=== PATIENT | female | born 1945 | race Caucasian/White ===

== ENCOUNTER 2018-03-11 12:17 | Observation (INO) | payer OTHER ==
--- NOTE | 2018-03-11 13:04 | RAD REPORT ---
EXAM DESCRIPTION: RAD - Chest Single View - 03/11/2018 12:58 pm CLINICAL HISTORY: CHEST PAIN Chest pain. COMPARISON: Chest Pa And Lat (2 Views) dated 01/02/2017; Chest Pa And Lat (2 Views) dated 11/10/2016; CHEST SINGLE VIEW dated 09/13/2014; CHEST SINGLE VIEW dated 05/31/2013 FINDINGS: Portable technique limits examination quality. The lungs are grossly clear. The heart is normal in size. No displaced fractures. IMPRESSION: No acute intrathoracic process suspected.
[2018-03-11 13:16] LABS: Absolute Lymphocytes (CBC) 1.6 K/uL (0.7-4.9); Absolute Monocytes 0.4 K/uL (0.1-1.3); Absolute Neutrophil 3.5 K/uL (1.8-8.0); Basophils % 0.6 % (0-1.3); Eosinophils % 1.4 % (0-4.4); Hematocrit 45.5 % (36.0-45.0); Lymphocytes % 28.4 % (15.3-44.8); MCH 29.8 pg (27.0-35.0); MCV 86.4 fL (80-100); MPV 8.3 fL (7.6-11.3); Monocytes % 7.5 % (3.3-12.3); Protime INR 1.06; RBC Red Blood Cell Count 5.26 M/uL (3.86-4.86)
[2018-03-11 13:39] LABS: ALT/SGPT 18 U/L (12-78); AST/SGOT 16 U/L (15-37); Albumin 3.6 g/dL (3.4-5.0); Alkaline Phosphatase 53 U/L (45-117); BUN Blood Urea Nitrogen 14 mg/dL (7-18); Bicarbonate 27 mmol/L (21-32); Bilirubin Direct 0.2 mg/dL (0-0.2); Bilirubin Total 0.6 mg/dL (0.2-1.0); Glucose Level 158 mg/dL (74-106); Lipase 173 U/L (73-393); Magnesium 1.8 mg/dL (1.8-2.4); NT PRO-BNP 1187 pg/mL (<125); Potassium 4.4 mmol/L (3.5-5.1); Protein, Total 7.6 g/dL (6.4-8.2); Sodium Level 140 mmol/L (136-145); Troponin (Emerg Dept Use Only) < 0.02 ng/mL (0.0-0.045)
[2018-03-11] MEDS ORDERED: ONDANSETRON 4 MG/2 ML VIAL ONE (13:51)
[2018-03-11] MEDS ORDERED: FENTANYL CITR 100 MCG/2 ML ONE ×2 (13:51→18:09)
--- NOTE | 2018-03-11 14:08 | RAD REPORT ---
EXAM DESCRIPTION: CT - Chest Abd Pelvis Wo Con - 03/11/2018 1:55 pm CLINICAL HISTORY: Chest and abdomen pain. chest pain. recent upper endoscopy COMPARISON: No comparisons TECHNIQUE: A noncontrast study was performed. All CT scans are performed using dose optimization technique as appropriate and may include automated exposure control or mA/KV adjustment according to patient size. FINDINGS: The lungs are clear.No pleural or pericardial effusion.No intrathoracic adenopathy. The liver, spleen, pancreas, adrenal glands and kidneys are within normal limits. Aortic atherosclero sis. No bowel obstruction, free air, free fluid or abscess. Scattered colonic diverticulosis. The appendix is not identified as a discrete structure, however, no secondary findings of appendicitis are identi fied. No pathologic lymphadenopathy in the abdomen or pelvis. Moderate aortoiliac atherosclerosis. Prominent degenerative spondylosis is noted with mild retrolisthesis of L1 on L2 and mild anterolisth esis of L4 on L5. IMPRESSION: No acute abnormality detected.
[2018-03-11] MEDS ORDERED: NITROGLYCERIN 1 GM PKT TD ONE (14:47)
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
[2018-03-11 16:36] LABS: Urine Blood NEGATIVE (NEG); Urine Glucose NEGATIVE (NEG); Urine Protein NEGATIVE (NEG); Urine Specific Gravity 1.015 (1.005-1.030)
[2018-03-11 16:58] LABS: Urine Bacteria <20 /HPF (<20); Urine Culture Reflex Order NOT NEEDED; Urine RBC <5 /HPF (NONE SEEN)
--- NOTE | 2018-03-11 19:24 | EKG ---
Test Date: 2018-03-11 Test Time: 12:46:21 Commercial Leasing Manager: GAGE MEASUREMENT RESULTS: Intervals: Rate: 79 IA: 150 QRSD: 80 QT: 394 QTc: 451 [place]: P: 36 IA: 150 QRS: 22 T: 113 INTERPRETIVE STATEMENTS: Sinus rhythm with occasional premature ventricular complexes T wave abnormality, consider lateral ischemia Abnormal ECG Compared to ECG 01/01/2017 18:32:25 Ventricular premature complex(es) now present Possible ischemia now present T-wave abnormality still present Electronically Signed On 03-11-18 19:22:48 CDT by Pedro Pablo Steen
[2018-03-11] MEDS ORDERED: PNEUMOCOCCAL VACCINE 0.5 ML IMVAC ONE (21:00)
[2018-03-11] MEDS ORDERED: ACETAMINOPHEN PO PRN (21:03)
[2018-03-11] MEDS ORDERED: HYDROCODONE BIT PO PRN (21:03)
[2018-03-11] MEDS: ACETAMINOPHEN 500 MG TAB PO PRN (22:59)
[2018-03-12 04:27] LABS: Absolute Lymphocytes (CBC) 2.5 K/uL (0.7-4.9); Absolute Monocytes 0.6 K/uL (0.1-1.3); Absolute Neutrophil 3.8 K/uL (1.8-8.0); Basophils % 0.3 % (0-1.3); Eosinophils % 1.4 % (0-4.4); Hematocrit 43.8 % (36.0-45.0); Lymphocytes % 35.9 % (15.3-44.8); MCV 86.6 fL (80-100); MPV 8.7 fL (7.6-11.3); Monocytes % 8.3 % (3.3-12.3); RBC Red Blood Cell Count 5.05 M/uL (3.86-4.86)
[2018-03-12 04:55] LABS: Potassium 4.1 mmol/L (3.5-5.1); Thyroid Stimulating Hormone 1.71 uIU/mL (0.360-3.740)
[2018-03-12] MEDS: ACETAMINOPHEN 500 MG TAB PO PRN (05:33)
--- NOTE | 2018-03-12 06:44 | HP ---
Date of Admission: 03/11/2018 Chief Complaint: Abdominal pain, chest pain. History Of Present Illness: A 72-year-old female patient who had EGD done last week on Sunday with Vinay Delacruz and she will be going for colonoscopy next week. Patient says her EGD showed gastritis and g astric ulcer, and she was started on proton pump inhibitor therapy. She has been having some upper a bdominal pain in the high epigastric region and some chest pain. She says her pain from upper abdome n radiates to her upper chest on the right side of the base of the neck and then right arm. Pain has been more or less continuous, getting worse, so she came into emergency room today; after she was ev aluated in the ER, she was admitted to the hospital. After some pain medication given to her in the emergency room, she has started to feel better; when I saw her, she was feeling much better. Medications: List reviewed. Review of Systems: GI: As mentioned above. Cardiovascular: As mentioned above. All other systems reviewed and negative. Allergies: ACCORDING TO OFFICE LIST SHE IS ALLERGIC TO TETRACYCLINE, SULFA, LYRICA, IODINE, HYDROCOD ONE, GABAPENTIN, AMOXICILLIN, ADHESIVE TAPE. Social History: Negative for smoking or alcohol use. Family History: Significant for diabetes mellitus, lupus, coronary artery disease. Past Surgical History: Removal of lipomas, carpal tunnel release, hernia repair, hip replacement, hy sterectomy, tonsillectomy, bladder suspension, and removal of benign tumor from breast. Past Medical History: Significant for hypertension, mixed hyperlipidemia, type 2 diabetes mellitus, overactive bladder, depression, gastroesophageal reflux disease, fatigue. Physical Examination: Vital Signs: Last temperature 97, pulse 83, respiratory rate 16, blood pressure 100/44. General: Awake, alert, oriented, not in distress. HEENT: Head atraumatic, normocephalic. Conjunctivae nonerythematous. Sclerae white. Mouth, no thr ush or edema noted. Ears/Nose, no mass, lesion, discharge noted. Neck: Supple. No JVD, lymph nodes, bruit, thyromegaly noted. Lungs: Bilateral good equal air entry. Clear to auscultation. No rhonchi. No rales. Heart: Normal heart sounds, no murmur or gallop. Abdomen: Soft, bowel sounds normal. No guarding, rigidity, tenderness, mass, hepatosplenomegaly, dis tention, or bruit noted. Extremities: No leg edema. No calf tenderness. Skin: No rash, ulcer, cellulitis. Lymphatics: No lymph node enlargement in neck, supraclavicular, infraclavicular region. Neuro: No focal neurological deficit. Chest: Unremarkable. External Genitalia: Deferred. Rectal: Deferred. Laboratory Data: White count 5.7, hemoglobin 15.7, platelets 137. Sodium 140, potassium 4.4, chlori de 106, bicarb 27, BUN 14, creatinine 0.80, glucose 158. Liver function tests unremarkable. Troponi n, less than 0.02 x 3. Lipase 173. Urinalysis; 1+ esterase, otherwise negative. CAT scan of the ch est, abdomen, and pelvis done in the emergency room shows no evidence of any acute abnormality. Elec trocardiogram; sinus rhythm, occasional premature ventricular complex. Chest x-ray, no acute cardiop ulmonary changes. Impression: 1.Chest pain. 2.Abdominal pain. 3.Hypertension. 4.Mixed hyperlipidemia. 5.Diabetes mellitus. 6.Gastroesophageal reflux disease. Plan: Admit the patient to hospital for further evaluation and management of this problem. The aster ent is appropriate for observation. We will get serial cardiac enzymes, consult Cardiology, and back pain medication will be given per order. DVT prophylaxis will be given per order. I will see her tomorrow morning for followup. AJAY/FREDI Voice ID: [id number]
[2018-03-12] MEDS ORDERED: REGADENOSON 0.4 MG/5 ML SYR IV ONE (08:10)
[2018-03-12] MEDS ORDERED: VALSARTAN PO SCH (09:00)
[2018-03-12] MEDS ORDERED: SERTRALINE PO SCH (09:00)
[2018-03-12] MEDS ORDERED: ASPIRIN EC 81 MG TAB PO SCH (09:00)
[2018-03-12] MEDS ORDERED: PANTOPRAZOLE SODIUM PO SCH (09:00)
[2018-03-12] MEDS ORDERED: HOME MED 1 EA UNK (Losartan Potassium [Cozaar] 1 TAB) PO SCH (09:00)
--- NOTE | 2018-03-12 11:15 | RAD REPORT ---
EXAM DESCRIPTION: NM - Rest Stress Cardiac Imaging - 03/12/2018 11:07 am CLINICAL HISTORY: Chest pain. COMPARISON: None. TECHNIQUE: The patient was administered approximately 10mCi of Tc 99m Sestamibi prior to resting SPE CT imaging of the heart. The patient was then administered approximately 30 mCi of Tc 99m Sestamibi f ollowing exercise or pharmacologic stress. Multiplanar SPECT images were reviewed. FINDINGS: Small area of diminished radiotracer activity involving the inferior left ventricular myoc ardium probably is secondary to attenuation from the diaphragm Otherwise there is uniformity of radiotracer activity involving the entire left ventricular myocardiu m on rest and stress images. The left ventricular ejection fraction equals 44% IMPRESSION: Negative for a myocardial perfusion defect
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
[2018-03-12] MEDS ORDERED: OXYBUTYNIN CHLORIDE PO SCH (17:30)
[2018-03-12] MEDS ORDERED: ROPINIROLE HCL PO SCH (17:30)
[2018-03-12] MEDS ORDERED: ATORVASTATIN CALCIUM PO SCH (17:30)
--- NOTE | 2018-03-13 06:30 | DS ---
Date of Discharge: 03/12/2018 Disposition: Discharged to go home. Physical Examination: HEENT: Unremarkable. Lungs: Clear to auscultation. Heart: Sounds normal. Abdomen: Soft. Bowel sounds normal. No guarding, rigidity, tenderness, or distention. Extremities: No leg edema. Labs: Today white count 7, hemoglobin 15.2, platelets 138. Sodium 140, potassium 4.1, chloride 104, bicarb 31, BUN 18, creatinine 0.90, glucose 158. Hemoglobin A1c 7.7. TSH 1.7. Troponin less than 0.02 x3. Lexiscan stress test negative for any stress-induced ischemia. Hospital Course: A 72-year-old female patient admitted to the hospital with chest pain and abdominal pain. Please see dictated H and P for more information. The patient was evaluated in the ER yester day. She was admitted to the hospital. WI was ruled out by getting serial cardiac enzymes. Cardiol ogy consultation was obtained from Dr. Steen. He ordered a stress test and echocardiogram. Stress test result was available and it was negative. Echocardiogram result was pending. We will follow u p on outpatient basis. The patient was asymptomatic this morning, had no chest pain or abdominal olegario n, and her condition was stable for discharge. I will follow up on outpatient basis. She is schedul ed to have colonoscopy next week with fuel retrofitting technician and I have encouraged her to keep that appoi ntment. Final Diagnoses: 1.Chest pain. 2.Abdominal pain. 3.Mixed hyperlipidemia. 4.Hypertension. 5.Diabetes mellitus, type 2, uncontrolled. 6.Gastroesophageal reflux disease. AJAY/MODL Voice ID: [id number] Report ID: [id number]
--- NOTE | 2018-03-14 07:01 | CON ---
Date of Consultation: 03/12/2018 Reason For Consultation: Chest pain. History Of Present Illness: Ms. Aparicio is known to us from previous office visits and admission. S he is 72 years old, has a history of hypertension, dyslipidemia, restless legs syndrome, gastroesopha geal reflux disease as well as diabetes. Had history of open ductus arteriosus when she was a child and that closed spontaneously. Apparently, had an upper GI and has had some chest pain that radiates to the right shoulder. Chest pain is sharp, stabbing. No nausea, vomiting, diaphoresis, PND, ortho pnea, pedal edema, palpitations, or syncope. Negative CPK, troponin, MB, negative BNP, chest x-ray, and EKG. Lexiscan is pending. Allergies: SHE IS ALLERGIC TO MORPHINE, TETRACYCLINE, AND IODINE. Review of Systems: Negative. Social History: Negative. Family History: Negative. Medications: Listed above. Physical Examination: Vital Signs: Stable, afebrile. HEENT: Negative. Neck: Supple. No bruit. Chest: Clear. Cardiac: Revealed a regular rhythm and rate. No murmurs, gallops, or rubs. Abdomen: Benign. Extremities: Revealed no clubbing, cyanosis, or edema. Diagnostic Data: As stated earlier. Impression And Plan: 1.Atypical chest pain, most likely gastric or musculoskeletal. She has multiple risk factors. Fatimah scan is pending. 2.Hypertension, well controlled. 3.Dyslipidemia, well controlled. 4.Gastroesophageal reflux disease. 5.Restless legs syndrome, on Requip. 6.Diabetes, well controlled. 7.History of open ductus arteriosus that closed spontaneously when she was a child. I will discuss the case further with Dr. Garner and see what the Lexiscan shows prior to making any final decisions. DAVID/FREDI Voice ID: [id number] Report ID: [id number]
== END 2018-03-12 15:35 | disposition home or self-care (01) ==
LOC: ER 12:17 → ERHOLD 15:49 → 4TH 17:12
PROVIDERS: ADMIT Internal Medicine; ATTEND Internal Medicine
DX: R07.9 Chest pain, unspecified (principal); R10.9 Unspecified abdominal pain; E78.2 Mixed hyperlipidemia; I10 Essential (primary) hypertension; E11.65 Type 2 diabetes mellitus with hyperglycemia; K21.9 Gastro-esophageal reflux disease without esophagitis; F32.9 Major depressive disorder, single episode, unspecified; Z96.649 Presence of unspecified artificial hip joint; Z88.0 Allergy status to penicillin; Z88.2 Allergy status to sulfonamides
CPT/HCPCS: 36415; 71045; 71250; 74176; 78452; 80048 ×2; 80076; 82962 ×2; 83036; 83690; 83735; 83880; 84443; 84484 ×3; 85025 ×2; 85610; 93005; 93017; 96374; 96375; 99285; A9500; G0378 ×2; J2405; J2785; J3010 ×2; 81003; 81015

== ENCOUNTER 2018-04-08 07:27 | Day surgery (SDC) | payer OTHER ==
[2018-04-08] MEDS ORDERED: Ringers Lactate 1,000 ML IV ONE (07:59)
[2018-04-08] MEDS ORDERED: CEFAZOLIN/SWI 1gm 1 GM/10 ML SYR ONE (07:59)
[2018-04-08] MEDS ORDERED: MIDAZOLAM HCL 2 MG/2 ML INJ ONE (08:32)
[2018-04-08] MEDS ORDERED: FENTANYL CITR 100 MCG/2 ML ONE (08:32)
[2018-04-08] MEDS ORDERED: PROPOFOL 200 MG/20 ML VIAL IV ONE (08:32)
[2018-04-08] MEDS ORDERED: ROCURONIUM 50 MG/5 ML VIAL IV ONE (08:33)
[2018-04-08] MEDS ORDERED: LIDOCAINE 2% MPF 5 ML VIAL ONE (08:33)
[2018-04-08] MEDS ORDERED: EPHEDRINE SULF 50 MG/10 ML SYR ONE (09:38)
[2018-04-08] MEDS ORDERED: NEOSTIGMINE 1 MG/ML -5 ML SYRINGE ONE (09:54)
[2018-04-08] MEDS ORDERED: KETOROLAC 30 MG/ML INJ ONE (09:54)
[2018-04-08] MEDS ORDERED: GLYCOPYRROLATE 0.2 MG/ML SYR ONE (09:54)
[2018-04-08] MEDS ORDERED: ONDANSETRON HCL 40 MG/20 ML VIAL ONE (09:54)
[2018-04-08] MEDS: MEPERIDINE HCL 50 MG/ML AMP ONE ×4 (10:08→10:30)
[2018-04-08] MEDS ORDERED: MEPERIDINE HCL 50 MG/ML AMP ONE (10:43)
[2018-04-08] MEDS ORDERED: ONDANSETRON 4 MG/2 ML VIAL ONE (10:59)
[2018-04-08] MEDS ORDERED: NA CHLORIDE 0.9% 500 ML ONE (11:19)
[2018-04-08] MEDS ORDERED: HYDROCODONE/APAP 7.5/325 MG TAB ONE (12:08)
--- NOTE | 2018-04-08 20:36 | OP ---
Date of Procedure: 04/08/2018 Surgeon: Ángel Starkey MD Parachute Marker: ALONDRA Werner. Preoperative Diagnoses: Chronic abdominal pain and umbilical hernia. Postoperative Diagnoses: Chronic abdominal pain and umbilical hernia. Procedures: Diagnostic laparoscopy, laparoscopic lysis of adhesions, laparoscopic repair of umbilica l hernia. Estimated Blood Loss: Minimal. Specimen: None. Findings: As above. Anesthesia: General. Complications: None. Disposition: The patient tolerated the procedure in stable condition and taken to Recovery in good g eneral condition. Procedure In Detail: The patient was brought to the OR and placed in supine position. General anest hesia was begun. The patient was prepped and draped in usual sterile fashion. Marcaine 0.5% was inf iltrated locally. A 15-blade was used to make a 2-cm left upper quadrant incision. Subcutaneous tis sues were divided. The fascia was identified and divided. A #1 Vicryl stay suture was placed. Meenakshi toneal cavity was entered with sharp and blunt dissection. A 12-mm trocar was placed into the perito omkar cavity under direct vision. Pneumoperitoneum was established, and two 5-mm trocars were placed in the left lower quadrant and the right upper quadrant. Laparoscopy revealed extensive midline inci hayde going all the way down to the pelvis and these were lysed with ligature, took approximately 15 t o 20 minutes to lyse all of these adhesions, following which there was no evidence of bleeding noted and no bowel injury. These were omental adhesions, and then, a small 2-cm umbilical hernia was ident ified, and a mesh balloon system was placed, Bard type, 4-inch one and with complete coverage of the hernia defect and this was deployed as well as secured with AbsorbaTack stapler and complete coverage of the hernia defect was accomplished. Then, all trocars were removed under direct vision. The com ponents of the balloon system were removed and it was completely intact. There was no evidence of bl eeding or bowel injury appreciated. Subsequently, all trocars were removed. Stay sutures were tied to each other across the fascial defect. Subcutaneous wounds were irrigated. Bleeding was controlle d with cautery. A 3-0 chromic was used for subcutaneous tissue and meredith were used to close the sk in. Sterile dressing was applied. The patient was awakened and taken to Recovery in good general co ndition. Discharge Note: The patient will go to Day Surgery and home when stable. Disposition: Home. Condition: Stable. Discharge Instructions: Resume home medications and diet. Activity as tolerated. No heavy lifting. Remove outer dressing in 2 days. Shower. Keep wound clean and dry. Follow up in my office in a [place]. Call for appointment. Tylenol No.3 one tablet p.o. q.4 p.r.n. pain. Abdominal binder, incenti ve spirometry as ordered. /MODL Voice ID: [id number] Report ID: [id number]
== END 2018-04-08 12:44 | disposition home or self-care (01) ==
LOC: OR 07:27
PROVIDERS: ATTEND Surgery
PROC: 0WUF4JZ Supplement Abdominal Wall with Synthetic Substitute, Percutaneous Endoscopic Approach (ICD-10-PCS; principal; 2018-04-08 09:00)
PROC: 0DNU4ZZ Release Omentum, Percutaneous Endoscopic Approach (ICD-10-PCS; 2018-04-08 09:00)
DX: K42.9 Umbilical hernia without obstruction or gangrene (principal); K66.0 Peritoneal adhesions (postprocedural) (postinfection); E11.9 Type 2 diabetes mellitus without complications; I10 Essential (primary) hypertension; Z86.73 Personal history of transient ischemic attack (TIA), and cerebral infarction without residual deficits; Z91.040 Latex allergy status; Z88.2 Allergy status to sulfonamides; Z91.041 Radiographic dye allergy status
CPT/HCPCS: 49329; 49652; 82962 ×2; C1781; J0690; J2175 ×2; J2405 ×2; J2710; J3010; J2250

== ENCOUNTER 2018-05-02 10:25 | Day surgery (SDC) | payer OTHER ==
[2018-05-01 11:30] LABS: Absolute Monocytes 0.5 K/uL (0.1-1.3); Absolute Neutrophil 4.8 K/uL (1.8-8.0); Basophils % 0.8 % (0-1.3); Eosinophils % 1.9 % (0-4.4); Hematocrit 47.1 % (36.0-45.0); Lymphocytes % 26.5 % (15.3-44.8); MCH 29.6 pg (27.0-35.0); MCV 87.1 fL (80-100); MPV 8.4 fL (7.6-11.3); Monocytes % 7.1 % (3.3-12.3); RBC Red Blood Cell Count 5.41 M/uL (3.86-4.86)
[2018-05-01 11:43] LABS: Potassium 4.6 mmol/L (3.5-5.1); Protime INR 1.11
[2018-05-02] MEDS ORDERED: NA CHLORIDE 0.9% 500 ML ONE (10:37)
[2018-05-02] MEDS ORDERED: HEPA 1000U/500MLS 1,000 UNIT/500 ML BAG IV ONE (11:15)
[2018-05-02] MEDS ORDERED: MIDAZOLAM HCL 2 MG/2 ML INJ ONE ×2 (11:16→11:24)
[2018-05-02] MEDS ORDERED: METHYLPREDNISOLONE 125 MG INJ ONE (11:16)
[2018-05-02] MEDS ORDERED: NA CHLORIDE 0.9% 0 ML ONE (11:16)
[2018-05-02] MEDS ORDERED: FENTANYL CITR 100 MCG/2 ML ONE (11:16)
[2018-05-02] MEDS ORDERED: ATROPINE SULF 1 MG/10 ML SYR IV ONE (11:16)
--- NOTE | 2018-05-02 23:06 | OP ---
Date of Procedure: 05/02/2018 Surgeon: Pedro Pablo Steen MD Shell Trim Tool Setter: Angie Lynch. Procedure: Left heart catheterization with selective coronary arteriogram. Indication: Abnormal stress test and chest pain. Indication: Mrs. Aparicio is 72, multiple cardiac risk factors. Had chest pain. Had actually Cardio lite that showed no ischemia, but she had reduction of her ejection fraction from normal to 44%. Had chest pain, dyspnea on exertion, admitted for catheterization as an outpatient on 05/02/2018. Procedure In Detail: She was prepped and draped in the routine sterile fashion, given 4 mg of Versed and 100 of fentanyl for sedation. A 6-[place] African sheath introduced in the left groin. Angio-Seal was u sed to close the case. Angiography there showed normal common femoral artery. Renata catheter was used to do the diagnostic catheterization. She was found to have moderate diffuse plaquing in the LA D and RCA and the circumflex, 70% first diagonal. She was right dominant with a 30% mid lesion in th e RCA, 20% distal RCA lesion. Ejection fraction by echo was 44%. Complications: None. Blood Loss: 5 cc. Postoperative Diagnosis: Moderate coronary artery disease. Plan: Plan is for medical therapy. I will probably add carvedilol to her regimen and have her incre ase her atorvastatin. Total conscious sedation is 30 minutes. DAVID/FREDI Voice ID: [id number] Report ID: [id number]
== END 2018-05-02 14:10 | disposition home or self-care (01) ==
LOC: CCL 10:25
DX: I25.110 Atherosclerotic heart disease of native coronary artery with unstable angina pectoris (principal); I35.1 Nonrheumatic aortic (valve) insufficiency; E78.6 Lipoprotein deficiency; E11.9 Type 2 diabetes mellitus without complications; Z88.6 Allergy status to analgesic agent; Z88.2 Allergy status to sulfonamides; Z88.8 Allergy status to other drugs, medicaments and biological substances; Z91.041 Radiographic dye allergy status; Z91.040 Latex allergy status; Z91.09 Other allergy status, other than to drugs and biological substances
CPT/HCPCS: 36415; 80048; 82962; 85025; 85610; 85730; 93454; C1760; C1893; J2250 ×2; J2930; J3010; J0583

== ENCOUNTER 2019-10-06 08:09 | Emergency (ER) | payer OTHER ==
--- OUTSIDE RECORDS SUMMARY | 2019-10-06 08:27 | XMS REPORT ---
:1945 Author Organization [facility] t Address [address] [place] [address] Dr. Walton [address] [place] [id number] Care Team Providers Name Role Phone Unavailable Unavailable Unavailable Problems This patient has no known problems. Allergies, Adverse Reactions, Alerts This patient has no known allergies or adverse reactions. Medications This patient has no known medications.
--- NOTE | 2019-10-06 10:22 | RAD REPORT ---
EXAM DESCRIPTION: Marvin Parra (2 Views)10/06/2019 10:05 am CLINICAL HISTORY: Chest pain COMPARISON: 2018 FINDINGS: The lungs appear clear of acute infiltrate. The heart is normal size IMPRESSION: No acute abnormalities displayed
[2019-10-06 10:39] LABS: Absolute Lymphocytes (CBC) 2.5 K/uL (0.7-4.9); Basophils % 0.6 % (0-1.3); Hematocrit 41.4 % (36.0-45.0); Lymphocytes % 31.3 % (15.3-44.8); MPV 7.8 fL (7.6-11.3); RBC Red Blood Cell Count 4.89 M/uL (3.86-4.86)
[2019-10-06 10:57] LABS: ALT/SGPT 17 U/L (12-78); AST/SGOT 14 U/L (15-37); Albumin 3.4 g/dL (3.4-5.0); Alkaline Phosphatase 65 U/L (45-117); BUN Blood Urea Nitrogen 29 mg/dL (7-18); Bicarbonate 26 mmol/L (21-32); Bilirubin Total 0.3 mg/dL (0.2-1.0); Glucose Level 221 mg/dL (74-106); Lipase 248 U/L (73-393); Protein, Total 7.6 g/dL (6.4-8.2); Sodium Level 141 mmol/L (136-145); Troponin (Emerg Dept Use Only) < 0.02 ng/mL (0.0-0.045)
[2019-10-06] MEDS ORDERED: ONDANSETRON 4 MG/2 ML VIAL ONE (11:04)
[2019-10-06] MEDS ORDERED: FENTANYL CITR 100 MCG/2 ML ONE (11:04)
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
[2019-10-06 11:35] LABS: Urine Blood NEGATIVE (NEG); Urine Glucose TRACE (NEG); Urine Protein NEGATIVE (NEG); Urine Specific Gravity 1.025 (1.005-1.030)
[2019-10-06 12:02] VITALS: O2SAT 98
[2019-10-06 12:04] VITALS: BP 157/60; TEMP 98.6
--- NOTE | 2019-10-06 16:17 | EKG ---
Test Date: 2019-10-06 Test Time: 08:45:24 Bat Person: FADIA MEASUREMENT RESULTS: Intervals: Rate: 81 WA: 150 QRSD: 82 QT: 392 QTc: 455 [place]: P: 33 WA: 150 QRS: 19 T: 99 INTERPRETIVE STATEMENTS: Normal sinus rhythm Nonspecific T wave abnormality Abnormal ECG Compared to ECG 03/11/2018 15:13:37 No significant changes Electronically Signed On 10-06-19 16:16:11 CDT by Pedro Pablo Steen
== END 2019-10-06 11:44 | disposition home or self-care (01) ==
LOC: ER 08:09
DX: S29.011A Strain of muscle and tendon of front wall of thorax, initial encounter (principal); S29.012A Strain of muscle and tendon of back wall of thorax, initial encounter; E11.9 Type 2 diabetes mellitus without complications; E78.5 Hyperlipidemia, unspecified; Z79.82 Long term (current) use of aspirin; Z88.1 Allergy status to other antibiotic agents; Z88.2 Allergy status to sulfonamides; Z88.3 Allergy status to other anti-infective agents; Z88.5 Allergy status to narcotic agent; Z88.8 Allergy status to other drugs, medicaments and biological substances; Z91.040 Latex allergy status; Z91.048 Other nonmedicinal substance allergy status
CPT/HCPCS: 93005; 85025; 36415; 85379; 81003; 84484; 83690; 80053; 71046; J3010; J2405; 96374; 96375; 99285

== ENCOUNTER 2022-02-27 06:57 | Emergency (ER) | payer OTHER ==
--- OUTSIDE RECORDS SUMMARY | 2022-02-27 07:01 | XMS REPORT | Continuity of Care Document ---
:1945 Author Organization [facility] t Address [address] [place] [address] Care Team Providers Name Role Phone ABIGAIL MUNOZ Primary Care Physician Unavailable SURAJ PATEL Attending Clinician Unavailable JURGEN CANNON Attending Clinician Unavailable Doctor Unassigned, [place] Attending Clinician Unavailable Suraj Patel MD Attending Clinician Payers Payer Name Policy Type Policy Number Effective Date Expiration Date [facility] [id number] 2020 [facility] 00:00:00 PPO Problems Condition Condition Condition Status Onset Resolution Last Treating Co mments Source Name Details Category Date Date Treatment Clinician Date Abscess of Abscess of Disease Active U nivers groin, groin, 03-10 ity of right right 00:00: [place] 00 Medical Branch S/P TAVR S/P TAVR Disease Active 2020 Unive rs (transcath (transcath 03-04 it y of eter eter 00:00: [place] aortic aortic 00 Medical valve valve Branch replacemen replacemen t) t) Aortic Aortic Disease Active Overview: Univer s valve valve 02-24 Formattin ity of stenosis, stenosis, 00:00: g of this [place] etiology etiology 00 note Medica l of cardiac of cardiac might be Branch valve valve different disease disease from the unspecifie unspecifie original. d d Added automatic ally from request for surgery [id number] Cardiogeni Cardiogeni Disease Active U nivers c shock c shock 7-11 ity of 00:00: [place] [facility] Elevated Elevated Disease Active Unive rs troponin troponin 7 ity of 00:00: [place] [facility] Acute Acute Disease Active Univers diastolic diastolic 12-29 ity of congestive congestive 00:[place] heart heart 00 Medical failure failure Branch Other Other Disease Active Univers chest pain chest pain 12-29 it y of 00:00: [place] [facility] History of History of Disease Active U nivers arterial arterial 12-29 ity of ischemic ischemic 00:00: [place] stroke stroke 00 Medical Branch Obesity Obesity Disease Active Univers (BMI (BMI 7 ity of 30-39.9) 30-39.9) 00:00: [place] [facility] NSTEMI NSTEMI Disease Active Univers (non-ST (non-ST 12-29 ity of elevated elevated 00:00: [place] myocardial myocardial 00 Me dical infarction infarction Br anch ) ) Dysphagia Dysphagia Disease Active Uni vers 707 ity of 00:00: [place] [facility] Nonobstruc Nonobstruc Disease Active 2017-06 U nivers tive tive 1-13 ity of atheroscle atheroscle 00:[place] rosis of rosis of 00 Medica l coronary coronary 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 This diagnosis is questiona ble according to her; she has had high sed ratesICD1 0 Diagnosis Term [employer] Myalgia Myalgia Disease Active Overview: Univ ers and and Formattin ity of myositis myositis g of this [place] as note Medical might be Branch different from the original. Has malaise, and flu-like symptoms, and sometimes a low grade temperatu reICD10 Diagnosis Term [employer] Backache Backache Disease Active Overview: Un jose Formattin ity of g of this [place] note Medical might be Branch different from the original. Pt has chronic back [id number] Diagnosis Term [employer] Type 2 Type 2 Disease Active Overview: Univer s diabetes diabetes Formattin ity of mellitus mellitus g of this [place] as with with note Medical cardiac cardiac might be Branch complicati complicati different on on from the original. Type IIICD10 Diagnosis Term [employer] Diabetic Diabetic Disease Active Overview: Un jose polyneurop polyneurop Formattin ity of athy athy g of this [place] note Medical might be Branch different from the original. ICD10 Diagnosis Term [employer] Esophageal Esophageal Disease Active U nivers reflux reflux ity of [facility] Branch Generalize Generalize Disease Active U nivers d d ity of osteoarthr osteoarthr [place] osis, osis, Medical unspecifie unspecifie Br anch d site d site Transient Transient Disease Active Overview: Univers cerebral cerebral Formattin ity of ischemia ischemia g of this [place] as note Medical might be Branch different from the original. 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 ICD10 Diagnosis Term [employer] Allergies, Adverse Reactions, Alerts Allergy Allergy Status Severity Reaction(s) Onset Inactive Treating Comm ents Source Name Type Date Date Clinician Empaglif Propensi Active Swelling 2017-06 Univ ers lozin ty to 07-07 ity of adverse 00:00: [place] reaction 00 Medical s Branch EMPAGLIF DRUG Active Swelling 2017-06 Univer s LOZIN INGREDI 07-07 ity of 00:00: [place] 00 Medical Branch Adalimum Propensi Active Other - See 2014-06 Pt U nivers ab ty to comments developed ity o f adverse 00:00: fatty [place] reaction tumors Medical s to all over Branch drug body Inflixim Propensi Active Shortness of 2014-06 Univers ab ty to Breath ity of adverse 00:00: [place] reaction Medical s to Branch drug INFLIXIM DRUG Active High SOB 2014-06 Univers AB INGREDI 0 ity of 00:00: [place] 00 Medical Branch ADALIMUM DRUG Active Med Other-Cmnt 2014-06 Univ ers AB INGREDI 0 ity of 00:00: [place] 00 Medical Branch Methocar Propensi Active Swelling Univ ers bamol ty to 03-23 ity of adverse 00:00: [place] reaction Medical s to Branch drug METHOCAR DRUG [facility] 03-23 ity of 00:00: [place] 00 Medical Branch Pregabal Propensi Active Anaphylaxis U nivers in ty to 12-23 ity of adverse 00:00: [place] reaction Medical s to Branch drug Morphine Propensi Active Hallucinatio Univers ty to ns 12-23 ity of adverse 00:00: [place] reaction 00 Medical s Branch PREGABAL DRUG Active High Anaphylaxis Uni vers IN INGREDI 12-23 ity of 00:00: [place] 00 Medical Branch MORPHINE DRUG Active Hallucinates Un jose INGREDI 12-23 ity of 00:00: [place] 00 Medical Branch Iodine Propensi Active Swelling 2007-0 Univer s And ty to 09 ity of Iodide adverse 00:00: [place] Containi reaction 00 Medica l ng s to Branch Products drug Sulfa Propensi Active Anxiety Head Univers (Sulfona ty to 09 Aches ity of mide adverse 00:00: [place] Antibiot reaction 00 Medica l ics) s Branch Adhesive Propensi Active Hives Also Univer s Tape ty to 10-01 Surgical ity of adverse 00:00: tape [place] reaction 00 Medical s Branch Tetracyc Propensi Active Anaphylaxis 2006- U nivers line ty to 09 ity of adverse 00:00: [place] reaction 00 Medical s to Branch drug TETRACYC DRUG Active High Anaphylaxis 2006- Uni vers LINE INGREDI - ity of 00:00: [place] 00 Medical Branch IODINE Drug Active Med Swelling Univers AND Class 4-09 ity of IODIDE 00:00: [place] CONTAINI 00 Medical NG Branch PRODUCTS SULFA Drug Active Anxiety Univers (SULFONA Class -09 ity of MIDE 00:00: [place] ANTIBIOT 00 Medical ICS) Branch ADHESIVE DRUG Active Hives Univers TAPE 09 ity of 00:00: [place] 00 Medical Branch Iodine Propensi Active Swelling Univer s And ty to 09 ity of Iodide adverse 00:00: [place] Containi reaction 00 Medica l ng s to Branch Products drug Sulfa Propensi Active Anxiety Head Univers (Sulfona ty to 09 Aches ity of mide adverse 00:00: [place] Antibiot reaction 00 Medica l ics) s Branch Social History Social Habit Start Date Stop Date Quantity Comments Source History [facility] Food Univers ity of Scarcity [place] [facility] History [facility] o f Alcohol Frequency [facility] [place] [facility] edical Branch History [facility] University o f Alcohol Std [place] Medical Drinks Branch History [facility] o f Alcohol Binge [place] Medic al Branch Exposure to Not sure University of SARS-CoV-2 [facility] (event) Branch Alcohol intake 2021-09-07 2021-09-07 Current non-drinker U niversity of 00:00:00 00:00:00 of alcohol [place] Medical (finding) Branch History [facility] 2020-03-10 2020-03-10 5 University o f Financial 00:00:00 00:00:00 [place] [facility] History SDOH Food 2020-03-10 2020-03-10 1 Univers ity of Worry 00:00:00 00:00:00 [place] [facility] History SDFL 2020-03-10 2020-03-10 2 University o f Transport Med 00:00:00 00:00:00 [place] Medic al Branch History SDFL 2020-03-10 2020-03-10 2 University o f Transport Non-Med 00:00:00 00:00:00 [place] M edical Branch Tobacco Comment 2006-10-01 2006-10-01 Quit more than Unive rsity of 00:00:00 00:00:00 thirty some years [place] M amaical ago Branch Alcohol Comment 2006-10-01 2006-10-01 Drinks ETOH very Uni versity of 00:00:00 00:00:00 occasionally [place] Medica l Branch Sex [birth year] Universit y of 00:00:00 00:00:00 [facility] Smoking Status Start Date Stop Date Source Former smoker 2020-06-29 00:00:00 2020-06-29 00:00:00 Universi ty of [facility] Medications Ordered Filled Start Stop Current Ordering Indication Dosage Frequency Signature Comments Components Source Medication Medication Date Date Medication? Clinician (SIG) Name Name semaglutide Yes [id number] .5mg inject 0.5 Univers (OZEMPIC) 3-08 mg under ity of 0.25 mg or 00:00: the skin [place] as 0.5 mg(2 00 weekly. Medical mg/1.5 mL) Branch PnIj semaglutide Yes [id number] .5mg inject 0.5 Univers (OZEMPIC) 3-08 mg under ity of 0.25 mg or 00:00: the skin [place] as 0.5 mg(2 00 weekly. Medical mg/1.5 mL) Branch PnIj Lancets 2020-06 Yes Use as Univers (ACCU-CHEK 2-21 directed ity o f SOFTCLIX 00:00: BID to [place] LANCETS) 00 check Medical Misc glucose Branch levels blood sugar 2020-06 Yes Use as Univ ers diagnostic 2-21 directed ity o f (ACCU-CHEK 00:00: to check [place] as GUIDE TEST 00 glucose Medica l STRIPS) levels BID Branch strip Blood-Gluco 2020-06 Yes Use as Univ ers se Meter 2-21 directed ity of (ACCU-CHEK 00:00: to check [place] as GUIDE 00 glucose Medical GLUCOSE BID Branch METER) Misc Lancets 2020-06 Yes Use as Univers (ACCU-CHEK 2-21 directed ity o f SOFTCLIX 00:00: BID to [place] LANCETS) 00 check Medical Misc glucose Branch levels blood sugar 2020-06 Yes Use as Univ ers diagnostic 2-21 directed ity o f (ACCU-CHEK 00:00: to check [place] as GUIDE TEST 00 glucose Medica l STRIPS) levels BID Branch strip Blood-Gluco 2020-06 Yes Use as Univ ers se Meter 2-21 directed ity of (ACCU-CHEK 00:00: to check [place] as GUIDE 00 glucose Medical GLUCOSE BID Branch METER) [facility] famotidine 2020-06 Yes 20mg Take 20 mg U nivers 20 mg 2-08 by mouth 2 ity of tablet 10:31: (two) [place] 58 times Medical daily. Branch NaCl 0.9% 2020-06 Yes CONTINUOUS Un jose (NS) SolP 2-08 . ity of 60 mL with 10:31: [place] Nitroglycer 58 Medical in 50 mg/10 Branch mL (5 mg/mL) Soln 24 mg rosuvastati 2020-06 Yes 10mg Take 10 mg Univers n 10 mg 2-08 by mouth ity of tablet 10:31: at [place] [address] bedtime. Medical Branch fluticasone 2020-06 Yes Inhale. Uni vers furoate 50 2-08 ity of mcg/actuati 10:31: [place] on DsDv 58 Medical Branch famotidine 2020-06 Yes 20mg Take 20 mg U nivers 20 mg 2-08 by mouth 2 ity of tablet 10:31: (two) [place] 58 times Medical daily. Branch NaCl 0.9% 2020-06 Yes CONTINUOUS Un jose (NS) SolP 2-08 . ity of 60 mL with 10:31: [place] Nitroglycer 58 Medical in 50 mg/10 Branch mL (5 mg/mL) Soln 24 mg rosuvastati 2020-06 Yes 10mg Take 10 mg Univers n 10 mg 2-08 by mouth ity of tablet 10:31: at [place] [address] bedtime. Medical Branch fluticasone 2020-06 Yes Inhale. Uni vers furoate 50 2-08 ity of mcg/actuati 10:31: [place] on DsDv 58 Medical Branch albuterol 2020-06 Yes [id number] 2{puff} Inhale 2 Univers 90 2-08 Puffs ity of mcg/actuati 00:00: every 6 [place] as on inhaler 00 (six) Medical hours as Branch needed for Wheezing or Shortness of Breath. albuterol 2020-06 Yes [id number] 2{puff} Inhale 2 Univers 90 2-08 Puffs ity of mcg/actuati 00:00: every 6 [place] as on inhaler 00 (six) Medical hours as Branch needed for Wheezing or Shortness of Breath. metformin Yes [id number] 500mg Take 1 U nivers ER 500 mg 9-08 tablet by ity o f 24 hr 00:00: mouth [place] tablet 00 daily with Medical breakfast. Branch metformin Yes [id number] 500mg Take 1 U nivers ER 500 mg 9-08 tablet by ity o f 24 hr 00:00: mouth [place] tablet 00 daily with Medical breakfast. Branch semaglutide 2021- No [id number] .5mg inject 0.5 Univers (OZEMPIC) 9-08 03-08 mg under ity o f 0.25 mg or 00:00: 00:00 the [place] 0.5 mg(2 00 :00 weekly. Medical mg/1.5 mL) Branch PnIj docusate Yes 100mg Take 100 Univ ers (COLACE) 1-05 mg by ity of 100 mg 15:32: mouth 2 [place] capsule 44 (two) Medical times Branch daily as needed for Constipati on. mirtazapine Yes 7.5mg Take 7.5 U nivers 7.5 mg 1-05 mg by ity of tablet 15:32: mouth at [place] 44 bedtime. Medical Branch SERTraline Yes 100mg Take 100 Un jose 100 mg 1-05 mg by ity of tablet 15:32: mouth 2 [place] 44 (two) Medical times Branch daily. oxybutynin Yes 5mg Take 5 mg Un jose chloride 5 1-05 by mouth ity o f mg tablet 15:32: as needed. [place] 44 Medical Branch docusate 0 Yes 100mg Take 100 Univ ers (COLACE) 1-05 mg by ity of 100 mg 15:32: mouth 2 [facility] 44 (two) Medical times Branch daily as needed for Constipati on. mirtazapine 0 Yes 7.5mg Take 7.5 U nivers 7.5 mg 1-05 mg by ity of tablet 15:32: mouth at [place] [address] bedtime. Medical Branch SERTraline 0 Yes 100mg Take 100 Un jose 100 mg 1-05 mg by ity of tablet 15:32: mouth 2 [place] 44 (two) Medical times Branch daily. oxybutynin 0 Yes 5mg Take 5 mg Un jose chloride 5 1-05 by mouth ity o f mg tablet 15:32: as needed. [place] [id number] Medical Branch furosemide 2020-1 Yes 20mg Take 1 Unive rs 20 mg 0-27 tablet by ity of tablet 00:00: mouth [place] 00 every Medical morning Branch and evening. furosemide 2020-1 Yes 20mg Take 1 Unive rs 20 mg 0-27 tablet by ity of tablet 00:00: mouth [place] 00 every Medical morning Branch and evening. acetaminoph 2020-0 Yes [id number] 1{tbl} Take 1 Un jose en-codeine 9-12 tablet by ity of 300-30 mg 00:00: mouth [place] tablet 00 every 6 Medical (six) Branch hours as needed for Pain (scale 4-6) or Pain (scale 7-10). Indication s: acute pain acetaminoph 2020-0 Yes [id number] 1{tbl} Take 1 Un jose en-codeine 9-12 tablet by ity of 300-30 mg 00:00: mouth [place] tablet 00 every 6 Medical (six) Branch hours as needed for Pain (scale 4-6) or Pain (scale 7-10). Indication s: acute pain nitroglycer 2020-[id number] 1 Univers in 0.4 mg 8-19 tablet ity of sublingual 00:00: under the [place] tablet 00 tongue Medical every 5 Branch (five) minutes as needed for Chest pain. nitroglycer 2020-[id number] 1 Univers in 0.4 mg 8-19 tablet ity of sublingual 00:00: under the [place] tablet 00 tongue Medical every 5 Branch (five) minutes as needed for Chest pain. atorvastati 2020-0 Yes [id number] 40mg Take 1 Univers n 40 mg 7-21 tablet by ity of tablet 00:00: mouth [place] 00 daily. Medical Branch clopidogreL 2020-0 Yes [id number] 75mg Take 1 Univers 75 mg 7-21 tablet by ity of tablet 00:00: mouth [place] 00 daily. Medical Branch aspirin 81 2020-0 Yes [id number] 81mg Take 1 U nivers mg chewable 7-21 tablet by ity of tablet 00:00: mouth [place] 00 daily. Medical Branch atorvastati 2020-0 Yes [id number] 40mg Take 1 Univers n 40 mg 7-21 tablet by ity of tablet 00:00: mouth [place] 00 daily. Medical Branch clopidogreL 2020-0 Yes [id number] 75mg Take 1 Univers 75 mg 7-21 tablet by ity of tablet 00:00: mouth [place] 00 daily. Medical Branch aspirin 81 2020-0 Yes [id number] 81mg Take 1 U nivers mg chewable 7-21 tablet by ity of tablet 00:00: mouth [place] 00 daily. Medical Branch Immunizations Ordered Filled Immunization Date Status Comments [facility] e Immunization Name Name Influenza High Dose 2020-04-26 Completed Unive rsity of 00:00:00 [facility] Influenza High Dose 2020-04-26 Completed Unive rsity of 00:00:00 [facility] Influenza Virus 1991-06-25 Completed Universit y of Vaccine 00:00:00 [facility] Pneumococcal 1991-06-25 Completed [place] o f Polysaccharide, 00:00:00 [place] Med ical PPSV23 (PNEUMOVAX) Branch Influenza Virus 1991-06-25 Completed Universit y of Vaccine 00:00:00 [facility] Pneumococcal 1991-06-25 Completed [place] o f Polysaccharide, 00:00:00 [place] Med ical PPSV23 (PNEUMOVAX) Branch Vital Signs Vital Name Observation Time Observation Value Comments Source Systolic blood 2021-09-22 00:18:00 133 mm[Hg] Univer sity [facility] pressure Medical [place] Diastolic blood 2021-09-22 00:18:00 68 mm[Hg] Unive rsity of [facility] Body height 2021-09-22 00:18:00 162.6 cm Universi ty [facility] Body weight 2021-09-22 00:18:00 86.183 kg [facility] BMI 2021-09-22 00:18:00 32.61 kg/m2 [facility] Procedures Procedure Date / Time Performed Performing Clinician Sour e EXTERNAL PROVIDER 2021-10-12 05:01:00 Doctor Unassigned, No Univ [facility] RECORDS Name [facility] POCT HEMOGLOBIN A1C 2021-08-30 19:18:00 Suraj Patel [facility] Encounters Start End Encounter Admission Attending Care Care Encounter Source Date/Time Date/Time Type Type Clinicians Facility Department ID 2022-06-27 2022-06-27 Outpatient R JEANETTE [facility] [id number] Univers 14:00:00 14:00:00 [facility] [id number] [facility] 2022-03-07 2022-03-07 Outpatient R JEANETTE [facility] [id number] Univers 13:00:00 13:00:00 [facility] 2021-12-14 2021-12-14 Outpatient R KASSANDRA [facility] [id number] Univers 10:30:00 10:30:00 JURGEN [facility] 2021-10-12 2021-10-12 Orders Doctor DOUGLAS [id number] Univers 00:00:00 00:00:00 Only Unassigned, DOMONIQUE [id number] ity of [place] [facility] [id number] [place] as [id number] [address] 2021-08-30 2021-08-[address] [facility] [id number] Univers 13:00:00 14:06:24 Visit [facility] [id number] it y of [place] [id number] [place] as KENDAL?BLEA [phone] Tn maureen [address] MEDICAL OFFICE BUILDING 2021-08-30 2021-08-30 Outpatient R JEANETTE [facility] [id number] Univers 13:00:00 14:06:24 [facility] 2020-06-29 2020-06-[address] [facility] [id number] 15:07:47 16:11:28 Visit Suraj Alarcon [id number] [place] [id number] [place] [phone] [address] 2020-06-29 2020-06-29 Orders Doctor STELLA [id number] 00:00:00 00:00:00 Only Unassigned, DOMONI[place] [id number] [place] [facility] [id number] [id number] Results Test Description Test Time Test Comments Results Result Comments Source POCT HEMOGLOBIN A1C TEST 2021-08-30 19:18:00 Test Item Value Reference Range Interpretation Comme nts POCT HBA1C (test code = 4548-4) 6.5 % 4-6 A Lab Interpretation (test code = 96805-6) Abnormal [facility]
[2022-02-27 07:37] LABS: Absolute Lymphocytes (CBC) 2.1 K/uL (0.7-4.9); Lymphocytes % 27.2 % (15.3-44.8); MCV 83.7 fL (80-100); MPV 7.7 fL (7.6-11.3); RBC Red Blood Cell Count 5.74 M/uL (3.86-4.86)
[2022-02-27 07:53] LABS: Albumin 3.7 g/dL (3.4-5.0); Bilirubin Total 0.4 mg/dL (0.2-1.0); Potassium 4.4 mmol/L (3.5-5.1); Protein, Total 7.9 g/dL (6.4-8.2)
--- NOTE | 2022-02-27 08:04 | RAD REPORT ---
EXAM DESCRIPTION: CT - Abdomen Pelvis Wo Contrast - 02/27/2022 7:50 am CLINICAL HISTORY: Abdominal pain /left lower quadrant pain COMPARISON: 2019 ultrasound TECHNIQUE: Computed axial tomography of the abdomen and pelvis was obtained. IV and oral contrast we re not requested. All CT scans are performed using dose optimization technique as appropriate and may include automated exposure control or mA/KV adjustment according to patient size. FINDINGS: The evaluation of solid organs, vessels and bowel is limited secondary to the lack of con trast administration. The liver, spleen, pancreas, adrenals and kidneys appear grossly normal. The wall of distal stomach appears mildly thickened. There is no evidence of diverticulitis. Right hip arthroplasty Spondylosis lumbar spine. Atherosclerosis Hysterectomy. No adnexal mass IMPRESSION: Mild thickening of the wall of distal stomach may indicate mild inflammation.
[2022-02-27] MEDS ORDERED: NA CHLORIDE 0.9% 1,000 ML ONE (08:05)
[2022-02-27] MEDS ORDERED: FAMOTIDINE 20 MG/2 ML VIAL IV ONE (08:05)
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
[2022-02-27 09:58] VITALS: TEMP 97.3
[2022-02-27 10:00] VITALS: O2SAT 98
[2022-02-27 10:10] VITALS: BP 133/57
== END 2022-02-27 09:16 | disposition home or self-care (01) ==
LOC: ER 06:57
DX: R10.32 Left lower quadrant pain (principal); E11.9 Type 2 diabetes mellitus without complications; E78.5 Hyperlipidemia, unspecified; F17.210 Nicotine dependence, cigarettes, uncomplicated; Z79.82 Long term (current) use of aspirin; Z86.73 Personal history of transient ischemic attack (TIA), and cerebral infarction without residual deficits; Z88.1 Allergy status to other antibiotic agents; Z88.2 Allergy status to sulfonamides; Z88.5 Allergy status to narcotic agent; Z88.8 Allergy status to other drugs, medicaments and biological substances; Z91.040 Latex allergy status; Z91.041 Radiographic dye allergy status; Z91.048 Other nonmedicinal substance allergy status
CPT/HCPCS: 96361; 85025; 36415; 83690; 80053; 74176; 96374; 99284; J7030

== ENCOUNTER 2022-03-08 07:00 | Day surgery (SDC) | payer OTHER ==
[2022-03-06 12:26] LABS: SARS-CoV-2 Antigen Rapid Res Negative (Negative)
[2022-03-06 12:29] LABS: Protime INR 1.09
[2022-03-08] MEDS ORDERED: HEPA 1000U/500MLS 0 UNIT/0 ML BAG IV ONE (07:18)
[2022-03-08] MEDS ORDERED: LIDOCAINE 1% 20 ML MDV ONE (07:18)
[2022-03-08] MEDS ORDERED: FENTANYL CITR 100 MCG/2 ML ONE ×2 (07:27→09:05)
[2022-03-08] MEDS ORDERED: HEPARIN 10,000 UNIT/10 ML VIAL IV ONE (07:28)
[2022-03-08] MEDS ORDERED: MIDAZOLAM HCL 2 MG/2 ML INJ ONE ×2 (07:28→09:05)
[2022-03-08] MEDS ORDERED: NITROGLYCERIN 100 MCG/ML SYR (for cath lab use only) IV ONE (07:28)
[2022-03-08] MEDS ORDERED: NITROGLYCERIN/D5W 25 MG/250 ML BTL IV ONE (07:28)
[2022-03-08] MEDS ORDERED: CLOPIDOGREL 75 MG TABLET ONE (07:32)
[2022-03-08] MEDS ORDERED: NA CHLORIDE 0.9% 500 ML ONE ×2 (07:34→07:41)
[2022-03-08] MEDS ORDERED: NA CHLORIDE 0.9% 1,000 ML ONE (07:47)
[2022-03-08] MEDS ORDERED: HEPA 1000U/500MLS 1,000 UNIT/500 ML BAG IV ONE (07:52)
[2022-03-08] MEDS ORDERED: DIPHENHYDRAMINE 50 MG/ML VIAL ONE (08:00)
[2022-03-08] MEDS ORDERED: METHYLPREDNISOLONE 125 MG INJ ONE (08:01)
[2022-03-08 12:30] VITALS: BP 150/63; O2SAT 94
== END 2022-03-08 12:31 | disposition home or self-care (01) ==
LOC: CCL 07:00
PROVIDERS: ATTEND Radiology Diagnostic Radiology
DX: I70.245 Atherosclerosis of native arteries of left leg with ulceration of other part of foot (principal); I25.10 Atherosclerotic heart disease of native coronary artery without angina pectoris; I10 Essential (primary) hypertension; E11.9 Type 2 diabetes mellitus without complications; E78.00 Pure hypercholesterolemia, unspecified; M19.90 Unspecified osteoarthritis, unspecified site; Z95.828 Presence of other vascular implants and grafts; Z95.1 Presence of aortocoronary bypass graft; Z95.5 Presence of coronary angioplasty implant and graft; Z86.73 Personal history of transient ischemic attack (TIA), and cerebral infarction without residual deficits; Z79.82 Long term (current) use of aspirin; Z79.84 Long term (current) use of oral hypoglycemic drugs; Z79.899 Other long term (current) drug therapy; Z88.5 Allergy status to narcotic agent; Z88.2 Allergy status to sulfonamides; Z88.8 Allergy status to other drugs, medicaments and biological substances; Z88.6 Allergy status to analgesic agent; Z91.040 Latex allergy status; Z91.041 Radiographic dye allergy status; Z20.822 Contact with and (suspected) exposure to COVID-19; Z82.49 Family history of ischemic heart disease and other diseases of the circulatory system
CPT/HCPCS: 36415; 85610; 85730; 36200; 36246; 37226; 87811; C1893; C1769; J1200; J2250; J3010 ×2; J7040 ×2; J7030; J1644; J2930; 37221; 37228; 75625; 75710

== ENCOUNTER 2022-04-16 08:53 | Emergency (ER) | payer OTHER ==
--- OUTSIDE RECORDS SUMMARY | 2022-04-16 08:57 | XMS REPORT | Continuity of Care Document ---
:1945 Author Organization [facility] t Address [address] [place] [address] Care Team Providers Name Role Phone Fred Garner Narendra Primary Care Physician OLGA DINERO Attending Clinician Unavailable Suraj Reid MD Attending Clinician SURAJ REID Attending Clinician Unavailable JURGEN CANNON Attending Clinician Unavailable Doctor Unassigned, [place] Attending Clinician Unavailable Jurgen Cannon MD Attending Clinician [phone] Test, Vtc Pulmonary Function Attending Clinician Unavailable Only, Adc Test Attending Clinician Unavailable Mitesh Coe MD Attending Clinician MITESH COE Attending Clinician Unavailable KENNA MEJIA Attending Clinician Unavailable PARKER ESPINOZA Attending Clinician Unavailable PARKER ESPINOZA Attending Clinician Unavailable ADY COLLINS Attending Clinician Unavailable OLGA DINERO Admitting Clinician Unavailable Payers Payer Name Policy Type Policy Number Effective Date Expiration Date S ource [employer] CHOICE [id number] 2013 00:00:00 Problems Condition Condition Condition Status Onset Resolution Last Treating Co mments Source Name Details Category Date Date Treatment Clinician Date Abscess of Abscess of Disease Active 2020-0 U nivers groin, groin, 9-16 ity of right right 00:00: [place] 00 Medical Branch S/P TAVR S/P TAVR Disease Active 2020-0 Unive rs (transcath (transcath 9 it y of eter eter 00:00: [place] [...] Added automatic ally from request for surgery [id number] Cardiogeni Cardiogeni Disease Active 2019- U nivers c shock c shock 7-11 ity of 00:00: [place] 00 Medical Branch Elevated Elevated Disease Active 2019- Unive rs troponin troponin 7-07 ity of 00:00: [place] 00 Medical Branch Acute Acute Disease Active 2019- Univers diastolic diastolic 707 ity of congestive congestive [place] heart heart 00 Medical failure failure Branch Other Other Disease Active 2020-0 Univers chest pain chest pain 7-07 it y of 00:00: [place] 00 Medical Branch History of History of Disease Active 2019- U nivers arterial arterial 7-07 ity of ischemic ischemic 00:00: [place] stroke stroke 00 Medical Branch Obesity Obesity Disease Active 2020-0 Univers (BMI (BMI 7-07 ity of 30-39.9) 30-39.9) 00:00: [place] 00 Medical Branch NSTEMI NSTEMI Disease Active 2020-0 Univers (non-ST (non-ST 7-07 ity of elevated elevated 00:00: [place] myocardial myocardial 00 Me dical infarction infarction Br anch ) ) Dysphagia Dysphagia Disease Active 2019- Uni vers 7-07 ity of 00:00: [place] 00 Medical Branch Nonobstruc Nonobstruc Disease Active 2017-06 U nivers tive tive 1-13 ity of atheroscle atheroscle 00:[place] rosis of rosis of 00 Medica l coronary coronary 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 This diagnosis is questiona ble according to her; she has had high sed ratesICD1 0 Diagnosis Term Mailroom Supervisor Utility Myalgia Myalgia Disease Active Overview: Univ ers and and Formattin ity of myositis myositis g of this [place] as note Medical might be Branch different from the original. Has malaise, and flu-like symptoms, and sometimes a low grade temperatu reICD10 Diagnosis Term Mailroom Supervisor Utility Backache Backache Disease Active Overview: Un jose Formattin ity of g of this [place] note Medical might be Branch different from the original. Pt has chronic back [id number] Diagnosis Term Mailroom Supervisor Utility Type 2 Type 2 Disease Active Overview: Univer s diabetes diabetes Formattin ity of mellitus mellitus g of this [place] as with with note Medical cardiac cardiac might be Branch complicati complicati different on on from the original. 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 ICD10 Diagnosis Term Mailroom Supervisor Utility Esophageal Esophageal Disease Active U nivers reflux reflux ity of [place] [facility] Generalize Generalize Disease Active U nivers d d ity of osteoarthr osteoarthr [place] osis, osis, Medical unspecifie unspecifie Br anch d site d site Transient Transient Disease Active Overview: Univers cerebral cerebral Formattin ity of ischemia ischemia g of this [place] as note Medical might be Branch different from the original. 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 ICD10 Diagnosis Term Mailroom Supervisor Utility Allergies, Adverse Reactions, Alerts Allergy Allergy Status Severity Reaction(s) Onset Inactive Treating Comm ents Source Name Type Date Date Clinician Empaglif Propensi Active Swelling 2017-06 [facility] [facility] ers lozin ty to 07-07 ity of adverse 00:00: [place] reaction 00 Medical s Branch EMPAGLIF DRUG Active Swelling 2017-06 [facility] LOZIN INGREDI 07-07 ity of 00:00: [place] 00 Medical Branch Adalimum Propensi Active Other - See 2014-06 Pt U nivers ab ty to comments 0-19 developed ity o f adverse 00:00: fatty [place] reaction 00 tumors Medical s to all over Branch drug body Inflixim Propensi Active Shortness of 2014-06 Univers ab ty to Breath 0-19 ity of adverse 00:00: [place] reaction 00 Medical s to Branch drug INFLIXIM DRUG Active High SOB 2014-06 Univers AB INGREDI 0-19 ity of 00:00: [place] 00 Medical Branch ADALIMUM DRUG Active Med Other-Cmnt 2014-06 [facility] [facility] ers AB INGREDI 0-19 ity of 00:00: [place] 00 Medical Branch Methocar Propensi Active Swelling [facility] [facility] ers bamol ty to 03-23 ity of adverse 00:00: [place] reaction 00 Medical s to Branch drug METHOCAR DRUG Active Med Swelling [facility] BAMOL INGREDI 03-23 ity of 00:00: [place] 00 Medical Branch Pregabal Propensi Active Anaphylaxis 2014- U nivers in ty to 12-23 ity of adverse 00:00: [place] reaction 00 Medical s to Branch drug Morphine Propensi Active Hallucinatio 2014- Univers ty to ns 12-23 ity of adverse 00:00: [place] reaction 00 Medical s Branch PREGABAL DRUG Active High Anaphylaxis 2014- Uni vers IN INGREDI 12-23 ity of 00:00: [place] 00 Medical Branch MORPHINE DRUG Active Hallucinates 2014- Un jose INGREDI 12-23 ity of 00:00: [place] 00 Medical Branch Iodine Propensi Active Swelling Univer s And ty to 10-01 ity of Iodide adverse 00:00: [place] Containi reaction 00 Medica l ng s to Branch Products drug Sulfa Propensi Active Anxiety Head Univers (Sulfona ty to 10-01 Aches ity of mide adverse 00:00: [place] [...] High Anaphylaxis 2006- Uni vers LINE INGREDI 10-01 ity of 00:00: [place] 00 Medical Branch IODINE Drug Active Med Swelling Univers AND Class 4-09 ity of IODIDE 00:00: [place] CONTAINI 00 Medical NG Branch PRODUCTS SULFA Drug Active Anxiety 2006- Univers (SULFONA Class 4-09 ity of MIDE 00:00: [place] ANTIBIOT 00 Medical ICS) Branch ADHESIVE DRUG Active Hives 2006-0 Univers TAPE 4-09 ity of 00:00: [place] 00 Medical Branch Iodine Propensi Active Swelling 2006-0 Univer s And ty to 10-01 ity of Iodide adverse 00:00: [place] Containi reaction 00 Medica l ng s to Branch Products drug Sulfa Propensi Active Anxiety 2006-0 Head Univers (Sulfona ty to 09 Aches ity of mide adverse 00:00: [place] Antibiot reaction 00 Medica l ics) s Branch Social History Social Habit Start Date Stop Date Quantity Comments Source History SDOH Food Univers ity of Scarcity [place] [facility] History of Current smoker University of tobacco use [place] [facility] History SDOH University o f Alcohol Frequency [place] M edical Branch History SDOH University o f Alcohol Std [place] Medical Drinks Branch History SDNM University o f Alcohol Binge [place] Medic al Branch Exposure to Not sure University of SARS-CoV-2 [place] Medical (event) Branch Alcohol intake 2021-09-07 2021-09-07 Current non-drinker U niversity of 00:00:00 00:00:00 of alcohol [place] Medical (finding) Branch History SDNM 2020-03-10 2020-03-10 5 University o f Financial 00:00:00 00:00:00 [place] [facility] History SDOH Food 2020-03-10 2020-03-10 1 Univers ity of Worry 00:00:00 00:00:00 [place] [facility] History SDNM 2020-03-10 2020-03-10 2 University o f Transport Med 00:00:00 00:00:00 [place] Medic al Branch History [facility] 2020-03-10 2020-03-10 2 University o f Transport Non-Med 00:00:00 00:00:00 [facility] edical Branch Tobacco use and 2015-01-01 2015-01-01 Smokeless tobacco Un iversity of exposure 00:00:00 00:00:00 non-user [facility] [place] [facility] Tobacco Comment 2006-10-01 2006-10-01 Quit more than Unive rsity of 00:00:00 00:00:00 thirty some years [facility] ago Branch Alcohol Comment 2006-10-01 2006-10-01 Drinks ETOH very Uni versity of 00:00:00 00:00:00 [facility] [place] Sex Assigned At [birth year] Universit y of 00:00:00 00:00:00 [facility] [place] [facility] Smoking Status Start Date Stop Date Source Ex-smoker 2015-01-01 00:00:00 2015-01-01 00:00:00 Universi ty [facility] Medical [place] Medications Ordered Filled Start Stop Current Ordering Indication Dosage Frequency Signature Comments Components Source Medication Medication Date Date Medication? Clinician (SIG) Name Name metformin Yes [id number] TAKE ONE Univers ER 500 mg 9-17 TABLET BY ity o f 24 hr 00:00: MOUTH [place] tablet 00 DAILY WITH Medical BREAKFAST Branch semaglutide Yes [id number] .5mg inject 0.5 Univers (OZEMPIC) 3-08 mg under ity of 0.25 mg or 00:00: the skin [place] as 0.5 mg(2 00 weekly. Medical mg/1.5 mL) Branch PnIj semaglutide 0 Yes [id number] .5mg inject 0.5 Univers (OZEMPIC) 3-08 mg under ity of 0.25 mg or 00:00: the skin [place] as 0.5 mg(2 00 weekly. Medical mg/1.5 mL) Branch PnIj semaglutide 0 Yes [id number] .5mg inject 0.5 Univers (OZEMPIC) 3-08 mg [...] glucose Medical GLUCOSE BID Branch METER) Misc famotidine 2020-06 Yes 20mg Take 20 mg U nivers 20 mg 2-08 by mouth 2 ity of tablet 10:31: (two) [place] 58 times Medical daily. Branch NaCl 0.9% 2020-06 Yes CONTINUOUS Un jose (NS) SolP 2-08 . ity of 60 mL with 10:31: [place] Nitroglycer 58 Medical in 50 mg/10 Branch mL (5 mg/mL) Soln 24 mg rosuvastati 2020-06 Yes 10mg Take 10 mg Univers n 10 mg 2-08 by mouth ity of tablet 10:31: at [place] [address] bedtime. Medical Branch fluticasone 2020-06 Yes Inhale. Uni vers furoate 50 2-08 ity of mcg/actuati 10:31: [place] on DsDv 58 Medical Branch famotidine 2020-06 Yes 20mg Take 20 mg U nivers 20 mg 2-08 by mouth 2 ity of tablet 10:31: (two) [place] 58 times Medical daily. Branch NaCl 0.9% 2020-06 Yes CONTINUOUS Un jose (NS) SolP 2-08 . ity of 60 mL with 10:31: [place] Nitroglycer 58 Medical in 50 mg/10 Branch mL (5 mg/mL) Soln 24 mg rosuvastati 2020-06 Yes 10mg Take 10 mg Univers n 10 mg 2-08 by mouth ity of tablet 10:31: at [place] 58 bedtime. Medical Branch fluticasone 2020-06 Yes Inhale. Uni vers furoate 50 2-08 ity of mcg/actuati 10:31: [place] on DsDv 58 Medical Branch famotidine 2020-06 Yes 20mg Take 20 mg U nivers 20 mg 2-08 by mouth 2 ity of tablet 10:31: (two) [place] 58 times Medical daily. Branch NaCl 0.9% 2020-06 Yes CONTINUOUS Un jose (NS) SolP 2-08 . ity of 60 mL with 10:31: [place] Nitroglycer 58 Medical in 50 mg/10 Branch mL (5 mg/mL) Soln 24 mg rosuvastati 2020-06 Yes 10mg Take 10 mg Univers n 10 mg 2-08 by mouth ity of tablet 10:31: at [place] 58 bedtime. Medical Branch fluticasone 2020-06 Yes Inhale. Uni vers furoate 50 2-08 ity of mcg/actuati 10:31: [place] on DsDv 58 Medical Branch albuterol 2020-06 Yes [id number] 2{puff} Inhale 2 Univers 90 2-08 Puffs ity of mcg/actuati 00:00: every 6 [place] as on inhaler 00 (six) Medical hours as Branch needed for Wheezing or Shortness of Breath. albuterol 2020-06 Yes [id number] 2{puff} Inhale 2 Univers 90 2-08 Puffs ity of mcg/actuati 00:00: every 6 [place] as on inhaler 00 (six) Medical hours as Branch needed for Wheezing or Shortness of Breath. albuterol 2020-06 Yes [id number] 2{puff} Inhale 2 Univers 90 2-08 Puffs ity of mcg/actuati 00:00: every 6 [place] as on inhaler 00 (six) Medical hours as Branch needed for Wheezing or Shortness of Breath. metformin Yes [id number] 500mg Take 1 U nivers ER 500 mg 9-08 tablet by ity o f 24 hr 00:00: mouth [place] tablet 00 daily with Medical breakfast. Branch metformin Yes [id number] 500mg Take 1 U nivers ER 500 mg 9-08 tablet by ity o f 24 hr 00:00: mouth [place] tablet 00 daily with Medical breakfast. Branch metformin 2021- No [id number] 500mg Take 1 Univers ER 500 mg 03-02-17 tablet by ity of 24 hr 00:00: 00:00 mouth [place] tablet 00 :00 daily with Medical breakfast. Branch semaglutide 2021- No [id number] .5mg inject 0.5 Univers (OZEMPIC) 03-02 03-08 mg under ity o f 0.25 mg or 00:00: 00:00 [place] 0.5 mg(2 00 :00 weekly. Medical mg/1.5 mL) Branch PnIj docusate 2020-0 Yes 100mg Take 100 Univ ers (COLACE) 1-05 mg by ity of 100 mg 15:32: mouth 2 [place] capsule 44 (two) Medical times Branch daily as needed for Constipati on. mirtazapine 1-0 Yes 7.5mg Take 7.5 U nivers 7.5 mg 1-05 mg by ity of tablet 15:32: mouth at [place] [address] bedtime. Medical Branch SERTraline 2020-0 Yes 100mg Take 100 Un jose 100 mg 1-05 mg by ity of tablet 15:32: mouth 2 [place] 44 (two) Medical times Branch daily. oxybutynin 1-0 Yes 5mg Take 5 mg Un jose chloride 5 1-05 by mouth ity o f mg tablet 15:32: as needed. [place] 44 Medical Branch docusate 2020-0 Yes 100mg Take 100 Univ ers (COLACE) 1-05 mg by ity of 100 mg 15:32: mouth 2 [place] capsule 44 (two) Medical times Branch daily as needed for Constipati on. mirtazapine 1-0 Yes 7.5mg Take 7.5 U nivers 7.5 mg 1-05 mg by ity of tablet 15:32: mouth at [place] [address] bedtime. Medical Branch SERTraline 2020-0 Yes 100mg Take 100 Un jose 100 mg 1-05 mg by ity of tablet 15:32: mouth 2 [place] 44 (two) Medical times Branch daily. oxybutynin 1-0 Yes 5mg Take 5 mg Un jose chloride 5 1-05 by mouth ity o f mg tablet 15:32: [place] needed. [place] 44 Medical Branch docusate 2020-0 Yes 100mg Take 100 Univ ers (COLACE) 1-05 mg by ity of 100 mg 15:32: mouth 2 [place] capsule 44 (two) Medical times Branch daily as needed for Constipati on. mirtazapine 1-0 Yes 7.5mg Take 7.5 U nivers 7.5 mg 1-05 mg by ity of tablet 15:32: mouth at [place] [address] bedtime. Medical Branch SERTraline 1-0 Yes 100mg Take 100 Un jose 100 mg 1-05 mg by ity of tablet 15:32: mouth 2 [place] 44 (two) Medical times Branch daily. oxybutynin 1-0 Yes 5mg Take 5 mg Un jose chloride 5 1-05 by mouth ity o f mg tablet 15:32: as needed. [place] 44 Medical Branch furosemide 2020-1 Yes 20mg Take [...] Indication s: acute pain nitroglycer 2020-[id number] 1 Univers in 0.4 mg 8-19 tablet ity of sublingual 00:00: under the [place] tablet 00 tongue Medical every 5 Branch (five) minutes as needed for Chest pain. nitroglycer 2020-[id number] 1 Univers in 0.4 mg 8-19 tablet ity of sublingual 00:00: under the [place] tablet 00 tongue Medical every 5 Branch (five) minutes as needed for Chest pain. nitroglycer 2020-[id number] 1 Univers in 0.4 mg 8-19 tablet ity of sublingual 00:00: under the [place] tablet 00 tongue Medical every 5 Branch (five) minutes as needed for Chest pain. atorvastati 2020-0 Yes [id number] 40mg Take 1 Univers n 40 mg 7-21 tablet by ity of tablet 00:00: mouth [place] 00 daily. Medical Branch clopidogreL 2020-0 Yes [id number] 75mg Take 1 Univers 75 mg 7-21 tablet by ity of tablet 00:00: mouth [place] 00 daily. Medical Branch aspirin 81 2020-0 Yes [id number] 81mg Take 1 U nivers mg chewable 7-21 tablet by ity of tablet 00:00: mouth [place] 00 daily. Medical Branch atorvastati 2020-0 Yes [id number] 40mg Take 1 Univers n 40 mg 7-21 tablet by ity of tablet 00:00: mouth [place] 00 daily. Medical Branch clopidogreL 2020-0 Yes [id number] 75mg Take 1 Univers 75 mg 7-21 tablet by ity of tablet 00:00: mouth [place] 00 daily. Medical Branch aspirin 81 2020-0 Yes [id number] 81mg Take 1 U nivers mg chewable 7-21 tablet by ity of tablet 00:00: mouth [place] 00 daily. Medical Branch atorvastati 2020-0 Yes [id number] 40mg Take 1 Univers n 40 mg 7-21 tablet by ity of tablet 00:00: mouth [place] 00 daily. Medical Branch clopidogreL 2020-0 Yes [id number] 75mg Take 1 Univers 75 mg 7-21 tablet by ity of tablet 00:00: mouth [place] 00 daily. Medical Branch aspirin 81 2020-0 Yes [id number] 81mg Take 1 U nivers mg chewable 7-21 tablet by ity of tablet 00:00: mouth [place] 00 daily. Medical Branch Immunizations Ordered Filled Immunization Date Status Comments [facility] Immunization Name Name Influenza High Dose 2020-04-26 Completed Unive rsity of 00:00:00 [facility] [place] [facility] Influenza High Dose 2020-04-26 Completed Unive rsity of 00:00:00 [facility] [place] [facility] Influenza High Dose 2020-04-26 Completed Unive rsity of 00:00:00 [facility] [place] [facility] Influenza Virus 1991-06-25 Completed Universit y of Vaccine 00:00:00 [facility] [place] [facility] Pneumococcal 1991-06-25 Completed University o f Polysaccharide, 00:00:00 [place] Med ical PPSV23 (PNEUMOVAX) Branch Influenza Virus 1991-06-25 Completed Universit y of Vaccine 00:00:00 [facility] [place] [facility] Pneumococcal 1991-06-25 Completed University o f Polysaccharide, 00:00:00 [place] Med ical PPSV23 (PNEUMOVAX) Branch Influenza Virus 1991-06-25 Completed Universit y of Vaccine 00:00:00 [facility] [place] [facility] Pneumococcal 1991-06-25 Completed University o f Polysaccharide, 00:00:00 [place] Med ical PPSV23 (PNEUMOVAX) [place] Vital Signs Vital Name Observation Time Observation Value Comments Source Systolic blood 2021-09-22 00:18:00 133 mm[Hg] Univer [facility] Diastolic blood 2021-09-22 00:18:00 68 mm[Hg] [facility] Body height 2021-09-22 00:18:00 162.6 cm [facility] Body weight 2021-09-22 00:18:00 86.183 kg [facility] BMI 2021-09-22 00:18:00 32.61 kg/m2 [facility] Procedures Procedure Date / Time Performed Performing Clinician Sour e EXTERNAL PROVIDER 2021-10-12 05:01:00 Doctor Unassigned, No Univ [facility] RECORDS [facility] POCT HEMOGLOBIN A1C 2021-08-30 19:18:00 Suraj Reid [facility] Encounters Start End Encounter Admission Attending Care Care Encounter Source Date/Time Date/Time Type Type Clinicians Facility Department ID 2021-04-22 Emergency [facility] [id number] Univers 17:55:04 [facility] 2021-04-22 Inpatient Gayla DINERO [facility] [id number] Univers 15:37:23 OLGA [facility] 2021-04-22 Emergency [facility] [id number] Univers 05:15:17 [facility] 2022-03-11 2022-03-11 Antony Reid NVSONIA [id number] Univers 00:00:00 00:00:00 [facility] [id number] it y of [place] [id number] [place] as ADALID?BLEA [phone] [place] maureen FINNEY [address] [place] MEDICAL OFFICE BUILDING 2022-03-07 2022-03-07 Outpatient R JEANETTE [facility] [id number] Univers 13:00:00 13:00:00 [facility] 2022-03-07 2022-03-07 Outpatient R JEANETTE [facility] [id number] Univers 13:00:00 13:00:00 [facility] 2021-12-14 2021-12-14 [facility] [id number] Univers 10:30:00 10:30:00 JURGEN alisha [facility] 2021-12-14 2021-12-14 [facility] [id number] Univers 10:30:00 10:30:00 [facility] 2021-10-12 2021-10-12 Orders Doctor STELLA [id number] Univers 00:00:00 00:00:00 Only Unassigned, DOMONIQUE [id number] ity of [place] [facility] [id number] [place] as [id number] [facility] 009 Branch 2021-09-07 2021-09-07 Office [facility] [id number] Univers 10:30:00 10:47:32 Visit Jurgen BONILLA [id number] ity of [place] [id number] [place] [facility] [id number] [facility] AND YASMANI 085 Branch [facility] 2021-09-07 2021-09-07 Outpatient Gayla CANNON [facility] [id number] Univers 10:30:00 10:47:32 JURGEN lopez [facility] 2021-09-07 2021-09-07 [facility] [id number] Univers 10:30:00 10:30:00 JURGEN lopez [facility] 2021-09-07 2021-09-07 Outpatient R KASSANDRA [facility] [id number] Univers 10:30:00 10:30:00 JURGEN [facility] 2021-08-30 2021-08-30 Outpatient Gayla REID [facility] [id number] Univers 13:00:00 14:06:24 [facility] 2021-08-30 2021-08-30 [facility] [id number] Univers 13:00:00 14:06:24 Visit [facility] [id number] it y of [place] [id number] [place] as ADALID?BLEA [id number] [place] maureen FINNEY [address] [place] [address] MEDICAL OFFICE BUILDING 2021-08-30 2021-08-30 Outpatient R JEANETTE [facility] [id number] Univers 13:00:00 14:06:24 [facility] 2021-08-30 2021-08-30 Outpatient Gayla REID [facility] [id number] Univers 13:00:00 13:00:00 [facility] 2021-08-30 2021-08-30 Orders Doctor STELLA [id number] Univers 00:00:00 00:00:00 Only Unassigned, DOMONIQUE [id number] ity of [place] [facility] [id number] [place] as [id number] [address] 2021-08-08 2021-08-08 [facility] [id number] Univers 10:06:39 23:59:00 Encounter Jurgen SKELTON [id number] ity of [facility] [id number] [place] C[place] [phone] [place] ma[place]en CINDA [address] [place] [address] 2021-08-08 2021-08-08 [facility] [id number] Univers 13:00:00 14:30:21 [facility] 2021-08-08 2021-08-08 Kiln Drawer Test, Vtc Pulmonary Function [facility] [id number] Univers 13:00:00 14:30:21 Visit Jurgen CannonPEC 350.1 .[id number] ity of [place] [id number] [facility] [id number] [facility] AND [place] 083 Branch [facility] 2021-08-08 2021-08-08 Hospital [facility] [id number] Univers 08:54:25 10:05:00 Encounter Jurgen SANCHEZ [id number] ity of [place] [id number] [facility] [id number] [address] ([facility]) 2021-08-08 2021-08-08 [facility] [id number] Univers 00:00:00 00:00:00 JURGEN lopez [facility] 2021-08-05 2021-08-05 Laboratory Only, Adc Test [facility] [id number]. [id number] Univers 15:00:00 15:15:00 Only Mitesh Coe [id number] ity of [place] [id number] [facility] [phone] [place] [address] [address] 2021-08-05 2021-08-05 Outpatient Gayla COE [facility] [id number] Univers 15:00:00 15:00:00 MTIESH lopez [facility] 2021-06-14 2021-06-14 [facility] [id number] Univers 00:00:00 00:00:00 Suraj BORJASPEC [id number] ity of [place] [id number] [facility] [phone] [facility] [place] [address] [facility] 2021-06-01 2021-06-01 Outpatient Gayla CANNON [facility] [id number] Univers 10:00:00 11:30:16 JURGEN lopez of [facility] 2021-06-01 2021-06-01 [facility] [id number] Univers 09:44:15 11:30:16 Visit Jurgen BONILLA [id number] ity of [id number] [place] [phone] [address] [facility] 2021-05-10 2021-05-10 Telephone [facility] [id number] Univers 00:00:00 00:00:00 Jurgen BONILLA [id number] ity of [place] SANCHEZJESSICA [id number] [facility] [place] [phone] [address] [facility] 2021-03-02 2021-03-02 Office [facility] [id number] Univers 13:34:41 15:58:40 Visit [facility] [id number] it y of [place] [id number] Fredo as Adalid?Blea [phone] [address] Medical Office [facility] [address] 2021-03-02 2021-03-02 Outpatient R JEANETTE [facility] [id number] Univers 13:00:00 13:00:00 [facility] 2021-03-02 2021-03-02 Orders Doctor STELLA [id number] Univers 00:00:00 00:00:00 Only Unassigned, DOMONIQUE [id number] ity of [place] [facility] [id number] Fredo as [phone] [address] 2020-11-02 2020-11-02 Outpatient R JEANETTE [facility] [id number] Univers 10:30:00 10:30:00 [facility] 2020-06-29 2020-06-29 Office [facility] [id number] 15:07:47 16:11:28 Visit Maulikbeto Dorian [id number] [place] [id number] Professio [phone] [facility] [address] 2020-06-29 2020-06-29 Outpatient R JEANETTE [facility] [id number] Univers 15:00:00 15:00:00 [facility] 2020-06-29 2020-06-29 Orders Doctor STELLA [id number] 00:00:00 00:00:00 Only Unassigned, DOMONIQUE [id number] [place] [facility] [id number] [id number] [id number] 2020-04-20 2020-04-20 Outpatient R [facility] [id number] Univers 15:00:00 15:00:00 [facility] 2020-03-30 2020-03-30 [facility] [id number] Univers 15:00:00 15:00:00 WENTONG [facility] 2020-03-10 2020-03-10 [facility] [id number] Univers 14:30:00 14:30:00 KHALED [facility] 2020-02-16 2020-02-16 [facility] [id number] Univers 00:00:00 00:00:[address] [facility] 2020-02-11 2020-02-11 [facility] [id number] Univers 15:30:00 15:30:00 [facility] 2020-01-29 2020-01-29 [facility] [id number] Univers 08:00:00 08:00:00 ADY stauffer [facility] Results Test Description Test Time Test Comments Results Result Comments Source POCT HEMOGLOBIN A1C TEST 2021-08-30 19:18:00 Test Item Value Reference Range Interpretation Comme nts POCT HBA1C (test code = 4548-4) 6.5 % 4-6 A Lab Interpretation (test code = 27245-5) Abnormal [facility]
[2022-04-16 09:30] LABS: Hematocrit 45.6 % (36.0-45.0); Lymphocytes % 30.3 % (15.3-44.8); MCV 83.7 fL (80-100); MPV 7.5 fL (7.6-11.3); RBC Red Blood Cell Count 5.44 M/uL (3.86-4.86)
[2022-04-16] MEDS ORDERED: FAMOTIDINE 20 MG/2 ML VIAL IV ONE (09:38)
[2022-04-16] MEDS ORDERED: ONDANSETRON 4 MG/2 ML VIAL ONE (09:38)
[2022-04-16 09:44] LABS: Albumin 3.4 g/dL (3.4-5.0); Bilirubin Total 0.5 mg/dL (0.2-1.0); Potassium 4.4 mmol/L (3.5-5.1); Protein, Total 7.3 g/dL (6.4-8.2)
[2022-04-16] MEDS ORDERED: FENTANYL CITR 100 MCG/2 ML ONE ×2 (09:57→11:27)
--- NOTE | 2022-04-16 10:13 | RAD REPORT ---
EXAM DESCRIPTION: US - Extremity Venous Uni Ltd - 04/16/2022 10:04 am CLINICAL HISTORY: Pain COMPARISON: None. TECHNIQUE: Real-time sonographic evaluation of the left lower extremity deep venous system was perfo rmed. FINDINGS: Normal compressibility, flow augmentation, phasic flow and spontaneous flow is identified in the left lower extremity deep venous system. No intraluminal filling defects seen. IMPRESSION: No DVT in the left lower extremity.
--- NOTE | 2022-04-16 10:38 | RAD REPORT ---
EXAM DESCRIPTION: CTChest Abd Pelvis Wo Con - 04/16/2022 10:15 am CLINICAL HISTORY: chest pain, left sided abdominal pain, COMPARISON: Chest Abd Pelvis Wo Con dated 03/11/2018 TECHNIQUE: CT of the chest, abdomen, and pelvis was performed without IV contrast. All CT scans are performed using dose optimization technique as appropriate and may include automated exposure control or mA/KV adjustment according to patient size. FINDINGS: Thorax: Chest Wall: No abnormal mass Lungs: No acute abnormality. Pleura: No effusions or pneumothorax. Funmilayo/Mediastinum: No lymphadenopathy. Circumferential thickening of distal esophagus. Aorta/Pulmonary Arteries: Severe stenosis likely present at the left subclavian due to dense calcifie d plaque. Heart: Normal size. Aortic valve prosthesis. Coronary artery calcifications. Abdomen/Pelvis: Liver: No acute abnormality or suspicious lesions. Biliary: No biliary ductal dilatation. Stomach: No significant focal abnormality. Duodenum: No significant focal abnormality. Pancreas: No significant abnormality. Spleen: No significant abnormality. Adrenal: No suspicious lesions. Kidney/ureter: No hydronephrosis. No renal calculi. Retroperitoneum: No retroperitoneal adenopathy. Vascular: No aneurysm. Calcified plaque left common femoral artery stent. abnormality. Moderate stool in the colon. Peritoneum: No ascites or free air. Bladder: Grossly unremarkable. Reproductive: No adnexal masses. Hysterectomy. Bones: No acute fracture. Right hip arthroplasty. Bridging osteophytes in the spine. Grade 1 anteroli sthesis of L4 on L5. Other: n/a IMPRESSION: No acute findings within the chest, abdomen, or pelvis. Ancillary findings as noted abov maximino
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
[2022-04-16 12:26] VITALS: TEMP 99.1
[2022-04-16 12:32] VITALS: BP 153/69; O2SAT 97
== END 2022-04-16 12:06 | disposition home or self-care (01) ==
LOC: ER 08:53
DX: R10.13 Epigastric pain (principal); M79.662 Pain in left lower leg; I10 Essential (primary) hypertension; E11.9 Type 2 diabetes mellitus without complications; Z88.1 Allergy status to other antibiotic agents; Z88.2 Allergy status to sulfonamides; Z88.5 Allergy status to narcotic agent; Z88.6 Allergy status to analgesic agent; Z88.8 Allergy status to other drugs, medicaments and biological substances; Z91.040 Latex allergy status; Z91.048 Other nonmedicinal substance allergy status
CPT/HCPCS: 85025; 36415; 83690; 80053; 71250; 74176; 93971; 96375; 96374; 99284; J3010 ×2; J2405

== ENCOUNTER 2022-05-26 09:18 | Day surgery (SDC) | payer OTHER ==
[2022-05-26] MEDS ORDERED: VANCOMYCIN 1.5 GM in NA CHLORIDE 0.9% 500 ML IVPB ONE (09:30)
[2022-05-26 09:59] VITALS: BMI 31.2
[2022-05-26] MEDS ORDERED: DIPHENHYDRAMINE 50 MG/ML VIAL ONE (11:36)
[2022-05-26] MEDS ORDERED: DIPHENHYDRAMINE 50 MG/ML VIAL IV ONE (11:39)
[2022-05-26 11:48] VITALS: TEMP 97.7
[2022-05-26 12:10] VITALS: BP 149/73; O2SAT 0
== END 2022-05-26 14:13 | disposition home or self-care (01) ==
LOC: DS 09:18
PROVIDERS: ATTEND Surgery
DX: M86.9 Osteomyelitis, unspecified (principal)
CPT/HCPCS: 96365; 96366; J1200; J3370; J7040

== ENCOUNTER 2022-06-24 13:45 | Emergency (ER) | payer OTHER ==
--- OUTSIDE RECORDS SUMMARY | 2022-06-24 13:50 | XMS REPORT | Continuity of Care Document ---
:1945 Author Organization [facility] [place] [facility] t Address [address] [place] [address] Care Team Providers Name Role Phone Fred Garner Narendra Primary Care Physician OLGA DINERO Attending Clinician Unavailable Suraj Reid MD Attending Clinician SURAJ REID Attending Clinician Unavailable JURGEN CANNON Attending Clinician Unavailable Doctor Unassigned, [place] Attending Clinician Unavailable Jurgen Cannon MD Attending Clinician [phone] Test, Vtc Pulmonary Function Attending Clinician [...] Date Expiration Date S ource HUMANA CHOICE [id number] 2013 00:00:00 Problems Condition Condition Condition Status Onset Resolution Last Treating Co mments Source Name Details Category Date Date Treatment Clinician Date Abscess of Abscess of Disease Active 2020-0 U nivers groin, groin, 9-16 ity of right right 00:00: [place] 00 Medical Branch 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 d d Added automatic ally from request for surgery [id number] Cardiogeni Cardiogeni Disease Active 2020-0 U nivers c shock c shock 7-11 ity of 00:00: [place] 00 Medical Branch Elevated Elevated Disease Active Unive rs troponin troponin 707 ity of 00:00: [place] 00 Medical Branch Acute Acute Disease Active 2020- Univers diastolic diastolic 707 ity of congestive congestive 00:00[place] heart heart 00 Medical failure failure Branch Other Other Disease Active 2020-0 Univers chest pain chest pain 7-07 it y of 00:00: [place] 00 Medical Branch History of History of Disease Active 2020- U nivers arterial arterial 7-07 ity of [...] anch ) ) Dysphagia Dysphagia Disease Active 2020- Uni vers 7-07 ity of 00:00: [place] 00 Medical Branch Elevated Elevated Disease Active 2020- Unive rs troponin troponin 7-07 ity of 00:00: [place] 00 Medical Branch Nonobstruc Nonobstruc Disease Active 2018 U nivers tive tive 1-13 ity of atheroscle atheroscle 00:[place] rosis of rosis of 00 Medica l 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 This diagnosis is questiona ble according to her; she has had high sed ratesICD1 0 Diagnosis Term Medical Affairs Leader [facility] Myalgia Myalgia Disease Active Overview: Univ ers and and Formattin ity of myositis myositis g of this [place] as note Medical might be Branch different from the original. Has malaise, and flu-like symptoms, and sometimes a low grade temperatu reICD10 Diagnosis Term [facility] Backache Backache Disease Active Overview: Un jose Formattin ity of g of this [place] note Medical might be Branch different from the original. Pt has chronic back [id number] Diagnosis Term Medical Affairs Leader Utility Type 2 Type 2 Disease Active Overview: Univer s diabetes diabetes Formattin ity of mellitus mellitus g of this [place] as with with note Medical cardiac cardiac might be Branch complicati complicati different on on from the original. 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 ICD10 Diagnosis Term [facility] Diverticul Diverticul Disease Active U nivers osis of osis of ity of colon with colon with [place] hemorrhage hemorrhage Me dical Branch Allergies, Adverse Reactions, Alerts Allergy Allergy Status Severity Reaction(s) Onset Inactive Treating Comm ents Source Name Type Date Date Clinician Empaglif Propensi Active Swelling 2017-06 [facility] ers lozin ty to 07-07 ity of adverse 00:00: [place] reaction 00 Medical s Branch EMPAGLIF DRUG Active Swelling 2017-06 [facility] s LOZIN INGREDI 07-07 ity of 00:00: [...] Branch ADALIMUM DRUG Active Med Other-Cmnt 2014-06 [facility] ers AB INGREDI 0-19 ity of 00:00: [place] 00 Medical Branch Methocar Propensi Active Swelling Univ ers bamol ty to 03-23 ity of adverse 00:00: [place] reaction 00 Medical s to Branch drug METHOCAR DRUG Active Med Swelling 2014- Univer s BAMOL INGREDI 03-23 ity of 00:00: [...] 00 Medical Branch Iodine Propensi Active Swelling 2006- Univer s And ty to 10-01 ity of Iodide adverse 00:00: [place] Containi reaction 00 Medica l ng s to Branch Products drug Sulfa Propensi Active Anxiety 2006-0 Head Univers (Sulfona ty to 10-01 Aches ity of mide adverse 00:00: [place] Antibiot reaction 00 Medica l ics) s Branch Adhesive Propensi Active Hives Also Univer s Tape ty to 10-01 Surgical ity of adverse 00:00: tape [place] reaction 00 Medical s Branch Tetracyc Propensi Active Anaphylaxis 2006-0 U nivers line ty to 10-01 ity of adverse 00:00: [place] reaction 00 Medical s to Branch drug TETRACYC DRUG Active High Anaphylaxis 2006-0 Uni vers LINE INGREDI 10-01 ity of 00:00: [place] 00 Medical Branch IODINE Drug Active Med Swelling 2006-0 Univers AND Class -09 ity of IODIDE 00:00: [place] CONTAINI 00 Medical NG Branch PRODUCTS SULFA Drug Active Anxiety 2006-0 Univers (SULFONA Class 4-09 ity of MIDE 00:00: [place] ANTIBIOT 00 Medical ICS) Branch ADHESIVE DRUG Active Hives 2006-0 Univers TAPE -09 ity of 00:00: [place] 00 Medical Branch Iodine Propensi Active Swelling 2006-0 Univer s And ty to 10-01 ity of Iodide adverse 00:00: [place] Containi reaction 00 Medica l ng s to Branch Products drug Sulfa Propensi Active Anxiety Head Univers (Sulfona ty to 10-01 Aches ity of mide adverse 00:00: [place] Antibiot reaction 00 Medica l ics) s Branch Social History Social Habit Start Date Stop Date Quantity Comments Source History SDLA Food Univers ity of Scarcity [place] [facility] History of Current smoker University of tobacco use [place] [facility] History [facility] University o f Alcohol Frequency [place] M edical [facility] History [facility] University o f Alcohol Std [place] [facility] Drinks Branch History [facility] University o f Alcohol Binge [place] [facility] al Branch Exposure to Not sure University of SARS-CoV-2 [place] [facility] (event) Branch Alcohol intake 2021-09-07 2021-09-07 Current non-drinker U niversity of 00:00:00 00:00:00 of alcohol [place] [facility] (finding) Branch History [facility] 2020-03-10 2020-03-10 5 University o f Financial 00:00:00 00:00:00 [place] [facility] History [facility] Food 2020-03-10 2020-03-10 1 Univers ity of Worry 00:00:00 00:00:00 [place] [facility] History [facility] 2020-03-10 2020-03-10 2 University o f Transport Med 00:00:00 00:00:00 [place] Medic al Branch History [facility] 2020-03-10 2020-03-10 2 University o f Transport Non-Med 00:00:00 00:00:00 [facility] edical Branch Tobacco use and 2015-01-01 2015-01-01 Smokeless tobacco Un iversity of exposure 00:00:00 00:00:00 non-user [place] [facility] [place] Tobacco Comment 2006-10-01 2006-10-01 Quit more than Unive rsity of 00:00:00 00:00:00 thirty some years [facility] edical ago Branch Alcohol Comment 2006-10-01 2006-10-01 Drinks ETOH very Uni versity of 00:00:00 00:00:00 occasionally [place] [facility]ica l Branch Sex [birth year] Universit y of 00:00:00 00:00:00 [facility] Smoking Status Start Date Stop Date Source Ex-smoker 2015-01-01 00:00:00 2015-01-01 00:00:00 Universi ty of [place] [facility] Medications Ordered Filled Start Stop Current Ordering Indication Dosage Frequency Signature Comments Components Source Medication Medication Date Date Medication? Clinician (SIG) Name Name vancomycin 2021-06 Yes Univers 5 gram 2-07 ity of injection 00:00: 00 [facility] Branch vancomycin 2021-06 Yes Univers 5 gram 2-07 ity of injection 00:00: 00 [facility] Branch vancomycin 2021-06 Yes Univers 5 gram 2-07 ity of injection 00:00: 00 [facility] Branch metformin 0 Yes [id number] TAKE ONE Univers ER 500 mg 9-17 TABLET BY ity o f 24 hr 00:00: MOUTH [place] tablet 00 DAILY WITH Medical BREAKFAST Branch metformin Yes [id number] TAKE ONE Univers ER 500 mg 9-17 TABLET BY ity o f 24 hr 00:00: MOUTH [place] tablet 00 DAILY WITH Medical BREAKFAST Branch metformin Yes [id number] TAKE ONE Univers ER 500 mg 9-17 TABLET BY ity o f 24 hr 00:00: MOUTH [place] tablet 00 DAILY WITH Medical BREAKFAST Branch metformin Yes [id number] TAKE ONE Univers ER 500 mg 9-17 TABLET BY ity o f 24 hr 00:00: MOUTH [place] tablet 00 DAILY WITH Medical BREAKFAST Branch semaglutide Yes [id number] .5mg inject 0.5 Univers (OZEMPIC) 3-08 mg under ity of 0.25 mg or 00:00: the skin [place] as 0.5 mg(2 00 weekly. Medical mg/1.5 mL) Branch PnIj semaglutide Yes [id number] .5mg inject 0.5 Univers (OZEMPIC) 3-08 mg under ity of 0.25 mg or 00:00: the skin [place] as 0.5 mg(2 00 weekly. Medical mg/1.5 mL) Branch PnIj semaglutide Yes [id number] .5mg inject 0.5 Univers (OZEMPIC) 3-08 mg under ity of 0.25 mg or 00:00: the skin [place] as 0.5 mg(2 00 weekly. Medical mg/1.5 mL) Branch PnIj semaglutide Yes [id number] .5mg inject 0.5 Univers (OZEMPIC) 3-08 mg under ity of 0.25 mg or 00:00: the skin [place] as 0.5 mg(2 00 weekly. Medical mg/1.5 mL) Branch PnIj semaglutide Yes [id number] .5mg inject 0.5 Univers (OZEMPIC) 3-08 mg under ity of 0.25 mg or 00:00: the skin [place] as 0.5 mg(2 00 weekly. Medical mg/1.5 mL) Branch PnIj semaglutide Yes [id number] .5mg inject 0.5 Univers (OZEMPIC) 3-08 mg [...] by mouth ity of tablet 10:31: at [place] 58 bedtime. Medical Branch fluticasone 2020-06 Yes [...] . ity of 60 mL with 10:31: [place] Nitroglycer 58 Medical in 50 mg/10 Branch mL (5 mg/mL) Soln 24 mg rosuvastati 2020-06 Yes 10mg Take 10 mg Univers n 10 mg 2-08 by mouth ity of tablet 10:31: at [place] [address] bedtime. Medical Branch fluticasone 2020-06 Yes Inhale. Uni vers furoate 50 2-08 ity of mcg/actuati 10:31: [place] on DsDv 58 Medical Branch famotidine 2020-06 Yes 20mg Take 20 mg U nivers 20 mg 2-08 by mouth 2 ity of tablet 10:31: (two) [place] 58 times Medical daily. Branch NaCl 0.9% 2020-06 Yes CONTINUOUS Un jose (NS) SolP 2-08 . ity of 60 mL with 10:31: [place] Nitroglycer 58 Medical in 50 mg/10 Branch mL (5 mg/mL) Soln 24 mg rosuvastati 2020-06 Yes 10mg Take 10 mg Univers n 10 mg 2-08 by mouth ity of tablet 10:31: at [place] 58 bedtime. Medical Branch fluticasone 2020-06 Yes [...] by mouth ity of tablet 10:31: at [place] 58 bedtime. Medical Branch fluticasone 2020-06 Yes [...] . ity of 60 mL with 10:31: [place] Nitroglycer 58 Medical in 50 mg/10 Branch mL (5 mg/mL) Soln 24 mg rosuvastati 2020-06 Yes 10mg Take 10 mg Univers n 10 mg 2-08 by mouth ity of tablet 10:31: at [place] 58 bedtime. Medical Branch fluticasone 2020-06 Yes [...] . ity of 60 mL with 10:31: [place] Nitroglycer 58 Medical in 50 mg/10 Branch mL (5 mg/mL) Soln 24 mg rosuvastati 2020-06 Yes 10mg Take 10 mg Univers n 10 mg 2-08 by mouth ity of tablet 10:31: at [place] 58 bedtime. Medical Branch fluticasone 2020-06 Yes Inhale. Uni vers furoate 50 2-08 ity of mcg/actuati 10:31: [place] on DsDv 58 Medical Branch albuterol 2020-06 Yes [id number] 2{puff} Inhale 2 Univers 90 2-08 Puffs ity of mcg/actuati 00:00: every 6 [place] as on inhaler 00 (six) Medical hours as Branch needed for Wheezing or Shortness of Breath. albuterol 2020-06 Yes [id number] 2{puff} Inhale 2 Univers 90 2-08 Puffs ity of mcg/actuati 00:00: every 6 [place] as on inhaler 00 (six) Medical hours as Branch needed for Wheezing or Shortness of Breath. albuterol 2020-06 Yes [id number] 2{puff} Inhale 2 Univers 90 2-08 Puffs ity of mcg/actuati 00:00: every 6 [place] as on inhaler 00 (six) Medical hours as Branch needed for Wheezing or Shortness of Breath. albuterol 2020-06 Yes [id number] 2{puff} Inhale 2 Univers 90 2-08 Puffs ity of mcg/actuati 00:00: every 6 [place] as on inhaler 00 (six) Medical hours as Branch needed for Wheezing or Shortness of Breath. albuterol 2020-06 Yes [id number] 2{puff} Inhale 2 Univers 90 2-08 Puffs ity of mcg/actuati 00:00: every 6 [place] as on inhaler 00 (six) Medical hours as Branch needed for Wheezing or Shortness of Breath. albuterol 2020-06 Yes [id number] 2{puff} Inhale 2 Univers 90 2-08 Puffs ity of mcg/actuati 00:00: every 6 [place] as on inhaler 00 (six) Medical hours as Branch needed for Wheezing or Shortness of Breath. metformin Yes [id number] 500mg Take 1 U nivers ER 500 mg 9-08 tablet by ity o f 24 hr 00:00: mouth [place] tablet 00 daily with Medical breakfast. Branch metformin Yes [id number] 500mg Take 1 U nivers ER 500 mg 9-08 tablet by ity o f 24 hr 00:00: mouth [place] tablet 00 daily with Medical breakfast. Branch metformin 2021- No [id number] 500mg Take 1 Univers ER 500 mg 9-17 tablet by ity of 24 hr 00:00: 00:00 mouth [place] tablet 00 :00 daily with Medical breakfast. Branch semaglutide 2021- No [id number] .5mg inject 0.5 Univers (OZEMPIC) 9-08 03-08 mg under ity o f 0.25 mg or 00:00: 00:00 [place] 0.5 mg(2 00 :00 weekly. Medical mg/1.5 mL) Branch PnIj docusate 2020-0 Yes 100mg Take 100 Univ ers (COLACE) 1-05 mg by ity of 100 mg 15:32: mouth 2 [place] capsule 44 (two) Medical times Branch daily as needed for Constipati on. mirtazapine 2020-0 Yes 7.5mg Take 7.5 U nivers 7.5 mg 1-05 mg by ity of tablet 15:32: mouth at [place] [address] bedtime. Medical Branch SERTraline 0 Yes 100mg Take 100 Un jose 100 mg 1-05 mg by ity of tablet 15:32: mouth 2 [place] 44 (two) Medical times Branch daily. oxybutynin 2020-0 Yes 5mg Take 5 mg Un jose chloride 5 1-05 by mouth ity o f mg tablet 15:32: as needed. [place] 44 Medical Branch docusate 2020-0 Yes 100mg Take 100 Univ ers (COLACE) 1-05 mg by ity of 100 mg 15:32: mouth 2 [place] capsule 44 (two) Medical times [place] daily as needed for Constipati on. mirtazapine 2020-0 Yes 7.5mg Take 7.5 U nivers 7.5 mg 1-05 mg by ity of tablet 15:32: mouth at [place] [address] bedtime. Medical Branch SERTraline 2020-0 Yes 100mg Take 100 Un jose 100 mg 1-05 mg by ity of tablet 15:32: mouth 2 [place] 44 (two) Medical times Branch daily. oxybutynin [...] daily as needed for Constipati on. mirtazapine 2021-0 Yes 7.5mg Take 7.5 U nivers 7.5 mg 1-05 mg by ity of tablet 15:32: mouth at [place] [address] bedtime. Medical Branch SERTraline 2021-0 Yes 100mg Take 100 Un jose 100 mg 1-05 mg by ity of tablet 15:32: mouth 2 [place] [address] (two) Medical times Branch daily. oxybutynin 2021-0 Yes 5mg Take 5 mg Un jose chloride 5 1-05 by mouth ity o f mg tablet 15:32: as needed. [place] [address] Medical Branch docusate 2020-0 Yes 100mg Take 100 Univ ers (COLACE) 1-05 mg by ity of 100 mg 15:32: mouth 2 [place] capsule 44 (two) Medical times [place] daily as needed for Constipati on. mirtazapine 2021-0 Yes 7.5mg Take 7.5 U nivers 7.5 mg 1-05 mg by ity of tablet 15:32: mouth at [place] [address] bedtime. Medical Branch SERTraline 2021-0 Yes 100mg Take 100 Un jose 100 mg 1-05 mg by ity of tablet 15:32: mouth 2 [place] [address] (two) Medical times Branch daily. oxybutynin 2021-0 Yes 5mg Take 5 mg Un jose chloride 5 1-05 by mouth ity o f mg tablet 15:32: as needed. [place] [address] Medical Branch docusate 1-0 Yes 100mg Take 100 Univ ers (COLACE) 1-05 mg by ity of 100 mg 15:32: mouth 2 [place] capsule 44 (two) Medical times Branch daily as needed for Constipati on. mirtazapine 2021-0 Yes 7.5mg Take 7.5 U nivers 7.5 mg 1-05 mg by ity of tablet 15:32: mouth at [place] [address] bedtime. Medical Branch SERTraline 2021-0 Yes 100mg Take 100 Un jose 100 mg 1-05 mg by ity of tablet 15:32: mouth 2 [place] [address] (two) Medical times Branch daily. oxybutynin 2021-0 Yes 5mg Take 5 mg Un jose chloride 5 1-05 by mouth ity o f mg tablet 15:32: as needed. Te [facility] Medical Branch docusate Yes 100mg Take 100 Univ ers (COLACE) 1-05 mg by ity of 100 mg 15:32: mouth 2 [place] capsule 44 (two) Medical times Branch daily as needed for Constipati on. mirtazapine Yes 7.5mg Take 7.5 U nivers 7.5 mg 1-05 mg by ity of tablet 15:32: mouth at [place] 44 bedtime. Medical Branch SERTraline Yes 100mg Take 100 Un jose 100 mg 1-05 mg by ity of tablet 15:32: mouth 2 [place] 44 (two) Medical times Branch daily. oxybutynin Yes 5mg Take 5 mg Un jose chloride 5 1-05 by mouth ity o f mg tablet 15:32: as needed. [address] Branch furosemide 2020-1 Yes 20mg Take 1 [...] Indication s: acute pain nitroglycer 2020-[id number] 1 Univers in 0.4 mg 8-19 tablet ity of sublingual 00:00: under the [place] tablet 00 tongue Medical every 5 Branch (five) minutes as needed for Chest pain. nitroglycer 2020-[id number] 1 Univers in 0.4 mg 8-19 tablet ity of sublingual 00:00: under the [place] tablet 00 tongue Medical every 5 Branch (five) minutes as needed for Chest pain. nitroglycer 2020-[id number] 1 Univers in 0.4 mg 8-19 tablet ity of sublingual 00:00: under the [place] tablet 00 tongue Medical every 5 Branch (five) minutes as needed for Chest pain. nitroglycer 2020-[id number] 1 Univers in 0.4 mg 8-19 tablet ity of sublingual 00:00: under the [place] tablet 00 tongue Medical every 5 Branch (five) minutes as needed for Chest pain. nitroglycer 2020-[id number] 1 Univers in 0.4 mg 8-19 tablet ity of sublingual 00:00: under the [place] tablet 00 tongue Medical every 5 Branch (five) minutes as needed for Chest pain. nitroglycer 2020-[id number] 1 Univers in 0.4 mg 8-19 tablet ity of sublingual 00:00: under the [place] tablet 00 tongue Medical every 5 Branch (five) minutes as needed for Chest pain. atorvastati 2020-0 Yes [id number] 40mg Take 1 Univers n 40 mg 7-21 tablet by ity of tablet 00:00: mouth [place] 00 daily. Medical Branch clopidogreL 2020-0 Yes [id number] 75mg Take 1 Univers 75 mg 7-21 tablet by ity of tablet 00:00: mouth [place] 00 daily. Medical Branch aspirin 81 2020-0 Yes [id number] 81mg Take 1 U nivers mg chewable 7-21 tablet by ity of tablet 00:00: mouth [place] 00 daily. Medical Branch atorvastati 2020-0 Yes [id number] 40mg Take 1 Univers n 40 mg 7-21 tablet by ity of tablet 00:00: mouth [place] 00 daily. Medical Branch clopidogreL 2020-0 Yes [id number] 75mg Take 1 Univers 75 mg 7-21 tablet by ity of tablet 00:00: mouth [place] 00 daily. Medical Branch aspirin 81 2020-0 Yes [id number] 81mg Take 1 U nivers mg chewable 7-21 tablet by ity of tablet 00:00: mouth [place] 00 daily. Medical Branch atorvastati 2020-0 Yes [id number] 40mg Take 1 Univers n 40 mg 7-21 tablet by ity of tablet 00:00: mouth [place] 00 daily. Medical Branch clopidogreL 2020-0 Yes [id number] 75mg Take 1 Univers 75 mg 7-21 tablet by ity of tablet 00:00: mouth [place] 00 daily. Medical Branch aspirin 81 2020-0 Yes [id number] 81mg Take 1 U nivers mg chewable 7-21 tablet by ity of tablet 00:00: mouth [place] 00 daily. Medical Branch atorvastati 2020-0 Yes [id number] 40mg Take 1 Univers n 40 mg 7-21 tablet by ity of tablet 00:00: mouth [place] 00 daily. Medical Branch clopidogreL 2020-0 Yes [id number] 75mg Take 1 Univers 75 mg 7-21 tablet by ity of tablet 00:00: mouth [place] 00 daily. Medical Branch aspirin 81 2020-0 Yes [id number] 81mg Take 1 U nivers mg chewable 7-21 tablet by ity of tablet 00:00: mouth [place] 00 daily. Medical Branch atorvastati 2020-0 Yes [id number] 40mg Take 1 Univers n 40 mg 7-21 tablet by ity of tablet 00:00: mouth [place] 00 daily. Medical Branch clopidogreL 2020-0 Yes [id number] 75mg Take 1 Univers 75 mg 7-21 tablet by ity of tablet 00:00: mouth [place] 00 daily. Medical Branch aspirin 81 2020-0 Yes [id number] 81mg Take 1 U nivers mg chewable 7-21 tablet by ity of tablet 00:00: mouth [place] 00 daily. Medical Branch atorvastati 2020-0 Yes [id number] 40mg Take 1 Univers n 40 mg 7-21 tablet by ity of tablet 00:00: mouth [place] 00 daily. Medical Branch clopidogreL 2020-0 Yes [id number] 75mg Take 1 Univers 75 mg 7-21 tablet by ity of tablet 00:00: mouth [place] 00 daily. Medical Branch aspirin 81 2020-0 Yes [id number] 81mg Take 1 U nivers mg chewable 7-21 tablet by ity of tablet 00:00: mouth [place] 00 daily. Medical Branch Immunizations Ordered Filled Immunization Date Status Comments [facility] e Immunization Name Name Influenza High Dose 2020-04-26 Completed Unive rsity of 00:00:00 [facility] Influenza High Dose 2020-04-26 Completed Unive rsity of 00:00:00 [facility] Influenza High Dose 2020-04-26 Completed Unive rsity of 00:00:00 [facility] Influenza High Dose 2020-04-26 Completed Unive rsity of 00:00:00 [facility] Influenza High Dose 2020-04-26 Completed Unive rsity of 00:00:00 [facility] Influenza High Dose 2020-04-26 Completed Unive rsity of 00:00:00 [facility] Influenza Virus 1991-06-25 Completed Universit y of Vaccine 00:00:00 [facility] Pneumococcal 1991-06-25 Completed University o f Polysaccharide, 00:00:00 [place] Med ical PPSV23 (PNEUMOVAX) Branch Influenza Virus 1991-06-25 Completed Universit y of Vaccine 00:00:00 [facility] Pneumococcal 1991-06-25 Completed University o f Polysaccharide, 00:00:00 [place] Med ical PPSV23 (PNEUMOVAX) Branch Influenza Virus 1991-06-25 Completed Universit y of Vaccine 00:00:00 [facility] Pneumococcal 1991-06-25 Completed University o f Polysaccharide, 00:00:00 [place] Med ical PPSV23 (PNEUMOVAX) Branch Influenza Virus 1991-06-25 Completed Universit y of Vaccine 00:00:00 [facility] Pneumococcal 1991-06-25 Completed University o f Polysaccharide, 00:00:00 [place] Med ical PPSV23 (PNEUMOVAX) Branch Influenza Virus 1991-06-25 Completed Universit y of Vaccine 00:00:00 [facility] Pneumococcal 1991-06-25 Completed University o f Polysaccharide, 00:00:00 [place] Med ical PPSV23 (PNEUMOVAX) Branch Influenza Virus 1991-06-25 Completed Universit y of Vaccine 00:00:00 [facility] Pneumococcal 1991-06-25 Completed University o f Polysaccharide, 00:00:00 [place] [facility] PPSV23 (PNEUMOVAX) Branch Vital Signs Vital Name Observation Time Observation Value Comments Source Systolic blood 2021-09-22 00:18:00 133 mm[Hg] Univer [facility] Diastolic blood 2021-09-22 00:18:00 68 mm[Hg] [facility] [place] [facility] height 2021-09-22 00:18:00 162.6 cm [facility] Body weight 2021-09-22 00:18:00 86.183 kg [facility] BMI 2021-09-22 00:18:00 32.61 kg/m2 [facility] Procedures Procedure Date / Time Performed Performing Clinician Sourc e EXTERNAL PROVIDER 2021-10-12 05:01:00 Doctor Unassigned, No [facility] Name [facility] POCT HEMOGLOBIN A1C 2021-08-30 19:18:[address] [facility] Encounters Start End Encounter Admission Attending Care Care Encounter Source Date/Time Date/Time Type Type Clinicians Facility Department ID 2021-04-22 Emergency [facility] [id number] Univers 17:55:04 [facility] 2021-04-22 Inpatient Gayla DINERO [facility] [id number] Univers 15:37:23 OLGA [facility] 2021-04-22 Emergency [facility] [id number] Univers 05:15:17 [facility] 2022-06-01 2022-06-01 [facility] [id number] Univers 00:00:00 00:00:00 [facility] 350.1.13.10 it y of [place] 4.2.7.2.686 Fredo as ADALID?BLEA [id number] [address] MEDICAL OFFICE [facility] 2022-03-11 2022-03-11 [facility] [id number] Univers 00:00:00 00:00:00 [facility] 350.1.13.10 it y of [place] 4.2.7.2.686 Fredo as ADALID?BLEA [id number] [address] OFFICE [facility] 2022-03-07 2022-03-07 Outpatient R JEANETTE [facility] [id number] Univers 13:00:00 13:00:00 [facility] 2022-03-07 2022-03-07 Outpatient R JEANETTE [facility] [id number] Univers 13:00:00 13:00:00 [facility] 2021-12-14 2021-12-14 Outpatient Gayla CANNON [facility] [id number] Univers 10:30:00 10:30:00 JURGEN [facility] 2021-12-14 2021-12-14 Outpatient Gayla CANNON [facility] [id number] Univers 10:30:00 10:30:00 JURGEN [facility] 2021-10-12 2021-10-12 Orders Doctor DOUGLAS [id number] Univers 00:00:00 00:00:00 Only Unassigned, DOMONIQUE 350.1.13.10 [facility] 4.2.7.2.686 Fredo as [phone] [facility] 009 Branch 2021-09-07 2021-09-07 Office [facility] 1.2.840.114 [id number] Univers 10:30:00 10:47:32 Visit Jurgen BONILLA 350.1.13.10 ity of [place] [id number] [facility] AND GRUBER 085 Branch [facility] 2021-09-07 2021-09-07 Outpatient R KASSANDRA [facility] [id number] Univers 10:30:00 10:47:32 [facility] 2021-09-07 2021-09-07 [facility] [id number] Univers 10:30:00 10:30:00 [facility] 2021-09-07 2021-09-07 Out[facility] [id number] Univers 10:30:00 10:30:00 [facility] 2021-08-30 2021-08-30 Outpatient Gayla REID [facility] [id number] Univers 13:00:00 14:06:24 [facility] 2021-08-30 2021-08-30 [facility] [id number] Univers 13:00:00 14:06:24 Visit [facility] 350.1.13.10 it y of [place] 4.2.7.2.686 Fredo as ADALID?BLEA [phone] Co ver[address] MEDICAL OFFICE BUILDING 2021-08-30 2021-08-30 Outpatient R JEANETTE [facility] [id number] Univers 13:00:00 14:06:24 [facility] 2021-08-30 2021-08-30 Outpatient R JEANETTE [facility] [id number] Univers 13:00:00 13:00:00 WENTONG ity of [facility] 2021-08-30 2021-08-30 Orders Doctor STELLA 1.2.840.114 [id number] Univers 00:00:00 00:00:00 Only Unassigned, DOMONIQUE 350.1.13.10 ity of [place] [facility] 4.2.7.2.686 Fredo [id number] [facility] 009 Branch 2021-08-08 2021-08-08 [facility] [id number] Univers 10:06:39 23:59:00 Encounter [facility] 350.1.13.10 ity of [place] 4.2.7.2.686 [facility] AT [id number] Co veramachelle LOO 801 [facility] 2021-08-08 2021-08-08 Outpatient Gayla [facility] [id number] Univers 13:00:00 14:30:21 JURGEN lopez [facility] 2021-08-08 2021-08-08 Certified Mortician Test, [facility] Pulmonary Function [facility] 1.2.840.114 [id number] Univers 13:00:00 14:30:21 Visit Jurgen Cannon [facility] 350.1 .13.10 ity of [place] 4.2.7.2.686 [facility] s MEROM [id number] [facility] AND YASMANI 083 Branch [facility] 2021-08-08 2021-08-08 [facility] [id number] Univers 08:54:25 10:05:00 [facility] 350.1.13.10 ity of [place] 4.2.7.2.686 [facility] s [facility] [id number] [facility] 842 [facility] ([facility]) 2021-08-08 2021-08-08 Outpatient Gay[facility] [id number] Univers 00:00:00 00:00:00 JURGEN lopez [facility] 2021-08-05 2021-08-05 Laboratory Only, Adc Test [facility] 1.2.840. 114 [id number] Univers 15:00:00 15:15:00 Only Mitesh Coe 350.1.13.10 [place] of [place] [id number] [address] 2021-08-05 2021-08-05 Outpatient R SARAVANAN [facility] [id number] Univers 15:00:00 15:00:00 MITESH lopez [facility] 2021-06-14 2021-06-14 [facility] [id number] Univers 00:00:00 00:00:00 [facility] 350.1.13.10 [place] C[place] [id number] [facility] AND [address] DIABETES CLINIC 2021-06-01 2021-06-01 Outpatient R KASSANDRA [facility] [id number] Univers 10:00:00 11:30:16 JURGEN lopez [facility] 2021-06-01 2021-06-01 Office [facility] 1.2.840.114 [id number] Univers 09:44:15 11:30:16 Visit [facility] 350.1.13.10 [place].2.[place] [id number] [address] DIABETES CLINIC 2021-05-10 2021-05-10 Telephone [facility] 1.2.840.114 [id number] Univers 00:00:00 00:00:00 Jurgen [facility] 350.1.13.10 it[place] of [place] [id number] [address] DI[facility]ETES [facility]INIC 2021-03-02 2021-03-02 Office [facility] 1.2.840.114 [id number] Univers 13:34:41 15:58:40 Visit [facility] 350.1.13.10 it y of [place] 4.2.7.2.686 [place] as Adalid?Blea [id number] Co maureen sauer[address] Medical Office Building 2021-03-02 2021-03-02 Out[facility] [id number] Univers 13:00:00 13:00:00 [facility] 2021-03-02 2021-03-02 Orders Doctor STELLA 1.2.840.114 [id number] Univers 00:00:00 00:00:00 Only Unassigned, DOMONIQUE 350.1.13.10 ity [place] [facility] 4.2.7.2.686 [place]o as [id number] [address] 2020-11-02 2020-11-02 Outpatient [facility] [id number] Univers 10:30:00 10:30:00 [facility] 2020-06-29 2020-06-29 Office [facility] 1.2.840.114 [id number] 15:07:47 16:11:28 [facility] 350.1.13.10 [place] 4.2.7.2.686 [facility]ac[facility] [id number] [facility] 2020-06-29 2020-06-29 Outpatient R JEANETTE [facility] [id number] Univers 15:00:00 15:00:00 [facility] 2020-06-29 2020-06-29 Orders Doctor STELLA 1.2.840.114 [id number] 00:00:00 00:00:00 Only Unassigned, DOMONIQUE 350.1.13.10 [facility] 4.2.7.2.686 [id number] 2020-04-20 2020-04-20 Outpatient R [facility] [id number] Univers 15:00:00 15:00:00 [facility] 2020-03-30 2020-03-30 Outpatient R JEANETTE [facility] [id number] Univers 15:00:00 15:00:00 [facility] 2020-03-10 2020-03-10 Outpatient [facility] [id number] Univers 14:30:00 14:30:00 KENNA [facility] 2020-02-16 2020-02-16 Outpatient R OLGA [facility] U [facility] [id number] Univers 00:00:00 00:00:00 OLGA [facility] 2020-02-11 2020-02-11 Outpatient [facility] [id number] Univers 15:30:00 15:30:00 PARKER ESPINOZA [facility] 2020-01-29 2020-01-29 Outpatient R DENNIS [facility] [id number] Univers 08:00:00 08:00:00 ADY stauffer [facility] Results Test Description Test Time Test Comments Results Result Comments Source POCT HEMOGLOBIN A1C TEST 2021-08-30 19:18:00 Test Item Value Reference Range Interpretation Comme nts POCT HBA1C (test code = 4548-4) 6.5 % 4-6 A Lab Interpretation (test code = 22028-6) Abnormal [facility]
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
--- NOTE | 2022-06-24 15:59 | RAD REPORT ---
EXAM DESCRIPTION: RAD - Hand Right 3 View - 06/24/2022 3:48 pm CLINICAL HISTORY: SMASH INJURY COMPARISON: No comparisons FINDINGS/IMPRESSION: No acute fracture. No malalignment. Degenerative changes are present at the fir st carpometacarpal joint. Mild interphalangeal joint space narrowing.
--- NOTE | 2022-06-24 16:00 | RAD REPORT ---
EXAM DESCRIPTION: RAD - Tib Fib Right - 06/24/2022 3:48 pm CLINICAL HISTORY: Pain COMPARISON: No comparisons FINDINGS/IMPRESSION: No acute fracture of the tibia or fibula. Tricompartmental degenerative changes are present at the knee.
[2022-06-24] MEDS ORDERED: FENTANYL CITR 100 MCG/2 ML ONE (16:21)
[2022-06-24 16:56] VITALS: TEMP 97.2
[2022-06-24 16:58] VITALS: BP 161/71; O2SAT 99
== END 2022-06-24 16:39 | disposition home or self-care (01) ==
LOC: ER 13:45
DX: S20.211A Contusion of right front wall of thorax, initial encounter (principal); S80.11XA Contusion of right lower leg, initial encounter; S60.221A Contusion of right hand, initial encounter; W01.10XA Fall on same level from slipping, tripping and stumbling with subsequent striking against unspecified object, initial encounter; Z79.82 Long term (current) use of aspirin; Z96.641 Presence of right artificial hip joint
CPT/HCPCS: 70450; 71250; 72125; 73130; 73590; 96372; 99285; J3010

== ENCOUNTER → 2022-07-17 | Day surgery (SDC) | payer OTHER ==
--- NOTE | 2022-07-17 12:36 | RAD REPORT ---
EXAM DESCRIPTION: RAD - Chest Single View - 07/17/2022 12:13 pm CLINICAL HISTORY: Picc line placement COMPARISON: Chest Single View dated 05/25/2022; Chest Pa And Lat (2 Views) dated 10/06/2019; Chest Sin gle View dated 03/11/2018; Chest Pa And Lat (2 Views) dated 01/02/2017 FINDINGS: Portable chest was obtained following placement of a left upper extremity PICC line. The c atheter tip projects over the right atrium. Suggest 2 cm of retraction for optimum placement.
== END ==
LOC: PICC 11:00
PROVIDERS: ATTEND Surgery
DX: M86.9 Osteomyelitis, unspecified (principal); E11.9 Type 2 diabetes mellitus without complications; E11.621 Type 2 diabetes mellitus with foot ulcer
CPT/HCPCS: 36569; 71045

== ENCOUNTER 2022-12-08 06:44 | Emergency (ER) | payer OTHER ==
--- OUTSIDE RECORDS SUMMARY | 2022-12-08 06:48 | XMS REPORT | Continuity of Care Document ---
:1945 Author Organization [facility] t Address [address] [place] [address] [place] [id number] Care Team Providers Name Role Phone Fred Garner Narendra Primary Care Physician OLGA DINERO Attending Clinician Unavailable PAULETTE RANGEL Attending Clinician Unavailable Oscar Lai MD Attending Clinician Lab, Ang - Db Attending Clinician Unavailable OSCAR LAI Attending Clinician Unavailable Doctor Unassigned, Victoria Attending Clinician Unavailable SURAJ REID Attending Clinician Unavailable Suraj Reid MD Attending Clinician JURGEN CANNON Attending Clinician Unavailable Jurgen Cannon MD Attending Clinician [phone] Test, Vtc Pulmonary Function Attending Clinician Unavailable Only, Adc Test Attending Clinician Unavailable Mitesh Coe MD Attending Clinician MITESH COE Attending Clinician Unavailable KENNA MEJIA Attending Clinician Unavailable PARKER ESPINOZA Attending Clinician Unavailable PARKER ESPINOZA Attending Clinician Unavailable ADY COLLINS Attending Clinician Unavailable OLGA DINERO Admitting Clinician Unavailable Payers Payer Name Policy Type Policy Number Effective Date Expiration Date S ruma [employer]AB[employer] CHOICE [id number] 2013 00:00:00 [facility] [id number] 2020 [facility] [place] 00:00:00 PPO Problems Condition Condition Condition Status [...] replacemen t) t) Aortic Aortic Disease Active 20200 Overview: Univer s valve valve 02-24 Formattin ity of stenosis, stenosis, 00:00: [place] of [place] etiology etiology 00 note Medica l of cardiac of cardiac might be Branch valve valve different disease disease from the unspecifie unspecifie original. d d Added automatic ally from request for surgery [id number] Cardiogeni Cardiogeni Disease Active 2020-0 U nivers c shock c shock 7-11 ity of 00:00: [place] 00 Medical Branch Elevated Elevated Disease Active 20200 Unive rs troponin troponin 7-07 ity of 00:00: [place] 00 Medical Branch Acute Acute Disease Active 2020-0 Univers diastolic diastolic 7 ity of congestive congestive [place] heart heart 00 Medical failure failure Branch Other Other Disease Active 2020-0 Univers chest pain chest pain 7-07 it y of 00:00: [place] 00 Medical Branch History of History of Disease Active 2020-0 U nivers arterial arterial 7-07 ity of ischemic ischemic 00:00: [place] stroke stroke 00 Medical Branch Obesity Obesity Disease Active 2020-0 Univers (BMI (BMI 7-07 ity of 30-39.9) 30-39.9) 00:00: [place] 00 Medical Branch NSTEMI NSTEMI Disease Active 2020-0 Univers (non-ST (non-ST 7- ity of elevated elevated 00:00: [place] myocardial myocardial 00 Me dical infarction infarction Br anch ) ) Dysphagia Dysphagia Disease Active 2020-0 Uni vers 7-07 ity of 00:00: [place] 00 Medical Branch Elevated Elevated Disease Active 2020-0 Unive rs troponin troponin 7-07 ity of [...] joint Disease Active Unive rs arthritis arthritis 7 ity of 00:00: [place] [facility] Lumbar Lumbar Disease Active Univers degenerati degenerati 01-01 it y of ve disc ve disc 00:00: [place] disease disease 00 Medical Branch Rheumatoid Rheumatoid Disease Active Overview : Univers arthritis arthritis Formattin i ty of g of this [place] note Medical might be Branch different from the original. This diagnosis is questiona ble according to her; she has had high sed ratesICD1 0 Diagnosis Term Inspector Utility Myalgia Myalgia Disease Active Overview: Univ ers and and Formattin ity of myositis myositis g of this [place] as note Medical might be Branch different from the original. Has malaise, and flu-like symptoms, and sometimes a low grade temperatu reICD10 Diagnosis Term Inspector Utility Backache Backache Disease Active Overview: Un jose Formattin ity of g of this [place] note Medical might be Branch different from the original. Pt has chronic back [id number] Diagnosis Term Inspector Utility Type 2 Type 2 Disease Active Overview: Univer s diabetes diabetes Formattin ity of mellitus mellitus g of this [place] as with with note Medical cardiac cardiac might be Branch complicati complicati different on on from the original. Type IIICD10 Diagnosis Term Inspector Utility Diabetic Diabetic Disease Active Overview: Un jose polyneurop polyneurop Formattin ity of athy athy g of this [place] note Medical might be Branch different from the original. 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 ICD10 Diagnosis Term Inspector Utility Diverticul Diverticul Disease Active U nivers [...] Active High SOB 2014-06 Univers AB INGREDI 0- ity of 00:00: [place] 00 Medical Branch ADALIMUM DRUG Active Med Other-Cmnt 2014-06 Univ ers AB INGREDI 0 ity of 00:00: [place] 00 Medical Branch Methocar Propensi Active Swelling Univ ers bamol ty to 03-23 ity of adverse 00:00: [place] reaction Medical s to Branch drug METHOCAR DRUG Active Med Swelling Univer s BAMOL INGREDI 03-23 ity of 00:00: [place] 00 Medical Branch Pregabal Propensi Active Anaphylaxis U nivers in ty to 12-23 ity of adverse 00:00: [place] reaction Medical s to Branch drug Morphine Propensi Active Hallucinatio Univers ty to ns 12-23 ity of adverse 00:00: [place] reaction Medical s Branch PREGABAL DRUG Active High Anaphylaxis Uni vers IN INGREDI 12-23 ity of 00:00: [place] [facility] MORPHINE DRUG Active Hallucinates Un [...] Anaphylaxis 2006- U nivers line ty to 10-01 ity [...] Medical ICS) Branch ADHESIVE DRUG Active Hives 2006- Univers TAPE 10-01 ity of 00:00: [place] 00 Medical Branch Iodine Propensi Active Swelling 2006- Univer s And ty to 10-01 ity of Iodide adverse 00:00: [place] Containi reaction 00 Medica l ng s to Branch Products drug Sulfa Propensi Active Anxiety 2006- Head Univers (Sulfona ty to 10-01 Aches ity of mide adverse 00:00: [place] Antibiot reaction 00 Medica l ics) s Branch Social History Social Habit Start Date Stop Date Quantity Comments Source History SDOK Food Univers ity of Scarcity [place] [facility] History of Current smoker University of tobacco use [place] [facility] History SDOK University o f Alcohol Frequency [facility] edical Branch History SDOK University o f Alcohol Std [place] [facility] Drinks Branch History [facility] University o f Alcohol Binge [place] [facility] al Branch Exposure to 2022-10-03 2022-10-13 Not sure University of SARS-CoV-2 00:00:00 12:50:00 [facility] [place] [facility] (event) Branch Alcohol intake 2022-10-13 2022-10-13 Current non-drinker U niversity of 00:00:00 00:00:00 of alcohol [facility] (finding) Branch Tobacco Comment 2022-10-13 2022-10-13 Quit more than Unive rsity of 00:00:00 00:00:00 thirty some years [facility] [place] Tobacco use and 2022-10-13 2022-10-13 Smokeless tobacco Un iversity of exposure 00:00:00 00:00:00 non-user [place] [facility] History SDOK 2020-03-10 2020-03-10 5 University o f Financial 00:00:00 00:00:00 [place] [facility] History SDOK Food 2020-03-10 2020-03-10 1 Univers ity of Worry 00:00:00 00:00:00 [place] [facility] History SDOK 2020-03-10 2020-03-10 2 University o f Transport Med 00:00:00 00:00:00 [facility] al Branch History SDOK 2020-03-10 2020-03-10 2 University o f Transport Non-Med 00:00:00 00:00:00 [facility] Alcohol Comment 2006-10-01 2006-10-01 Drinks ETOH very Uni versity of 00:00:00 00:00:00 [facility] Sex [birth year] Universit y of 00:00:00 00:00:00 [facility] Smoking Status Start Date Stop Date Source Ex-smoker 2022-10-13 00:00:00 2022-10-13 00:00:00 [facility] Medications Ordered Filled Start Stop Current Ordering Indication Dosage Frequency Signature Comments Components Source Medication Medication Date Date Medication? Clinician (SIG) Name Name Magnesium 2022-0 Yes Take by Unive rs 250 mg Tab 4-21 mouth. ity of 13:09: [address] Magnesium 2022-0 Yes Take by Unive rs 250 mg Tab 4-21 mouth. ity of 13:09: [address] Magnesium 2022-0 Yes Take by Unive rs 250 mg Tab 4-21 mouth. ity of 13:09: [address] Magnesium 2022-0 Yes Take by Unive rs 250 mg Tab 4-21 mouth. ity of 13:09: [address] Magnesium 2022-0 Yes Take by Unive rs 250 mg Tab 4-21 mouth. ity of 13:09: [address] Magnesium 2022-0 Yes Take by Unive rs 250 mg Tab 4-21 mouth. ity of 13:09: [address] metformin 2022-0 Yes [id number] 500mg Take 1 U nivers ER 500 mg 4-21 tablet by ity o f 24 hr 00:00: mouth in [place] tablet 00 the Medical morning Branch and 1 tablet in the evening. metformin 3-0 Yes [id number] 500mg Take 1 U nivers ER 500 mg 4-21 tablet by ity o f 24 hr 00:00: mouth in [place] tablet 00 the Medical morning Branch and 1 tablet in the evening. metformin 2023-0 Yes [id number] 500mg Take 1 U nivers ER 500 mg 4-21 tablet by ity o f 24 hr 00:00: mouth in [place] tablet 00 the Medical morning Branch and 1 tablet in the evening. metformin 2023-0 Yes [id number] 500mg Take 1 U nivers ER 500 mg 4-21 tablet by ity o f 24 hr 00:00: mouth in [place] tablet 00 the Medical morning Branch and 1 tablet in the evening. metformin 2023-0 Yes [id number] 500mg Take 1 U nivers ER 500 mg 4-21 tablet by ity o f 24 hr 00:00: mouth in [place] tablet 00 the Medical morning Branch and 1 tablet in the evening. metformin 3-0 Yes [id number] 500mg Take 1 U nivers ER 500 mg 4-21 tablet by ity o f 24 hr 00:00: mouth in [place] tablet 00 the Medical morning Branch and 1 tablet in the evening. vancomycin 2021-06 Yes Univers 5 gram 2-07 ity of injection 00:00: [place] 00 Medical Branch vancomycin 2021- Yes Univers 5 gram 2-07 ity of injection 00:00: [place] 00 Medical Branch vancomycin 2021- Yes Univers 5 gram 2-07 ity of injection 00:00: [place] 00 Medical Branch vancomycin 2021- Yes Univers 5 gram 2-07 ity of injection 00:00: [place] 00 Medical Branch vancomycin 2021- 2023- No Univer s 5 gram 2-07 04-21 ity of injection 00:00: 00:00 [place] 00 :00 Medical Branch vancomycin 2021-3- No Univer s 5 gram 2-07 04-21 ity of injection 00:00: 00:00 [place] 00 :00 Medical Branch metformin 2022-0 Yes [id number] TAKE ONE Univers ER 500 mg 9-17 TABLET BY ity o f 24 hr 00:00: MOUTH [place] tablet 00 DAILY WITH Medical BREAKFAST Branch metformin 2022-0 Yes [id number] TAKE ONE Univers ER 500 mg 9-17 TABLET BY ity o f 24 hr 00:00: MOUTH [place] tablet 00 DAILY WITH Medical BREAKFAST Branch metformin 2022-0 Yes [id number] TAKE ONE Univers ER 500 mg 9-17 TABLET BY ity o f 24 hr 00:00: MOUTH [place] tablet 00 DAILY WITH Medical BREAKFAST Branch metformin 2022-0 Yes [id number] TAKE ONE Univers ER 500 mg 9-17 TABLET BY ity o f 24 hr 00:00: MOUTH [place] tablet 00 DAILY WITH Medical BREAKFAST Branch metformin 2022-0 Yes [id number] TAKE ONE Univers ER 500 mg 9-17 TABLET BY ity o f 24 hr 00:00: MOUTH [place] tablet 00 DAILY WITH Medical BREAKFAST Branch metformin 2022-0 2023- No [id number] TAKE ONE Univers ER 500 mg 9-17 04-21 TABLET BY ity of 24 hr 00:00: 00:00 MOUTH [place] tablet 00 :00 DAILY WITH Medical BREAKFAST Branch metformin 2021-0 2023- No [id number] TAKE ONE Univers ER 500 mg 03-11 TABLET BY ity of 24 hr 00:00: 00:00 MOUTH [place] tablet 00 :00 DAILY WITH Medical BREAKFAST Branch semaglutide 2021-0 Yes [id number] .5mg inject 0.5 Univers (OZEMPIC) 3-08 mg under ity of 0.25 mg or 00:00: the skin [place] as 0.5 mg(2 00 weekly. Medical mg/1.5 mL) Branch PnIj semaglutide Yes [id number] .5mg inject 0.5 Univers (OZEMPIC) 3-08 mg under ity of 0.25 mg or 00:00: the skin [place] as 0.5 mg(2 00 weekly. Medical mg/1.5 mL) Branch PnIj semaglutide Yes [id number] .5mg inject 0.5 Univers (OZEMPIC) 3-08 mg under ity of 0.25 mg or 00:00: the skin [place] as 0.5 mg(2 00 weekly. Medical mg/1.5 mL) Branch PnIj semaglutide 2021- Yes [id number] .5mg inject 0.5 Univers (OZEMPIC) 3-08 mg under ity of 0.25 mg or 00:00: the skin [place] as 0.5 mg(2 00 weekly. Medical mg/1.5 mL) Branch PnIj semaglutide 2021-0 Yes [id number] .5mg inject 0.5 Univers (OZEMPIC) 3-08 mg under ity of 0.25 mg or 00:00: the skin [place] as 0.5 mg(2 00 weekly. Medical mg/1.5 mL) Branch PnIj semaglutide 2021-0 Yes [id number] .5mg inject 0.5 Univers (OZEMPIC) 3-08 mg under ity of 0.25 mg or 00:00: the skin [place] as 0.5 mg(2 00 weekly. Medical mg/1.5 mL) Branch PnIj semaglutide 0 Yes [id number] .5mg inject 0.5 Univers (OZEMPIC) 3-08 mg under ity of 0.25 mg or 00:00: the skin [place] as 0.5 mg(2 00 weekly. Medical mg/1.5 mL) Branch PnIj semaglutide 2022- No [id number] .5mg inject 0.5 Univers (OZEMPIC) 3-08 04-21 mg under ity o f 0.25 mg or 00:00: 00:00 [place] 0.5 mg(2 00 :00 weekly. Medical mg/1.5 mL) Branch PnIj semaglutide 2022- No [id number] .5mg inject 0.5 Univers (OZEMPIC) 3-08 04-21 mg under ity o f 0.25 mg or 00:00: 00:00 [place] 0.5 mg(2 00 :00 weekly. Medical mg/1.5 mL) Branch PnIj Lancets [...] Medical Misc glucose Branch levels blood sugar 2021-1 Yes Use as Univ ers diagnostic 2-21 [...] Lancets 2020-06 Yes Use as Univers (ACCU-CHEK -21 directed ity o f SOFTCLIX 00:00: BID [...] Lancets 2020-06 Yes Use as Univers (ACCU-CHEK -21 directed ity o f SOFTCLIX 00:00: BID [...] by mouth ity of tablet 10:31: at [place] [address] bedtime. Medical Branch fluticasone 2020-06 Yes Inhale. [...] by mouth ity of tablet 10:31: at [place] [address] bedtime. Medical Branch fluticasone 2020-06 Yes Inhale. [...] by mouth ity of tablet 10:31: at [place] [address] bedtime. Medical Branch fluticasone 2020-06 Yes Inhale. [...] by mouth ity of tablet 10:31: at [place] [address] bedtime. Medical Branch fluticasone 2020-06 Yes Inhale. [...] by mouth ity of tablet 10:31: at [place] [address] bedtime. Medical Branch fluticasone 2020-06 Yes Inhale. [...] DsDv 58 Medical Branch albuterol 2020-06 Yes [id number] 2{puff} Inhale 2 Univers 90 2-08 Puffs ity of mcg/actuati 00:00: every 6 [place] as on inhaler 00 (six) Medical hours as Branch needed for Wheezing or Shortness of Breath. albuterol 2020-06 Yes [id number] 2{puff} Inhale 2 Univers 90 2-08 Puffs ity of mcg/actuati 00:00: every 6 [place] as on inhaler 00 (six) Medical hours as Branch needed for Wheezing or Shortness of Breath. albuterol 2020-06 Yes [id number] 2{puff} Inhale 2 Univers 90 2-08 Puffs ity of mcg/actuati 00:00: every 6 [place] as on inhaler 00 (six) Medical hours as Branch needed for Wheezing or Shortness of Breath. albuterol 2020-06 Yes [id number] 2{puff} Inhale 2 Univers 90 2-08 Puffs ity of mcg/actuati 00:00: every 6 [place] as on inhaler 00 (six) Medical hours as Branch needed for Wheezing or Shortness of Breath. albuterol 2020-06 Yes [id number] 2{puff} Inhale 2 Univers 90 2-08 Puffs ity of mcg/actuati 00:00: every 6 [place] as on inhaler 00 (six) Medical hours as Branch needed for Wheezing or Shortness of Breath. albuterol 2020-06 Yes [id number] 2{puff} Inhale 2 Univers 90 2-08 Puffs ity of mcg/actuati 00:00: every 6 [place] as on inhaler 00 (six) Medical hours as Branch needed for Wheezing or Shortness of Breath. albuterol 2020-06 Yes [id number] 2{puff} Inhale 2 Univers 90 2-08 Puffs ity of mcg/actuati 00:00: every 6 [place] as on inhaler 00 (six) Medical hours as Branch needed for Wheezing or Shortness of Breath. albuterol 2020-06 Yes [id number] 2{puff} Inhale 2 Univers 90 2-08 Puffs ity of mcg/actuati 00:00: every 6 [place] as on inhaler 00 (six) Medical hours as Branch needed for Wheezing or Shortness of Breath. albuterol 2020-06 Yes [id number] 2{puff} Inhale 2 Univers 90 2-08 Puffs ity of mcg/actuati 00:00: every 6 [place] as on inhaler 00 (six) Medical hours as Branch needed for Wheezing or Shortness of Breath. albuterol 2020-06 Yes [id number] 2{puff} Inhale 2 Univers 90 2-08 Puffs ity of mcg/actuati 00:00: every 6 [place] as on inhaler 00 (six) Medical hours as Branch needed for Wheezing or Shortness of Breath. albuterol 2020-06 Yes [id number] 2{puff} Inhale 2 Univers 90 2-08 Puffs ity of mcg/actuati 00:00: every 6 [place] as on inhaler 00 (six) Medical hours as Branch needed for Wheezing or Shortness of Breath. albuterol 2020-06 Yes [id number] 2{puff} Inhale 2 Univers 90 2-08 Puffs ity of mcg/actuati 00:00: every 6 [place] as on inhaler 00 (six) Medical hours as Branch needed for Wheezing or Shortness of Breath. albuterol 2020-06 Yes [id number] 2{puff} Inhale 2 Univers 90 2-08 Puffs ity of mcg/actuati 00:00: every 6 [place] as on inhaler 00 (six) Medical hours as Branch needed for Wheezing or Shortness of Breath. metformin Yes [id number] 500mg Take 1 U nivers ER 500 mg 9-08 tablet by ity o f 24 hr 00:00: mouth [place] tablet 00 daily with Medical breakfast. Branch metformin Yes [id number] 500mg Take 1 U nivers ER 500 mg 9-08 tablet by ity o f 24 hr 00:00: mouth [place] tablet 00 daily with Medical breakfast. Branch metformin 2021- No [id number] 500mg Take 1 Univers ER 500 mg 9 09-17 tablet by ity of 24 hr 00:00: 00:00 mouth [place] tablet 00 :00 daily with Medical breakfast. Branch semaglutide 2021- No [id number] .5mg inject 0.5 Univers (OZEMPIC) 03-02 03-08 [...] by ity of tablet 15:32: mouth at [place] [address] bedtime. Medical Branch SERTraline Yes 100mg Take [...] by ity of tablet 15:32: mouth at [place] [address] bedtime. Medical Branch SERTraline 2020-0 Yes 100mg Take 100 Un jose 100 mg 1-05 mg by ity of tablet 15:32: mouth 2 [place] 44 (two) Medical times Branch daily. oxybutynin 1-0 Yes 5mg Take 5 mg Un jose chloride 5 1-05 by mouth ity o f mg tablet 15:32: as needed. [place] [address] Medical Branch docusate 2020-0 Yes 100mg Take 100 Univ ers (COLACE) 1-05 mg by ity of 100 mg 15:32: mouth 2 [place] capsule 44 (two) Medical times Branch daily as needed for Constipati on. mirtazapine 2020-0 Yes 7.5mg Take 7.5 U nivers 7.5 mg 1-05 mg by ity of tablet 15:32: mouth at [place] [address] bedtime. Medical Branch SERTraline 2020-0 Yes 100mg Take 100 Un jose 100 mg 1-05 mg by ity of tablet 15:32: mouth 2 [place] [address] (two) Medical times Branch daily. oxybutynin 2020-0 Yes 5mg Take 5 mg Un jose chloride 5 1-05 by mouth ity o f mg tablet 15:32: as needed. [address] Branch docusate 2020-0 Yes 100mg Take 100 Univ ers (COLACE) 1-05 mg by ity of 100 mg 15:32: mouth 2 [place] capsule 44 (two) Medical times Branch daily as needed for Constipati on. mirtazapine 2020-0 Yes 7.5mg Take 7.5 U nivers 7.5 mg 1-05 mg by ity of tablet 15:32: mouth at [place] [address] bedtime. Medical Branch SERTraline 1-0 Yes 100mg Take 100 Un jose 100 mg 1-05 mg by ity of tablet 15:32: mouth 2 [place] 44 (two) Medical times Branch daily. oxybutynin 2021-0 Yes 5mg Take 5 mg Un jose chloride 5 1-05 by mouth ity o f mg tablet 15:32: as needed. [address] Branch docusate 2020-0 Yes 100mg Take 100 Univ ers (COLACE) 1-05 mg by ity of 100 mg 15:32: mouth 2 [place] capsule 44 (two) Medical times Branch daily as needed for Constipati on. mirtazapine 2021-0 Yes 7.5mg Take 7.5 U nivers 7.5 mg 1-05 mg by ity of tablet 15:32: mouth at [place] [address] bedtime. Medical Branch SERTraline 2021-0 Yes 100mg Take 100 Un jose 100 mg 1-05 mg by ity of tablet 15:32: mouth 2 [place] 44 (two) Medical times Branch daily. oxybutynin 2021-0 Yes 5mg Take 5 mg Un jose chloride 5 1-05 by mouth ity o f mg tablet 15:32: as needed. [place] [address] Medical Branch docusate 2020-0 Yes 100mg Take 100 Univ ers (COLACE) 1-05 mg by ity of 100 mg 15:32: mouth 2 [place] capsule 44 (two) Medical times Branch daily as needed for Constipati on. mirtazapine 1-0 Yes 7.5mg Take 7.5 U nivers 7.5 mg 1-05 mg by ity of tablet 15:32: mouth at [place] [address] bedtime. Medical Branch SERTraline 1-0 Yes 100mg Take 100 Un jose 100 mg 1-05 mg by ity of tablet 15:32: mouth 2 [place] [address] (two) Medical times Branch daily. oxybutynin 2021-0 Yes 5mg Take 5 mg Un jose chloride 5 1-05 by mouth ity o f mg tablet 15:32: as needed. [place] [address] Medical Branch docusate 1-0 Yes 100mg Take 100 Univ ers (COLACE) 1-05 mg by ity of 100 mg 15:32: mouth 2 [place] capsule 44 (two) Medical times Branch daily as needed for Constipati on. mirtazapine 2021-0 Yes 7.5mg Take 7.5 U nivers 7.5 mg 1-05 mg by ity of tablet 15:32: mouth at [place] [address] bedtime. Medical Branch SERTraline 2021-0 Yes 100mg Take 100 Un jose 100 mg 1-05 mg by ity of tablet 15:32: mouth 2 [place] 44 (two) Medical times Branch daily. oxybutynin 2021-0 Yes 5mg Take 5 mg Un jose chloride 5 1-05 by mouth ity o f mg tablet 15:32: as needed. [facility] 44 Medical Branch docusate 2020-0 Yes 100mg Take 100 Univ ers (COLACE) 1-05 mg by ity of 100 mg 15:32: mouth 2 [place] capsule 44 (two) Medical times Branch daily as needed for Constipati on. mirtazapine 2021-0 Yes 7.5mg Take 7.5 U nivers 7.5 mg 1-05 mg by ity of tablet 15:32: mouth at [place] [address] bedtime. Medical Branch SERTraline 1-0 Yes 100mg Take 100 Un jose 100 mg 1-05 mg by ity of tablet 15:32: mouth 2 [place] 44 (two) Medical times Branch daily. oxybutynin 2021-0 Yes 5mg Take 5 mg Un jose chloride 5 1-05 by mouth ity o f mg tablet 15:32: as needed. [place] [address] Medical Branch docusate 2020-0 Yes 100mg Take 100 Univ ers (COLACE) 1-05 mg by ity of 100 mg 15:32: mouth 2 [place] capsule 44 (two) Medical times Branch daily as needed for Constipati on. mirtazapine 1-0 Yes 7.5mg Take 7.5 U nivers 7.5 mg 1-05 mg by ity of tablet 15:32: mouth at [place] [address] bedtime. Medical Branch SERTraline 1-0 Yes 100mg Take 100 Un jose 100 mg 1-05 mg by ity of tablet 15:32: mouth 2 [place] [address] (two) Medical times Branch daily. oxybutynin 1-0 Yes 5mg Take 5 mg Un jose chloride 5 1-05 by mouth ity o f mg tablet 15:32: as needed. [place] [address] Medical Branch docusate 2020-0 Yes 100mg Take 100 Univ ers (COLACE) 1-05 mg by ity of 100 mg 15:32: mouth 2 [place] capsule 44 (two) Medical times Branch daily as needed for Constipati on. mirtazapine 2021-0 Yes 7.5mg Take 7.5 U nivers 7.5 mg 1-05 mg by ity of tablet 15:32: mouth at [place] [address] bedtime. Medical Branch SERTraline 2021-0 Yes 100mg Take 100 Un jose 100 mg 1-05 mg by ity of tablet 15:32: mouth 2 [place] [address] (two) Medical times Branch daily. oxybutynin 1-0 Yes 5mg Take 5 mg Un jose chloride 5 1-05 by mouth ity o f mg tablet 15:32: as needed. [address] [facility] Yes 100mg Take 100 Univ ers (COLACE) 1-05 mg by ity of 100 mg 15:32: mouth 2 [place] capsule 44 (two) Medical times Branch daily as needed for Constipati on. mirtazapine 2021-0 Yes 7.5mg Take 7.5 U nivers 7.5 mg 1-05 mg by ity of tablet 15:32: mouth at [place] [address] bedtime. Medical Branch SERTraline 2020-0 Yes 100mg Take 100 Un jose 100 mg 1-05 mg by ity of tablet 15:32: mouth 2 [place] [address] (two) Medical times Branch daily. oxybutynin 1-0 Yes 5mg Take 5 mg Un jose chloride 5 1-05 by mouth ity o f mg tablet 15:32: as [address]. [address] 2020-0 Yes 100mg Take 100 Univ ers (COLACE) 1-05 mg by ity of 100 mg 15:32: mouth 2 [place] capsule 44 (two) Medical times [place] daily as needed for Constipati on. mirtazapine 1-0 Yes 7.5mg Take 7.5 U nivers 7.5 mg 1-05 mg by ity of tablet 15:32: mouth at [place] [address] bedtime. Medical Branch SERTraline 1-0 Yes 100mg Take 100 Un jose 100 mg 1-05 mg by ity of tablet 15:32: mouth 2 [place] [id number] (two) Medical times Branch daily. oxybutynin 2021-0 Yes 5mg Take 5 mg Un jose chloride 5 1-05 by mouth ity o f mg tablet 15:32: as needed. [address] 2020-0 Yes 100mg Take 100 Univ ers (COLACE) 1-05 mg by ity of 100 mg 15:32: mouth 2 [place] capsule 44 (two) Medical times Branch daily as needed for Constipati on. mirtazapine 2021-0 Yes 7.5mg Take 7.5 U nivers 7.5 mg 1-05 mg by ity of tablet 15:32: mouth at [place] 44 bedtime. Medical Branch SERTraline 0 Yes 100mg [...] 2020-0 Yes [id number] 1{tbl} Take 1 Un joes en-codeine 9-12 tablet by ity of 300-30 [...] Indication s: acute pain nitroglycer 2020-[id number] 1 Univers in 0.4 mg 8-19 tablet ity of sublingual 00:00: [place] the [place] tablet 00 tongue Medical every 5 Branch (five) minutes as needed for Chest pain. nitroglycer 2020-[id number] 1 Univers in 0.4 mg 8-19 tablet ity of sublingual 00:00: [place] the [place] tablet 00 tongue Medical every 5 Branch (five) minutes as needed for Chest pain. nitroglycer 2020-[id number] 1 Univers in 0.4 mg 8-19 tablet ity of sublingual 00:00: under the [place] tablet 00 tongue Medical every 5 Branch (five) minutes as needed for Chest pain. nitroglycer 2020-[id number] 1 Univers in 0.4 mg 8-19 tablet ity of sublingual 00:00: under the [place] tablet 00 tongue Medical every 5 Branch (five) minutes as needed for Chest pain. nitroglycer 2020-[id number] 1 Univers in 0.4 mg 8-19 tablet ity of sublingual 00:00: under the [place] tablet 00 tongue Medical every 5 Branch (five) minutes as needed for Chest pain. nitroglycer 2020-[id number] 1 Univers in 0.4 mg 8-19 tablet ity of sublingual 00:00: under the [place] tablet 00 tongue Medical every 5 Branch (five) minutes as needed for Chest pain. nitroglycer 2020-[id number] 1 Univers in 0.4 mg 8-19 tablet ity of sublingual 00:00: under the [place] tablet 00 tongue Medical every 5 Branch (five) minutes as needed for Chest pain. nitroglycer 2020-[id number] 1 Univers in 0.4 mg 8-19 tablet ity of sublingual 00:00: under the [place] tablet 00 tongue Medical every 5 Branch (five) minutes as needed for Chest pain. nitroglycer 2020-[id number] 1 Univers in 0.4 mg 8-19 tablet ity of sublingual 00:00: under the [place] tablet 00 tongue Medical every 5 Branch (five) minutes as needed for Chest pain. nitroglycer 2020-[id number] 1 Univers in 0.4 mg 8-19 tablet ity of sublingual 00:00: under the [place] tablet 00 tongue Medical every 5 Branch (five) minutes as needed for Chest pain. nitroglycer 2020-[id number] 1 Univers in 0.4 mg 8-19 tablet ity of sublingual 00:00: under the [place] tablet 00 tongue Medical every 5 Branch (five) minutes as needed for Chest pain. nitroglycer 2020-[id number] 1 Univers in 0.4 mg 8-19 tablet ity of sublingual 00:00: under the [place] tablet 00 tongue Medical every 5 Branch (five) minutes as needed for Chest pain. nitroglycer 2020-[id number] 1 Univers in 0.4 mg 8-19 tablet ity of sublingual 00:00: under the [place] tablet 00 tongue Medical every 5 Branch (five) minutes as needed for Chest pain. atorvastati 2020-0 Yes [id number] 40mg Take 1 Univers n 40 mg 7-21 tablet by ity of tablet 00:00: mouth [place] 00 daily. Medical Branch clopidogreL 2020-0 Yes [id number] 75mg Take 1 Univers 75 mg 7-21 tablet by ity of tablet 00:00: mouth [place] 00 daily. Medical Branch aspirin 81 2020-0 Yes [id number] 81mg Take 1 U nivers mg chewable 7-21 tablet by ity of tablet 00:00: mouth [place] 00 daily. Medical Branch atorvastati 2020-0 Yes [id number] 40mg Take 1 Univers n 40 mg 7-21 tablet by ity of tablet 00:00: mouth [place] 00 daily. Medical Branch clopidogreL 2020-0 Yes [id number] 75mg Take 1 Univers 75 mg 7-21 tablet by ity of tablet 00:00: mouth [place] 00 daily. Medical Branch aspirin 81 2020-0 Yes [id number] 81mg Take 1 U nivers mg chewable 7-21 tablet by ity of tablet 00:00: mouth [place] 00 daily. Medical Branch atorvastati 2020-0 Yes [id number] 40mg Take 1 Univers n 40 mg 7-21 tablet by ity of tablet 00:00: mouth [place] 00 daily. Medical Branch clopidogreL 2020-0 Yes [id number] 75mg Take 1 Univers 75 mg 7-21 tablet by ity of tablet 00:00: mouth [place] 00 daily. Medical Branch aspirin 81 2020-0 Yes [id number] 81mg Take 1 U nivers mg chewable 7-21 tablet by ity of tablet 00:00: mouth [place] 00 daily. Medical Branch atorvastati 2020-0 Yes [id number] 40mg Take 1 Univers n 40 mg 7-21 tablet by ity of tablet 00:00: mouth [place] 00 daily. Medical Branch clopidogreL 2020-0 Yes [id number] 75mg Take 1 Univers 75 mg 7-21 tablet by ity of tablet 00:00: mouth [place] 00 daily. Medical Branch aspirin 81 2020-0 Yes [id number] 81mg Take 1 U nivers mg chewable 7-21 tablet by ity of tablet 00:00: mouth [place] 00 daily. Medical Branch atorvastati 2020-0 Yes [id number] 40mg Take 1 Univers n 40 mg 7-21 tablet by ity of tablet 00:00: mouth [place] 00 daily. Medical Branch clopidogreL 2020-0 Yes [id number] 75mg Take 1 Univers 75 mg 7-21 tablet by ity of tablet 00:00: mouth [place] 00 daily. Medical Branch aspirin 81 2020-0 Yes [id number] 81mg Take 1 U nivers mg chewable 7-21 tablet by ity of tablet 00:00: mouth [place] 00 daily. Medical Branch atorvastati 2020-0 Yes [id number] 40mg Take 1 Univers n 40 mg 7-21 tablet by ity of tablet 00:00: mouth [place] 00 daily. Medical Branch clopidogreL 2020-0 Yes [id number] 75mg Take 1 Univers 75 mg 7-21 tablet by ity of tablet 00:00: mouth [place] 00 daily. Medical Branch aspirin 81 2020-0 Yes [id number] 81mg Take 1 U nivers mg chewable 7-21 tablet by ity of tablet 00:00: mouth [place] 00 daily. Medical Branch atorvastati 2020-0 Yes [id number] 40mg Take 1 Univers n 40 mg 7-21 tablet by ity of tablet 00:00: mouth [place] 00 daily. Medical Branch clopidogreL 2020-0 Yes [id number] 75mg Take 1 Univers 75 mg 7-21 tablet by ity of tablet 00:00: mouth [place] 00 daily. Medical Branch aspirin 81 2020-0 Yes [id number] 81mg Take 1 U nivers mg chewable 7-21 tablet by ity of tablet 00:00: mouth [place] 00 daily. Medical Branch atorvastati 2020-0 Yes [id number] 40mg Take 1 Univers n 40 mg 7-21 tablet by ity of tablet 00:00: mouth [place] 00 daily. Medical Branch clopidogreL 2020-0 Yes [id number] 75mg Take 1 Univers 75 mg 7-21 tablet by ity of tablet 00:00: mouth [place] 00 daily. Medical Branch aspirin 81 2020-0 Yes [id number] 81mg Take 1 U nivers mg chewable 7-21 tablet by ity of tablet 00:00: mouth [place] 00 daily. Medical Branch atorvastati 2020-0 Yes [id number] 40mg Take 1 Univers n 40 mg 7-21 tablet by ity of tablet 00:00: mouth [place] 00 daily. Medical Branch clopidogreL 2020-0 Yes [id number] 75mg Take 1 Univers 75 mg 7-21 tablet by ity of tablet 00:00: mouth [place] 00 daily. Medical Branch aspirin 81 2020-0 Yes [id number] 81mg Take 1 U nivers mg chewable 7-21 tablet by ity of tablet 00:00: mouth [place] 00 daily. Medical Branch atorvastati 2020-0 Yes [id number] 40mg Take 1 Univers n 40 mg 7-21 tablet by ity of tablet 00:00: mouth [place] 00 daily. Medical Branch clopidogreL 2020-0 Yes [id number] 75mg Take 1 Univers 75 mg 7-21 tablet by ity of tablet 00:00: mouth [place] 00 daily. Medical Branch aspirin 81 2020-0 Yes [id number] 81mg Take 1 U nivers mg chewable 7-21 tablet by ity of tablet 00:00: mouth [place] 00 daily. Medical Branch atorvastati 2020-0 Yes [id number] 40mg Take 1 Univers n 40 mg 7-21 tablet by ity of tablet 00:00: mouth [place] 00 daily. Medical Branch clopidogreL 2020-0 Yes [id number] 75mg Take 1 Univers 75 mg 7-21 tablet by ity of tablet 00:00: mouth [place] 00 daily. Medical Branch aspirin 81 2020-0 Yes [id number] 81mg Take 1 U nivers mg chewable 7-21 tablet by ity of tablet 00:00: mouth [place] 00 daily. Medical Branch atorvastati 2020-0 Yes [id number] 40mg Take 1 Univers n 40 mg 7-21 tablet by ity of tablet 00:00: mouth [place] 00 daily. Medical Branch clopidogreL 2020-0 Yes [id number] 75mg Take 1 Univers 75 mg 7-21 tablet by ity of tablet 00:00: mouth [place] 00 daily. Medical Branch aspirin 81 2020-0 Yes [id number] 81mg Take 1 U nivers mg chewable 7-21 tablet by ity of tablet 00:00: mouth [place] 00 daily. Medical Branch atorvastati 2020-0 Yes [id number] 40mg Take 1 Univers n 40 mg 7-21 tablet by ity of tablet 00:00: mouth [place] 00 daily. Medical Branch clopidogreL 2020-0 Yes [id number] 75mg Take 1 Univers 75 mg 7-21 tablet by ity of tablet 00:00: mouth [place] 00 daily. Medical Branch aspirin 81 2020-0 Yes [id number] 81mg Take 1 U nivers mg chewable 7-21 tablet by ity of tablet 00:00: mouth [place] 00 daily. Medical Branch Immunizations Ordered Filled Immunization Date Status Comments [facility] e Immunization Name Name Influenza High Dose 2020-04-26 Completed Unive rsity of 00:00:00 [facility] Influenza High Dose 2020-04-26 Completed Unive rsity of 00:00:00 [facility] Influenza High Dose 2020-04-26 Completed Unive rsity of 00:00:00 [facility] Influenza High Dose 2020-04-26 Completed Unive rsity of 00:00:00 [facility] Influenza High Dose 2020-04-26 Completed Unive rsity of 00:00:00 [facility] Influenza High Dose 2020-04-26 Completed Unive rsity of 00:00:00 [facility] Influenza High Dose 2020-04-26 Completed Unive rsity of 00:00:00 [facility] Influenza High Dose 2020-04-26 Completed Unive rsity of 00:00:00 [facility] Influenza High Dose 2020-04-26 Completed Unive rsity of 00:00:00 [facility] Influenza High Dose 2020-04-26 Completed Unive rsity of 00:00:00 [facility] Influenza High Dose 2020-04-26 Completed Unive rsity of 00:00:00 [facility] Influenza High Dose 2020-04-26 Completed Unive rsity of 00:00:00 [facility] Influenza High Dose 2020-04-26 Completed Unive rsity of 00:00:00 [facility] Influenza Virus 1991-06-25 Completed Universit y of Vaccine 00:00:00 [facility] Pneumococcal 1991-06-25 Completed University o f Polysaccharide, 00:00:00 [place] Med ical PPSV23 (PNEUMOVAX) Branch Influenza Virus 1991-06-25 Completed Universit y of Vaccine 00:00:00 [facility] Pneumococcal 1991-06-25 Completed University o f Polysaccharide, 00:00:00 [place] Med ical PPSV23 (PNEUMOVAX) Branch Influenza Virus 1991-06-25 Completed Universit y of Vaccine 00:00:00 [facility] Pneumococcal 1991-06-25 Completed University o f Polysaccharide, 00:00:00 [place] Med ical PPSV23 (PNEUMOVAX) [place] Influenza Virus 1991-06-25 Completed Universit y of Vaccine 00:00:00 [facility] Pneumococcal 1991-06-25 Completed University o f Polysaccharide, 00:00:00 [place] Med ical PPSV23 (PNEUMOVAX) Branch Influenza Virus 1991-06-25 Completed Universit y of Vaccine 00:00:00 [facility] Pneumococcal 1991-06-25 Completed University o f Polysaccharide, 00:00:00 [place] Med ical PPSV23 (PNEUMOVAX) Branch Influenza Virus 1991-06-25 Completed Universit y of Vaccine 00:00:00 [facility] Pneumococcal 1991-06-25 Completed University o f Polysaccharide, 00:00:00 [place] Med ical PPSV23 (PNEUMOVAX) Branch Influenza Virus 1991-06-25 Completed Universit y of Vaccine 00:00:00 [facility] Pneumococcal 1991-06-25 Completed University o f Polysaccharide, 00:00:00 [place] Med ical PPSV23 (PNEUMOVAX) Branch Influenza Virus 1991-06-25 Completed Universit y of Vaccine 00:00:00 [facility] Pneumococcal 1991-06-25 Completed University o f Polysaccharide, 00:00:00 [place] Med ical PPSV23 (PNEUMOVAX) Branch Influenza Virus 1991-06-25 Completed Universit y of Vaccine 00:00:00 [facility] Pneumococcal 1991-06-25 Completed University o f Polysaccharide, 00:00:00 [place] Med ical PPSV23 (PNEUMOVAX) Branch Influenza Virus 1991-06-25 Completed Universit y of Vaccine 00:00:00 [facility] Pneumococcal 1991-06-25 Completed University o f Polysaccharide, 00:00:00 [place] Med ical PPSV23 (PNEUMOVAX) Branch Influenza Virus 1991-06-25 Completed Universit y of Vaccine 00:00:00 [facility] Pneumococcal 1991-06-25 Completed University o f Polysaccharide, 00:00:00 [place] Med ical PPSV23 (PNEUMOVAX) Branch Influenza Virus 1991-06-25 Completed Universit y of Vaccine 00:00:00 [facility] Pneumococcal 1991-06-25 Completed University o f Polysaccharide, 00:00:00 [place] Med ical PPSV23 (PNEUMOVAX) Branch Influenza Virus 1991-06-25 Completed Universit y of Vaccine 00:00:00 [facility] Pneumococcal 1991-06-25 Completed University o f Polysaccharide, 00:00:00 [place] Med ical PPSV23 (PNEUMOVAX) Branch Vital Signs Vital Name Observation Time Observation Value Comments Source Systolic blood 2022-10-13 18:19:00 119 mm[Hg] [facility] Diastolic blood 2022-10-13 18:19:00 81 [facility] Heart rate 2022-10-13 18:19:00 104 /min [facility] Body height 2022-10-13 18:19:00 160 cm [facility] Body weight 2022-10-13 18:19:00 86.183 kg [facility] BMI 2022-10-13 18:19:00 33.66 kg/m2 [facility] Oxygen saturation 2022-10-13 18:19:00 97 /min [facility] in Arterial blood [facility] Br anch by Pulse oximetry Systolic blood 2021-09-22 00:18:00 133 mm[Hg] [facility] Diastolic blood 2021-09-22 00:18:00 68 mm[Hg] Unive [facility] Body height 2021-09-22 00:18:00 162.6 cm [facility] Body weight 2021-09-22 00:18:00 86.183 kg [facility] BMI 2021-09-22 00:18:00 32.61 kg/m2 [facility] Procedures Procedure Date / Time Performed Performing Clinician Tiana e POCT HEMOGLOBIN A1C 2022-10-13 18:21:00 Paulette Rangel [facility] ASSIGNMENT OF BENEFITS 2022-10-13 17:52:09 Doctor Unassigned, No [facility] Name Medical Branch EXTERNAL PROVIDER 2021-10-12 05:01:00 Doctor Unassigned, No [facility] RECORDS Name [facility] Branch POCT HEMOGLOBIN A1C 2021-08-30 19:18:00 Suraj Reid [facility] Encounters Start End Encounter Admission Attending Care Care Encounter Source Date/Time Date/Time Type Type Clinicians Facility Department ID 2021-04-22 Emergency [facility] [id number] [facility]22 Inpatient R BAR [facility] [id number] Univers 15:37:23 [facility] 2021-04-22 Emergency [facility] [id number] Univers [facility]:15[facility] 2023-04-17 2023-04-17 Outpatient R SHANE [facility] [id number] Univers 13:00:00 13:00:00 PAULETTE [facility] 2022-11-17 2022-11-17 Telephone [facility] [id number] [facility] 00:00:00 00:00:00 rimidi 350.1.13.10 it y of [place] 4.2.7.2.686 Fredo as ADALID?BLEA [id number] [address] MEDICAL OFFICE [facility] 2022-10-19 2022-10-19 Telephone [facility] [id number] [facility] 00:00:00 00:00:00 rimidi 350.1.13.10 it y of [place] [id number] Fredo as ADALID?BLEA [id number] Me [address] OFFICE [facility] 2022-10-13 2022-10-13 Oil Boiler Lab, Ang - Db [facility] [id number] Univers 14:00:00 14:15:00 Visit Oscar Lai [facility] 350.1.13.10 ity [place] [facility] [id number] [place]o as ADALID?BLEA [id number] [facility] [address] [facility] OFFICE [facility] 2022-10-13 2022-10-13 Outpatient R MING [facility] [id number] Univers 13:00:00 14:00:49 [facility] 2022-10-13 2022-10-13 Office Ming [facility] [id number] Univers 13:00:00 14:00:49 Visit [facility] 350.1.13.10 it y of [place] 4.2.7.2.686 Fredo as ADALID?BLEA [id number] [address] OFFICE [facility] 2022-10-13 2022-10-13 Orders Doctor STELLA [id number] [id number] Univers 00:00:00 00:00:00 Only Unassigned, DOMONIQUE 350.1.13.10 ity of [place] [facility] 4.2.7.2.686 [place] as [id number] [address] 2022-06-27 2022-06-27 Outpatient R JEANETTE [facility] [id number] Univers 14:00:00 14:00:00 [facility] 2022-06-01 2022-06-01 [facility] [id number] Univers 00:00:00 00:00:00 Estech 350.1.13.10 it y of [place] 4.2.7.2.686 Fredo as ADALID?BLEA [id number] [address] 2022-03-11 2022-03-11 Refill Jeanette [facility] 1.2.840.114 [id number] Univers 00:00:00 00:00:00 [facility] 350.1.13.10 it y of [place] 4.2.7.2.686 Fredo as ADALID?BLEA [id number] [place] maureen FINNEY [address] [place] MEDICAL OFFICE BUILDING 2022-03-07 2022-03-07 Outpatient R JEANETTE [facility] [id number] Univers 13:00:00 13:00:00 [facility] 2022-03-07 2022-03-07 [facility] [id number] Univers 13:00:00 13:00:00 [facility] 2021-12-14 2021-12-14 [facility] [id number] Univers 10:30:00 10:30:00 JURGEN alisha [facility] 2021-12-14 2021-12-14 Out[facility] [id number] Univers 10:30:00 10:30:00 [facility] 2021-10-12 2021-10-12 Orders Doctor STELLA 1.2.840.114 [id number] Univers 00:00:00 00:00:00 Only Unassigned, DOMONIQUE 350.1.13.10 ity of [place] [facility] 4.2.7.2.686 Fredo as [phone] [facility] 009 Branch 2021-09-07 2021-09-07 [facility] 1.2.840.114 [id number] Univers 10:30:00 10:47:32 Visit Jurgen BONILLA 350.1.13.10 ity [place] 4.2.7.2.686 [place] [id number] [facility] SANDY GRUBER 085 Branch [facility] 2021-09-07 2021-09-07 Outpatient R KASSANDRA [facility] [id number] Univers 10:30:00 10:47:32 JURGEN lopez [facility] 2021-09-07 2021-09-07 [facility] [id number] Univers 10:30:00 10:30:00 JURGEN lopez [facility] 2021-09-07 2021-09-07 Outpatient R KASSANDRA [facility] [id number] Univers 10:30:00 10:30:00 JURGEN [facility] 2021-08-30 2021-08-30 Outpatient R JEANETTE [facility] [id number] Univers 13:00:00 14:06:24 [facility] 2021-08-30 2021-08-30 [facility] 1.2.840.114 [id number] Univers 13:00:00 14:06:24 Visit [facility] 350.1.13.10 it y of [place] 4.2.7.2.686 [place]o as ADALID?BLEA [id number] [place] maureen REG [address] [place] MEDICAL OFFICE BUILDING 2021-08-30 2021-08-30 Outpatient R JEANETTE [facility] [id number] Univers 13:00:00 14:06:24 [facility] 2021-08-30 2021-08-30 Outpatient R JEANETTE [facility] [id number] Univers 13:00:00 13:00:00 [facility] 2021-08-30 2021-08-30 Orders Doctor STELLA 1.2.840.114 [id number] Univers 00:00:00 00:00:00 Only Unassigned, DOMONIQUE 350.1.13.10 ity of [place] [facility] 4.2.7.2.686 Fredo as [id number] [address] 2021-08-08 2021-08-08 [facility] [id number] Univers 10:06:39 23:59:00 Encounter Jurgen SKELTON 350.1.13.10 ity of [place] [facility] 4.2.7.2.686 [place] [id number] [place] veramachelle LOO 801 [facility] 2021-08-08 2021-08-08 Outpatient [facility] [id number] Univers 13:00:00 14:30:21 JURGEN [facility] 2021-08-08 2021-08-08 Oil Boiler Test, Vtc Pulmonary Function [facility] 1.2.840.114 [id number] Univers 13:00:00 14:30:21 Visit [facility] 350.1 .13.10 ity of [place] 4.2.7.2.686 [facility] [id number] [facility] 083 Branch [facility] 2021-08-08 2021-08-08 [facility] [id number] Univers 08:54:25 10:05:00 Encounter Jurgen SANCHEZ 350.1.13.10 ity of [place] 4.2.7.2.686 [facility] [id number] [address] ([facility]) 2021-08-08 2021-08-08 Outpatient [facility] [id number] Univers 00:00:00 00:00:00 JURGEN lopez [facility] 2021-08-05 2021-08-05 Laboratory Only, Adc Test [facility] 1.2.840. 114 [id number] Univers 15:00:00 15:15:00 Only Mitesh Coe 350.1.13.10 ity valerie M[place]ALE[place] 4.2.7.2.686 [facility] [id number] [place] [address] Branch 2021-08-05 2021-08-05 Outpatient R SARAVANAN [facility] [id number] Univers 15:00:00 15:00:00 MITESH lopez [facility] 2021-06-14 2021-06-14 [facility] [id number] Univers 00:00:00 00:00:00 Suraj BONILLA 350.1.13.10 ity [place] 4.2.7.2.686 [facility] [id number] [facility] [address] [place] [facility] 2021-06-01 2021-06-01 Outpatient Gayla [facility] [id number] Univers 10:00:00 11:30:16 JURGEN lopez [facility] 2021-06-01 2021-06-01 Office [facility] 1.2.840.114 [id number] Univers 09:44:15 11:30:16 Visit Jurgen BONILLA 350.1.13.10 ity of [place] 4.2.7.[address] [place] [id number] DIABETES CLINIC 2021-05-10 2021-05-10 Telephone [facility] 1.2.840.114 [id number] Univers 00:00:00 00:00:00 Jurgen BONLILA 350.1.13.10 ity of [place] SANCHEZJESSICA 4.2.7.2.686 [facility] s [place] [id number] [address] DIABETES CLINIC 2021-03-02 2021-03-02 Office [facility] 1.2.840.114 [id number] Univers 13:34:41 15:58:40 Visit [facility] 350.1.13.10 it y of [place] 4.2.7.2.686 Fredo as Adalid?Blea [id number] [place] veramachelle [address] Medical Office Building 2021-03-02 2021-03-02 Outpatient R JEANETTE [facility] [id number] Univers 13:00:00 13:00:00 [facility] 2021-03-02 2021-03-02 Orders Doctor DOUGLAS 1.2.840.114 [id number] Univers 00:00:00 00:00:00 Only Unassigned, DOMONIQUE 350.1.13.10 [facility] 4.2.7.2.686 [place] as [id number] [address] 2020-11-02 2020-11-02 Outpatient R JEANETTE [facility] [id number] Univers 10:30:00 10:30:00 [facility] 2020-06-29 2020-06-29 Office [facility] 1.2.840.114 [id number] 15:07:47 16:11:28 Visit Suraj Alarcon 350.1.13.10 [place] 4.2.7.2.686 Professio [id number] [facility] 220 Building 2020-06-29 2020-06-29 [facility] [id number] Univers 15:00:00 15:00:00 [facility] 2020-06-29 2020-06-29 Orders Doctor DOUGLAS 1.2.840.114 [id number] 00:00:00 00:00:00 Only Unassigned, DOMONIQUE 350.1.13.10 [place] [facility] 4.2.7.2.686 [id number] 2020-04-20 2020-04-20 Outpatient R [facility] [id number] Univers 15:00:00 15:00:00 [facility] 2020-03-30 2020-03-30 [facility]patient [facility] [id number] Univers 15:00:00 15:00:00 WENTONG [facility] 2020-03-10 2020-03-10 Outpatient R [facility]LY[facility] [id number] Univers 14:30:00 14:30:00 KHALED [facility] 2020-02-16 2020-02-16 Outpatient [facility] [id number] Univers 00:00:00 00:00:00 [facility] 2020-02-11 2020-02-11 Outpatient R OLGA [facility] [facility] [id number] [facility] 15:30:00 15:30:00 [facility] 2020-01-29 2020-01-29 [facility] [id number] [facility] 08:00:00 08:00:00 ADY rufinaalisha o f [facility] Results Test Description Test Time Test Comments Results Result Comments Source POCT HEMOGLOBIN A1C TEST 2022-10-13 18:21:00 Test Item Value Reference Range Interpretation Comme nts POCT HBA1C (test code = 4548-4) 7.9 % 4-6 A Lab Interpretation (test code = 20810-1) Abnormal [facility] HEMOGLOBIN A1C [id number] 18:21:00 Test Item Value Reference Range Interpretation Comments POCT HBA1C (test code = 4548-4) 7.9 % 4-6 A Lab Interpretation (test code = Abnormal 94854-4) [facility] HEMOGLOBIN A1C [id number] 19:18:00 Test Item Value Reference Range Interpretation Comments POCT HBA1C (test code = 4548-4) 6.5 % 4-6 A Lab Interpretation (test code = Abnormal 77107-9) [facility]
[2022-12-08] MEDS ORDERED: HYDROCODONE/APAP 7.5/325 MG TAB ONE (07:43)
[2022-12-08] MEDS ORDERED: KETOROLAC 30 MG/ML INJ ONE (07:44)
--- NOTE | 2022-12-08 09:35 | RAD REPORT ---
EXAM DESCRIPTION: RAD - Hip Right 2 View - 12/08/2022 9:14 am CLINICAL HISTORY: FALL COMPARISON: No comparisons FINDINGS/IMPRESSION: Status post right total hip arthroplasty. No evidence of hardware complications . No fractures are seen. No dislocation.
--- NOTE | 2022-12-08 09:36 | RAD REPORT ---
EXAM DESCRIPTION: RAD - Elbow Right 3 View - 12/08/2022 9:16 am CLINICAL HISTORY: right elbow pain sp fall COMPARISON: No comparisons FINDINGS/IMPRESSION: No acute fracture. No malalignment. No significant focal degenerative changes.
--- NOTE | 2022-12-08 09:38 | RAD REPORT ---
EXAM DESCRIPTION: RAD - Knee Right 3 View - 12/08/2022 9:12 am CLINICAL HISTORY: pain sp fall COMPARISON: No comparisons FINDINGS/IMPRESSION: No acute fracture. No malalignment. Mild medial and lateral compartment joint s pace narrowing with spurring and chondrocalcinosis. Moderate to severe patellofemoral compartment deg enerative changes.
--- NOTE | 2022-12-08 09:39 | RAD REPORT ---
EXAM DESCRIPTION: RAD - Sacrum And Coccyx - 12/08/2022 9:17 am CLINICAL HISTORY: pain sp fall COMPARISON: SPINE LUMBAR W OBLIQUE dated 06/05/2012 FINDINGS/IMPRESSION: The sacrum on the frontal view is partially obscured by bowel contents. No disp laced fracture identified. The sacrum and coccyx on the lateral view appears aligned. A nondisplaced or minimally displaced fracture could be obscured. If persistent clinical concern for a fracture at e ither of these sites, consider CT.
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
[2022-12-08 10:45] VITALS: TEMP 98.2
[2022-12-08 10:46] VITALS: BP 140/86; O2SAT 99
== END 2022-12-08 10:39 | disposition home or self-care (01) ==
LOC: ER 06:44
DX: S80.01XA Contusion of right knee, initial encounter (principal); S09.90XA Unspecified injury of head, initial encounter; M54.50 Low back pain, unspecified; W18.30XA Fall on same level, unspecified, initial encounter; J44.9 Chronic obstructive pulmonary disease, unspecified; E11.9 Type 2 diabetes mellitus without complications; I10 Essential (primary) hypertension; Z79.82 Long term (current) use of aspirin; Z88.1 Allergy status to other antibiotic agents; Z88.2 Allergy status to sulfonamides; Z88.5 Allergy status to narcotic agent; Z88.8 Allergy status to other drugs, medicaments and biological substances; Z91.040 Latex allergy status; Z91.041 Radiographic dye allergy status; Z91.048 Other nonmedicinal substance allergy status
CPT/HCPCS: 72220; 96372; 99284

== ENCOUNTER 2022-12-12 13:24 | Observation (INO) | payer OTHER ==
--- OUTSIDE RECORDS SUMMARY | 2022-12-12 13:29 | XMS REPORT | Continuity of Care Document ---
:1945 Author Organization [facility] t Address [address] [place] [address] [place] [id number] Care Team Providers Name Role Phone Barbie Garnerlucero Mackey Primary Care Physician OLGA DINERO Attending Clinician Unavailable PAULETTE RANGEL Attending Clinician Unavailable Oscar Lai MD Attending Clinician Lab, Ang - Db Attending Clinician Unavailable OSCAR LAI Attending Clinician Unavailable Doctor Unassigned, [place] Attending Clinician Unavailable SURAJ REID Attending Clinician Unavailable Suraj Reid MD Attending Clinician JURGEN CANNON Attending Clinician Unavailable Jurgen Cannon MD Attending Clinician [phone] Test, Vtc Pulmonary Function Attending Clinician [...] Date Expiration Date S ource HUMANA CHOICE [id number] 2013 00:00:00 [facility] [id number] 2020 [facility] 00:00:00 PPO Problems Condition Condition Condition Status Onset Resolution Last Treating Co mments Source Name Details Category Date Date Treatment Clinician Date Abscess of Abscess of Disease Active 2020-0 U nivers groin, groin, 9-16 ity of right right 00:00: [place] 00 Medical Branch S/P TAVR S/P TAVR Disease Active 2020-0 Unive rs (transcath (transcath 10 it y of eter eter 00:00: [place] [...] Added automatic ally from request for surgery [id number] Cardiogeni Cardiogeni Disease Active 2020-0 U nivers c shock c shock 7-11 ity of 00:00: [place] 00 Medical Branch Elevated Elevated Disease Active 2020-0 Unive rs troponin troponin 7-07 ity of 00:00: [place] 00 Medical Branch Acute Acute Disease Active 2020-0 Univers diastolic diastolic 707 ity of congestive [...] rs arthritis arthritis 7 ity of 00:00: [place] [facility] Lumbar Lumbar Disease Active Univers degenerati degenerati 01-01 it y of ve disc ve disc 00:00: [place] disease disease 00 Medical Branch Rheumatoid Rheumatoid Disease Active Overview : Univers arthritis arthritis Formattin i ty of g of this [place] note Medical might be Branch different from the original. 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 Pt has chronic back [id number] Diagnosis Term [employer] Treater Utility Type 2 Type 2 Disease Active Overview: Univer s diabetes diabetes Formattin ity of mellitus mellitus g of this [place] as with with note Medical cardiac cardiac might be Branch complicati complicati different on on from the original. Type II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 Diabetic Diabetic Disease Active Overview: Un jose polyneurop polyneurop Formattin ity of athy athy g of this [place] note Medical might be Branch different from the original. 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 Diverticul Diverticul Disease Active U nivers [...] Date Stop Date Quantity Comments Source History SDGA Food Univers ity of Scarcity [place] [facility] History of Current smoker University of tobacco use [place] [facility] History [facility] University o f Alcohol Frequency [facility] edical Branch History [facility] University o f Alcohol Std [place] Medical Drinks Branch History [facility] University o f Alcohol Binge [place] [facility] al Branch Exposure to 2022-10-03 2022-10-13 Not sure University of SARS-CoV-2 00:00:00 12:50:00 [facility] (event) Branch Alcohol intake 2022-10-13 2022-10-13 Current non-drinker U niversity of 00:00:00 00:00:00 of alcohol [facility] (finding) Branch Tobacco Comment 2022-10-13 2022-10-13 Quit more than Unive rsity of 00:00:00 00:00:00 thirty some years [facility] ago [place] Tobacco use and 2022-10-13 2022-10-13 Smokeless tobacco Un iversity of exposure 00:00:00 00:00:00 non-user [place] [facility] History [facility] 2020-03-10 2020-03-10 5 University o f Financial 00:00:00 00:00:00 [place] [facility] History [facility] Food 2020-03-10 2020-03-10 1 Univers ity of Worry 00:00:00 00:00:00 [place] [facility] History SDGA 2020-03-10 2020-03-10 2 University o f Transport Med 00:00:00 00:00:00 [facility] [place] [facility] al Branch History [facility] 2020-03-10 2020-03-10 2 University o f Transport Non-Med 00:00:00 00:00:00 [facility] Alcohol Comment 2006-10-01 2006-10-01 Drinks ETOH very Uni versity of 00:00:00 00:00:00 occasionally [facility] [place] [facility] Sex [birth year] Universit y of 00:00:00 00:00:[address] [facility] Smoking Status Start Date Stop Date Source Ex-smoker 2022-10-13 00:00:00 2022-10-13 00:00:00 [facility] Medications Ordered Filled Start Stop Current Ordering Indication Dosage Frequency Signature Comments Components Source Medication Medication Date Date Medication? Clinician (SIG) Name Name Magnesium 2022-0 Yes Take by Unive rs 250 mg Tab 4-21 mouth. ity of 13:09: [address] Branch Magnesium 2022-0 Yes Take by Unive rs 250 mg Tab 4-21 mouth. ity of 13:09: [address] Branch Magnesium 2022-0 Yes Take by Unive rs 250 mg Tab 4-21 mouth. ity of 13:09: [address] Magnesium 2022-0 Yes Take by Unive rs 250 mg Tab 4-21 mouth. ity of 13:09: [address] Magnesium 2022-0 Yes Take by Unive rs 250 mg Tab 4-21 mouth. ity of 13:09: [address] Magnesium 2022-0 Yes Take by Unive rs 250 mg Tab 4-21 mouth. ity of 13:09: [address] metformin 2022-0 Yes [id number] 500mg Take 1 U nivers ER 500 mg 4-21 tablet by ity o f 24 hr 00:00: mouth in [place] tablet 00 the Medical morning Branch and 1 tablet in the evening. metformin 3-0 Yes [id number] 500mg Take 1 U nivers ER 500 mg 4-21 tablet by ity o f 24 hr 00:00: mouth in [place] tablet 00 the Medical morning Branch and 1 tablet in the evening. metformin 2023-0 Yes [id number] 500mg Take 1 U nivers ER 500 mg 4-21 tablet by ity o f 24 hr 00:00: mouth in [place] tablet 00 the Medical morning Branch and 1 tablet in the evening. metformin 2023-0 Yes [id number] 500mg Take 1 U nivers ER 500 mg 4-21 tablet by ity o f 24 hr 00:00: mouth in [place] tablet 00 the Medical morning Branch and 1 tablet in the evening. metformin 2023-0 Yes [id number] 500mg Take 1 U nivers ER 500 mg 4-21 tablet by ity o f 24 hr 00:00: mouth in [place] tablet 00 the Medical morning Branch and 1 tablet in the evening. metformin 2023-0 Yes [id number] 500mg Take 1 U nivers ER 500 mg 4-21 tablet by ity o f 24 hr 00:00: mouth in [place] tablet 00 the Medical morning Branch and 1 tablet in the evening. vancomycin 2021-06 Yes Univers 5 gram 2-07 ity of injection 00:00: [place] 00 Medical Branch vancomycin 2021-06 Yes Univers 5 gram 2-07 ity of injection 00:00: [place] 00 Medical Branch vancomycin 2021-06 Yes Univers 5 gram 2-07 ity of injection 00:00: [place] 00 Medical Branch vancomycin 2021-06 Yes Univers 5 gram 2-07 ity of injection 00:00: [place] 00 Medical Branch vancomycin 2021-3- No Univer s 5 gram 2-07 04-21 ity of injection 00:00: 00:00 [place] 00 :00 Medical Branch vancomycin 2021-3- No Univer s 5 gram 2-07 04-21 ity of injection 00:00: 00:00 [place] 00 :00 Medical Branch metformin 2022-0 Yes [id number] TAKE ONE Univers ER 500 mg 9-17 TABLET BY ity o f 24 hr 00:00: MOUTH [place] tablet 00 DAILY WITH Medical BREAKFAST Branch metformin 2022-0 Yes [id number] TAKE ONE Univers ER 500 mg 9-17 TABLET BY ity o f 24 hr 00:00: MOUTH [place] tablet 00 DAILY WITH Medical BREAKFAST Branch metformin 2022-0 Yes [id number] TAKE ONE Univers ER 500 mg 9-17 TABLET BY ity o f 24 hr 00:00: MOUTH [place] tablet 00 DAILY WITH Medical BREAKFAST Branch metformin 2022-0 Yes [id number] TAKE ONE Univers ER 500 mg 9-17 TABLET BY ity o f 24 hr 00:00: MOUTH [place] tablet 00 DAILY WITH Medical BREAKFAST Branch metformin 2022-0 Yes [id number] TAKE ONE Univers ER 500 mg 9-17 TABLET BY ity o f 24 hr 00:00: MOUTH [place] tablet 00 DAILY WITH Medical BREAKFAST Branch metformin 2022-0 2023- No [id number] TAKE ONE Univers ER 500 mg 9-17 04-21 TABLET BY ity of 24 hr 00:00: 00:00 MOUTH [place] tablet 00 :00 DAILY WITH Medical [facility] Branch metformin 2021-0 2023- No [id number] TAKE ONE Univers ER 500 mg 03-11 TABLET BY ity of 24 hr 00:00: 00:00 MOUTH [place] tablet 00 :00 DAILY WITH Medical BREAKFAST Branch semaglutide 0 Yes [id number] .5mg inject 0.5 Univers (OZEMPIC) 3-08 mg under ity of 0.25 mg or 00:00: the skin [place] as 0.5 mg(2 00 weekly. Medical mg/1.5 mL) Branch PnIj semaglutide Yes [id number] .5mg inject 0.5 Univers (OZEMPIC) 3-08 mg under ity of 0.25 mg or 00:00: the skin [place] 0.5 mg(2 00 weekly. Medical mg/1.5 mL) Branch PnIj semaglutide Yes [id number] .5mg inject 0.5 Univers (OZEMPIC) 3-08 mg under ity of 0.25 mg or 00:00: the skin [place] 0.5 mg(2 00 weekly. Medical mg/1.5 mL) Branch PnIj semaglutide Yes [id number] .5mg inject 0.5 Univers (OZEMPIC) 3-08 mg under ity of 0.25 mg or 00:00: the skin [place] 0.5 mg(2 00 weekly. Medical mg/1.5 mL) Branch PnIj semaglutide Yes [id number] .5mg inject 0.5 Univers (OZEMPIC) 3-08 mg under ity of 0.25 mg or 00:00: the skin [place] 0.5 mg(2 00 weekly. Medical mg/1.5 mL) Branch PnIj semaglutide Yes [id number] .5mg inject 0.5 Univers (OZEMPIC) 3-08 mg under ity of 0.25 mg or 00:00: the skin [place] 0.5 mg(2 00 weekly. Medical mg/1.5 mL) Branch PnIj semaglutide 0 Yes [id number] .5mg inject 0.5 Univers (OZEMPIC) 3-08 mg under ity of 0.25 mg or 00:00: the skin [place] as 0.5 mg(2 00 weekly. Medical mg/1.5 mL) Branch PnIj semaglutide 2022- No [id number] .5mg inject 0.5 Univers (OZEMPIC) 3-08 04-21 mg under ity o f 0.25 mg or 00:00: 00:00 [place] 0.5 mg(2 00 :00 weekly. Medical mg/1.5 mL) Branch PnIj semaglutide 2022- No [id number] .5mg inject 0.5 Univers (OZEMPIC) 3-08 04-21 [...] mouth 2 ity of tablet 10:31: (two) [place] 58 times Medical daily. Branch NaCl 0.9% 2020-06 Yes CONTINUOUS Un jose (NS) SolP 2-08 . ity of 60 mL with 10:31: [place] Nitroglycer 58 Medical in 50 mg/10 Branch mL (5 mg/mL) Soln 24 mg rosuvastati 2020-06 Yes 10mg Take 10 mg Univers n 10 mg 2-08 by mouth ity of tablet 10:31: at [place] [address] bedtime. Medical Branch fluticasone 2020-06 Yes Inhale. Uni vers furoate 50 2-08 ity of mcg/actuati 10:31: [place] on DsDv 58 Medical Branch famotidine 2020-06 Yes 20mg Take 20 mg U nivers 20 mg 2-08 by mouth 2 ity of tablet 10:31: (two) [place] 58 times Medical daily. Branch NaCl 0.9% 2020-06 Yes CONTINUOUS Un jose (NS) SolP 2-08 . ity of 60 mL with 10:31: [place] Nitroglycer 58 Medical in 50 mg/10 Branch mL (5 mg/mL) Soln 24 mg rosuvastati 2020-06 Yes 10mg Take 10 mg Univers n 10 mg 2-08 by mouth ity of tablet 10:31: at [place] [address] bedtime. Medical Branch fluticasone 2020-06 Yes Inhale. Uni vers furoate 50 2-08 ity of mcg/actuati 10:31: [place] on DsDv 58 Medical Branch famotidine 2020-06 Yes 20mg Take 20 mg U nivers 20 mg 2-08 by mouth 2 ity of tablet 10:31: (two) [place] 58 times Medical daily. Branch NaCl 0.9% 2020-06 Yes CONTINUOUS Un jose (NS) SolP 2-08 . ity of 60 mL with 10:31: [place] Nitroglycer 58 Medical in 50 mg/10 Branch mL (5 mg/mL) Soln 24 mg rosuvastati 2020-06 Yes 10mg Take 10 mg Univers n 10 mg 2-08 by mouth ity of tablet 10:31: at [place] 58 bedtime. Medical Branch fluticasone 2020-06 Yes [...] by mouth ity of tablet 10:31: at [place] 58 bedtime. Medical Branch fluticasone 2020-06 Yes Inhale. Uni vers furoate 50 2-08 ity of mcg/actuati 10:31: [place] on DsDv 58 Medical Branch famotidine 2020-06 Yes 20mg Take 20 mg U nivers 20 mg 2-08 by mouth 2 ity of tablet 10:31: (two) [place] 58 times Medical daily. Branch NaCl 0.9% 2020-06 Yes CONTINUOUS Un jose (NS) SolP 2-08 . ity of 60 mL with 10:31: [place] Nitroglycer 58 Medical in 50 mg/10 Branch mL (5 mg/mL) Soln 24 mg rosuvastati 2020-06 Yes 10mg Take 10 mg Univers n 10 mg 2-08 by mouth ity of tablet 10:31: at [place] [address] bedtime. Medical Branch fluticasone 2020-06 Yes Inhale. [...] by mouth ity of tablet 10:31: at [place] [address] bedtime. Medical Branch fluticasone 2020-06 Yes Inhale. Uni vers furoate 50 2-08 ity of mcg/actuati 10:31: [place] on DsDv 58 Medical Branch famotidine 2020-06 Yes 20mg Take 20 mg U nivers 20 mg 2-08 by mouth 2 ity of tablet 10:31: (two) [place] 58 times Medical daily. Branch NaCl 0.9% 2020-06 Yes CONTINUOUS Un jose (NS) SolP 2-08 . ity of 60 mL with 10:31: [place] Nitroglycer 58 Medical in 50 mg/10 Branch mL (5 mg/mL) Soln 24 mg rosuvastati 2020-06 Yes 10mg Take 10 mg Univers n 10 mg 2-08 by mouth ity of tablet 10:31: at [place] 58 bedtime. Medical Branch fluticasone 2020-06 Yes Inhale. Uni vers furoate 50 2-08 ity of mcg/actuati 10:31: [place] on DsDv 58 Medical Branch famotidine 2020-06 Yes 20mg Take 20 mg U nivers 20 mg 2-08 by mouth 2 ity of tablet 10:31: (two) [place] 58 times Medical daily. Branch NaCl 0.9% 2020-06 Yes CONTINUOUS Un jose (NS) SolP 2-08 . ity of 60 mL with 10:31: [place] Nitroglycer 58 Medical in 50 mg/10 Branch mL (5 mg/mL) Soln 24 mg rosuvastati 2020-06 Yes 10mg Take 10 mg Univers n 10 mg 2-08 by mouth ity of tablet 10:31: at [place] 58 bedtime. Medical Branch fluticasone 2020-06 Yes Inhale. Uni vers furoate 50 2-08 ity of mcg/actuati 10:31: [place] on DsDv 58 Medical Branch famotidine 2020-06 Yes 20mg Take 20 mg U nivers 20 mg 2-08 by mouth 2 ity of tablet 10:31: (two) [place] 58 times Medical daily. Branch NaCl 0.9% 2020-06 Yes CONTINUOUS Un jose (NS) SolP 2-08 . ity of 60 mL with 10:31: [place] Nitroglycer 58 Medical in 50 mg/10 Branch mL (5 mg/mL) Soln 24 mg rosuvastati 2020-06 Yes 10mg Take 10 mg Univers n 10 mg 2-08 by mouth ity of tablet 10:31: at [place] 58 bedtime. Medical Branch fluticasone 2020-06 Yes [...] . ity of 60 mL with 10:31: [place] Nitroglycer 58 Medical in 50 mg/10 Branch [...] . ity of 60 mL with 10:31: [place] Nitroglycer 58 Medical in 50 mg/10 Branch mL (5 mg/mL) Soln 24 mg rosuvastati 2020-06 Yes 10mg Take 10 mg Univers n 10 mg 2-08 by mouth ity of tablet 10:31: at [place] 58 bedtime. Medical Branch fluticasone 2020-06 Yes [...] . ity of 60 mL with 10:31: [place] Nitroglycer 58 Medical in 50 mg/10 Branch [...] DsDv 58 Medical Branch albuterol 2020-06 Yes [id number] 2{puff} Inhale 2 Univers 90 2-08 Puffs ity of mcg/actuati 00:00: every 6 [place] as on inhaler 00 (six) Medical hours as Branch needed for Wheezing or Shortness of Breath. albuterol 2020-06 Yes [id number] 2{puff} Inhale 2 Univers 90 2-08 Puffs ity of mcg/actuati 00:00: every 6 [place] as on inhaler 00 (six) Medical hours as Branch needed for Wheezing or Shortness of Breath. albuterol 2020-06 Yes [id number] 2{puff} Inhale 2 Univers 90 2-08 Puffs ity of mcg/actuati 00:00: every 6 [place] as on inhaler 00 (six) Medical hours as Branch needed for Wheezing or Shortness of Breath. albuterol 2020-06 Yes [id number] 2{puff} Inhale 2 Univers 90 2-08 Puffs ity of mcg/actuati 00:00: every 6 [place] as on inhaler 00 (six) Medical hours as Branch needed for Wheezing or Shortness of Breath. albuterol 2020-06 Yes [id number] 2{puff} Inhale 2 Univers 90 2-08 Puffs ity of mcg/actuati 00:00: every 6 [place] as on inhaler 00 (six) Medical hours as Branch needed for Wheezing or Shortness of Breath. albuterol 2020-06 Yes [id number] 2{puff} Inhale 2 Univers 90 2-08 Puffs ity of mcg/actuati 00:00: every 6 [place] as on inhaler 00 (six) Medical hours as Branch needed for Wheezing or Shortness of Breath. albuterol 2020-06 Yes [id number] 2{puff} Inhale 2 Univers 90 2-08 Puffs ity of mcg/actuati 00:00: every 6 [place] on inhaler 00 (six) Medical hours as Branch needed for Wheezing or Shortness of Breath. albuterol 2020-06 Yes [id number] 2{puff} Inhale 2 Univers 90 2-08 Puffs ity of mcg/actuati 00:00: every 6 [place] as on inhaler 00 (six) Medical hours as Branch needed for Wheezing or Shortness of Breath. albuterol 2020-06 Yes [id number] 2{puff} Inhale 2 Univers 90 2-08 Puffs ity of mcg/actuati 00:00: every 6 [place] as on inhaler 00 (six) Medical hours as Branch needed for Wheezing or Shortness of Breath. albuterol 2020-06 Yes [id number] 2{puff} Inhale 2 Univers 90 2-08 Puffs ity of mcg/actuati 00:00: every 6 [place] as on inhaler 00 (six) Medical hours as Branch needed for Wheezing or Shortness of Breath. albuterol 2020-06 Yes [id number] 2{puff} Inhale 2 Univers 90 2-08 Puffs ity of mcg/actuati 00:00: every 6 [place] as on inhaler 00 (six) Medical hours as Branch needed for Wheezing or Shortness of Breath. albuterol 2020-06 Yes [id number] 2{puff} Inhale 2 Univers 90 2-08 Puffs ity of mcg/actuati 00:00: every 6 [place] as on inhaler 00 (six) Medical hours as Branch needed for Wheezing or Shortness of Breath. albuterol 2020-06 Yes [id number] 2{puff} Inhale 2 Univers 90 2-08 Puffs ity of mcg/actuati 00:00: every 6 [place] as on inhaler 00 (six) Medical hours as Branch needed for Wheezing or Shortness of Breath. metformin Yes [id number] 500mg Take 1 U nivers ER 500 mg 9-08 tablet by ity o f 24 hr 00:00: mouth [place] tablet 00 daily with Medical breakfast. Branch metformin Yes [id number] 500mg Take 1 U nivers ER 500 mg 9-08 tablet by ity o f 24 hr 00:00: mouth [place] tablet 00 daily with Medical breakfast. Branch metformin 2021- No [id number] 500mg Take 1 Univers ER 500 mg 03-02 09-17 tablet by ity of 24 hr 00:00: 00:00 mouth [place] tablet 00 :00 daily with Medical breakfast. Branch semaglutide 2021- No [id number] .5mg inject 0.5 Univers (OZEMPIC) 03-02 03-08 mg under ity o f 0.25 mg or 00:00: 00:00 [place] skin [place] 0.5 mg(2 00 :00 weekly. Medical mg/1.5 mL) Branch PnIj docusate Yes 100mg Take 100 Univ ers (COLACE) 1-05 mg by ity of 100 mg 15:32: mouth 2 [place] capsule 44 (two) Medical times Branch daily as needed for Constipati on. mirtazapine Yes 7.5mg Take 7.5 U nivers 7.5 mg 1-05 mg by ity of tablet 15:32: mouth at [place] [address] bedtime. Medical Branch SERTraline 0 Yes 100mg [...] by ity of tablet 15:32: mouth at [place] [address] bedtime. Medical Branch SERTraline 2020-0 Yes 100mg Take 100 Un jose 100 mg 1-05 mg by ity of tablet 15:32: mouth 2 [place] 44 (two) Medical times Branch daily. oxybutynin 1-0 Yes 5mg Take 5 mg Un jose chloride 5 1-05 by mouth ity o f mg tablet 15:32: as needed. [place] [address] Medical Branch docusate 2020-0 Yes 100mg Take 100 Univ ers (COLACE) 1-05 mg by ity of 100 mg 15:32: mouth 2 [place] capsule 44 (two) Medical times Branch daily as needed for Constipati on. mirtazapine 2020-0 Yes 7.5mg Take 7.5 U nivers 7.5 mg 1-05 mg by ity of tablet 15:32: mouth at [place] [address] bedtime. Medical Branch SERTraline 2020-0 Yes 100mg Take 100 Un jose 100 mg 1-05 mg by ity of tablet 15:32: mouth 2 [place] [address] (two) Medical times Branch daily. oxybutynin 2020-0 Yes 5mg Take 5 mg Un jose chloride 5 1-05 by mouth ity o f mg tablet 15:32: as needed. [address] Branch docusate 2020-0 Yes 100mg Take 100 Univ ers (COLACE) 1-05 mg by ity of 100 mg 15:32: mouth 2 [place] capsule 44 (two) Medical times Branch daily as needed for Constipati on. mirtazapine 2020-0 Yes 7.5mg Take 7.5 U nivers 7.5 mg 1-05 mg by ity of tablet 15:32: mouth at [place] [address] bedtime. Medical Branch SERTraline 1-0 Yes 100mg Take 100 Un jose 100 mg 1-05 mg by ity of tablet 15:32: mouth 2 [place] 44 (two) Medical times Branch daily. oxybutynin 2021-0 Yes 5mg Take 5 mg Un jose chloride 5 1-05 by mouth ity o f mg tablet 15:32: as needed. [address] Branch docusate 2020-0 Yes 100mg Take 100 Univ ers (COLACE) 1-05 mg by ity of 100 mg 15:32: mouth 2 [place] capsule 44 (two) Medical times Branch daily as needed for Constipati on. mirtazapine 2021-0 Yes 7.5mg Take 7.5 U nivers 7.5 mg 1-05 mg by ity of tablet 15:32: mouth at [place] [address] bedtime. Medical Branch SERTraline 2021-0 Yes 100mg Take 100 Un jose 100 mg 1-05 mg by ity of tablet 15:32: mouth 2 [place] 44 (two) Medical times Branch daily. oxybutynin 2021-0 Yes 5mg Take 5 mg Un jose chloride 5 1-05 by mouth ity o f mg tablet 15:32: as needed. [place] [address] Medical Branch docusate 2020-0 Yes 100mg Take 100 Univ ers (COLACE) 1-05 mg by ity of 100 mg 15:32: mouth 2 [place] capsule 44 (two) Medical times [place] daily as needed for Constipati on. mirtazapine 1-0 Yes 7.5mg Take 7.5 U nivers 7.5 mg 1-05 mg by ity of tablet 15:32: mouth at [place] [address] bedtime. Medical Branch SERTraline 1-0 Yes 100mg Take 100 Un jose 100 mg 1-05 mg by ity of tablet 15:32: mouth 2 [place] [address] (two) Medical times Branch daily. oxybutynin 2021-0 Yes 5mg Take 5 mg Un jose chloride 5 1-05 by mouth ity o f mg tablet 15:32: as needed. [place] [address] Medical Branch docusate 1-0 Yes 100mg Take 100 Univ ers (COLACE) 1-05 mg by ity of 100 mg 15:32: mouth 2 [place] capsule 44 (two) Medical times Branch daily as needed for Constipati on. mirtazapine 2021-0 Yes 7.5mg Take 7.5 U nivers 7.5 mg 1-05 mg by ity of tablet 15:32: mouth at [place] [address] bedtime. Medical Branch SERTraline 2021-0 Yes 100mg Take 100 Un jose 100 mg 1-05 mg by ity of tablet 15:32: mouth 2 [place] 44 (two) Medical times Branch daily. oxybutynin 2021-0 Yes 5mg Take 5 mg Un jose chloride 5 1-05 by mouth ity o f mg tablet 15:32: as needed. [place] [address] Medical Branch docusate 2020-0 Yes 100mg Take 100 Univ ers (COLACE) 1-05 mg by ity of 100 mg 15:32: mouth 2 [place] capsule 44 (two) Medical times Branch daily as needed for Constipati on. mirtazapine 1-0 Yes 7.5mg Take 7.5 U nivers 7.5 mg 1-05 mg by ity of tablet 15:32: mouth at [place] [address] bedtime. Medical Branch SERTraline 1-0 Yes 100mg Take 100 Un jose 100 mg 1-05 mg by ity of tablet 15:32: mouth 2 [place] 44 (two) Medical times Branch daily. oxybutynin 1-0 Yes 5mg Take 5 mg Un jose chloride 5 1-05 by mouth ity o f mg tablet 15:32: as needed. [place] [address] Medical Branch docusate 2020-0 Yes 100mg Take 100 Univ ers (COLACE) 1-05 mg by ity of 100 mg 15:32: mouth 2 [place] capsule 44 (two) Medical times Branch daily as needed for Constipati on. mirtazapine 1-0 Yes 7.5mg Take 7.5 U nivers 7.5 mg 1-05 mg by ity of tablet 15:32: mouth at [place] [address] bedtime. Medical Branch SERTraline 1-0 Yes 100mg Take 100 Un jose 100 mg 1-05 mg by ity of tablet 15:32: mouth 2 [place] [address] (two) Medical times Branch daily. oxybutynin 1-0 Yes 5mg Take 5 mg Un jose chloride 5 1-05 by mouth ity o f mg tablet 15:32: as needed. [place] [address] Medical Branch docusate 2020-0 Yes 100mg Take 100 Univ ers (COLACE) 1-05 mg by ity of 100 mg 15:32: mouth 2 [place] capsule 44 (two) Medical times Branch daily as needed for Constipati on. mirtazapine 2021-0 Yes 7.5mg Take 7.5 U nivers 7.5 mg 1-05 mg by ity of tablet 15:32: mouth at [place] [address] bedtime. Medical Branch SERTraline 2021-0 Yes 100mg Take 100 Un jose 100 mg 1-05 mg by ity of tablet 15:32: mouth 2 [place] 44 (two) Medical times Branch daily. oxybutynin 1-0 Yes 5mg Take 5 mg Un jose chloride 5 1-05 by mouth ity o f mg tablet 15:32: as needed. [address] Branch docusate 2020-0 Yes 100mg Take 100 Univ ers (COLACE) 1-05 mg by ity of 100 mg 15:32: mouth 2 [place] capsule 44 (two) Medical times Branch daily as needed for Constipati on. mirtazapine 2021-0 Yes 7.5mg Take 7.5 U nivers 7.5 mg 1-05 mg by ity of tablet 15:32: mouth at [place] [address] bedtime. Medical Branch SERTraline 1-0 Yes 100mg Take 100 Un jose 100 mg 1-05 mg by ity of tablet 15:32: mouth 2 [place] [address] (two) Medical times Branch daily. oxybutynin 2021-0 Yes 5mg Take 5 mg Un jose chloride 5 1-05 by mouth ity o f mg tablet 15:32: as needed. [address] [facility] Yes 100mg Take 100 Univ ers (COLACE) 1-05 mg by ity of 100 mg 15:32: mouth 2 [place] capsule 44 (two) Medical times [place] daily as needed for Constipati on. mirtazapine 1-0 Yes 7.5mg Take 7.5 U nivers 7.5 mg 1-05 mg by ity of tablet 15:32: mouth at [place] [address] bedtime. Medical Branch SERTraline 1-0 Yes 100mg Take 100 Un jose 100 mg 1-05 mg by ity of tablet 15:32: mouth 2 [place] 44 (two) Medical times Branch daily. oxybutynin 2021-0 Yes 5mg Take 5 mg Un jose chloride 5 1-05 by mouth ity o f mg tablet 15:32: as needed. [address] docusate 2020-0 Yes 100mg Take 100 Univ ers (COLACE) 1-05 mg by ity of 100 mg 15:32: mouth 2 [place] capsule 44 (two) Medical times Branch daily as needed for Constipati on. mirtazapine 2021-0 Yes 7.5mg Take 7.5 U nivers 7.5 mg 1-05 mg by ity of tablet 15:32: mouth at [place] 44 bedtime. Medical Branch SERTraline 2020-0 Yes 100mg [...] Indication s: acute pain nitroglycer 2020-[id number] 1 Univers in 0.4 mg 8-19 tablet ity of sublingual 00:00: under the [place] tablet 00 tongue Medical every 5 Branch (five) minutes as needed for Chest pain. nitroglycer 2020-[id number] 1 Univers in 0.4 mg 8-19 tablet ity of sublingual 00:00: under the [place] tablet 00 tongue Medical every 5 Branch (five) minutes as needed for Chest pain. nitroglycer 2020-[id number] 1 Univers in 0.4 mg 8-19 tablet ity of sublingual 00:00: under the [place] tablet 00 tongue Medical every 5 Branch (five) minutes as needed for Chest pain. nitroglycer 2020-[id number] 1 Univers in 0.4 mg 8-19 tablet ity of sublingual 00:00: under the [place] tablet 00 tongue Medical every 5 Branch (five) minutes as needed for Chest pain. nitroglycer 2020-[id number] 1 Univers in 0.4 mg 8-19 tablet ity of sublingual 00:00: under the [place] tablet 00 tongue Medical every 5 Branch (five) minutes as needed for Chest pain. nitroglycer 2020-[id number] 1 Univers in 0.4 mg 8-19 tablet ity of sublingual 00:00: under the [place] tablet 00 tongue Medical every 5 Branch (five) minutes as needed for Chest pain. nitroglycer 2020-[id number] 1 Univers in 0.4 mg 8-19 tablet ity of sublingual 00:00: under the [place] tablet 00 tongue Medical every 5 Branch (five) minutes as needed for Chest pain. nitroglycer 2020-[id number] 1 Univers in 0.4 mg 8-19 tablet ity of sublingual 00:00: under the [place] tablet 00 tongue Medical every 5 Branch (five) minutes as needed for Chest pain. nitroglycer 2020-[id number] 1 Univers in 0.4 mg 8-19 tablet ity of sublingual 00:00: under the [place] tablet 00 tongue Medical every 5 Branch (five) minutes as needed for Chest pain. nitroglycer 2020-[id number] 1 Univers in 0.4 mg 8-19 tablet ity of sublingual 00:00: under the [place] tablet 00 tongue Medical every 5 Branch (five) minutes as needed for Chest pain. nitroglycer 2020-[id number] 1 Univers in 0.4 mg 8-19 tablet ity of sublingual 00:00: under the [place] tablet 00 tongue Medical every 5 Branch (five) minutes as needed for Chest pain. nitroglycer 2020-[id number] 1 Univers in 0.4 mg 8-19 tablet ity of sublingual 00:00: under the [place] tablet 00 tongue Medical every 5 Branch (five) minutes as needed for Chest pain. nitroglycer 2020-[id number] 1 Univers in 0.4 mg 8-19 tablet ity of sublingual 00:00: under the [place] tablet 00 tongue Medical every 5 Branch (five) minutes as needed for Chest pain. atorvastati 2020-0 Yes [id number] 40mg Take 1 Univers n 40 mg 7-21 tablet by ity of tablet 00:00: mouth [place] 00 daily. Medical Branch clopidogreL 2020-0 Yes [id number] 75mg Take 1 Univers 75 mg 7-21 tablet by ity of tablet 00:00: mouth [place] 00 daily. Medical Branch aspirin 81 2020-0 Yes [id number] 81mg Take 1 U nivers mg chewable 7-21 tablet by ity of tablet 00:00: mouth [place] 00 daily. Medical Branch atorvastati 2020-0 Yes [id number] 40mg Take 1 Univers n 40 mg 7-21 tablet by ity of tablet 00:00: mouth [place] 00 daily. Medical Branch clopidogreL 2020-0 Yes [id number] 75mg Take 1 Univers 75 mg 7-21 tablet by ity of tablet 00:00: mouth [place] 00 daily. Medical Branch aspirin 81 2020-0 Yes [id number] 81mg Take 1 U nivers mg chewable 7-21 tablet by ity of tablet 00:00: mouth [place] 00 daily. Medical Branch atorvastati 2020-0 Yes [id number] 40mg Take 1 Univers n 40 mg 7-21 tablet by ity of tablet 00:00: mouth [place] 00 daily. Medical Branch clopidogreL 2020-0 Yes [id number] 75mg Take 1 Univers 75 mg 7-21 tablet by ity of tablet 00:00: mouth [place] 00 daily. Medical Branch aspirin 81 2020-0 Yes [id number] 81mg Take 1 U nivers mg chewable 7-21 tablet by ity of tablet 00:00: mouth [place] 00 daily. Medical Branch atorvastati 2020-0 Yes [id number] 40mg Take 1 Univers n 40 mg 7-21 tablet by ity of tablet 00:00: mouth [place] 00 daily. Medical Branch clopidogreL 2020-0 Yes [id number] 75mg Take 1 Univers 75 mg 7-21 tablet by ity of tablet 00:00: mouth [place] 00 daily. Medical Branch aspirin 81 2020-0 Yes [id number] 81mg Take 1 U nivers mg chewable 7-21 tablet by ity of tablet 00:00: mouth [place] 00 daily. Medical Branch atorvastati 2020-0 Yes [id number] 40mg Take 1 Univers n 40 mg 7-21 tablet by ity of tablet 00:00: mouth [place] 00 daily. Medical Branch clopidogreL 2020-0 Yes [id number] 75mg Take 1 Univers 75 mg 7-21 tablet by ity of tablet 00:00: mouth [place] 00 daily. Medical Branch aspirin 81 2020-0 Yes [id number] 81mg Take 1 U nivers mg chewable 7-21 tablet by ity of tablet 00:00: mouth [place] 00 daily. Medical Branch atorvastati 2020-0 Yes [id number] 40mg Take 1 Univers n 40 mg 7-21 tablet by ity of tablet 00:00: mouth [place] 00 daily. Medical Branch clopidogreL 2020-0 Yes [id number] 75mg Take 1 Univers 75 mg 7-21 tablet by ity of tablet 00:00: mouth [place] 00 daily. Medical Branch aspirin 81 2020-0 Yes [id number] 81mg Take 1 U nivers mg chewable 7-21 tablet by ity of tablet 00:00: mouth [place] 00 daily. Medical Branch atorvastati 2020-0 Yes [id number] 40mg Take 1 Univers n 40 mg 7-21 tablet by ity of tablet 00:00: mouth [place] 00 daily. Medical Branch clopidogreL 2020-0 Yes [id number] 75mg Take 1 Univers 75 mg 7-21 tablet by ity of tablet 00:00: mouth [place] 00 daily. Medical Branch aspirin 81 2020-0 Yes [id number] 81mg Take 1 U nivers mg chewable 7-21 tablet by ity of tablet 00:00: mouth [place] 00 daily. Medical Branch atorvastati 2020-0 Yes [id number] 40mg Take 1 Univers n 40 mg 7-21 tablet by ity of tablet 00:00: mouth [place] 00 daily. Medical Branch clopidogreL 2020-0 Yes [id number] 75mg Take 1 Univers 75 mg 7-21 tablet by ity of tablet 00:00: mouth [place] 00 daily. Medical Branch aspirin 81 2020-0 Yes [id number] 81mg Take 1 U nivers mg chewable 7-21 tablet by ity of tablet 00:00: mouth [place] 00 daily. Medical Branch atorvastati 2020-0 Yes [id number] 40mg Take 1 Univers n 40 mg 7-21 tablet by ity of tablet 00:00: mouth [place] 00 daily. Medical Branch clopidogreL 2020-0 Yes [id number] 75mg Take 1 Univers 75 mg 7-21 tablet by ity of tablet 00:00: mouth [place] 00 daily. Medical Branch aspirin 81 2020-0 Yes [id number] 81mg Take 1 U nivers mg chewable 7-21 tablet by ity of tablet 00:00: mouth [place] 00 daily. Medical Branch atorvastati 2020-0 Yes [id number] 40mg Take 1 Univers n 40 mg 7-21 tablet by ity of tablet 00:00: mouth [place] 00 daily. Medical Branch clopidogreL 2020-0 Yes [id number] 75mg Take 1 Univers 75 mg 7-21 tablet by ity of tablet 00:00: mouth [place] 00 daily. Medical Branch aspirin 81 2020-0 Yes [id number] 81mg Take 1 U nivers mg chewable 7-21 tablet by ity of tablet 00:00: mouth [place] 00 daily. Medical Branch atorvastati 2020-0 Yes [id number] 40mg Take 1 Univers n 40 mg 7-21 tablet by ity of tablet 00:00: mouth [place] 00 daily. Medical Branch clopidogreL 2020-0 Yes [id number] 75mg Take 1 Univers 75 mg 7-21 tablet by ity of tablet 00:00: mouth [place] 00 daily. Medical Branch aspirin 81 2020-0 Yes [id number] 81mg Take 1 U nivers mg chewable 7-21 tablet by ity of tablet 00:00: mouth [place] 00 daily. Medical Branch atorvastati 2020-0 Yes [id number] 40mg Take 1 Univers n 40 mg 7-21 tablet by ity of tablet 00:00: mouth [place] 00 daily. Medical Branch clopidogreL 2020-0 Yes [id number] 75mg Take 1 Univers 75 mg 7-21 tablet by ity of tablet 00:00: mouth [place] 00 daily. Medical Branch aspirin 81 2020-0 Yes [id number] 81mg Take 1 U nivers mg chewable 7-21 tablet by ity of tablet 00:00: mouth [place] 00 daily. Medical Branch atorvastati 2020-0 Yes [id number] 40mg Take 1 Univers n 40 mg 7-21 tablet by ity of tablet 00:00: mouth [place] 00 daily. Medical Branch clopidogreL 2020-0 Yes [id number] 75mg Take 1 Univers 75 mg 7-21 tablet by ity of tablet 00:00: mouth [place] 00 daily. Medical Branch aspirin 81 2020-0 Yes [id number] 81mg Take 1 U nivers mg chewable 7-21 tablet by ity of tablet 00:00: mouth [place] 00 daily. Medical Branch Immunizations Ordered Filled Immunization Date Status Comments [facility] e Immunization Name Name Influenza High Dose 2020-04-26 Completed Unive rsity of 00:00:[address] [facility] Influenza High Dose 2020-04-26 Completed Unive rsity of 00:00:[address] [facility] Influenza High Dose 2020-04-26 Completed Unive rsity of 00:00:[address] [facility] Influenza High Dose 2020-04-26 Completed Unive rsity of 00:00:[address] [facility] Influenza High Dose 2020-04-26 Completed Unive rsity of 00:00:[address] [facility] Influenza High Dose 2020-04-26 Completed Unive rsity of 00:00:[address] [facility] Influenza High Dose 2020-04-26 Completed Unive rsity of 00:00:[address] [facility] Influenza High Dose 2020-04-26 Completed Unive rsity of 00:00:[address] [facility] Influenza High Dose 2020-04-26 Completed Unive rsity of 00:00:[address] [facility] Influenza High Dose 2020-04-26 Completed Unive rsity of 00:00:[address] [facility] Influenza High Dose 2020-04-26 Completed Unive rsity of 00:00:[address] [facility] Influenza High Dose 2020-04-26 Completed Unive rsity of 00:00:[address] [facility] Influenza High Dose 2020-04-26 Completed Unive rsity of 00:00:[address] [facility] Influenza Virus 1991-06-25 Completed Universit y of Vaccine 00:00:[address] [facility] Pneumococcal 1991-06-25 Completed University o f Polysaccharide, 00:00:00 [place] Med ical PPSV23 (PNEUMOVAX) Branch Influenza Virus 1991-06-25 Completed Universit y of Vaccine 00:00:[address] [facility] Pneumococcal 1991-06-25 Completed University o f Polysaccharide, 00:00:00 [place] Med ical PPSV23 (PNEUMOVAX) Branch Influenza Virus 1991-06-25 Completed Universit y of Vaccine 00:00:[address] [facility] Pneumococcal 1991-06-25 Completed University o f Polysaccharide, 00:00:00 [place] Med ical PPSV23 (PNEUMOVAX) [place] Influenza Virus 1991-06-25 Completed Universit y of Vaccine 00:00:[address] [facility] Pneumococcal 1991-06-25 Completed University o f Polysaccharide, 00:00:00 [place] Med ical PPSV23 (PNEUMOVAX) Branch Influenza Virus 1991-06-25 Completed Universit y of Vaccine 00:00:[address] [facility] Pneumococcal 1991-06-25 Completed University o f Polysaccharide, 00:00:00 [place] Med ical PPSV23 (PNEUMOVAX) Branch Influenza Virus 1991-06-25 Completed Universit y of Vaccine 00:00:[address] [facility] Pneumococcal 1991-06-25 Completed University o f Polysaccharide, 00:00:00 [place] Med ical PPSV23 (PNEUMOVAX) Branch Influenza Virus 1991-06-25 Completed Universit y of Vaccine 00:00:[address] [facility] Pneumococcal 1991-06-25 Completed University o f Polysaccharide, 00:00:00 [place] Med ical PPSV23 (PNEUMOVAX) Branch Influenza Virus 1991-06-25 Completed Universit y of Vaccine 00:00:[address] [facility] Pneumococcal 1991-06-25 Completed University o f Polysaccharide, 00:00:00 [place] Med ical PPSV23 (PNEUMOVAX) Branch Influenza Virus 1991-06-25 Completed Universit y of Vaccine 00:00:[address] [facility] Pneumococcal 1991-06-25 Completed University o f Polysaccharide, 00:00:00 [place] Med ical PPSV23 (PNEUMOVAX) Branch Influenza Virus 1991-06-25 Completed Universit y of Vaccine 00:00:[address] [facility] Pneumococcal 1991-06-25 Completed University o f Polysaccharide, 00:00:00 [place] Med ical PPSV23 (PNEUMOVAX) Branch Influenza Virus 1991-06-25 Completed Universit y of Vaccine 00:00:[address] [facility] Pneumococcal 1991-06-25 Completed University o f Polysaccharide, 00:00:00 [place] Med ical PPSV23 (PNEUMOVAX) Branch Influenza Virus 1991-06-25 Completed Universit y of Vaccine 00:00:[address] [facility] Pneumococcal 1991-06-25 Completed University o f Polysaccharide, 00:00:00 [place] Med ical PPSV23 (PNEUMOVAX) Branch Influenza Virus 1991-06-25 Completed Universit y of Vaccine 00:00:[address] [facility] Pneumococcal 1991-06-25 Completed University o f Polysaccharide, 00:00:00 [place] Med ical PPSV23 (PNEUMOVAX) Branch Vital Signs Vital Name Observation Time Observation Value Comments Source Systolic blood 2022-10-13 18:19:00 119 mm[Hg] [facility] Diastolic blood 2022-10-13 18:19:00 81 [facility]Hg[facility] Heart rate 2022-10-13 18:19:00 104 /min [facility] Body height 2022-10-13 18:19:00 160 cm [facility] Body weight 2022-10-13 18:19:00 86.183 kg [facility] BMI 2022-10-13 18:19:00 33.66 kg/m2 [facility] Oxygen saturation 2022-10-13 18:19:00 97 /min [facility] in Arterial blood [facility] by Pulse oximetry Systolic blood 2021-09-22 00:18:00 133 mm[Hg] [facility] Diastolic blood 2021-09-22 00:18:00 68 mm[Hg] Unive [facility] Body height 2021-09-22 00:18:00 162.6 cm [facility] Body weight 2021-09-22 00:18:00 86.183 kg [facility] BMI 2021-09-22 00:18:00 32.61 kg/m2 [facility] Procedures Procedure Date / Time Performed Performing Clinician Tiana e POCT HEMOGLOBIN A1C 2022-10-13 18:21:00 Paulette Rangel [facility] ASSIGNMENT OF BENEFITS 2022-10-13 17:52:09 Doctor Unassigned, No [facility] Name Medical Branch EXTERNAL PROVIDER 2021-10-12 05:01:00 Doctor Unassigned, No [facility] RECORDS Name [facility] Branch POCT HEMOGLOBIN A1C 2021-08-30 19:18:00 Suraj Reid [facility] Encounters Start End Encounter Admission Attending Care Care Encounter Source Date/Time Date/Time Type Type Clinicians Facility Department ID 2021-04-22 Emergency [facility] [id number] Univers [facility]-22 Inpatient R [facility] [id number] Univers 15:37:23 OLGA [facility] 2021-04-22 Emergency [facility] [id number] Univers 05:15:17 [facility] 2023-04-17 2023-04-17 Outpatient R SHANE [facility] [id number] Univers 13:00:00 13:00:00 PAULETTE [facility] 2022-11-17 2022-11-17 Telephone [facility] [id number] Univers 00:00:00 00:00:00 [employer] [id number] it y of [place] [id number] Fredo as ADALID?BLEA [id number] [address] MEDICAL OFFICE [facility] 2022-10-19 2022-10-19 Telephone [facility] [id number] Univers 00:00:00 00:00:00 [employer] [id number] it y of [place] [id number] Fredo as ADALID?BLEA [phone] Me dic[address] OFFICE [facility] 2022-10-13 2022-10-13 Stamp Pad Maker Lab, Ang - Db [facility] [id number] Univers 14:00:00 14:15:00 Visit Oscar Lai [facility] [id number] [facility] [id number] [place] as ADALID?BLEA [id number] [facility] [address] [facility] OFFICE [facility] 2022-10-13 2022-10-13 Outpatient R MING [facility] [id number] Univers 13:00:00 14:00:49 [facility] 2022-10-13 2022-10-13 Office Ming [facility] [id number] Univers 13:00:00 14:00:49 Visit [facility] [id number] it y of [place] 4.2.7.2.686 Fredo as ADALID?BLEA [id number] [address] OFFICE [facility] 2022-10-13 2022-10-13 Orders Doctor STELLA [id number] [id number] Univers 00:00:00 00:00:00 Only Unassigned, DOMONIQUE 350.1.13.10 ity [place] [facility] [id number] [place] as [phone] [address] 2022-06-27 2022-06-27 Outpatient R JEANETTE [facility] [id number] Univers 14:00:00 14:00:00 [facility] [place] [facility] 2022-06-01 2022-06-01 [facility]phone [facility] [id number] Univers 00:00:00 00:00:00 NOWBOX [id number] it y of [place] [id number] [place]o as ADALID?BLEA [id number] [address] 2022-03-11 2022-03-11 Refill [facility] 1.2.840.114 [id number] Univers 00:00:00 00:00:00 NOWBOX 350.1.13.10 it y of [place] 4.2.7.2.686 Fredo as ADALID?BLEA [phone] Ny maureen FINNEY [address] [place] MEDICAL OFFICE BUILDING 2022-03-07 2022-03-07 Outpatient R JEANETTE [facility] [id number] Univers 13:00:00 13:00:00 [facility] 2022-03-07 Outpatient R JEANETTE [facility] [id number] Univers 13:00:00 13:00:00 [facility] 2021-12-14 2021-12-14 [facility] [id number] Univers 10:30:00 10:30:00 JURGEN lopez [facility] 2021-12-14 2021-12-14 [facility] [id number] Univers 10:30:00 10:30:00 JURGEN jessica [facility] 2021-10-12 2021-10-12 Orders Doctor STELLA 1.2.840.114 [id number] Univers 00:00:00 00:00:00 Only Unassigned, DOMONIQUE 350.1.13.10 [place]y [place] [facility] 4.2.7.2.686 [place]o as [id number] [place] [address] Branch 2021-09-07 2021-09-07 Office [facility] 1.2.840.114 [id number] Univers 10:30:00 10:47:32 Visit Jurgen BONILLA 350.1.13.10 [place]y [place] [id number] [facility] SANDY GRUBER 085 Branch [facility] 2021-09-07 2021-09-07 Outpatient R KASSANDRA [facility] [id number] Univers 10:30:00 10:47:32 JURGEN lopez [facility] 2021-09-07 2021-09-07 [facility] [id number] Univers 10:30:00 10:30:00 JURGEN lopez [facility] 2021-09-07 2021-09-07 Outpatient R KASSANDRA [facility] [id number] Univers 10:30:00 10:30:00 JURGEN [facility] 2021-08-30 2021-08-30 Outpatient R JEANETTE [facility] [id number] Univers 13:00:00 14:06:24 [facility] [place] [facility] 2021-08-30 2021-08-30 Office [facility] 1.2.840.114 [id number] Univers 13:00:00 14:06:24 Visit Critical access hospital 350.1.13.10 it y of [place] 4.2.7.2.686 [place]o as ADALID?BLEA [phone] Ny veramachelle FINNEY [address] [place] MEDICAL OFFICE BUILDING 2021-08-30 2021-08-30 Outpatient R JEANETTE [facility] [id number] Univers 13:00:00 14:06:24 [facility] 2021-08-30 2021-08-30 Outpatient R JEANETTE [facility] [id number] Univers 13:00:00 13:00:00 [facility] 2021-08-30 2021-08-30 Orders Doctor STELLA 1.2.840.114 [id number] Univers 00:00:00 00:00:00 Only Unassigned, DOMONIQUE 350.1.13.10 [place]y [place] [facility] 4.2.7.2.686 Fredo as [id number] [address] 2021-08-08 2021-08-08 Hospital [facility] [id number] Univers 10:06:39 23:59:00 Encounter Jurgen SKELTON 350.1.13.10 ity [place]2.7.2.686 [place] [facility] [facility] [phone] Ny veramachelle LOO 801 [facility] 2021-08-08 2021-08-08 [facility] [id number] Univers 13:00:00 14:30:21 JURGEN [facility] 2021-08-08 2021-08-08 Stamp Pad Maker Test, Vtc Pulmonary Function [facility] 1.2.840.114 [id number] Univers 13:00:00 14:30:21 Visit Jurgen [facility] 350.1 .13.10 ity of [place] 4.2.7.2.686 [facility] [id number] [facility] 083 Branch [facility] 2021-08-08 2021-08-08 Hospital [facility] [id number] Univers 08:54:25 10:05:00 Encounter Jurgen SANCHEZ 350.1.13.10 ity of [place] 4.2.7.2.686 [facility] [id number] [address] ([facility]) 2021-08-08 2021-08-08 [facility] [id number] Univers 00:00:00 00:00:00 JURGEN lopez [facility] 2021-08-05 2021-08-05 Laboratory Only, Adc Test [facility] 1.2.840. 114 [id number] Univers 15:00:00 15:15:00 Only Mitesh Coe 350.1.13.10 ity valerie MORALEZ 4.2.[address] [place] [address] [id number] [place] [address] Branch 2021-08-05 2021-08-05 Outpatient R SARAVANAN [facility] [id number] Univers 15:00:00 15:00:00 MITESH lopez [facility] 2021-06-14 2021-06-14 [facility] [id number] Univers 00:00:00 00:00:00 Suraj BONILLA 350.1.13.10 ity of [place] 4.2.7.2.686 [facility] [id number] [facility] 220 Branch [facility] 2021-06-01 2021-06-01 [facility] [id number] Univers 10:00:00 11:30:16 JURGEN lopez [facility] 2021-06-01 2021-06-01 [facility] 1.2.840.114 [id number] Univers 09:44:15 11:30:16 Visit Jurgen BONILLA 350.1.13.10 ity of [place] 4.2.7.2.686 [facility] [id number] [address] DIABETES CLINIC 2021-05-10 2021-05-10 Telephone Kassandra [facility] [id number] [id number] Univers 00:00:00 00:00:00 Jurgen BONILLA 350.1.13.10 [place]2.[place] [id number] [address] [facility]ES [facility] 2021-03-02 2021-03-02 Office [facility] [facility] [id number] Univers 13:34:41 15:58:40 Visit [facility] [id number] it y of [place] [id number] Fredo as Adalid?Blea [phone] Ny veramachelle [address] Medical Office Building 2021-03-02 2021-03-02 Outpatient R JEANETTE [facility] [id number] Univers 13:00:00 13:00:00 [facility] 2021-03-02 2021-03-02 Orders Doctor DOUGLAS [id number] Univers 00:00:00 00:00:00 Only Unassigned, DOMONIQUE [id number] [facility] [id number] Fredo as [phone] [address] 2020-11-02 2020-11-02 Outpatient R JEANETTE [facility] [id number] Univers 10:30:00 10:30:00 [facility] 2020-06-29 2020-06-29 [facility] [id number] 15:07:47 16:11:28 Visit Suraj Alarcon [id number] [place] [id number] Professio [phone] formerly [facility] 220 Building 2020-06-29 2020-06-29 [facility] [id number] Univers 15:00:00 15:00:00 [facility] 2020-06-29 2020-06-29 Orders Doctor DOUGLAS [id number] 00:00:00 00:00:00 Only Unassigned, DOMONIQUE [id number] [facility] [id number] [id number] 2020-04-20 2020-04-20 Outpatient R [facility] [id number] Univers 15:00:00 15:00:00 [facility] 2020-03-30 2020-03-30 [facility] [id number] Univers 15:00:00 15:00:00 WENTONG [facility] 2020-03-10 2020-03-10 [facility] [id number] Univers 14:30:00 14:30:00 KHALED [facility] 2020-02-16 2020-02-16 Outpatient R [facility] [id number] Univers 00:00:00 00:00:00 [facility] 2020-02-11 2020-02-11 Outpatient R OLGA [facility] [id number] Univers 15:30:00 15:30:00 [facility] 2020-01-29 2020-01-29 [facility] [id number] Univers 08:00:00 08:00:00 AYD lopez o f [facility] Results Test Description Test Time Test Comments Results Result Comments Source POCT HEMOGLOBIN A1C TEST 2022-10-13 18:21:00 Test Item Value Reference Range Interpretation Comme nts POCT HBA1C (test code = 4548-4) 7.9 % 4-6 A Lab Interpretation (test code = 19515-9) Abnormal [facility] HEMOGLOBIN A1C [id number] 18:21:00 Test Item Value Reference Range Interpretation Comments POCT HBA1C (test code = 4548-4) 7.9 % 4-6 A Lab Interpretation (test code = Abnormal 03397-3) [facility] HEMOGLOBIN A1C [id number] 19:18:00 Test Item Value Reference Range Interpretation Comments POCT HBA1C (test code = 4548-4) 6.5 % 4-6 A Lab Interpretation (test code = Abnormal 49490-6) [facility]
[2022-12-12] MEDS ORDERED: ONDANSETRON 4 MG/2 ML VIAL ONE (13:56)
[2022-12-12] MEDS ORDERED: NA CHLORIDE 0.9% 1,000 ML ONE (13:57)
[2022-12-12 13:59] LABS: Hematocrit 40.7 % (36.0-45.0); Lymphocytes % 13.1 % (15.3-44.8); MCV 83.2 fL (80-100); MPV 7.1 fL (7.6-11.3); RBC Red Blood Cell Count 4.89 M/uL (3.86-4.86)
[2022-12-12 14:02] LABS: Protime INR 1.16
[2022-12-12 14:18] LABS: Albumin 3.2 g/dL (3.4-5.0); Bilirubin Direct 0.2 mg/dL (0-0.2); Bilirubin Indirect, Calculated 0.5 mg/dL (0.2-0.8); Bilirubin Total 0.7 mg/dL (0.2-1.0); Magnesium 1.8 mg/dL (1.6-2.4); Potassium 3.7 mEq/L (3.5-5.1); Protein, Total 7.4 g/dL (6.4-8.2)
[2022-12-12 14:20] LABS: Troponin High Sensitivity 65.4 pg/mL (<58.9)
--- NOTE | 2022-12-12 14:55 | RAD REPORT ---
EXAM DESCRIPTION: CT - Head C Spine Cap Wo Con - 12/12/2022 2:39 pm CLINICAL HISTORY: Dizziness, neck, chest and abdominal pain. Vomiting and diarrhea TECHNIQUE: Computed axial tomography of head, neck, chest, abdomen and pelvis obtained. IV and oral contrast not requested. Coronal and sagittal reconstruction performed. All CT scans are performed using dose optimization technique as appropriate and may include automated exposure control or mA/KV adjustment according to patient size. COMPARISON: 2021 FINDINGS: An intracranial bleed is not seen. The ventricles are normal in caliber. An extra-axial fluid collection is not noted. . Spondylosis cer vical spine Fluid within the sinuses/mastoids is not seen. A cervical fracture is not seen. No dislocation is noted. The evaluation of mediastinum, ernestina, vessels, solid organs and bowel are limited secondary to the lac k of contrast administration. Lungs are generally clear. No pericardial effusion. Aortic valve replacement No pleural effusion No mediastinal or hilar lymphadenopathy The liver,spleen, pancreas, adrenals,kidneys and bladder appear grossly normal Mild anterior subluxation L4 on L5. Spondylolysis L4. Right hip prosthesis in place IMPRESSION: No acute intracranial abnormality is seen. A cervical fracture is not visualized.If the patient continues have symptoms to suggest intracranial /spinal cord pathology MRI be recommended No acute abnormality involving the chest/abdomen/pelvis.
--- NOTE | 2022-12-12 15:00 | RAD REPORT ---
EXAM DESCRIPTION: Marvin Single View12/12/2022 2:26 pm CLINICAL HISTORY: cough COMPARISON: October 2022 FINDINGS: The lungs appear clear of acute infiltrate. The heart is normal size IMPRESSION: No acute abnormalities displayed
[2022-12-12 16:31] LABS: Specific Gravity 1.014 (1.005-1.030); Urine Bacteria <20 /HPF (<20); Urine Bilirubin NEGATIVE (Negative); Urine Blood 1+ (Negative); Urine Clarity Extremely Turbid (Clear); Urine Color Light-Yellow (Yellow); Urine Crystals Unidentified Few /HPF (None Seen); Urine Glucose 1+ (Negative); Urine Mucus Slight /HPF (None Seen); Urine Protein 1+ (Negative); Urine Urobilinogen Normal (Normal); Urine WBC Clump Occasional /HPF (None Seen)
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
[2022-12-12] MEDS ORDERED: ASPIRIN 81 MG CHEWABLE TABLET ONE (17:06)
[2022-12-12] MEDS ORDERED: Levofloxacin500mg IV 500 MG/100 ML BAG IV ONE (17:07)
[2022-12-12] MEDS ORDERED: CEFTRIAXONE 1000 MG/VIAL ONE (17:07)
[2022-12-12] MEDS ORDERED: ENOXAPARIN 80 MG/0.8 ML SQ ONE (17:42)
[2022-12-12] MEDS ORDERED: FAMOTIDINE 20 MG/2 ML VIAL IV ONE (17:43)
[2022-12-12] MEDS: FENTANYL CITR 100 MCG/2 ML IV PRN ×2 (18:44→23:19)
[2022-12-12] MEDS ORDERED: ACETAMINOPHEN 325 MG TABLET ONE (18:45)
[2022-12-12] MEDS ORDERED: FENTANYL CITR 100 MCG/2 ML ONE (18:49)
[2022-12-12 20:31] VITALS: BMI 32.5
[2022-12-12] MEDS: FAMOTIDINE 20 MG/2 ML VIAL IV SCH (21:00)
[2022-12-12] MEDS: ACETAMINOPHEN 325 MG TABLET PO PRN (21:49)
[2022-12-12] MEDS ORDERED: VANCOMYCIN 500 MG in NA CHLORIDE 0.9% 100 ML IVPB ONE (22:45)
[2022-12-12 22:50] VITALS: O2SAT 95
--- NOTE | 2022-12-12 23:41 | HP ---
Date of Admission: 12/12/2022 Chief Complaint: Abdominal pain, constipation, and diarrhea. History Of Present Illness: This is a 77-year-old female patient who came into emergency room with l ongstanding history of constipation, but says that last night and this morning, she had bad diarrhea. She has some intermittent abdominal pain. Also, again her abdominal pain is nothing new as she has been having it for a long time. She mostly came in this morning with this bad diarrhea problem. Af ter she was evaluated, she was admitted to the hospital. Denies any fever or chills. Has had some n ausea and vomiting off and on. The patient currently has a PICC line in her left arm and she is gett ing IV vancomycin for osteomyelitis of left foot great toe. She gets daily dressing changes done by Home Health nurse. Allergies: AMOXICILLIN CAUSING ITCHING; LYRICA CAUSING THROAT SWELLING; SULFA, DETAILS UNKNOWN; TETR ACYCLINE, DETAILS UNKNOWN; IODINE, DETAILS UNKNOWN; HYDROCODONE, DETAILS UNKNOWN; GABAPENTIN, DETAILS UNKNOWN. Medications: She is taking IV vancomycin, dose unknown. Other home medications according to outpati ent record are aspirin 81 mg daily, Symbicort 2 puffs 2 times a day, clopidogrel 75 mg daily, docusat e sodium 100 mg 2 times a day, famotidine 20 mg daily, fluticasone nasal spray 2 sprays each nostril 2 times a day, magnesium oxide 400 mg 2 times a day, metformin 500 mg 2 times a day, oxybutynin 15 mg daily, sertraline 100 mg 2 times a day, and albuterol inhaler 2 puffs 4 times a day as needed. Review of Systems: GI: As mentioned above. Musculoskeletal: As mentioned above. All other systems reviewed and negative. Past Medical History: Significant for TIA, peripheral neuropathy, type 2 diabetes mellitus, hyperten hayde, hyperlipidemia, coronary artery disease, history of myocardial infarction in December 2019, chronic systolic heart failure, gastroesophageal reflux disease, diverticulosis, depression, and peripheral vascular disease. Past Surgical History: Tonsillectomy, coronary artery stent placement in December 2019 and she had aorti c valve replacement surgery also in February 2020, angioplasty with stent placement of the left leg, appendectomy, ventral hernia repair, partial hysterectomy, and right hip surgery. Family History: Father and had coronary artery disease and hepatitis B. Mother with strok e. Brother had colon cancer and bladder cancer. Social History: Prior history of smoking, not at present time. Use of alcohol negative. Physical Examination: Vital Signs: When she came into emergency room temperature was 97.8, pulse 93, respiratory rate 12, blood pressure 152/73, and oxygen saturation 96%. Height 5 feet 4 inches and weight 189 pounds. General: Awake, alert, oriented, not in distress. HEENT: Head atraumatic, normocephalic. Conjunctivae nonerythematous. Sclerae white. Mouth, no thr ush or edema noted. Ears/Nose, no mass, lesion, discharge noted. Neck: Supple. No JVD, lymph nodes, bruit, thyromegaly noted. Lungs: Bilateral good equal air entry. Clear to auscultation. No rhonchi. No rales. Heart: Normal heart sounds, no murmur or gallop. Abdomen: Evidence of mild tenderness of left upper and left lower quadrants of abdomen. No rebound tenderness. Bowel sounds normoactive. No hepatosplenomegaly. No bruit. Extremities: Left upper extremity has PICC line in place. Insertion site and surrounding skin appea rs normal. Left lower extremity shows the presence of dressing over the left great toe. Dressing wa s removed. It has very small superficial open area with loss of skin approximately 5 mm x 7 mm in si ze. No discharge or bleeding. No tenderness. Surrounding skin is normal. Skin: No rash, ulcer, cellulitis. Lymphatics: No lymph node enlargement in neck, supraclavicular, infraclavicular region. Neuro: No focal neurological deficit. Chest: Unremarkable. External Genitalia: Deferred. Rectal: Deferred. Laboratory Data: White count 8, hemoglobin 13.1, and platelets 134. Sodium 135, potassium 3.7, chlo ride 106, bicarb 23, BUN 20, creatinine 1.17, and glucose 248. Liver function tests unremarkable. I nitial troponin 65.4, second troponin 56.4. ProBNP 5519. Lipase 32. Urinalysis: 5 to 10 rbcs, 5 to 10 wbcs, leukocyte esterase 75, and bacteria less than 20. Chest x-ray: No acute cardiopulmonary c hanges. CAT scan of the head, C-spine, chest, and abdomen shows no evidence of any acute intracrania l changes. No acute abnormality of chest, abdomen, and pelvis. Impression: 1.Abdominal pain. 2.Diarrhea. 3.Chronic constipation. 4.Chronic systolic heart failure. 5.Coronary artery disease. 6.Peripheral vascular disease. 7.Hypertension. 8.Type 2 diabetes mellitus. 9.Hyperlipidemia. 10.Diabetic neuropathy. 11.Gastroesophageal reflux disease. 12.Diverticulosis. Plan: Admit patient to hospital for further evaluation and management of this problem. The patient is appropriate for inpatient and is expected to spend 2 midnights in hospital. We will get serial ca rdiac enzymes on her. Consult Cardiology. Initial troponin was slightly high, but second troponin i s normal. No evidence of any acute myocardial infarction so far. We will go ahead and make adjustme nt on her stool softener for her chronic constipation problem. Her abdominal pain is a chronic ongoi ng problem for a very long period of time and no need for further intervention for that at this time, and there is no acute finding on the CT scan. We will continue her IV antibiotics, vancomycin the w ay she takes at home. Home medications will be continued per order. I will see her tomorrow for luther pandya. Details of plan of treatment discussed with her. I have advised the nurse to contact the anneliese real's to find out exactly how she does her dressing changes at home and if not, find out details for the Home Health nurse and continue dressings while in the hospital. AJAY/FREDI Voice ID: [id number]
[2022-12-13] MEDS: FENTANYL CITR 100 MCG/2 ML IV PRN (02:42)
[2022-12-13] MEDS: ONDANSETRON 4 MG/2 ML VIAL IV PRN ×2 (02:47→09:02)
[2022-12-13 03:49] LABS: Absolute Lymphocytes (CBC) 1.6 K/uL (0.7-4.9); Hematocrit 37.2 % (36.0-45.0); Lymphocytes % 22.5 % (15.3-44.8); MCV 83.7 fL (80-100); MPV 7.1 fL (7.6-11.3); RBC Red Blood Cell Count 4.44 M/uL (3.86-4.86)
[2022-12-13 04:05] LABS: Potassium 3.8 mEq/L (3.5-5.1)
[2022-12-13] MEDS: ACETAMINOPHEN 325 MG TABLET PO PRN (08:57)
[2022-12-13] MEDS: FAMOTIDINE 20 MG/2 ML VIAL IV SCH (08:58)
[2022-12-13] MEDS ORDERED: SILVER SULFADIAZINE 1% 50 GM TOP SCH (09:00)
[2022-12-13] MEDS ORDERED: CEFTRIAXONE 1,000 MG in NA CHLORIDE 0.9% 50 ML IVPB SCH (09:00)
[2022-12-13] MEDS ORDERED: ASPIRIN 81 MG CHEWABLE TABLET PO SCH (09:00)
[2022-12-13] MEDS ORDERED: CLOPIDOGREL 75 MG TABLET PO SCH ×2 (09:00→21:00)
[2022-12-13] MEDS ORDERED: ASPIRIN EC 81 MG TAB PO SCH (09:00)
[2022-12-13] MEDS ORDERED: SERTRALINE HCL 100 MG TAB PO SCH (09:00)
[2022-12-13] MEDS ORDERED: AMLODIPINE 5 MG TAB PO ONE (09:56)
[2022-12-13] MEDS ORDERED: HYDROCODONE/APAP 10/325 TAB PO ONE (11:42)
[2022-12-13 12:21] VITALS: TEMP 96.3
[2022-12-13] MEDS ORDERED: VANCOMYCIN 1.5 GM in NA CHLORIDE 0.9% 500 ML IVPB SCH (13:00)
[2022-12-13 13:44] VITALS: BP 144/80
[2022-12-13] MEDS ORDERED: oxyBUTYnin chloride 5 MG TAB PO SCH (17:30)
--- NOTE | 2022-12-13 19:11 | EKG ---
Test Date: 2022-12-12 Test Time: 13:53:42 Registration Scheduling Specialist: YUN MEASUREMENT RESULTS: Intervals: Rate: 95 IA: 150 QRSD: 88 QT: 384 QTc: 482 [place]: P: 25 IA: 150 QRS: 10 T: 160 INTERPRETIVE STATEMENTS: Normal sinus rhythm Left ventricular hypertrophy with repolarization abnormality Abnormal ECG Compared to ECG 10/06/2019 08:45:24 Left ventricular hypertrophy now present Early repolarization now present T-wave abnormality no longer present Electronically Signed On 12-13-22 19:09:02 CDT by Lv Mohan
--- NOTE | 2022-12-13 21:53 | DS ---
Date of Discharge: 12/13/2022 Disposition: Discharged to go home. Physical Examination: HEENT: Unremarkable. Lungs: Clear to auscultation. Heart: Sounds normal. Abdomen: Soft. Bowel sounds normal. No guarding, rigidity, tenderness, distention. Extremities: No leg edema. Laboratory Data: Today, white count 7.2, hemoglobin 12.1, platelets 130. Sodium 138, potassium 3.8, chloride 109, bicarb 25, BUN 21, creatinine 0.96, glucose 107. Hemoglobin A1c 8.2. Hospital Course: This is a 77-year-old pleasant female patient admitted to the hospital with abdomin al pain, constipation, and diarrhea. Please see dictated H and P for more information. After idris weinberg was evaluated in the emergency room yesterday, she was admitted to the hospital. Her workup done i n the emergency room was unremarkable including her blood work, chest x-ray, and CAT scan of chest, a bdomen, and pelvis was unremarkable. CAT scan of the head and C-spine was negative for any acute gayathri nges. Patient has a PICC line in her left arm and she gets IV vancomycin on outpatient basis. Overn ight, her condition remained stable. This morning when I saw her, no new complaints or problems repo rted. Her abdominal pain complaint that she has is a chronic problem going on for long time. Consid ering CAT scan has not shown any acute abnormality. I have advised her today that she should follow up with insole doubler on outpatient basis for further workup of this ongoing chronic abdominal p ain and we did talk about choice of local insole doubler and she will follow up with gastroentero logist of her own choice. After I saw her today, her blood pressure was high. 1 dose of amlodipine 5 mg was given that really did not help to bring her blood pressure down, but then 1 dose of her hydr ocodone was given that she takes at home and after 1 dose of that, her blood pressure came down and s he was discharged to go home in stable condition. Final Diagnoses: 1.Abdominal pain. 2.Diarrhea. 3.Chronic constipation. 4.Chronic systolic heart failure. 5.Coronary artery disease. 6.Peripheral vascular disease. 7.Hypertension. 8.Type 2 diabetes mellitus, uncontrolled. 9.Hyperlipidemia. 10.Diabetic neuropathy. 11.Gastroesophageal reflux disease. 12.Diverticulosis. Discharge Medications And Instructions: 1.Continue all prior home medications. 2.Follow up at my office next week. 3.Follow up with insole doubler for abdominal pain. 4.Take [id number] Senokot S 2 tablets by mouth daily. AJAY/MODL Voice ID: [id number] Report ID: [id number]
== END 2022-12-13 14:02 | disposition home or self-care (01) ==
LOC: ER 13:24 → INTOOBSV 16:59 → ERHOLD 16:59 → 2ND 18:24
PROVIDERS: ADMIT Internal Medicine; ATTEND Internal Medicine
DX: R10.9 Unspecified abdominal pain (principal); R19.7 Diarrhea, unspecified; K59.09 Other constipation; I50.22 Chronic systolic (congestive) heart failure; I25.10 Atherosclerotic heart disease of native coronary artery without angina pectoris; I73.9 Peripheral vascular disease, unspecified; I10 Essential (primary) hypertension; E78.5 Hyperlipidemia, unspecified; E11.40 Type 2 diabetes mellitus with diabetic neuropathy, unspecified; K21.9 Gastro-esophageal reflux disease without esophagitis; K57.90 Diverticulosis of intestine, part unspecified, without perforation or abscess without bleeding
CPT/HCPCS: 96365; 96361; 96368; 93005; 87070; 85025 ×2; 81001; 80048 ×2; 36415; 83735; 87205; 85610; 82947 ×3; 80076; 80202; 83036; 84484 ×2; 83690; 83880; 70450; 71250; 72125; 71045; 96375; 96372; 99285; J3010 ×3; J2405 ×3; J7030; J0696 ×2; G0378; J7040

== ENCOUNTER 2023-05-12 06:13 | Inpatient (IN) | payer OTHER ==
--- OUTSIDE RECORDS SUMMARY | 2023-05-12 06:18 | XMS REPORT | Continuity of Care Document ---
:1945 Author Organization [facility] t Address [address] [place] [address] [place] [id number] Care Team Providers Name Role Phone Fred Garner Narendra Primary Care Physician OLGA DINERO Attending Clinician Unavailable PAULETTE RANGEL Attending Clinician Unavailable Paulette Andrade Attending Clinician Oscar Lai MD Attending Clinician Lab, Ang - Db Attending Clinician Unavailable OSCAR LAI Attending Clinician Unavailable Doctor Unassigned, Gardi Attending Clinician Unavailable SURAJ REID Attending Clinician Unavailable Suraj Reid MD Attending Clinician JURGEN CANNON Attending Clinician Unavailable Jurgen Cannon MD Attending Clinician [phone] Test, Vtc Pulmonary Function Attending Clinician Unavailable Only, Adc Test Attending Clinician Unavailable Mitesh Coe MD Attending Clinician MITESH COE Attending Clinician Unavailable KENNA MEJIA Attending Clinician Unavailable PARKER ESPINOZA Attending Clinician Unavailable PARKER ESPINOZA Attending Clinician Unavailable ADY COLLINS Attending Clinician Unavailable OLGA DINERO Admitting Clinician Unavailable Payers Payer Name Policy Type Policy Number Effective Date Expiration Date S ruma HUMANA CHOICE [id number] 2013 00:00:00 [facility] [id number] 2020 [facility] [place] 00:00:00 PPO Problems Condition Condition Condition Status Onset Resolution Last Treating Co mments Source Name Details Category Date Date Treatment Clinician Date Abscess of Abscess of Disease Active 2020-0 U nivers groin, groin, 916 ity of right right 00:00: [place] 00 Medical Branch S/P TAVR S/P TAVR Disease Active 2020-0 Unive rs (transcath (transcath 03-04 it y of eter eter 00:00: [place] aortic aortic 00 Medical valve valve Branch replacemen replacemen t) t) Aortic Aortic Disease Active 2020 Overview: Univer s valve valve 02-24 Formattin ity of stenosis, stenosis, 00:00: [place] of this [place] etiology etiology 00 note Medica l of cardiac of cardiac might be Branch valve valve different disease disease from the unspecifie unspecifie original. d d Added automatic ally from request for surgery [id number] Cardiogeni Cardiogeni Disease Active 2020-0 U nivers c shock c shock 7-11 ity of 00:00: [place] 00 Medical Branch Elevated Elevated Disease Active 2020-0 Unive rs troponin troponin 12-29 ity of 00:00: [place] 00 Medical Branch Acute Acute Disease Active 2020-0 Univers diastolic diastolic 7 ity of congestive congestive 00:[place] heart heart 00 Medical failure failure Branch Other Other Disease Active 2020-0 Univers chest pain chest pain 707 it y of 00:00: [place] 00 Medical Branch History of History of Disease Active 2020-0 U nivers arterial arterial 7-07 ity of ischemic ischemic 00:00: [place] stroke stroke 00 Medical Branch Obesity Obesity Disease Active 2020-0 Univers (BMI (BMI 7-07 ity of 30-39.9) 30-39.9) 00:00: [place] 00 Medical Branch NSTEMI NSTEMI Disease Active 2020-0 Univers (non-ST (non-ST 7 ity of elevated elevated 00:00: [place] myocardial myocardial 00 Me dical infarction infarction Br anch ) ) Dysphagia Dysphagia Disease Active 2020-0 Uni vers 7-07 ity of 00:00: [place] 00 Medical Branch Elevated Elevated Disease Active Unive rs troponin troponin 12-29 ity of 00:00: [place] [facility] Nonobstruc Nonobstruc Disease Active 2017-06 U nivers tive tive 1-13 ity of atheroscle atheroscle 00:[place] rosis of rosis of 00 Medica l 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 This diagnosis is questiona ble according to her; she has had high sed ratesICD1 0 Diagnosis Term [employer] Myalgia Myalgia Disease Active Overview: Univ ers and and Formattin ity of myositis myositis g of this [place] as note Medical might be Branch different from the original. Has malaise, and flu-like symptoms, and sometimes a low grade temperatu reICD10 Diagnosis Term [employer] Backache Backache Disease Active Overview: Un jose Formattin ity of g of this [place] note Medical might be Branch different from the original. Pt has chronic back [id number] Diagnosis Term [employer] Type 2 Type 2 Disease Active Overview: Univer s diabetes diabetes Formattin ity of mellitus mellitus g of this [place] as with with note Medical cardiac cardiac might be Branch complicati complicati different on on from the original. 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 ICD10 Diagnosis Term [employer] Diverticul Diverticul Disease Active U nivers [...] Med Other-Cmnt 2014-06 Univ ers AB INGREDI 0- ity of 00:00: [place] 00 Medical Branch Methocar Propensi Active Swelling Univ ers bamol ty to 03-23 ity of adverse 00:00: [place] reaction Medical s to Branch drug METHOCAR DRUG Active Med Swelling Univer s BAMOL INGREDI 03-23 ity of 00:00: [place] [facility] Pregabal Propensi Active Anaphylaxis U [...] Medical s Branch Tetracyc Propensi Active Anaphylaxis U nivers line ty to 10-01 ity of adverse 00:00: [place] reaction 00 Medical s to Branch drug TETRACYC DRUG Active High Anaphylaxis Uni vers LINE INGREDI 10-01 ity of 00:00: [place] 00 Medical Branch IODINE Drug Active Med Swelling Univers AND Class 10-01 ity of IODIDE 00:00: [place] CONTAINI 00 Medical NG Branch PRODUCTS SULFA Drug Active Anxiety Univers (SULFONA Class 4- ity of MIDE 00:00: [place] ANTIBIOT 00 Medical ICS) Branch ADHESIVE DRUG Active Hives Univers TAPE 10-01 ity of 00:00: [place] [...] Start Date Stop Date Quantity Comments Source Gender identity Universit y of [facility] Sexual orientation Univer sity of [facility] Branch History SDOH Food Univers ity of Scarcity [facility] Branch History of tobacco Current smoker Un iversity of use [place] [facility] History [facility] University o f Alcohol Frequency [facility] edical Branch History SDWI University o f Alcohol Std Drinks [place] [facility] History [facility] University o f Alcohol Binge [facility] al Branch Exposure to 2022-10-03 2022-10-13 Not sure University of SARS-CoV-2 (event) 00:00:00 12:50:00 [facility] Branch History of Social 2022-10-13 2022-10-13 Univers ity of function 00:00:00 00:00:00 [facility] Branch Alcohol intake 2022-10-13 2022-10-13 Current non-drinker U niversity of 00:00:00 00:00:00 of alcohol [place] [facility] (finding) Branch Tobacco Comment 2022-10-13 2022-10-13 Quit more than Unive rsity of 00:00:00 00:00:00 thirty some years [facility] [place] [facility] ago Branch Tobacco use and 2022-10-13 2022-10-13 Smokeless tobacco Un iversity of exposure 00:00:00 00:00:00 non-user [place] [facility] History SDOH 2020-03-10 2020-03-10 5 University o f Financial 00:00:00 00:00:00 [place] [facility] History SDWI Food 2020-03-10 2020-03-10 1 Univers ity of Worry 00:00:00 00:00:00 [place] [facility] History SDWI 2020-03-10 2020-03-10 2 University o f Transport Med 00:00:00 00:00:00 [place] Medic al Branch History SDOH 2020-03-10 2020-03-10 2 University o f Transport Non-Med 00:00:00 00:00:00 [place] M edical Branch Alcohol Comment 2006-10-01 2006-10-01 Drinks ETOH very Uni versity of 00:00:00 00:00:00 [facility] At [birth year] [facility]00 [facility] Smoking Status Start Date Stop Date Source Ex-smoker 2022-10-13 00:00:00 2022-10-13 00:00:00 [facility] Medications Ordered Filled Start Stop Current Ordering Indication Dosage Frequency Signature Comments Components Source Medication Medication Date Date Medication? Clinician (SIG) Name Name Magnesium Yes Take by Unive rs 250 mg Tab 4-21 mouth. ity of 13:09: [address] Branch Magnesium 2022-0 Yes Take by Unive rs 250 mg Tab 4-21 mouth. ity of 13:09: [address] Magnesium 2022-0 Yes Take by Unive rs 250 mg Tab 4-21 mouth. ity of 13:09: [address] Magnesium 2022-0 Yes Take by Unive rs 250 mg Tab 4-21 mouth. ity of 13:09: [address] Magnesium 2022-0 Yes Take by Unive rs 250 mg Tab 4-21 mouth. ity of 13:09: [address] Magnesium 2022-0 Yes Take by Unive rs 250 mg Tab 4-21 mouth. ity of 13:09: [address] Magnesium 2022-0 Yes Take by Unive rs 250 mg Tab 4-21 mouth. ity of 13:09: [address] metformin 3-0 Yes [id number] 500mg Take 1 U nivers ER 500 mg 4-21 tablet by ity o f 24 hr 00:00: mouth in [place] tablet 00 the Medical morning Branch and 1 tablet in the evening. metformin 3-0 Yes [id number] 500mg Take 1 U nivers ER 500 mg 4-21 tablet by ity o f 24 hr 00:00: mouth in [place] tablet 00 the Medical morning Branch and 1 tablet in the evening. metformin 2023-0 Yes [id number] 500mg Take 1 U nivers ER 500 mg 4-21 tablet by ity o f 24 hr 00:00: mouth in [place] tablet 00 the Medical morning Branch and 1 tablet in the evening. metformin 2022-0 Yes [id number] 500mg Take 1 U nivers ER 500 mg 4-21 tablet by ity o f 24 hr 00:00: mouth in [place] tablet 00 the Medical morning Branch and 1 tablet in the evening. metformin 2022-0 Yes [id number] 500mg Take 1 U nivers ER 500 mg 4-21 tablet by ity o f 24 hr 00:00: mouth in [place] tablet 00 the Medical morning Branch and 1 tablet in the evening. metformin 2022-0 Yes [id number] 500mg Take 1 U nivers ER 500 mg 4-21 tablet by ity o f 24 hr 00:00: mouth in [place] tablet 00 the Medical morning Branch and 1 tablet in the evening. metformin 2022-0 Yes [id number] 500mg Take 1 U nivers ER 500 mg 4-21 tablet by ity o f 24 hr 00:00: mouth in [place] tablet 00 the Medical morning Branch and 1 tablet in the evening. vancomycin 2021-06 Yes Univers 5 gram 2-07 ity of injection 00:00: 00 Medical Branch vancomycin 2021- Yes Univers 5 gram 2-07 ity of injection 00:00: 00 [facility] Branch vancomycin 2021-1 Yes Univers 5 gram 2-07 ity of injection 00:00: 00 [facility] Branch vancomycin 2021-1 Yes Univers 5 gram 2-07 ity of injection 00:00: 00 Medical Branch vancomycin 2021-1 2023- No Univer s 5 gram 2-07 04-21 ity of injection 00:00: 00:00 [place] 00 :00 [facility] Branch vancomycin 2021-1 2023- No Univer s 5 gram 2-07 04-21 ity of injection 00:00: 00:00 [place] 00 :00 Medical Branch metformin 2-0 Yes [id number] TAKE ONE Univers ER 500 mg 9-17 TABLET BY ity o f 24 hr 00:00: MOUTH [place] tablet 00 DAILY WITH Medical BREAKFAST Branch metformin 2021-0 Yes [id number] TAKE ONE Univers ER 500 mg 9-17 TABLET BY ity o f 24 hr 00:00: MOUTH [place] tablet 00 DAILY WITH Medical BREAKFAST Branch metformin 2022-0 Yes [id number] TAKE ONE Univers ER 500 mg 9-17 TABLET BY ity o f 24 hr 00:00: MOUTH [place] tablet 00 DAILY WITH Medical BREAKFAST Branch metformin 0 Yes [id number] TAKE ONE Univers ER 500 mg 9-17 TABLET BY ity o f 24 hr 00:00: MOUTH [place] tablet 00 DAILY WITH Medical BREAKFAST Branch metformin 0 Yes [id number] TAKE ONE Univers ER 500 mg 9-17 TABLET BY ity o f 24 hr 00:00: MOUTH [place] tablet 00 DAILY WITH Medical BREAKFAST Branch metformin 0 2023- No [id number] TAKE ONE Univers ER 500 mg 9-17 04-21 TABLET BY ity of 24 hr 00:00: 00:00 MOUTH [place] tablet 00 :00 DAILY WITH Medical BREAKFAST Branch metformin 3- No [id number] TAKE ONE Univers ER 500 mg 9-17 04-21 TABLET BY ity of 24 hr 00:00: 00:00 MOUTH [place] tablet 00 :00 DAILY WITH Medical BREAKFAST Branch semaglutide Yes [id number] .5mg inject 0.5 Univers (OZEMPIC) 3-08 mg under ity of 0.25 mg or 00:00: the skin [place] as 0.5 mg(2 00 weekly. Medical mg/1.5 mL) Branch PnIj semaglutide Yes [id number] .5mg inject 0.5 Univers (OZEMPIC) 3-08 mg under ity of 0.25 mg or 00:00: the skin [place] as 0.5 mg(2 00 weekly. Medical mg/1.5 mL) Branch PnIj semaglutide Yes [id number] .5mg inject 0.5 Univers (OZEMPIC) 3-08 mg under ity of 0.25 mg or 00:00: the skin [place] as 0.5 mg(2 00 weekly. Medical mg/1.5 mL) Branch PnIj semaglutide Yes [id number] .5mg inject 0.5 Univers (OZEMPIC) 3-08 mg under ity of 0.25 mg or 00:00: the skin [place] as 0.5 mg(2 00 weekly. Medical mg/1.5 mL) Branch PnIj semaglutide Yes [id number] .5mg inject 0.5 Univers (OZEMPIC) 3-08 mg under ity of 0.25 mg or 00:00: the skin [place] as 0.5 mg(2 00 weekly. Medical mg/1.5 mL) Branch Gianfranco semaglutide Yes [id number] .5mg inject 0.5 Univers (OZEMPIC) 3-08 mg under ity of 0.25 mg or 00:00: the skin [place] as 0.5 mg(2 00 weekly. Medical mg/1.5 mL) Branch PnJulisa semaglutide Yes [id number] .5mg inject 0.5 Univers (OZEMPIC) 3-08 mg under ity of 0.25 mg or 00:00: the skin [place] as 0.5 mg(2 00 weekly. Medical mg/1.5 mL) Branch Gianfranco semaglutide 2022- No [id number] .5mg inject 0.5 Univers (OZEMPIC) 3-08 04-21 mg under ity o f 0.25 mg or 00:00: 00:00 [place] 0.5 mg(2 00 :00 weekly. Medical mg/1.5 mL) Branch Gianfranco semaglutide 2022- No [id number] .5mg inject 0.5 Univers (OZEMPIC) 3-08 04-21 mg under ity o f 0.25 mg or 00:00: 00:00 [place] 0.5 mg(2 00 :00 weekly. Medical mg/1.5 mL) Branch Gianfranco Lancets 2020-06 Yes Use as Univers (ACCU-CHEK [...] directed ity of (ACCU-CHEK 00:00: to check [place] as GUIDE 00 glucose Medical GLUCOSE BID [...] mouth 2 ity of tablet 10:31: (two) [place] 58 times Medical daily. Branch NaCl 0.9% [...] mouth 2 ity of tablet 10:31: (two) [place] 58 times Medical daily. Branch NaCl 0.9% 2020-06 Yes CONTINUOUS Un jose (NS) SolP 2-08 . ity of 60 mL with 10:31: [place] Nitroglycer 58 Medical in 50 mg/10 Branch mL (5 mg/mL) Soln 24 mg rosuvastati 2020-06 Yes 10mg Take 10 mg Univers n 10 mg 2-08 by mouth ity of tablet 10:31: at [place] 58 bedtime. Medical Branch fluticasone 2020-06 Yes [...] . ity of 60 mL with 10:31: [place] Nitroglycer 58 Medical in 50 mg/10 Branch mL (5 mg/mL) Soln 24 mg rosuvastati 2020-06 Yes 10mg Take 10 mg Univers n 10 mg 2-08 by mouth ity of tablet 10:31: at [place] [address] bedtime. Medical Branch fluticasone 2020-06 Yes Inhale. [...] . ity of 60 mL with 10:31: [place] Nitroglycer 58 Medical in 50 mg/10 Branch mL (5 mg/mL) Soln 24 mg rosuvastati 2020-06 Yes 10mg Take 10 mg Univers n 10 mg 2-08 by mouth ity of tablet 10:31: at [place] 58 bedtime. Medical Branch fluticasone 2020-06 Yes [...] by mouth ity of tablet 10:31: at [place] 58 bedtime. Medical Branch fluticasone 2020-06 Yes [...] . ity of 60 mL with 10:31: [place] Nitroglycer 58 Medical in 50 mg/10 Branch mL (5 mg/mL) Soln 24 mg rosuvastati 2020-06 Yes 10mg Take 10 mg Univers n 10 mg 2-08 by mouth ity of tablet 10:31: at [place] [address] bedtime. Medical Branch fluticasone 2020-06 Yes Inhale. Uni vers furoate 50 2-08 ity of mcg/actuati 10:31: [place] on DsDv 58 Medical Branch famotidine 2020-06 Yes 20mg Take 20 mg U nivers 20 mg 2-08 by mouth 2 ity of tablet 10:31: (two) [place] 58 times Medical daily. Branch NaCl 0.9% 2020-06 Yes CONTINUOUS Un jose (NS) SolP 2-08 . ity of 60 mL with 10:31: [place] Nitroglycer 58 Medical in 50 mg/10 Branch mL (5 mg/mL) Soln 24 mg rosuvastati 2020-06 Yes 10mg Take 10 mg Univers n 10 mg 2-08 by mouth ity of tablet 10:31: at [place] 58 bedtime. Medical Branch fluticasone 2020-06 Yes [...] by mouth ity of tablet 10:31: at [place] 58 bedtime. Medical Branch fluticasone 2020-06 Yes [...] . ity of 60 mL with 10:31: [place] Nitroglycer 58 Medical in 50 mg/10 Branch mL (5 mg/mL) Soln 24 mg rosuvastati 2020-06 Yes 10mg Take 10 mg Univers n 10 mg 2-08 by mouth ity of tablet 10:31: at [place] 58 bedtime. Medical Branch fluticasone 2020-06 Yes [...] . ity of 60 mL with 10:31: [place] Nitroglycer 58 Medical in 50 mg/10 Branch mL (5 mg/mL) Soln 24 mg rosuvastati 2020-06 Yes 10mg Take 10 mg Univers n 10 mg 2-08 by mouth ity of tablet 10:31: at [place] 58 bedtime. Medical Branch fluticasone 2020-06 Yes [...] by mouth ity of tablet 10:31: at [place] 58 bedtime. Medical Branch fluticasone 2020-06 Yes Inhale. Uni vers furoate 50 2-08 ity of mcg/actuati 10:31: [place] on DsDv 58 Medical Branch famotidine 2020-06 Yes 20mg Take 20 mg U nivers 20 mg 2-08 by mouth 2 ity of tablet 10:31: (two) [place] 58 times Medical daily. Branch NaCl 0.9% 2020-06 Yes CONTINUOUS Un jose (NS) SolP 2-08 . ity of 60 mL with 10:31: [place] Nitroglycer 58 Medical in 50 mg/10 Branch mL (5 mg/mL) Soln 24 mg rosuvastati 2020-06 Yes 10mg Take 10 mg Univers n 10 mg 2-08 by mouth ity of tablet 10:31: at [place] 58 bedtime. Medical Branch fluticasone 2020-06 Yes [...] . ity of 60 mL with 10:31: [place] Nitroglycer 58 Medical in 50 mg/10 Branch mL (5 mg/mL) Soln 24 mg rosuvastati 2020-06 Yes 10mg Take 10 mg Univers n 10 mg 2-08 by mouth ity of tablet 10:31: at [place] 58 bedtime. Medical Branch fluticasone 2020-06 Yes [...] DsDv 58 Medical Branch albuterol 2020-06 Yes [id number] 2{puff} Inhale 2 Univers 90 2-08 Puffs ity of mcg/actuati 00:00: every 6 [place] as on inhaler 00 (six) Medical hours as Branch needed for Wheezing or Shortness of Breath. albuterol 2020-06 Yes [id number] 2{puff} Inhale 2 Univers 90 2-08 Puffs ity of mcg/actuati 00:00: every 6 [place] as on inhaler 00 (six) Medical hours as Branch needed for Wheezing or Shortness of Breath. albuterol 2020-06 Yes [id number] 2{puff} Inhale 2 Univers 90 2-08 Puffs ity of mcg/actuati 00:00: every 6 [place] as on inhaler 00 (six) Medical hours as Branch needed for Wheezing or Shortness of Breath. albuterol 2020-06 Yes [id number] 2{puff} Inhale 2 Univers 90 2-08 Puffs ity of mcg/actuati 00:00: every 6 [place] as on inhaler 00 (six) Medical hours as Branch needed for Wheezing or Shortness of Breath. albuterol 2020-06 Yes [id number] 2{puff} Inhale 2 Univers 90 2-08 Puffs ity of mcg/actuati 00:00: every 6 [place] as on inhaler 00 (six) Medical hours as Branch needed for Wheezing or Shortness of Breath. albuterol 2020-06 Yes [id number] 2{puff} Inhale 2 Univers 90 2-08 Puffs ity of mcg/actuati 00:00: every 6 [place] as on inhaler 00 (six) Medical hours as Branch needed for Wheezing or Shortness of Breath. albuterol 2020-06 Yes [id number] 2{puff} Inhale 2 Univers 90 2-08 Puffs ity of mcg/actuati 00:00: every 6 [place] as on inhaler 00 (six) Medical hours as Branch needed for Wheezing or Shortness of Breath. albuterol 2020-06 Yes [id number] 2{puff} Inhale 2 Univers 90 2-08 Puffs ity of mcg/actuati 00:00: every 6 [place] as on inhaler 00 (six) Medical hours as Branch needed for Wheezing or Shortness of Breath. albuterol 2020-06 Yes [id number] 2{puff} Inhale 2 Univers 90 2-08 Puffs ity of mcg/actuati 00:00: every 6 [place] as on inhaler 00 (six) Medical hours as Branch needed for Wheezing or Shortness of Breath. albuterol 2020-06 Yes [id number] 2{puff} Inhale 2 Univers 90 2-08 Puffs ity of mcg/actuati 00:00: every 6 [place] as on inhaler 00 (six) Medical hours as Branch needed for Wheezing or Shortness of Breath. albuterol 2020-06 Yes [id number] 2{puff} Inhale 2 Univers 90 2-08 Puffs ity of mcg/actuati 00:00: every 6 [place] as on inhaler 00 (six) Medical hours as Branch needed for Wheezing or Shortness of Breath. albuterol 2020-06 Yes [id number] 2{puff} Inhale 2 Univers 90 2-08 Puffs ity of mcg/actuati 00:00: every 6 [place] as on inhaler 00 (six) Medical hours as Branch needed for Wheezing or Shortness of Breath. albuterol 2020-06 Yes [id number] 2{puff} Inhale 2 Univers 90 2-08 Puffs ity of mcg/actuati 00:00: every 6 [place] as on inhaler 00 (six) Medical hours as Branch needed for Wheezing or Shortness of Breath. albuterol 2020-06 Yes [id number] 2{puff} Inhale 2 Univers 90 2-08 Puffs ity of mcg/actuati 00:00: every 6 [place] as on inhaler 00 (six) Medical hours as Branch needed for Wheezing or Shortness of Breath. metformin Yes [id number] 500mg Take 1 U nivers ER 500 mg 9-08 tablet by ity o f 24 hr 00:00: mouth [place] tablet 00 daily with Medical breakfast. Branch metformin Yes [id number] 500mg Take 1 U nivers ER 500 mg 9-08 tablet by ity o f 24 hr 00:00: mouth [place] tablet 00 daily with Medical breakfast. Branch metformin 2021- No [id number] 500mg Take 1 Univers ER 500 mg 03-02 09-17 tablet by ity of 24 hr 00:00: 00:00 mouth [place] tablet 00 :00 daily with Medical breakfast. Branch semaglutide 2021- No [id number] .5mg inject 0.5 Univers (OZEMPIC) 03-02 03-08 [...] at [place] 44 bedtime. Medical Branch SERTraline Yes 100mg [...] by ity of tablet 15:32: mouth at [place] [address] bedtime. Medical Branch SERTraline 2021-0 Yes 100mg Take 100 Un jose 100 mg 1-05 mg by ity of tablet 15:32: mouth 2 [place] [address] (two) Medical times Branch daily. oxybutynin 2021-0 Yes 5mg Take 5 mg Un jose chloride 5 1-05 by mouth ity o f mg tablet 15:32: as needed. [place] [address] Medical Branch docusate 2020-0 Yes 100mg Take 100 Univ ers (COLACE) 1-05 mg by ity of 100 mg 15:32: mouth 2 [place] capsule 44 (two) Medical times [place] daily as needed for Constipati on. mirtazapine 2021-0 Yes 7.5mg Take 7.5 U nivers 7.5 mg 1-05 mg by ity of tablet 15:32: mouth at [place] [address] bedtime. Medical Branch SERTraline 2021-0 Yes 100mg Take 100 Un jose 100 mg 1-05 mg by ity of tablet 15:32: mouth 2 [place] [address] (two) Medical times [place] daily. oxybutynin 2021-0 Yes 5mg Take 5 mg Un jose chloride 5 1-05 by mouth ity o f mg tablet 15:32: as needed. [place] [address] Medical Branch docusate 2021-0 Yes 100mg Take 100 Univ ers (COLACE) 1-05 mg by ity of 100 mg 15:32: mouth 2 [place] capsule 44 (two) Medical times Branch daily as needed for Constipati on. mirtazapine 2021-0 Yes 7.5mg Take 7.5 U nivers 7.5 mg 1-05 mg by ity of tablet 15:32: mouth at [place] [address] bedtime. Medical Branch SERTraline 2021-0 Yes 100mg Take 100 Un jose 100 mg 1-05 mg by ity of tablet 15:32: mouth 2 [place] [address] (two) Medical times Branch daily. oxybutynin 2021-0 Yes 5mg Take 5 mg Un jose chloride 5 1-05 by mouth ity o f mg tablet 15:32: as needed. [facility] Medical Branch docusate 2020-0 Yes 100mg Take 100 Univ ers (COLACE) 1-05 mg by ity of 100 mg 15:32: mouth 2 [place] capsule 44 (two) Medical times Branch daily as needed for Constipati on. mirtazapine 2020-0 Yes 7.5mg Take 7.5 U nivers 7.5 mg 1-05 mg by ity of tablet 15:32: mouth at [place] [address] bedtime. Medical Branch SERTraline 2020-0 Yes 100mg Take 100 Un jose 100 mg 1-05 mg by ity of tablet 15:32: mouth 2 [place] 44 (two) Medical times Branch daily. oxybutynin 2020-0 Yes 5mg Take 5 mg Un jose chloride 5 1-05 by mouth ity o f mg tablet 15:32: as needed. [place] [address] Medical Branch docusate 2020-0 Yes 100mg Take 100 Univ ers (COLACE) 1-05 mg by ity of 100 mg 15:32: mouth 2 [place] capsule 44 (two) Medical times Branch daily as needed for Constipati on. mirtazapine 2020-0 Yes 7.5mg Take 7.5 U nivers 7.5 mg 1-05 mg by ity of tablet 15:32: mouth at [place] [address] bedtime. Medical Branch SERTraline 2020-0 Yes 100mg Take 100 Un jose 100 mg 1-05 mg by ity of tablet 15:32: mouth 2 [place] 44 (two) Medical times Branch daily. oxybutynin 1-0 Yes 5mg Take 5 mg Un jose chloride 5 1-05 by mouth ity o f mg tablet 15:32: as needed. [place] [address] Medical Branch docusate 2020-0 Yes 100mg Take 100 Univ ers (COLACE) 1-05 mg by ity of 100 mg 15:32: mouth 2 [place] capsule 44 (two) Medical times Branch daily as needed for Constipati on. mirtazapine 1-0 Yes 7.5mg Take 7.5 U nivers 7.5 mg 1-05 mg by ity of tablet 15:32: mouth at [place] [address] bedtime. Medical Branch SERTraline 2020-0 Yes 100mg Take 100 Un jose 100 mg 1-05 mg by ity of tablet 15:32: mouth 2 [place] 44 (two) Medical times Branch daily. oxybutynin 2021-0 Yes 5mg Take 5 mg Un jose chloride 5 1-05 by mouth ity o f mg tablet 15:32: as needed. [address] Branch docusate 2020-0 Yes 100mg Take 100 Univ ers (COLACE) 1-05 mg by ity of 100 mg 15:32: mouth 2 [place] capsule 44 (two) Medical times Branch daily as needed for Constipati on. mirtazapine 2021-0 Yes 7.5mg Take 7.5 U nivers 7.5 mg 1-05 mg by ity of tablet 15:32: mouth at [place] [address] bedtime. Medical Branch SERTraline 1-0 Yes 100mg Take 100 Un jose 100 mg 1-05 mg by ity of tablet 15:32: mouth 2 [place] 44 (two) Medical times Branch daily. oxybutynin 2021-0 Yes 5mg Take 5 mg Un jose chloride 5 1-05 by mouth ity o f mg tablet 15:32: as needed. [address] Branch docusate 2020-0 Yes 100mg Take 100 Univ ers (COLACE) 1-05 mg by ity of 100 mg 15:32: mouth 2 [place] capsule 44 (two) Medical times Branch daily as needed for Constipati on. mirtazapine 1-0 Yes 7.5mg Take 7.5 U nivers 7.5 mg 1-05 mg by ity of tablet 15:32: mouth at [place] [address] bedtime. Medical Branch SERTraline 1-0 Yes 100mg Take 100 Un jose 100 mg 1-05 mg by ity of tablet 15:32: mouth 2 [place] 44 (two) Medical times Branch daily. oxybutynin 2021-0 Yes 5mg Take 5 mg Un jose chloride 5 1-05 by mouth ity o f mg tablet 15:32: as needed. [address] Branch docusate 2020-0 Yes 100mg Take 100 Univ ers (COLACE) 1-05 mg by ity of 100 mg 15:32: mouth 2 [place] capsule 44 (two) Medical times Branch daily as needed for Constipati on. mirtazapine 2021-0 Yes 7.5mg Take 7.5 U nivers 7.5 mg 1-05 mg by ity of tablet 15:32: mouth at [place] [address] bedtime. Medical Branch SERTraline 2021-0 Yes 100mg Take 100 Un jose 100 mg 1-05 mg by ity of tablet 15:32: mouth 2 [place] 44 (two) Medical times Branch daily. oxybutynin 2021-0 Yes 5mg Take 5 mg Un jose chloride 5 1-05 by mouth ity o f mg tablet 15:32: as needed. [place] [address] Medical Branch docusate 2020-0 Yes 100mg Take 100 Univ ers (COLACE) 1-05 mg by ity of 100 mg 15:32: mouth 2 [place] capsule 44 (two) Medical times Branch daily as needed for Constipati on. mirtazapine 1-0 Yes 7.5mg Take 7.5 U nivers 7.5 mg 1-05 mg by ity of tablet 15:32: mouth at [place] [address] bedtime. Medical Branch SERTraline 1-0 Yes 100mg Take 100 Un jose 100 mg 1-05 mg by ity of tablet 15:32: mouth 2 [place] [address] (two) Medical times Branch daily. oxybutynin 2021-0 Yes 5mg Take 5 mg Un jose chloride 5 1-05 by mouth ity o f mg tablet 15:32: as needed. [place] [address] Medical Branch docusate 2020-0 Yes 100mg Take 100 Univ ers (COLACE) 1-05 mg by ity of 100 mg 15:32: mouth 2 [place] capsule 44 (two) Medical times [place] daily as needed for Constipati on. mirtazapine 1-0 Yes 7.5mg Take 7.5 U nivers 7.5 mg 1-05 mg by ity of tablet 15:32: mouth at [place] [address] bedtime. Medical Branch SERTraline 1-0 Yes 100mg Take 100 Un jose 100 mg 1-05 mg by ity of tablet 15:32: mouth 2 [place] 44 (two) Medical times Branch daily. oxybutynin 2021-0 Yes 5mg Take 5 mg Un jose chloride 5 1-05 by mouth ity o f mg tablet 15:32: as needed. [place] [address] Medical Branch docusate 1-0 Yes 100mg Take 100 Univ ers (COLACE) 1-05 mg by ity of 100 mg 15:32: mouth 2 [place] capsule 44 (two) Medical times Branch daily as needed for Constipati on. mirtazapine 2021-0 Yes 7.5mg Take 7.5 U nivers 7.5 mg 1-05 mg by ity of tablet 15:32: mouth at [place] [address] bedtime. Medical Branch SERTraline 2021-0 Yes 100mg Take 100 Un jose 100 mg 1-05 mg by ity of tablet 15:32: mouth 2 [place] 44 (two) Medical times Branch daily. oxybutynin 2021-0 Yes 5mg Take 5 mg Un jose chloride 5 1-05 by mouth ity o f mg tablet 15:32: as needed. [place] [address] Medical Branch docusate 2020-0 Yes 100mg Take 100 Univ ers (COLACE) 1-05 mg by ity of 100 mg 15:32: mouth 2 [place] capsule 44 (two) Medical times Branch daily as needed for Constipati on. mirtazapine 1-0 Yes 7.5mg Take 7.5 U nivers 7.5 mg 1-05 mg by ity of tablet 15:32: mouth at [place] [address] bedtime. Medical Branch SERTraline 1-0 Yes 100mg Take 100 Un jose 100 mg 1-05 mg by ity of tablet 15:32: mouth 2 [place] 44 (two) Medical times Branch daily. oxybutynin 1-0 Yes 5mg Take 5 mg Un jose chloride 5 1-05 by mouth ity o f mg tablet 15:32: as needed. [place] [address] Medical Branch furosemide 2020-1 Yes 20mg Take [...] Indication s: acute pain nitroglycer 2020-[id number] 1 Univers in 0.4 mg 8-19 tablet ity of sublingual 00:00: under the [place] tablet 00 tongue Medical every 5 Branch (five) minutes as needed for Chest pain. nitroglycer 2020-[id number] 1 Univers in 0.4 mg 8-19 tablet ity of sublingual 00:00: under the [place] tablet 00 tongue Medical every 5 Branch (five) minutes as needed for Chest pain. nitroglycer 2020-[id number] 1 Univers in 0.4 mg 8-19 tablet ity of sublingual 00:00: under the [place] tablet 00 tongue Medical every 5 Branch (five) minutes as needed for Chest pain. nitroglycer 2020-[id number] 1 Univers in 0.4 mg 8-19 tablet ity of sublingual 00:00: under the [place] tablet 00 tongue Medical every 5 Branch (five) minutes as needed for Chest pain. nitroglycer 2020-[id number] 1 Univers in 0.4 mg 8-19 tablet ity of sublingual 00:00: under the [place] tablet 00 tongue Medical every 5 Branch (five) minutes as needed for Chest pain. nitroglycer 2020-[id number] 1 Univers in 0.4 mg 8-19 tablet ity of sublingual 00:00: under the [place] tablet 00 tongue Medical every 5 Branch (five) minutes as needed for Chest pain. nitroglycer 2020-[id number] 1 Univers in 0.4 mg 8-19 tablet ity of sublingual 00:00: under the [place] tablet 00 tongue Medical every 5 Branch (five) minutes as needed for Chest pain. nitroglycer 2020-[id number] 1 Univers in 0.4 mg 8-19 tablet ity of sublingual 00:00: under the [place] tablet 00 tongue Medical every 5 Branch (five) minutes as needed for Chest pain. nitroglycer 2020-[id number] 1 Univers in 0.4 mg 8-19 tablet ity of sublingual 00:00: under the [place] tablet 00 tongue Medical every 5 Branch (five) minutes as needed for Chest pain. nitroglycer 2020-[id number] 1 Univers in 0.4 mg 8-19 tablet ity of sublingual 00:00: under the [place] tablet 00 tongue Medical every 5 Branch (five) minutes as needed for Chest pain. nitroglycer 2020-[id number] 1 Univers in 0.4 mg 8-19 tablet ity of sublingual 00:00: under the [place] tablet 00 tongue Medical every 5 Branch (five) minutes as needed for Chest pain. nitroglycer 2020-[id number] 1 Univers in 0.4 mg 8-19 tablet ity of sublingual 00:00: under the [place] tablet 00 tongue Medical every 5 Branch (five) minutes as needed for Chest pain. nitroglycer 2020-[id number] 1 Univers in 0.4 mg 8-19 tablet ity of sublingual 00:00: under the [place] tablet 00 tongue Medical every 5 Branch (five) minutes as needed for Chest pain. nitroglycer 2020-[id number] 1 Univers in 0.4 mg 8-19 tablet ity of sublingual 00:00: under the [place] tablet 00 tongue Medical every 5 Branch (five) minutes as needed for Chest pain. atorvastati 2020-0 Yes [id number] 40mg Take 1 Univers n 40 mg 7-21 tablet by ity of tablet 00:00: mouth [place] 00 daily. Medical Branch clopidogreL 2020-0 Yes [id number] 75mg Take 1 Univers 75 mg 7-21 tablet by ity of tablet 00:00: mouth [place] 00 daily. Medical Branch aspirin 81 2020-0 Yes [id number] 81mg Take 1 U nivers mg chewable 7-21 tablet by ity of tablet 00:00: mouth [place] 00 daily. Medical Branch atorvastati 2020-0 Yes [id number] 40mg Take 1 Univers n 40 mg 7-21 tablet by ity of tablet 00:00: mouth [place] 00 daily. Medical Branch clopidogreL 2020-0 Yes [id number] 75mg Take 1 Univers 75 mg 7-21 tablet by ity of tablet 00:00: mouth [place] 00 daily. Medical Branch aspirin 81 2020-0 Yes [id number] 81mg Take 1 U nivers mg chewable 7-21 tablet by ity of tablet 00:00: mouth [place] 00 daily. Medical Branch atorvastati 2020-0 Yes [id number] 40mg Take 1 Univers n 40 mg 7-21 tablet by ity of tablet 00:00: mouth [place] 00 daily. Medical Branch clopidogreL 2020-0 Yes [id number] 75mg Take 1 Univers 75 mg 7-21 tablet by ity of tablet 00:00: mouth [place] 00 daily. Medical Branch aspirin 81 2020-0 Yes [id number] 81mg Take 1 U nivers mg chewable 7-21 tablet by ity of tablet 00:00: mouth [place] 00 daily. Medical Branch atorvastati 2020-0 Yes [id number] 40mg Take 1 Univers n 40 mg 7-21 tablet by ity of tablet 00:00: mouth [place] 00 daily. Medical Branch clopidogreL 2020-0 Yes [id number] 75mg Take 1 Univers 75 mg 7-21 tablet by ity of tablet 00:00: mouth [place] 00 daily. Medical Branch aspirin 81 2020-0 Yes [id number] 81mg Take 1 U nivers mg chewable 7-21 tablet by ity of tablet 00:00: mouth [place] 00 daily. Medical Branch atorvastati 2020-0 Yes [id number] 40mg Take 1 Univers n 40 mg 7-21 tablet by ity of tablet 00:00: mouth [place] 00 daily. Medical Branch clopidogreL 2020-0 Yes [id number] 75mg Take 1 Univers 75 mg 7-21 tablet by ity of tablet 00:00: mouth [place] 00 daily. Medical Branch aspirin 81 2020-0 Yes [id number] 81mg Take 1 U nivers mg chewable 7-21 tablet by ity of tablet 00:00: mouth [place] 00 daily. Medical Branch atorvastati 2020-0 Yes [id number] 40mg Take 1 Univers n 40 mg 7-21 tablet by ity of tablet 00:00: mouth [place] 00 daily. Medical Branch clopidogreL 2020-0 Yes [id number] 75mg Take 1 Univers 75 mg 7-21 tablet by ity of tablet 00:00: mouth [place] 00 daily. Medical Branch aspirin 81 2020-0 Yes [id number] 81mg Take 1 U nivers mg chewable 7-21 tablet by ity of tablet 00:00: mouth [place] 00 daily. Medical Branch atorvastati 2020-0 Yes [id number] 40mg Take 1 Univers n 40 mg 7-21 tablet by ity of tablet 00:00: mouth [place] 00 daily. Medical Branch clopidogreL 2020-0 Yes [id number] 75mg Take 1 Univers 75 mg 7-21 tablet by ity of tablet 00:00: mouth [place] 00 daily. Medical Branch aspirin 81 2020-0 Yes [id number] 81mg Take 1 U nivers mg chewable 7-21 tablet by ity of tablet 00:00: mouth [place] 00 daily. Medical Branch atorvastati 2020-0 Yes [id number] 40mg Take 1 Univers n 40 mg 7-21 tablet by ity of tablet 00:00: mouth [place] 00 daily. Medical Branch clopidogreL 2020-0 Yes [id number] 75mg Take 1 Univers 75 mg 7-21 tablet by ity of tablet 00:00: mouth [place] 00 daily. Medical Branch aspirin 81 2020-0 Yes [id number] 81mg Take 1 U nivers mg chewable 7-21 tablet by ity of tablet 00:00: mouth [place] 00 daily. Medical Branch atorvastati 2020-0 Yes [id number] 40mg Take 1 Univers n 40 mg 7-21 tablet by ity of tablet 00:00: mouth [place] 00 daily. Medical Branch clopidogreL 2020-0 Yes [id number] 75mg Take 1 Univers 75 mg 7-21 tablet by ity of tablet 00:00: mouth [place] 00 daily. Medical Branch aspirin 81 2020-0 Yes [id number] 81mg Take 1 U nivers mg chewable 7-21 tablet by ity of tablet 00:00: mouth [place] 00 daily. Medical Branch atorvastati 2020-0 Yes [id number] 40mg Take 1 Univers n 40 mg 7-21 tablet by ity of tablet 00:00: mouth [place] 00 daily. Medical Branch clopidogreL 2020-0 Yes [id number] 75mg Take 1 Univers 75 mg 7-21 tablet by ity of tablet 00:00: mouth [place] 00 daily. Medical Branch aspirin 81 2020-0 Yes [id number] 81mg Take 1 U nivers mg chewable 7-21 tablet by ity of tablet 00:00: mouth [place] 00 daily. Medical Branch atorvastati 2020-0 Yes [id number] 40mg Take 1 Univers n 40 mg 7-21 tablet by ity of tablet 00:00: mouth [place] 00 daily. Medical Branch clopidogreL 2020-0 Yes [id number] 75mg Take 1 Univers 75 mg 7-21 tablet by ity of tablet 00:00: mouth [place] 00 daily. Medical Branch aspirin 81 2020-0 Yes [id number] 81mg Take 1 U nivers mg chewable 7-21 tablet by ity of tablet 00:00: mouth [place] 00 daily. Medical Branch atorvastati 2020-0 Yes [id number] 40mg Take 1 Univers n 40 mg 7-21 tablet by ity of tablet 00:00: mouth [place] 00 daily. Medical Branch clopidogreL 2020-0 Yes [id number] 75mg Take 1 Univers 75 mg 7-21 tablet by ity of tablet 00:00: mouth [place] 00 daily. Medical Branch aspirin 81 2020-0 Yes [id number] 81mg Take 1 U nivers mg chewable 7-21 tablet by ity of tablet 00:00: mouth [place] 00 daily. Medical Branch atorvastati 2020-0 Yes [id number] 40mg Take 1 Univers n 40 mg 7-21 tablet by ity of tablet 00:00: mouth [place] 00 daily. Medical Branch clopidogreL 2020-0 Yes [id number] 75mg Take 1 Univers 75 mg 7-21 tablet by ity of tablet 00:00: mouth [place] 00 daily. Medical Branch aspirin 81 2019-0 Yes [id number] 81mg Take 1 U nivers mg chewable 7-21 tablet by ity of tablet 00:00: mouth [place] 00 daily. Medical Branch atorvastati 2020-0 Yes [id number] 40mg Take 1 Univers n 40 mg 7-21 tablet by ity of tablet 00:00: mouth [place] 00 daily. Medical Branch clopidogreL 2019-0 Yes [id number] 75mg Take 1 Univers 75 mg 7-21 tablet by ity of tablet 00:00: mouth [place] 00 daily. Medical Branch aspirin 81 2019-0 Yes [id number] 81mg Take 1 U nivers mg chewable 7-21 tablet by ity of tablet 00:00: mouth [place] 00 daily. Medical Branch Vital Signs Vital Name Observation Time Observation Value Comments Source Systolic blood 2022-10-13 18:19:00 119 mm[Hg] [facility] Diastolic blood 2022-10-13 18:19:00 81 mm[Hg] [facility] Heart rate 2022-10-13 18:19:00 104 /min [facility] Body height 2022-10-13 18:19:00 160 cm [facility] Body weight 2022-10-13 18:19:00 86.183 kg [facility] BMI 2022-10-13 18:19:00 33.66 kg/m2 [facility] Oxygen saturation 2022-10-13 18:19:00 97 /min [facility] in Arterial blood [facility] anch by Pulse oximetry Systolic blood 2021-09-22 00:18:00 133 mm[Hg] Univer [facility] Diastolic blood 2021-09-22 00:18:00 68 mm[Hg] [facility] Body height 2021-09-22 00:18:00 162.6 cm [facility] Body weight 2021-09-22 00:18:00 86.183 kg [facility] BMI 2021-09-22 00:18:00 32.61 kg/m2 [facility] Procedures Procedure Date / Time Performed Performing Clinician Sourc e POCT HEMOGLOBIN A1C 2022-10-13 18:21:00 Paulette Rangel [facility] [place] [facility] ASSIGNMENT OF BENEFITS 2022-10-13 17:52:09 Doctor Unassigned, No [facility] Name [facility] EXTERNAL PROVIDER 2021-10-12 05:01:00 Doctor Unassigned, No [facility] POCT HEMOGLOBIN A1C 2021-08-30 19:18:00 Suraj Reid [facility] [place] [place] [facility] Encounters Start End Encounter Admission Attending Care Care Encounter Source Date/Time Date/Time Type Type Clinicians Facility Department ID 2021-04-22 Emergency [facility] [id number] [facility] Inpatient R BAR [facility] [id number] Univers 15:37:23 OLGA [facility] 2021-04-22 Emergency [facility] [id number] Univers 05:15:17 [facility] 2023-04-17 2023-04-17 Outpatient R SHANE [facility] [id number] Univers 13:00:00 13:00:00 PAULETTE lopez [facility] 2023-01-22 2023-01-22 Telephone [facility] [id number] Univers 00:00:00 00:00:00 Paulette HEALTH 350.1.13.10 it y of [place] 4.2.7.2.686 [place] as ADALID?BLEA [id number] [address] MEDICAL OFFICE BUILDING 2022-11-17 2022-11-17 [facility] 1.2.840.114 [id number] Univers 00:00:00 00:00:00 Oscar HEALTH 350.1.13.10 it y of [facility] [id number] [place] as ADALID?BLEA [phone] Id maureen AGUILA [address] 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 OFFICE [facility] 2022-10-13 2022-10-13 Outpatient R MING [facility] [id number] Univers 13:00:00 14:00:49 OSCAR [facility] 2022-10-13 2022-10-13 Office Ming [facility] [id number] [id number] Univers 13:00:00 14:00:49 Visit [facility] Ambow Education 350.1.13.10 it y of [place] [facility] [id number] Fredo as ADALID?BLEA [id number] [facility] [address] [facility] OFFICE [facility] 2022-10-13 2022-10-13 Orders Doctor STELLA 1.2.840.114 [id number] Univers 00:00:00 00:00:00 Only Unassigned, DOMONIQUE 350.1.13.10 ity of [facility] [facility] 4.2.7.2.686 Fredo as [id number] [address] 2022-06-27 2022-06-27 Outpatient R JEANETTE [facility] [id number] Univers 14:00:00 14:00:00 SURAJ lopez [facility] 2022-06-01 2022-06-01 Telephone Jeanette [facility] [id number] Univers 00:00:00 00:00:00 [facility] 350.1.13.10 it y of [place] [place] [facility] [id number] [place] as ADALID?BLEA [id number] [address] MEDICAL OFFICE BUILDING 2022-03-11 2022-03-11 Refill [facility] 1.2.840.114 [id number] Univers 00:00:00 00:00:00 [facility] 350.1.13.10 it y of [place] 4.2.7.2.686 Fredo as ADALID?BLEA [id number] [address] MEDICAL OFFICE [facility] 2022-03-07 2022-03-07 [facility] [id number] Univers 13:00:00 13:00:00 [facility] 2022-03-07 2022-03-07 Outpatient R JEANETTE [facility] [id number] Univers 13:00:00 13:00:00 [facility] 2021-12-14 2021-12-14 [facility] [id number] Univers 10:30:00 10:30:00 [facility] 2021-12-14 2021-12-14 [facility] [id number] Univers 10:30:00 10:30:00 [facility] 2021-10-12 2021-10-12 Orders Doctor STELLA 1.2.840.114 [id number] Univers 00:00:00 00:00:00 Only Unassigned, DOMONIQUE 350.1.13.10 ity of [place] [facility] 4.2.7.2.686 Fredo as [phone] [place] [address] Branch 2021-09-07 2021-09-07 Office [facility] 1.2.840.114 [id number] Univers 10:30:00 10:47:32 Visit Jurgen BONILLA 350.1.13.10 ity of [place] [phone] [facility] AND YASMANI 085 Branch DIABETES CLINIC 2021-09-07 2021-09-07 Outpatient R KASSANDRA [facility] [id number] Univers 10:30:00 10:47:32 JURGEN alisha [facility] 2021-09-07 2021-09-07 Outpatient R KASSANDRA [facility] [id number] Univers 10:30:00 [facility]:30[facility] 2021-09-07 2021-09-07 [facility] [id number] Univers 10:30:00 10:30:00 [facility] 2021-08-30 2021-08-30 Outpatient R JEANETTE [facility] [id number] Univers 13:00:00 14:06:24 [facility] 2021-08-30 2021-08-30 Office [facility] 1.2.840.114 [id number] Univers 13:00:00 14:06:24 Visit [facility] 350.1.13.10 it y of [place] 4.2.7.2.686 [place] as ADALID?BLEA [id number] [address] MEDICAL OFFICE BUILDING 2021-08-30 2021-08-30 Outpatient R JEANETTE [facility] [id number] Univers 13:00:00 14:06:24 [facility] 2021-08-30 2021-08-30 Outpatient R JEANETTE [facility] [id number] Univers 13:00:00 13:00:00 [facility] 2021-08-30 2021-08-30 Orders Doctor STELLA 1.2.840.114 [id number] Univers 00:00:00 00:00:00 Only Unassigned, DOMONIQUE 350.1.13.10 ity of [place] [facility] 4.2.7.2.686 Fredo as [id number] [address] 2021-08-08 2021-08-08 [facility] [id number] Univers 10:06:39 23:59:00 Encounter Jurgen SKELTON 350.1.13.10 ity of [facility] 4.2.7.2.686 [place] [phone] Id maureen LOO 801 [facility] 2021-08-08 2021-08-08 Outpatient R KASSANDRA [facility] [id number] Univers 13:00:00 14:30:21 JURGEN lopez [facility] 2021-08-08 2021-08-08 Adjuster Arbitrator Test, [facility] Pulmonary Function [facility] 1.2.840.114 [id number] Univers 13:00:00 14:30:21 Visit Jurgen Cannon MULTISPEC 350.1 .13.10 ity of [place] 4.2.7.2.686 [facility] [phone] [place] [address]443 [place] [facility] 2021-08-08 2021-08-08 Hospital [facility] [id number] Univers 08:54:25 10:05:00 Encounter Jurgen SANCHEZ 350.1.13.10 ity of [place] 4.2.7.2.686 [facility] [phone] [address] ([facility]) 2021-08-08 2021-08-08 Outpatient R KASSANDRA [facility] [id number] Univers 00:00:00 00:00:00 JURGEN lopez [facility] 2021-08-05 2021-08-05 Laboratory Only, Adc Test [facility] 1.2.840. 114 [id number] Univers 15:00:00 15:15:00 Only Mitesh Coe 350.1.13.10 ity valerie MORALEZ 4.2.7.2.686 [facility] [phone] [facility] 353 Branch 2021-08-05 2021-08-05 Outpatient R SARAVANAN [facility] [id number] Univers 15:00:00 15:00:00 MITESH lopez [facility] 2021-06-14 2021-06-14 Telephone Jeanette [facility] [id number] Univers 00:00:00 00:00:00 Suraj MULTISPEC 350.1.13.10 ity of [place] 4.2.7.2.686 [facility] [id number] [facility] AND DORA [address] [place] [address] DIABETES CLINIC 2021-06-01 2021-06-01 Outpatient R KASSANDRA [facility] [id number] Univers 10:00:00 11:30:16 JURGEN rufinaalisha [facility] 2021-06-01 2021-06-01 Office [facility] 1.2.840.114 [id number] Univers 09:44:15 11:30:16 Visit Jurgen BONILLA 350.1.13.10 ity of [place] [id number] [facility] AND [address] DIABETES CLINIC 2021-05-10 2021-05-10 [facility]phone [facility] 1.2.840.114 [id number] Univers 00:00:00 00:00:00 Jurgen BONILLA 350.1.13.10 ity of [place] [id number] [place] [facility] [id number] [address] [facility] 2021-03-02 2021-03-02 [facility] [id number] Univers 13:34:41 15:58:40 Visit [facility] [id number] it y of [place] [id number] Fredo as Adalid?Blea [phone] Id maureen aguila [address] [place] [address] Medical Office [facility] 2021-03-02 2021-03-02 Outpatient R JEANETTE [facility] [id number] Univers 13:00:00 13:00:00 [facility] 2021-03-02 2021-03-02 Orders Doctor STELLA [id number] Univers 00:00:00 00:00:00 Only Unassigned, DOMONIQUE [id number] [facility] [id number] Fredo as [id number] [address] 2020-11-02 2020-11-02 [facility] [id number] Univers 10:30:00 10:30:00 [facility] 2020-06-29 2020-06-29 [facility] [id number] 15:07:47 16:11:28 Visit Suraj Alarcon [id number] [place] [id number] [place] [id number] [facility] [address] 2020-06-29 2020-06-29 [facility] [id number] Univers 15:00:00 15:00:00 [facility] 2020-06-29 2020-06-29 Orders Doctor STELLA [id number] 00:00:00 00:00:00 Only Unassigned, DOMONIQUE [id number] Gardi [facility] [id number] 2020-04-20 2020-04-20 Outpatient R [facility] [id number] Univers 15:00:00 15:00:00 [facility] 2020-03-30 2020-03-30 [facility] [id number] Univers 15:00:00 15:00:00 [facility] 2020-03-10 2020-03-10 [facility] [id number] Univers 14:30:00 14:30:00 KENNA [facility] 2020-02-16 2020-02-16 Outpatient R OLGA [facility] [id number] Univers 00:00:00 [facility]:00:[facility] 2020-02-11 2020-02-11 Outpatient R OLGA [facility] [id number] Univers 15:30:00 15:30:00 [facility] 2020-01-29 2020-01-29 Outpatient R DENNIS [facility] [id number] Univers 08:00:00 08:00:00 ADY [facility] Results Test Description Test Time Test Comments Results Result Comments Source POCT HEMOGLOBIN A1C TEST 2022-10-13 18:21:00 Test Item Value Reference Range Interpretation Comme nts POCT HBA1C (test code = 4548-4) 7.9 % 4-6 A Lab Interpretation (test code = 53132-6) Abnormal [facility] HEMOGLOBIN A1C [id number] 18:21:00 Test Item Value Reference Range Interpretation Comments POCT HBA1C (test code = 4548-4) 7.9 % 4-6 A Lab Interpretation (test code = Abnormal 87696-1) [facility] HEMOGLOBIN A1C [id number] 19:18:00 Test Item Value Reference Range Interpretation Comments POCT HBA1C (test code = 4548-4) 6.5 % 4-6 A Lab Interpretation (test code = Abnormal 21945-1) [facility]
[2023-05-12] MEDS ORDERED: IBUPROFEN 400 MG TAB ONE (06:37)
[2023-05-12] MEDS ORDERED: NA CHLORIDE 0.9% 1,000 ML ONE ×3 (06:38→09:04)
[2023-05-12] MEDS ORDERED: NA CHLORIDE 0.9% 100 ML ONE ×2 (06:38→08:46)
[2023-05-12] MEDS ORDERED: CEFTRIAXONE 1000 MG/VIAL ONE (06:38)
[2023-05-12 06:54] LABS: Absolute Lymphocytes (CBC) 0.7 K/uL (0.7-4.9); Hematocrit 40.4 % (36.0-45.0); Lymphocytes % 7.2 % (15.3-44.8); MCV 84.1 fL (80-100); Platelets 93 thou/uL (152-406)
[2023-05-12 07:15] LABS: Albumin 3.1 g/dL (3.4-5.0); Bilirubin Total 0.8 mg/dL (0.2-1.0); Potassium 4.4 mEq/L (3.5-5.1); Protein, Total 8.1 g/dL (6.4-8.2)
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
[2023-05-12 08:03] LABS: Protime INR 1.29
[2023-05-12 08:06] LABS: Specific Gravity 1.013 (1.005-1.030); Urine Bacteria >50 /HPF (<20); Urine Bilirubin NEGATIVE (Negative); Urine Blood 3+ (Negative); Urine Clarity Extremely Turbid (Clear); Urine Color Light-Orange (Yellow); Urine Glucose 2+ (Negative); Urine Protein 2+ (Negative); Urine RBC >50 /HPF (None Seen); Urine Urobilinogen Normal (Normal); Urine WBC Clump Many /HPF (None Seen); Urine pH 5.5 (5.0-7.0)
--- NOTE | 2023-05-12 08:12 | RAD REPORT ---
EXAM DESCRIPTION: CT - Stone Protocol - 05/12/2023 7:51 am CLINICAL HISTORY: Abdominal pain. Pyelonephritis COMPARISON: None. TECHNIQUE: Computed axial tomography of the abdomen pelvis was obtained without oral or IV contrast. Lack of IV and oral contrast limits evaluation of solid organs, appendix, bowel, and vessels. Branham l reformatted images were obtained and reviewed. All CT scans are performed using dose optimization technique as appropriate and may include automated exposure control or mA/KV adjustment according to patient size. FINDINGS: A renal calculus is not seen. An ureteral calculus is not noted. A bladder calculus is not present. No hydronephrosis The liver, spleen, pancreas and adrenals appear grossly normal There is no evidence of diverticulitis. Atherosclerosis. Hysterectomy. No adnexal mass. Right hip arthroplasty IMPRESSION: Negative for a genitourinary calculus
--- NOTE | 2023-05-12 08:12 | RAD REPORT ---
EXAM DESCRIPTION: Marvin Single View05/12/2023 6:50 am CLINICAL HISTORY: Fever COMPARISON: November 2022 FINDINGS: The lungs appear clear of acute infiltrate. The heart is normal size IMPRESSION: No acute abnormalities displayed
[2023-05-12 08:33] LABS: Albumin 2.7 g/dL (3.4-5.0); Bilirubin Direct 0.2 mg/dL (0-0.2); Bilirubin Indirect, Calculated 0.4 mg/dL (0.2-0.8); Bilirubin Total 0.6 mg/dL (0.2-1.0); Magnesium 1.3 mg/dL (1.6-2.4); Potassium 4.4 mEq/L (3.5-5.1); Protein, Total 6.7 g/dL (6.4-8.2); Troponin High Sensitivity 33.4 pg/mL (<58.9)
[2023-05-12] MEDS ORDERED: Meropenem 1000 MG/VIAL IV ONE (08:45)
[2023-05-12] MEDS ORDERED: ACETAMINOPHEN 325 MG TABLET ONE (08:45)
[2023-05-12] MEDS ORDERED: FAMOTIDINE 20 MG/2 ML VIAL IV ONE (08:46)
[2023-05-12] MEDS ORDERED: VANCOMYCIN 1 GM/VIAL ONE (08:46)
[2023-05-12] MEDS ORDERED: MUPIROCIN 2% OINT 22GM TUBE TOP ONE (08:46)
[2023-05-12] MEDS ORDERED: NA CHLORIDE 0.9% 250 ML ONE (08:46)
[2023-05-12] MEDS ORDERED: TOBRAMYCIN SULF 0.3% OPTH OINT ONE (09:04)
[2023-05-12 09:28] LABS: Blood Morphology Comment NOT SEEN (NOT SEEN); Platelet Estimate DECR; White Blood Cell Scan OK (OK)
[2023-05-12] MEDS ORDERED: Meropenem 1,000 MG in NA CHLORIDE 0.9% 100 ML IV SCH (10:19)
[2023-05-12] MEDS ORDERED: ONDANSETRON 4 MG/2 ML VIAL IV PRN (10:19)
[2023-05-12] MEDS: TOBRADEX 0.3-0.1% OPTH OINTMENT LEFT EYE SCH ×2 (10:19→21:00)
[2023-05-12] MEDS: NA CHLORIDE 0.9% 1,000 ML IV SCH ×2 (10:19→20:58)
[2023-05-12] MEDS ORDERED: ACETAMINOPHEN 325 MG TABLET PO PRN (10:23)
[2023-05-12] MEDS: FAMOTIDINE 20 MG/2 ML VIAL IV SCH ×2 (10:25→20:58)
[2023-05-12 10:50] VITALS: BMI 33.5
[2023-05-12] MEDS ORDERED: INFLUENZA VACCINE (for 6+ mo) 0.5 ML DOSE IMVAC ONE (12:00)
[2023-05-12] MEDS ORDERED: VANCOMYCIN 500 MG in NA CHLORIDE 0.9% 100 ML IVPB ONE (14:00)
--- NOTE | 2023-05-12 14:31 | HP ---
Date of Admission: 05/12/2023 Chief Complaint: Fever, burning on urination, and fall. History Of Present Illness: This is a 77-year-old female patient who came into emergency room with a lmost 1 month history of burning sensation on urination and as of early this morning, she started to have fever. She was feeling weak at that time, tried to get up and because of the weakness she fell down on her right knee. With all these complaints, she was brought into emergency room. After she w as evaluated, she was admitted to the hospital and I saw her in the emergency room. Her was with her at bedside. For a long time, patient has habit of picking on her skin and trying to what klaus smith describes as, she is trying to pick on hair follicles and that has caused some superficial sores ov er her face and she is doing same thing to her left upper eyelid and that has caused ongoing problem with some redness and mild swelling of the left upper eyelid margin and left upper eyelid itself as w shae. She has been seeing her restaurant crew member, Dr. Norris, and he has asked her to stop picking on h er eyelashes and her hair follicles and I had a long discussion with her today in presence of her hus band telling her same thing. Otherwise, this area on her eyelid and on her face will not heal and no t only that, but she is causing the chances of serious skin infection due to this habit. Allergies: AMOXICILLIN CAUSING ITCHING; LYRICA CAUSING THROAT SWELLING; SULFA, DETAILS UNKNOWN; TETR ACYCLINES, DETAILS UNKNOWN; IODINE, DETAILS UNKNOWN; HYDROCODONE, DETAILS UNKNOWN; GABAPENTIN, DETAIL S UNKNOWN. Review of Systems: Genitourinary: As mentioned above. Dermatology: As mentioned above. Constitutional: As mentioned above. All other systems reviewed and negative. Medications: According to last office visit note, her medication list includes Tylenol with codeine, which is prescribed by pain management doctor, aspirin 81 mg daily, albuterol inhaler 2 puffs 4 time s a day as needed, Symbicort 2 puffs 2 times a day, docusate sodium 100 mg 2 times a day, famotidine 20 mg daily, magnesium oxide 400 mg 2 times a day, metformin 500 mg daily, oxybutynin 15 mg daily, se rtraline 100 mg 2 times a day, trazodone 50 mg at bedtime. Past Medical History: Significant for TIA, peripheral neuropathy, type 2 diabetes mellitus, hyperten hayde, hyperlipidemia, coronary artery disease, myocardial infarction December 2019, chronic systolic hear t failure, gastroesophageal reflux disease, diverticulosis, depression. Past Surgical History: Tonsillectomy, coronary artery stent placement in December 2019, aortic valve lita devang February 2020, left leg angioplasty, stent placement, appendectomy, ventral hernia repair, hyst erectomy, and hip surgery. Family History: Father , had coronary artery disease. Mother with stroke. Brother has col on cancer and bladder cancer. Social History: Prior history of smoking, not at present time. Use of alcohol negative. Physical Examination: Vital Signs: When she first came in, temperature was 101.9, pulse 113, respiratory rate 20, blood pr essure 131/81, oxygen saturation 100%. Weight 195 pounds, and her height is 64 inches. General: Awake, alert, oriented, not in distress. HEENT: Head atraumatic, normocephalic. Left upper eyelid has mild swelling involving the area near the upper eyelid margin and area around it. Conjunctiva is normal. Sclerae are white. Rest of the eye examination is unremarkable. Mouth, no thrush or edema noted. Ears/Nose, no mass, lesion, disch arge noted. Neck: Supple. No JVD, lymph nodes, bruit, thyromegaly noted. Lungs: Bilateral good equal air entry. Clear to auscultation. No rhonchi. No rales. Heart: Normal heart sounds, no murmur or gallop. Abdomen: Soft, bowel sounds normal. No guarding, rigidity, tenderness, mass, hepatosplenomegaly, dis tention, or bruit noted. Extremities: No leg edema. No calf tenderness. Skin: 5 different superficial skin areas where it is more likely skin erosion 2 mm in size over righ t lateral confucianist area. Lymphatics: No lymph node enlargement in neck, supraclavicular, infraclavicular region. Neuro: No focal neurological deficit. Chest: Unremarkable. External Genitalia: Deferred. Rectal: Deferred. Laboratory Data: White count 10.3, hemoglobin 13.2, platelets 93. Sodium 132, potassium 4.4, chlori de 102, bicarb 25, BUN 19, creatinine 1.06, glucose 240. Lactic acid 2.2. Liver function tests are unremarkable. Repeat chemistry: Sodium 135, potassium 4.4, chloride 107, bicarb 23, BUN 20, creatin ine 0.90, glucose 221. Magnesium 1.3. Liver function tests unremarkable. ProBNP 2673. Urinalysis: Leukocyte esterase 500, rbc's more than 50, bacteria more than 50, and wbc's more than 50. 2+ nitr ite, 3+ blood, 2+ glucose. CAT scan of abdomen per kidney stone protocol was negative. Chest x-ray was negative for any acute changes. Impression: 1.Acute pyelonephritis. 2.Hypomagnesemia. 3.Type 2 diabetes mellitus. 4.Hypertension. 5.Hyperlipidemia. 6.Coronary artery disease. 7.Chronic systolic heart failure. 8.Peripheral neuropathy. 9.Depression. 10.Gastroesophageal reflux disease. 11.Diverticulosis. Plan: We will go ahead and admit patient to hospital for further evaluation and management of this p carmenm. Patient is appropriate for inpatient and is expected to spend 2 midnights in hospital. Empi bethel antibiotic was started. We will follow up on culture results and then decide about culture speci fic antibiotics. I will go ahead and get a right knee x-ray done, but on physical exam, there was no abnormality or pain noted with range of motion. I have advised the patient's to bring the l ist of her home medications and we will continue her home medications per order. Continue aspirin. [facility] Starkey on a regular basis and she has a small superfic ial open wound on the plantar aspect of the left great toe, and I did examine that approximately 3-5 mm size no discharge bleeding noted and patient says that she has home health nurse who provides the dressing changes regularly at home and she sees Dr. Starkey at the [facility], so we will req uest consultation from either [facility] or Dr. Starkey. Patient sees [facility] home demonstration agent for he r diabetes and we will continue metformin while in the hospital. She so far has refused to take any statin therapy and that is the reason why she is not on such therapy so far. AJAY/MODL Voice ID: [id number]
--- NOTE | 2023-05-12 14:43 | RAD REPORT ---
EXAM DESCRIPTION: RAD - Knee Right 3 View - 05/12/2023 2:02 pm CLINICAL HISTORY: Right knee pain status post injury FINDINGS: No fracture or dislocation is seen. Osteoporosis. Chondrocalcinosis. Moderate osteoarthritis patellofemoral compartment
[2023-05-12] MEDS: Meropenem 1,000 MG in NA CHLORIDE 0.9% 100 ML IV SCH (20:59)
[2023-05-13 05:13] LABS: Absolute Lymphocytes (CBC) 0.7 K/uL (0.7-4.9); Hematocrit 39.1 % (36.0-45.0); Lymphocytes % 10.3 % (15.3-44.8); MCV 85.1 fL (80-100); MPV 7.8 fL (7.6-11.3); Platelets 149 thou/uL (152-406)
[2023-05-13 05:30] LABS: Potassium 4.1 mEq/L (3.5-5.1)
[2023-05-13] MEDS: NA CHLORIDE 0.9% 1,000 ML IV SCH ×2 (07:26→18:57)
[2023-05-13] MEDS: FAMOTIDINE 20 MG/2 ML VIAL IV SCH ×2 (08:15→20:39)
[2023-05-13] MEDS: Meropenem 1,000 MG in NA CHLORIDE 0.9% 100 ML IV SCH ×2 (08:15→20:38)
[2023-05-13] MEDS ORDERED: VANCOMYCIN 1.5 GM in NA CHLORIDE 0.9% 500 ML IVPB SCH (09:00)
[2023-05-13] MEDS: TOBRADEX 0.3-0.1% OPTH OINTMENT LEFT EYE SCH ×2 (09:00→21:00)
[2023-05-13] MEDS: ASPIRIN 81 MG CHEWABLE TABLET PO SCH ×2 (12:03→12:08)
[2023-05-13] MEDS: SERTRALINE HCL 100 MG TAB PO SCH (12:08)
--- NOTE | 2023-05-13 14:49 | PN ---
Date of Progress Note: 05/13/2023 Subjective: The patient was seen this morning for followup. She was lying in bed, not in distress. Denies any new complaints this morning. No chest pain, shortness of breath. No nausea, no vomiting . She is requesting Tylenol with Codeine to be ordered as she takes up to 5 times a day at home. Objective: Vital signs: Reviewed. She remains afebrile this morning. HEENT: Unremarkable. Lungs: Clear to auscultation. Heart: Sounds normal. Abdomen: Soft. Bowel sounds normal. No guarding, rigidity, tenderness, distention. Extremities: No leg edema. Laboratory Data: White count 6.5, hemoglobin 13.1, platelets 149. Sodium 134, potassium 4.1, chlori de 105, bicarb 23, BUN 16, creatinine 0.77, glucose 132. Blood culture came back positive growing gr am-negative rods. Urine culture also growing gram-negative rods. Definite identification and sensit ivity result for blood culture and urine culture is pending. Impression: 1.Sepsis. 2.Acute pyelonephritis. 3.Type 2 diabetes mellitus. 4.Thrombocytopenia. 5.Hypertension. 6.Hyperlipidemia. Plan: We will go ahead and continue meropenem that currently she is on. We will repeat blood work t omorrow. Get hemoglobin A1c and lipid profile along with routine labs tomorrow morning. Follow up o n culture results and once culture result is available then we will decide about discharging home wit h culture-specific antibiotics. We will discontinue vancomycin and details and plan of treatment discussed with her. Home medications w ill be continued per order. AJAY/MODL Voice ID: [id number] Report ID: [id number]
[2023-05-13] MEDS: MEDIHONEY 44 ML TOPICAL TUBE TOP SCH (15:00)
[2023-05-13] MEDS: CODEINE 30MG/APAP 300MG TAB PO PRN ×2 (15:52→20:50)
[2023-05-13] MEDS ORDERED: ENOXAPARIN 30 MG/0.3 ML SQ SCH (17:00)
[2023-05-13] MEDS ORDERED: OXYBUTYNIN ER 5 MG TAB PO SCH (17:30)
[2023-05-13] MEDS: METFORMIN ER 500 MG TAB PO SCH (19:17)
[2023-05-13] MEDS ORDERED: TRAZODONE 50 MG TABLET PO SCH (21:00)
[2023-05-13] MEDS ORDERED: CLOPIDOGREL 75 MG TABLET PO SCH (21:00)
[2023-05-14 02:54] LABS: Hematocrit 35.9 % (36.0-45.0); Lymphocytes % 20.5 % (15.3-44.8); MCV 84.4 fL (80-100); MPV 7.4 fL (7.6-11.3); Platelets 80 thou/uL (152-406); RBC Red Blood Cell Count 4.25 M/uL (3.86-4.86)
[2023-05-14 03:04] LABS: Magnesium 1.2 mg/dL (1.6-2.4); Potassium 3.7 mEq/L (3.5-5.1)
[2023-05-14] MEDS: CODEINE 30MG/APAP 300MG TAB PO PRN (04:38)
[2023-05-14] MEDS: NA CHLORIDE 0.9% 1,000 ML IV SCH (07:41)
[2023-05-14] MEDS: FAMOTIDINE 20 MG/2 ML VIAL IV SCH (07:51)
[2023-05-14] MEDS: Meropenem 1,000 MG in NA CHLORIDE 0.9% 100 ML IV SCH (07:52)
[2023-05-14] MEDS: SERTRALINE HCL 100 MG TAB PO SCH (07:52)
[2023-05-14] MEDS: METFORMIN ER 500 MG TAB PO SCH (07:52)
[2023-05-14] MEDS: MEDIHONEY 44 ML TOPICAL TUBE TOP SCH (07:53)
[2023-05-14] MEDS: TOBRADEX 0.3-0.1% OPTH OINTMENT LEFT EYE SCH (07:54)
[2023-05-14] MEDS ORDERED: Magnesium Sulfate 2gm IVPB 2 G/50 ML BAG IV ONE (08:30)
[2023-05-14] MEDS ORDERED: POTASSIUM CL SA 10 MEQ TAB PO ONE (08:30)
[2023-05-14 09:28] VITALS: BP 144/68; TEMP 99.2
[2023-05-14 10:14] VITALS: O2SAT 96
--- NOTE | 2023-05-14 20:25 | DS ---
Date of Discharge: 05/14/2023 Disposition: Discharged to go home. Physical Examination: HEENT: Unremarkable. Lungs: Clear to auscultation. Heart: Sounds normal. Abdomen: Soft. Bowel sounds normal. No guarding, rigidity, tenderness, distention. Extremities: No leg edema. Labs: Upon admission, white count 10.3, hemoglobin 13.2, platelets 93. Yesterday, white count 6.5, hemoglobin 13.1, platelets 149. This morning, white count 4.8, hemoglobin 12, platelets 80. Her may rishabh today, sodium 138, potassium 3.7, chloride 108, bicarb 25, BUN 16, creatinine 0.68, glucose 13 0. Hemoglobin A1c 7.8. Magnesium 1.2. Her urine culture and blood culture grew E coli. Hospital Course: This is a 77-year-old very pleasant female patient who came into emergency room wit h urinary complaints and fever and chills. Please see dictated H and P for more information. After the patient was evaluated in the emergency room, she was admitted to the hospital. Blood culture, ur ine culture were done and she was started on empiric antibiotic which was meropenem. She was also st arted on vancomycin, which was discontinued yesterday when we started to notice that blood culture wilson d grown gram-negative rods. Today, we got the final report on blood culture and urine culture and E coli sensitive to multiple different antibiotics including Cipro and the patient has remained afebril e, hemodynamically stable, and she was discharged to go home in stable condition with following disch arge medications and instructions. Final Diagnoses: 1.Sepsis, organism E coli. 2.Acute pyelonephritis, organism E coli. 3.Thrombocytopenia. 4.Hypomagnesemia. 5.Type 2 diabetes mellitus, uncontrolled. 6.Hypertension. 7.Hyperlipidemia. 8.Coronary artery disease. 9.Chronic systolic heart failure. 10.Peripheral neuropathy. 11.Depression. 12.Gastroesophageal reflux disease. 13.Diverticulosis. Discharge Medications And Instructions: 1.Continue all prior home medications. 2.Take Cipro 500 mg 2 times a day for 15 days. 3.Follow up in my office next week. AJAY/MODL Voice ID: [id number] Report ID: [id number]
--- NOTE | 2023-05-16 17:06 | EKG ---
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
== END 2023-05-14 10:29 | disposition home health service (06) | DRG 872 ==
LOC: ER 06:13 → ERHOLD 08:01 → 2ND 09:33
PROVIDERS: ADMIT Internal Medicine; ATTEND Internal Medicine
DX: A41.51 Sepsis due to Escherichia coli [E. coli] (principal); N10 Acute pyelonephritis; I50.22 Chronic systolic (congestive) heart failure; I11.0 Hypertensive heart disease with heart failure; E78.5 Hyperlipidemia, unspecified; E11.65 Type 2 diabetes mellitus with hyperglycemia; E11.42 Type 2 diabetes mellitus with diabetic polyneuropathy; F32.A Depression, unspecified; H00.034 Abscess of left upper eyelid; E83.42 Hypomagnesemia; J44.9 Chronic obstructive pulmonary disease, unspecified; D69.6 Thrombocytopenia, unspecified; K21.9 Gastro-esophageal reflux disease without esophagitis; I25.10 Atherosclerotic heart disease of native coronary artery without angina pectoris; K57.90 Diverticulosis of intestine, part unspecified, without perforation or abscess without bleeding; I25.2 Old myocardial infarction; Z88.1 Allergy status to other antibiotic agents; Z88.8 Allergy status to other drugs, medicaments and biological substances; Z95.5 Presence of coronary angioplasty implant and graft; Z88.5 Allergy status to narcotic agent; Z88.2 Allergy status to sulfonamides; Z86.73 Personal history of transient ischemic attack (TIA), and cerebral infarction without residual deficits; Z90.49 Acquired absence of other specified parts of digestive tract; Z11.52 Encounter for screening for COVID-19; Z96.641 Presence of right artificial hip joint; Z91.048 Other nonmedicinal substance allergy status; Z91.040 Latex allergy status; Z90.710 Acquired absence of both cervix and uterus
CPT/HCPCS: 36415; 71045; 74176; 76377; 80048; 80053; 80061; 80076; 81001; 82947; 83036; 83605; 83735; 83880; 84484; 85025; 85610; 87040; 87077; 87086; 87088; 87186; 87205; 87635; 87804; 93005; 94760; 96374; 96375; 99285; J0696; J1650; J2185; J3475; J7030; J7050

== ENCOUNTER 2023-06-05 12:16 | Emergency (ER) | payer OTHER ==
--- OUTSIDE RECORDS SUMMARY | 2023-06-05 12:21 | XMS REPORT | Continuity of Care Document ---
Author Name Unknown Address [address] [facility] [address] [place] [address] [facility] Address [address] [facility] [address] [place] [address] Care Team Providers Care Qm Consultant Name Role Phone Fred Garner Narendra Primary Care Physician [phone] OLGA DINERO Attending Clinician Unavail able PAULETTE RANGEL Attending Clinician Unavailable Paulette Andrade Attending Clinician [phone] Oscar Lai MD Attending Clinician + [phone] Lab, Ang - Db Attending Clinician Unavailable OSCAR ALI Attending Clinician Unavailabl e Doctor Unassigned, Perley Attending Clinician U SURAJ Zambrano Attending Clinician Unavailable Suraj Reid MD Attending Clinician [phone] JURGEN CANNON Attending Clinician UnaJurgen Linares MD Attending Clinician [phone] Test, Vtc Pulmonary Function Attending Clinician Unavailable Only, Adc Test Attending Clinician Unavailable Mitesh Coe MD Attending Clinician [phone] MITESH COE Attending Clinician Unavailabl KENNA Fuller Attending Clinician PARKER Hart Attending Clinician PARKER Whitaker Attending Clinician ADY Langston Attending Clinician OLGA Zamudio Admitting Clinician [place] [facility] Payers Payer Name Policy Type Policy Number Effective Date Expirati on Date Source [employer] [id number] 2013 00:00:00 [facility] [id number] 2020 00:00:00 Problems Condition Name Condition Details Condition Category Status Onset Date Resolution Date Last Treatment Date Treating Clinician Comments Source Abscess of groin, right Abscess of groin, right Disease Active 16 00:00: 00 [facility] 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 Added automatic ally from request for surgery [id number] [facility] Cardiogeni c shock Cardiogeni c shock Disease Active 01-02 00:00: 00 [facility] Elevated troponin Elevated troponin Disease Active 12-29 00:00: 00 [facility] Acute diastolic congestive heart failure Acute diastolic congestive heart failure Disease Active 12-29 00:00: 00 [facility] Other chest pain Other chest pain Disease Active 12-29 00:00: 00 [facility] History of arterial ischemic stroke History of arterial ischemic stroke Disease Active 12-29 00:00: 00 [facility] Obesity (BMI 30-39.9) Obesity (BMI 30-39.9) Disease Active 12-29 00:00: 00 [facility] NSTEMI (non-ST elevated myocardial infarction ) NSTEMI (non-ST elevated myocardial infarction ) Disease Active 12-29 00:00: 00 [facility] Dysphagia Dysphagia Disease Active 12-29 00:00: 00 [facility] Elevated troponin Elevated troponin Disease Active 12-29 00:00: 00 [facility] Nonobstruc tive atheroscle rosis of coronary artery Nonobstruc tive atheroscle rosis of coronary artery Disease Active 2017-06 00:00: 00 [facility] Anterolist hesis Anterolist hesis Disease Active 01-01 00:00: 00 [facility] Hip pain, right Hip pain, right Disease Active 01-01 00:00: 00 [facility] SI joint arthritis SI joint arthritis Disease Active 01-01 00:00: 00 [facility] Lumbar degenerati ve disc disease Lumbar degenerati ve disc disease Disease Active 01-01 00:00: 00 [facility] Rheumatoid arthritis Rheumatoid arthritis Disease Active Overview: Formattin g of this note might be different from the original. This diagnosis is questiona ble according to her; she has had high sed ratesICD1 0 Diagnosis Term Re[facility] Myalgia and myositis Myalgia and myositis Disease Active Overview: Formattin g of this note might be different from the original. Has malaise, and flu-like symptoms, and sometimes a low grade temperatu reICD10 Diagnosis [facility] Backache Backache Disease Active Overv iew: Formattin g of this note might be different from the original. 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 Type IIICD10 Diagnosis [facility] Diabetic polyneurop athy Diabetic polyneurop athy Disease Active Overview: Formattin g of this note might be different from the original. ICD10 Diagnosis [facility] Esophageal reflux Esophageal reflux Disease Active [facility] Generalize d osteoarthr osis, unspecifie d site Generalize d osteoarthr osis, unspecifie d site Disease Active [facility] Transient cerebral ischemia Transient cerebral ischemia Disease Active Overview: Formattin g of this note might be different from the original. 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 ICD10 Diagnosis [facility] Diverticul osis of colon with hemorrhage Diverticul osis of colon with hemorrhage Disease Active [facility] Allergies, Adverse Reactions, Alerts Allergy Name Allergy Type Status Severity Reaction(s) Onset Date Inactive Date Treating Clinician Comments Source Empaglif lozin Propensi ty to adverse reaction s Active Swelling 2017-06 00:00: 00 [facility] EMPAGLIF LOZIN DRUG INGREDI Active Swelling 2017-06 00:00: 00 [facility] Adalimum ab Propensi ty to adverse reaction s to drug Active Other - See comments 2014-06 00:00: 00 Pt developed fatty tumors all over body [facility] Inflixim ab Propensi ty to adverse reaction s to drug Active Shortness of Breath 2014-06 00:00: 00 [facility] INFLIXIM AB DRUG INGREDI Active High SOB 2014-06 00:00: 00 [facility] ADALIMUM AB DRUG INGREDI Active Med Other-Cmnt 2014-06 0 00:00: 00 [facility] Methocar bamol Propensi ty to adverse reaction s to drug Active Swelling 0 03-23 00:00: 00 [facility] METHOCAR BAMOL DRUG INGREDI Active Med Swelling 03-23 00:00: 00 [facility] Pregabal in Propensi ty to adverse reaction s to drug Active Anaphylaxis 0 12-23 00:00: 00 [facility] Morphine Propensi ty to adverse reaction s Active Hallucinatio ns 12-23 00:00: 00 [facility] PREGABAL IN DRUG INGREDI Active High Anaphylaxis 12-23 00:00: 00 [facility] MORPHINE DRUG INGREDI Active Hallucinates 12-23 00:00: 00 [facility] Iodine And Iodide Containi ng Products Propensi ty to adverse reaction s to drug Active Swelling 0 10-01 00:00: 00 [facility] Sulfa (Sulfona mide Antibiot ics) Propensi ty to adverse reaction s Active Anxiety 0 10-01 00:00: 00 Head Aches [facility] Adhesive Tape Propensi ty to adverse reaction s Active Hives 0 10-01 00:00: 00 Also Surgical tape [facility] Tetracyc line Propensi ty to adverse reaction s to drug Active Anaphylaxis 2006-0 10-01 00:00: 00 [facility] TETRACYC LINE DRUG INGREDI Active High Anaphylaxis 0 10-01 00:00: 00 [facility] IODINE AND IODIDE CONTAINI NG PRODUCTS Drug Class Active Med Swelling 0 10-01 00:00: 00 [facility] SULFA (SULFONA MIDE ANTIBIOT ICS) Drug Class Active Anxiety 0 10-01 00:00: 00 [facility] ADHESIVE TAPE DRUG Active Hives 0 10-01 00:00: 00 [facility] Iodine And Iodide Containi ng Products Propensi ty to adverse reaction s to drug Active Swelling 10-01 00:00: 00 [facility] Sulfa (Sulfona mide Antibiot ics) Propensi ty to adverse reaction s Active Anxiety 10-01 00:00: 00 Head Aches [facility] Social History Social Habit Start Date Stop Date Quantity Comments Source [facility] History SDOH Food Scarcity [facility] History of tobacco use Current smoker [facility] History SDOH Alcohol Frequency [facility] History SDOH Alcohol Std Drinks [facility] History SDOH Alcohol Binge [facility] Exposure to SARS-CoV-2 (event) 2022-10-03 00:00:00 2022-10-13 12:50:00 Not sure [facility] History of Social function 2022-10-13 00:00:00 2022-10-13 00:00:00 [facility] Alcohol intake 2022-10-13 00:00:00 2022-10-13 00:00:00 Current non-drinker of alcohol (finding) [facility] Tobacco Comment 2022-10-13 00:00:00 2022-10-13 00:00:00 Quit more than thirty some years ago [facility] Tobacco use and exposure 2022-10-13 00:00:00 2022-10-13 00:00:00 Smokeless tobacco non-user [facility] History SDOH Financial 2020-03-10 00:00:00 2020-03-10 00:00:00 5 [facility] History SDOH Food Worry 2020-03-10 00:00:00 2020-03-10 00:00:00 1 [facility] History SDOH Transport Med 2020-03-10 00:00:00 2020-03-10 00:00:00 2 [facility] History SDOH Transport Non-Med 2020-03-10 00:00:00 2020-03-10 00:00:00 2 [facility] Alcohol Comment 2006-10-01 00:00:00 2006-10-01 00:00:00 Drinks ETOH very occasionally [facility] Sex Assigned At 1945 00:00:00 1945 00:00:00 [facility] Smoking Status Start Date Stop Date Source Ex-smoker 2022-10-13 00:00:00 2022-10-13 00:00:00 [facility] Medications Ordered Medication Name Filled Medication Name Start Date Stop Date Current Medication? Ordering Clinician Indication Dosage Frequency Signature (SIG) Comments Components Source Magnesium 250 mg Tab 2022-0 10-13 13:09: 15 Yes Take by mouth. [facility] Magnesium 250 mg Tab 2022-0 10-13 13:09: 15 Yes Take by mouth. [facility] Magnesium 250 mg Tab 2022-0 10-13 13:09: 15 Yes Take by mouth. [facility] Magnesium 250 mg Tab 0 10-13 13:09: 15 Yes Take by mouth. [facility] Magnesium 250 mg Tab 2022-0 10-13 13:09: 15 Yes Take by mouth. [facility] Magnesium 250 mg Tab 2022-0 10-13 13:09: 15 Yes Take by mouth. [facility] Magnesium 250 mg Tab 2022-0 10-13 13:09: 15 Yes Take by mouth. [facility] metformin ER 500 mg 24 hr tablet 0 10-13 00:00: 00 Yes [id number] 500mg Take 1 tablet by mouth in the morning and 1 tablet in the evening. [facility] metformin ER 500 mg 24 hr tablet 2022-0 10-13 00:00: 00 Yes [id number] 500mg Take 1 tablet by mouth in the morning and 1 tablet in the evening. [facility] metformin ER 500 mg 24 hr tablet 2022-0 10-13 00:00: 00 Yes [id number] 500mg Take 1 tablet by mouth in the morning and 1 tablet in the evening. [facility] metformin ER 500 mg 24 hr tablet 2022-0 10-13 00:00: 00 Yes [id number] 500mg Take 1 tablet by mouth in the morning and 1 tablet in the evening. [facility] metformin ER 500 mg 24 hr tablet 2022-0 10-13 00:00: 00 Yes [id number] 500mg Take 1 tablet by mouth in the morning and 1 tablet in the evening. [facility] 500 mg 24 hr tablet 10-13 00:00: 00 Yes [id number] 500mg Take 1 tablet by mouth in the morning and 1 tablet in the evening. [facility] ER 500 mg 24 hr tablet 10-13 00:00: 00 Yes [id number] 500mg Take 1 tablet by mouth in the morning and 1 tablet in the evening. [facility] vancomycin 5 gram injection 2021-06 00:00: 00 Yes [facility] vancomycin 5 gram injection 2021-06 00:00: 00 Yes [facility] vancomycin 5 gram injection 2021-06 00:00: 00 Yes [facility] vancomycin 5 gram injection 2021-06 00:00: 00 Yes [facility] vancomycin 5 gram injection 2021-06 00:00: 00 10-13 00:00 :00 No [facility] vancomycin 5 gram injection 2021-06 00:00: 00 10-13 00:00 :00 No [facility] metformin ER 500 mg 24 hr tablet 03-11 00:00: 00 Yes [id number] TAKE ONE TABLET BY MOUTH DAILY WITH BREAKFAST [facility] metformin ER 500 mg 24 hr tablet 03-11 00:00: 00 Yes [id number] TAKE ONE TABLET BY MOUTH DAILY WITH BREAKFAST [facility] metformin ER 500 mg 24 hr tablet 0 03-11 00:00: 00 Yes [id number] TAKE ONE TABLET BY MOUTH DAILY WITH BREAKFAST [facility] metformin ER 500 mg 24 hr tablet 03-11 00:00: 00 Yes [id number] TAKE ONE TABLET BY MOUTH DAILY WITH BREAKFAST [facility] metformin ER 500 mg 24 hr tablet 03-11 00:00: 00 Yes [id number] TAKE ONE TABLET BY MOUTH DAILY WITH BREAKFAST [facility] metformin ER 500 mg 24 hr tablet 03-11 00:00: 00 10-13 00:00 :00 No [id number] TAKE ONE TABLET BY MOUTH DAILY WITH BREAKFAST [facility] metformin ER 500 mg 24 hr tablet 2021-0 917 00:00: 00 10-13 00:00 :00 No [id number] TAKE ONE TABLET BY MOUTH DAILY WITH BREAKFAST [facility] semaglutide (OZEMPIC) 0.25 mg or 0.5 mg(2 mg/1.5 mL) PnIj 2-0 3 00:00: 00 Yes [id number] .5mg inject 0.5 mg under the skin weekly. [facility] semaglutide (OZEMPIC) 0.25 mg or 0.5 mg(2 mg/1.5 mL) PnIj 2021-0 3 00:00: 00 Yes [id number] .5mg inject 0.5 mg under the skin weekly. [facility] semaglutide (OZEMPIC) 0.25 mg or 0.5 mg(2 mg/1.5 mL) PnIj 2-0 3- 00:00: 00 Yes [id number] .5mg inject 0.5 mg under the skin weekly. [facility] semaglutide (OZEMPIC) 0.25 mg or 0.5 mg(2 mg/1.5 mL) PnIj 2-0 3- 00:00: 00 Yes [id number] .5mg inject 0.5 mg under the skin weekly. [facility] semaglutide (OZEMPIC) 0.25 mg or 0.5 mg(2 mg/1.5 mL) PnIj 2-0 3- 00:00: 00 Yes [id number] .5mg inject 0.5 mg under the skin weekly. [facility] semaglutide (OZEMPIC) 0.25 mg or 0.5 mg(2 mg/1.5 mL) PnIj 2-0 3- 00:00: 00 Yes [id number] .5mg inject 0.5 mg under the skin weekly. [facility] semaglutide (OZEMPIC) 0.25 mg or 0.5 mg(2 mg/1.5 mL) PnIj 2-0 3- 00:00: 00 Yes [id number] .5mg inject 0.5 mg under the skin weekly. [facility] semaglutide (OZEMPIC) 0.25 mg or 0.5 mg(2 mg/1.5 mL) PnIj 2021-0 3-08 00:00: 00 10-13 00:00 :00 No [id number] .5mg inject 0.5 mg under the skin weekly. [facility] semaglutide (OZEMPIC) 0.25 mg or 0.5 mg(2 mg/1.5 mL) [facility] 2021-0 3-08 00:00: 00 10-13 00:00 :00 No [id number] .5mg inject 0.5 mg under the skin weekly. [facility] Lancets (ACCU-CHEK SOFTCLIX LANCETS) [facility] 2020-06 00:00: 00 Yes Use as directed BID to check glucose levels [facility] blood sugar diagnostic (ACCU-CHEK GUIDE TEST STRIPS) strip 2020-06 00:00: 00 Yes Use as directed to check glucose levels BID [facility] Blood-Gluco se Meter (ACCU-CHEK GUIDE GLUCOSE METER) [facility] 2020-06 00:00: 00 Yes Use as directed to check glucose BID [facility] Lancets (ACCU-CHEK SOFTCLIX LANCETS) [facility] 2020-06 00:00: 00 Yes Use as directed BID to check glucose levels [facility] blood sugar diagnostic (ACCU-CHEK GUIDE TEST STRIPS) strip 2020-06 00:00: 00 Yes Use as directed to check glucose levels BID [facility] Blood-Gluco se Meter (ACCU-CHEK GUIDE GLUCOSE METER) [facility] 2020-06 00:00: 00 Yes Use as directed to check glucose BID [facility] Lancets (ACCU-CHEK SOFTCLIX LANCETS) [facility] 2020-06 00:00: 00 Yes Use as directed BID to check glucose levels [facility] blood sugar diagnostic (ACCU-CHEK GUIDE TEST STRIPS) strip 2020-06 00:00: 00 Yes Use as directed to check glucose levels BID [facility] Blood-Gluco se Meter (ACCU-CHEK GUIDE GLUCOSE METER) [facility] 2020-06 00:00: 00 Yes Use as directed to check glucose BID [facility] Lancets (ACCU-CHEK SOFTCLIX LANCETS) [facility] 2020-06 00:00: 00 Yes Use as directed BID to check glucose levels [facility] blood sugar diagnostic (ACCU-CHEK GUIDE TEST STRIPS) strip 2020-06 00:00: 00 Yes Use as directed to check glucose levels BID [facility] Blood-Gluco se Meter (ACCU-CHEK GUIDE GLUCOSE METER) [facility] 2020-06 00:00: 00 Yes Use as directed to check glucose BID [facility] Lancets (ACCU-CHEK SOFTCLIX LANCETS) [facility] 2020-06 00:00: 00 Yes Use as directed BID to check glucose levels [facility] blood sugar diagnostic (ACCU-CHEK GUIDE TEST STRIPS) strip 2020-06 00:00: 00 Yes Use as directed to check glucose levels BID [facility] Blood-Gluco se Meter (ACCU-CHEK GUIDE GLUCOSE METER) [facility] 2020-06 00:00: 00 Yes Use as directed to check glucose BID [facility] Lancets (ACCU-CHEK SOFTCLIX LANCETS) [facility] 2020-06 00:00: 00 Yes Use as directed BID to check glucose levels [facility] blood sugar diagnostic (ACCU-CHEK GUIDE TEST STRIPS) strip 2020-06 00:00: 00 Yes Use as directed to check glucose levels BID [facility] Blood-Gluco se Meter (ACCU-CHEK GUIDE GLUCOSE METER) [facility] 2020-06 00:00: 00 Yes Use as directed to check glucose BID [facility] Lancets (ACCU-CHEK SOFTCLIX LANCETS) [facility] 2020-06 00:00: 00 Yes Use as directed BID to check glucose levels [facility] blood sugar diagnostic (ACCU-CHEK GUIDE TEST STRIPS) strip 2020-06 00:00: 00 Yes Use as directed to check glucose levels BID [facility] Blood-Gluco se Meter (ACCU-CHEK GUIDE GLUCOSE METER) [facility] 2020-06 00:00: 00 Yes Use as directed to check glucose BID [facility] Lancets (ACCU-CHEK SOFTCLIX LANCETS) [facility] 2020-06 00:00: 00 Yes Use as directed BID to check glucose levels [facility] blood sugar diagnostic (ACCU-CHEK GUIDE TEST STRIPS) strip 2020-06 00:00: 00 Yes Use as directed to check glucose levels BID [facility] Blood-Gluco se Meter (ACCU-CHEK GUIDE GLUCOSE METER) [facility] 2020-06 00:00: 00 Yes Use as directed to check glucose BID [facility] Lancets (ACCU-CHEK SOFTCLIX LANCETS) [facility] 2020-06 00:00: 00 Yes Use as directed BID to check glucose levels [facility] blood sugar diagnostic (ACCU-CHEK GUIDE TEST STRIPS) strip 2020-06 00:00: 00 Yes Use as directed to check glucose levels BID [facility] Blood-Gluco se Meter (ACCU-CHEK GUIDE GLUCOSE METER) [facility] 2020-06 00:00: 00 Yes Use as directed to check glucose BID [facility] Lancets (ACCU-CHEK SOFTCLIX LANCETS) [facility] 2020-06 00:00: 00 Yes Use as directed BID to check glucose levels [facility] blood sugar diagnostic (ACCU-CHEK GUIDE TEST STRIPS) strip 2020-06 00:00: 00 Yes Use as directed to check glucose levels BID [facility] Blood-Gluco se Meter (ACCU-CHEK GUIDE GLUCOSE METER) [facility] 2020-06 00:00: 00 Yes Use as directed to check glucose BID [facility] Lancets (ACCU-CHEK SOFTCLIX LANCETS) [facility] 2020-06 00:00: 00 Yes Use as directed BID to check glucose levels [facility] blood sugar diagnostic (ACCU-CHEK GUIDE TEST STRIPS) strip 2020-06 00:00: 00 Yes Use as directed to check glucose levels BID [facility] Blood-Gluco se Meter (ACCU-CHEK GUIDE GLUCOSE METER) Mis 2020-06 00:00: 00 Yes Use as directed to check glucose BID [facility] Lancets (ACCU-CHEK SOFTCLIX LANCETS) Misc 2020-06 00:00: 00 Yes Use as directed BID to check glucose levels [facility] blood sugar diagnostic (ACCU-CHEK GUIDE TEST STRIPS) strip 2020-06 00:00: 00 Yes Use as directed to check glucose levels BID [facility] Blood-Gluco se Meter (ACCU-CHEK GUIDE GLUCOSE METER) [facility] 2020-06 00:00: 00 Yes Use as directed to check glucose BID [facility] Lancets (ACCU-CHEK SOFTCLIX LANCETS) [facility] 2020-06 00:00: 00 Yes Use as directed BID to check glucose levels [facility] blood sugar diagnostic (ACCU-CHEK GUIDE TEST STRIPS) strip 2020-06 00:00: 00 Yes Use as directed to check glucose levels BID [facility] Blood-Gluco se Meter (ACCU-CHEK GUIDE GLUCOSE METER) Mis 2020-06 00:00: 00 Yes Use as directed to check glucose BID [facility] Lancets (ACCU-CHEK SOFTCLIX LANCETS) [facility] 2020-06 00:00: 00 Yes Use as directed BID to check glucose levels [facility] blood sugar diagnostic (ACCU-CHEK GUIDE TEST STRIPS) strip 2020-06 00:00: 00 Yes Use as directed to check glucose levels BID [facility] Blood-Gluco se Meter (ACCU-CHEK GUIDE GLUCOSE METER) Misc 2020-06 00:00: 00 Yes Use as directed to check glucose BID [facility] famotidine 20 mg tablet 2020-06 10:31: 58 Yes 20mg Take 20 mg by mouth 2 (two) times daily. [facility] NaCl 0.9% (NS) SolP 60 mL with Nitroglycer in 50 mg/10 mL (5 mg/mL) Soln 24 mg 2020-06 10:31: 58 Yes CONTINUOUS . [facility] rosuvastati n 10 mg tablet 2020-06 10:31: 58 Yes 10mg Take 10 mg by mouth at bedtime. [facility] fluticasone furoate 50 mcg/actuati on DsDv 2020-06 10:31: 58 Yes Inhale. [facility] famotidine 20 mg tablet 2020-06 10:31: 58 Yes 20mg Take 20 mg by mouth 2 (two) times daily. [facility] NaCl 0.9% (NS) SolP 60 mL with Nitroglycer in 50 mg/10 mL (5 mg/mL) Soln 24 mg 2020-06 10:31: 58 Yes CONTINUOUS . [facility] rosuvastati n 10 mg tablet 2020-06 10:31: 58 Yes 10mg Take 10 mg by mouth at bedtime. [facility] fluticasone furoate 50 mcg/actuati on DsDv 2020-06 10:31: 58 Yes Inhale. [facility] famotidine 20 mg tablet 2020-06 10:31: 58 Yes 20mg Take 20 mg by mouth 2 (two) times daily. [facility] NaCl 0.9% (NS) SolP 60 mL with Nitroglycer in 50 mg/10 mL (5 mg/mL) Soln 24 mg 2020-06 10:31: 58 Yes CONTINUOUS . [facility] rosuvastati n 10 mg tablet 2020-06 10:31: 58 Yes 10mg Take 10 mg by mouth at bedtime. [facility] fluticasone furoate 50 mcg/actuati on DsDv 2020-06 10:31: 58 Yes Inhale. [facility] famotidine 20 mg tablet 2020-06 10:31: 58 Yes 20mg Take 20 mg by mouth 2 (two) times daily. [facility] NaCl 0.9% (NS) SolP 60 mL with Nitroglycer in 50 mg/10 mL (5 mg/mL) Soln 24 mg 2020-06 10:31: 58 Yes CONTINUOUS . [facility] rosuvastati n 10 mg tablet 2020-06 10:31: 58 Yes 10mg Take 10 mg by mouth at bedtime. [facility] fluticasone furoate 50 mcg/actuati on DsDv 2020-06 10:31: 58 Yes Inhale. [facility] famotidine 20 mg tablet 2020-06 10:31: 58 Yes 20mg Take 20 mg by mouth 2 (two) times daily. [facility] NaCl 0.9% (NS) SolP 60 mL with Nitroglycer in 50 mg/10 mL (5 mg/mL) Soln 24 mg 2020-06 10:31: 58 Yes CONTINUOUS . [facility] rosuvastati n 10 mg tablet 2020-06 10:31: 58 Yes 10mg Take 10 mg by mouth at bedtime. [facility] fluticasone furoate 50 mcg/actuati on DsDv 2020-06 10:31: 58 Yes Inhale. [facility] famotidine 20 mg tablet 2020-06 10:31: 58 Yes 20mg Take 20 mg by mouth 2 (two) times daily. [facility] NaCl 0.9% (NS) SolP 60 mL with Nitroglycer in 50 mg/10 mL (5 mg/mL) Soln 24 mg 2020-06 10:31: 58 Yes CONTINUOUS . [facility] rosuvastati n 10 mg tablet 2020-06 10:31: 58 Yes 10mg Take 10 mg by mouth at bedtime. [facility] fluticasone furoate 50 mcg/actuati on DsDv 2020-06 10:31: 58 Yes Inhale. [facility] mg tablet 2020-06 10:31: 58 Yes 20mg Take 20 mg by mouth 2 (two) times daily. [facility] NaCl 0.9% (NS) SolP 60 mL with Nitroglycer in 50 mg/10 mL (5 mg/mL) Soln 24 mg 2020-06 10:31: 58 Yes CONTINUOUS . [facility] rosuvastati n 10 mg tablet 2020-06 10:31: 58 Yes 10mg Take 10 mg by mouth at bedtime. [facility] fluticasone furoate 50 mcg/actuati on DsDv 2020-06 10:31: 58 Yes Inhale. [facility] famotidine 20 mg tablet 2020-06 10:31: 58 Yes 20mg Take 20 mg by mouth 2 (two) times daily. [facility] NaCl 0.9% (NS) SolP 60 mL with Nitroglycer in 50 mg/10 mL (5 mg/mL) Soln 24 mg 2020-06 10:31: 58 Yes CONTINUOUS . [facility] rosuvastati n 10 mg tablet 2020-06 10:31: 58 Yes 10mg Take 10 mg by mouth at bedtime. [facility] fluticasone furoate 50 mcg/actuati on DsDv 2020-06 10:31: 58 Yes Inhale. [facility] famotidine 20 mg tablet 2020-06 10:31: 58 Yes 20mg Take 20 mg by mouth 2 (two) times daily. [facility] NaCl 0.9% (NS) SolP 60 mL with Nitroglycer in 50 mg/10 mL (5 mg/mL) Soln 24 mg 2020-06 10:31: 58 Yes CONTINUOUS . [facility] rosuvastati n 10 mg tablet 2020-06 10:31: 58 Yes 10mg Take 10 mg by mouth at bedtime. [facility] fluticasone furoate 50 mcg/actuati on DsDv 2020-06 10:31: 58 Yes Inhale. [facility] famotidine 20 mg tablet 2020-06 10:31: 58 Yes 20mg Take 20 mg by mouth 2 (two) times daily. [facility] NaCl 0.9% (NS) SolP 60 mL with Nitroglycer in 50 mg/10 mL (5 mg/mL) Soln 24 mg 2020-06 10:31: 58 Yes CONTINUOUS . [facility] rosuvastati n 10 mg tablet 2020-06 10:31: 58 Yes 10mg Take 10 mg by mouth at bedtime. [facility] fluticasone furoate 50 mcg/actuati on DsDv 2020-06 10:31: 58 Yes Inhale. [facility] famotidine 20 mg tablet 2020-06 10:31: 58 Yes 20mg Take 20 mg by mouth 2 (two) times daily. [facility] NaCl 0.9% (NS) SolP 60 mL with Nitroglycer in 50 mg/10 mL (5 mg/mL) Soln 24 mg 2020-06 10:31: 58 Yes CONTINUOUS . [facility] rosuvastati n 10 mg tablet 2020-06 10:31: 58 Yes 10mg Take 10 mg by [facility] fluticasone furoate 50 mcg/actuati on DsDv 2020-06 10:31: 58 Yes Inhale. [facility] famotidine 20 mg tablet 2020-06 10:31: 58 Yes 20mg Take 20 mg by mouth 2 (two) times daily. [facility] NaCl 0.9% (NS) SolP 60 mL with Nitroglycer in 50 mg/10 mL (5 mg/mL) Soln 24 mg 2020-06 10:31: 58 Yes CONTINUOUS . [facility] rosuvastati n 10 mg tablet 2020-06 10:31: 58 Yes 10mg Take 10 mg by mouth at bedtime. [facility] fluticasone furoate 50 mcg/actuati on DsDv 2020-06 10:31: 58 Yes Inhale. [facility] famotidine 20 mg tablet 2020-06 10:31: 58 Yes 20mg Take 20 mg by mouth 2 (two) times daily. [facility] NaCl 0.9% (NS) SolP 60 mL with Nitroglycer in 50 mg/10 mL (5 mg/mL) Soln 24 mg 2020-06 10:31: 58 Yes CONTINUOUS . [facility] rosuvastati n 10 mg tablet 2020-06 10:31: 58 Yes 10mg Take 10 mg by mouth at bedtime. [facility] fluticasone furoate 50 mcg/actuati on DsDv 2020-06 10:31: 58 Yes Inhale. [facility] famotidine 20 mg tablet 2020-06 10:31: 58 Yes 20mg Take 20 mg by mouth 2 (two) times daily. [facility] NaCl 0.9% (NS) SolP 60 mL with Nitroglycer in 50 mg/10 mL (5 mg/mL) Soln 24 mg 2020-06 10:31: 58 Yes CONTINUOUS . [facility] rosuvastati n 10 mg tablet 2020-06 10:31: 58 Yes 10mg Take 10 mg by mouth at bedtime. [facility] fluticasone furoate 50 mcg/actuati on DsDv 2020-06 10:31: 58 Yes Inhale. [facility] albuterol 90 mcg/actuati on inhaler 2020-06 00:00: 00 Yes [id number] 2{puff} Inhale 2 Puffs every 6 (six) hours as needed for Wheezing or Shortness of Breath. [facility] albuterol 90 mcg/actuati on inhaler 2020-06 00:00: 00 Yes [id number] 2{puff} Inhale 2 Puffs every 6 (six) hours as needed for Wheezing or Shortness of Breath. [facility] albuterol 90 mcg/actuati on inhaler 2020-06 00:00: 00 Yes [id number] 2{puff} Inhale 2 Puffs every 6 (six) hours as needed for Wheezing or Shortness of Breath. [facility] albuterol 90 mcg/actuati on inhaler 2020-06 00:00: 00 Yes [id number] 2{puff} Inhale 2 Puffs every 6 (six) hours as needed for Wheezing or Shortness of Breath. [facility] albuterol 90 mcg/actuati on inhaler 2020-06 00:00: 00 Yes [id number] 2{puff} Inhale 2 Puffs every 6 (six) hours as needed for Wheezing or Shortness of Breath. [facility] albuterol 90 mcg/actuati on inhaler 2020-06 00:00: 00 Yes [id number] 2{puff} Inhale 2 Puffs every 6 (six) hours as needed for Wheezing or Shortness of Breath. [facility] albuterol 90 mcg/actuati on inhaler 2020-06 00:00: 00 Yes [id number] 2{puff} Inhale 2 Puffs every 6 (six) hours as needed for Wheezing or Shortness of Breath. [facility] albuterol 90 mcg/actuati on inhaler 2020-06 00:00: 00 Yes [id number] 2{puff} Inhale 2 Puffs every 6 (six) hours as needed for Wheezing or Shortness of Breath. [facility] albuterol 90 mcg/actuati on inhaler 2020-06 00:00: 00 Yes [id number] 2{puff} Inhale 2 Puffs every 6 (six) hours as needed for Wheezing or Shortness of Breath. [facility] albuterol 90 mcg/actuati on inhaler 2020-06 00:00: 00 Yes [id number] 2{puff} Inhale 2 Puffs every 6 (six) hours as needed for Wheezing or Shortness of Breath. [facility] albuterol 90 mcg/actuati on inhaler 2020-06 00:00: 00 Yes [id number] 2{puff} Inhale 2 Puffs every 6 (six) hours as needed for Wheezing or Shortness of Breath. [facility] albuterol 90 mcg/actuati on inhaler 2020-06 00:00: 00 Yes [id number] 2{puff} Inhale 2 Puffs every 6 (six) hours as needed for Wheezing or Shortness of Breath. [facility] albuterol 90 mcg/actuati on inhaler 2020-06 00:00: 00 Yes [id number] 2{puff} Inhale 2 Puffs every 6 (six) hours as needed for Wheezing or Shortness of Breath. [facility] albuterol 90 mcg/actuati on inhaler 2020-06 00:00: 00 Yes [id number] 2{puff} Inhale 2 Puffs every 6 (six) hours as needed for Wheezing or Shortness of Breath. [facility] metformin ER 500 mg 24 hr tablet 03-02 00:00: 00 Yes [id number] 500mg Take 1 tablet by mouth daily with breakfast. [facility] metformin ER 500 mg 24 hr tablet 03-02 00:00: 00 Yes [id number] 500mg Take 1 tablet by mouth daily with breakfast. [facility] metformin ER 500 mg 24 hr tablet 03-02 00:00: 00 03-11 00:00 :00 No [id number] 500mg Take 1 tablet by mouth daily with breakfast. [facility] semaglutide (OZEMPIC) 0.25 mg or 0.5 mg(2 mg/1.5 mL) PnIj 03-02 00:00: 00 08-30 00:00 :00 No [id number] .5mg inject 0.5 mg under the skin weekly. [facility] docusate (COLACE) 100 mg capsule 06-29 15:32: 44 Yes 100mg Take 100 mg by mouth 2 (two) times daily as needed for Constipati on. [facility] mirtazapine 7.5 mg tablet 06-29 15:32: 44 Yes 7.5mg Take 7.5 mg by mouth at bedtime. [facility] SERTraline 100 mg tablet 06-29 15:32: 44 Yes 100mg Take 100 mg by mouth 2 (two) times daily. [facility] oxybutynin chloride 5 mg tablet 06-29 15:32: 44 Yes 5mg Take 5 mg by mouth as needed. [facility] docusate (COLACE) 100 mg capsule 06-29 15:32: 44 Yes 100mg Take 100 mg by mouth 2 (two) times daily as needed for Constipati on. [facility] mirtazapine 7.5 mg tablet 06-29 15:32: 44 Yes 7.5mg Take 7.5 mg by mouth at bedtime. [facility] SERTraline 100 mg tablet 06-29 15:32: 44 Yes 100mg Take 100 mg by mouth 2 (two) times daily. [facility] oxybutynin chloride 5 mg tablet 06-29 15:32: 44 Yes 5mg Take 5 mg by mouth as needed. [facility] docusate (COLACE) 100 mg capsule 06-29 15:32: 44 Yes 100mg Take 100 mg by mouth 2 (two) times daily as needed for Constipati on. [facility] mirtazapine 7.5 mg tablet 06-29 15:32: 44 Yes 7.5mg Take 7.5 mg by mouth at bedtime. [facility] SERTraline 100 mg tablet 06-29 15:32: 44 Yes 100mg Take 100 mg by mouth 2 (two) times daily. [facility] oxybutynin chloride 5 mg tablet 06-29 15:32: 44 Yes 5mg Take 5 mg by mouth as needed. [facility] docusate (COLACE) 100 mg capsule 06-29 15:32: 44 Yes 100mg Take 100 mg by mouth 2 (two) times daily as needed for Constipati on. [facility] mirtazapine 7.5 mg tablet 06-29 15:32: 44 Yes 7.5mg Take 7.5 mg by mouth at bedtime. [facility] SERTraline 100 mg tablet 06-29 15:32: 44 Yes 100mg Take 100 mg by mouth 2 (two) times daily. [facility] oxybutynin chloride 5 mg tablet 06-29 15:32: 44 Yes 5mg Take 5 mg by mouth as needed. [facility] docusate (COLACE) 100 mg capsule 06-29 15:32: 44 Yes 100mg Take 100 mg by mouth 2 (two) times daily as needed for Constipati on. [facility] mirtazapine 7.5 mg tablet 06-29 15:32: 44 Yes 7.5mg Take 7.5 mg by mouth at bedtime. [facility] SERTraline 100 mg tablet 06-29 15:32: 44 Yes 100mg Take 100 mg by mouth 2 (two) times daily. [facility] oxybutynin chloride 5 mg tablet 06-29 15:32: 44 Yes 5mg Take 5 mg by mouth as needed. [facility] docusate (COLACE) 100 mg capsule 06-29 15:32: 44 Yes 100mg Take 100 mg by mouth 2 (two) times daily as needed for Constipati on. [facility] mirtazapine 7.5 mg tablet 06-29 15:32: 44 Yes 7.5mg Take 7.5 mg by mouth at bedtime. [facility] SERTraline 100 mg tablet 06-29 15:32: 44 Yes 100mg Take 100 mg by mouth 2 (two) times daily. [facility] oxybutynin chloride 5 mg tablet 06-29 15:32: 44 Yes 5mg Take 5 mg by mouth as needed. [facility] docusate (COLACE) 100 mg capsule 06-29 15:32: 44 Yes 100mg Take 100 mg by mouth 2 (two) times daily as needed for Constipati on. [facility] mirtazapine 7.5 mg tablet 06-29 15:32: 44 Yes 7.5mg Take 7.5 mg by mouth at bedtime. [facility] SERTraline 100 mg tablet 06-29 15:32: 44 Yes 100mg Take 100 mg by mouth 2 (two) times daily. [facility] oxybutynin chloride 5 mg tablet 06-29 15:32: 44 Yes 5mg Take 5 mg by mouth as needed. [facility] docusate (COLACE) 100 mg capsule 06-29 15:32: 44 Yes 100mg Take 100 mg by mouth 2 (two) times daily as needed for Constipati on. [facility] mirtazapine 7.5 mg tablet 06-29 15:32: 44 Yes 7.5mg Take 7.5 mg by mouth at bedtime. [facility] SERTraline 100 mg tablet 06-29 15:32: 44 Yes 100mg Take 100 mg by mouth 2 (two) times daily. [facility] oxybutynin chloride 5 mg tablet 06-29 15:32: 44 Yes 5mg Take 5 mg by mouth as needed. [facility] docusate (COLACE) 100 mg capsule 06-29 15:32: 44 Yes 100mg Take 100 mg by mouth 2 (two) times daily as needed for Constipati on. [facility] mirtazapine 7.5 mg tablet 06-29 15:32: 44 Yes 7.5mg Take 7.5 mg by mouth at bedtime. [facility] SERTraline 100 mg tablet 06-29 15:32: 44 Yes 100mg Take 100 mg by mouth 2 (two) times daily. [facility] oxybutynin chloride 5 mg tablet 06-29 15:32: 44 Yes 5mg Take 5 mg by mouth as needed. [facility] docusate (COLACE) 100 mg capsule 06-29 15:32: 44 Yes 100mg Take 100 mg by mouth 2 (two) times daily as needed for Constipati on. [facility] mirtazapine 7.5 mg tablet 06-29 15:32: 44 Yes 7.5mg Take 7.5 mg by mouth at bedtime. [facility] SERTraline 100 mg tablet 06-29 15:32: 44 Yes 100mg Take 100 mg by mouth 2 (two) times daily. [facility] oxybutynin chloride 5 mg tablet 06-29 15:32: 44 Yes 5mg Take 5 mg by mouth as needed. [facility] docusate (COLACE) 100 mg capsule 06-29 15:32: 44 Yes 100mg Take 100 mg by mouth 2 (two) times daily as needed for Constipati on. [facility] mirtazapine 7.5 mg tablet 06-29 15:32: 44 Yes 7.5mg Take 7.5 mg by mouth at bedtime. [facility] SERTraline 100 mg tablet 06-29 15:32: 44 Yes 100mg Take 100 mg by mouth 2 (two) times daily. [facility] oxybutynin chloride 5 mg tablet 06-29 15:32: 44 Yes 5mg Take 5 mg by mouth as needed. [facility] docusate (COLACE) 100 mg capsule 06-29 15:32: 44 Yes 100mg Take 100 mg by mouth 2 (two) times daily as needed for Constipati on. [facility] mirtazapine 7.5 mg tablet 06-29 15:32: 44 Yes 7.5mg Take 7.5 mg by mouth at bedtime. [facility] SERTraline 100 mg tablet 06-29 15:32: 44 Yes 100mg Take 100 mg by mouth 2 (two) times daily. [facility] oxybutynin chloride 5 mg tablet 06-29 15:32: 44 Yes 5mg Take 5 mg by mouth as needed. [facility] docusate (COLACE) 100 mg capsule 06-29 15:32: 44 Yes 100mg Take 100 mg by mouth 2 (two) times daily as needed for Constipati on. [facility] mirtazapine 7.5 mg tablet 06-29 15:32: 44 Yes 7.5mg Take 7.5 mg by mouth at bedtime. [facility] SERTraline 100 mg tablet 06-29 15:32: 44 Yes 100mg Take 100 mg by mouth 2 (two) times daily. [facility] oxybutynin chloride 5 mg tablet 06-29 15:32: 44 Yes 5mg Take 5 mg by mouth as needed. [facility] docusate (COLACE) 100 mg capsule 06-29 15:32: 44 Yes 100mg Take 100 mg by mouth 2 (two) times daily as needed for Constipati on. [facility] mirtazapine 7.5 mg tablet 06-29 15:32: 44 Yes 7.5mg Take 7.5 mg by mouth at bedtime. [facility] SERTraline 100 mg tablet 06-29 15:32: 44 Yes 100mg Take 100 mg by mouth 2 (two) times daily. [facility] oxybutynin chloride 5 mg tablet 06-29 15:32: 44 Yes 5mg Take 5 mg by mouth as needed. [facility] furosemide 20 mg tablet 2019-06 00:00: 00 Yes 20mg Take 1 tablet by mouth every morning and evening. [facility] furosemide 20 mg tablet 2019-06 00:00: 00 Yes 20mg Take 1 tablet by mouth every morning and evening. [facility] furosemide 20 mg tablet 2019-06 00:00: 00 Yes 20mg Take 1 tablet by mouth every morning and evening. [facility] furosemide 20 mg tablet 2019-06 00:00: 00 Yes 20mg Take 1 tablet by mouth every morning and evening. [facility] furosemide 20 mg tablet 2019-06 00:00: 00 Yes 20mg Take 1 tablet by mouth every morning and evening. [facility] furosemide 20 mg tablet 2019-06 00:00: 00 Yes 20mg Take 1 tablet by mouth every morning and evening. [facility] furosemide 20 mg tablet 2019-06 00:00: 00 Yes 20mg Take 1 tablet by mouth every morning and evening. [facility] furosemide 20 mg tablet 2019-06 00:00: 00 Yes 20mg Take 1 tablet by mouth every morning and evening. [facility] furosemide 20 mg tablet 2019-06 00:00: 00 Yes 20mg Take 1 tablet by mouth every morning and evening. [facility] furosemide 20 mg tablet 2019-06 00:00: 00 Yes 20mg Take 1 tablet by mouth every morning and evening. [facility] furosemide 20 mg tablet 2019-06 00:00: 00 Yes 20mg Take 1 tablet by mouth every morning and evening. [facility] furosemide 20 mg tablet 2019-06 00:00: 00 Yes 20mg Take 1 tablet by mouth every morning and evening. [facility] furosemide 20 mg tablet 2019-06 00:00: 00 Yes 20mg Take 1 tablet by mouth every morning and evening. [facility] furosemide 20 mg tablet 2019-06 00:00: 00 Yes 20mg Take 1 tablet by mouth every morning and evening. [facility] acetaminoph en-codeine 300-30 mg tablet 03-06 00:00: 00 Yes [id number] 1{tbl} Take 1 tablet by mouth every 6 (six) hours as needed for Pain (scale 4-6) or Pain (scale 7-10). Indication s: acute pain [facility] acetaminoph en-codeine 300-30 mg tablet 03-06 00:00: 00 Yes [id number] 1{tbl} Take 1 tablet by mouth every 6 (six) hours as needed for Pain (scale 4-6) or Pain (scale 7-10). Indication s: acute pain [facility] acetaminoph en-codeine 300-30 mg tablet 03-06 00:00: 00 Yes [id number] 1{tbl} Take 1 tablet by mouth every 6 (six) hours as needed for Pain (scale 4-6) or Pain (scale 7-10). Indication s: acute pain [facility] acetaminoph en-codeine 300-30 mg tablet 2020-0 12 00:00: 00 Yes [id number] 1{tbl} Take 1 tablet by mouth every 6 (six) hours as needed for Pain (scale 4-6) or Pain (scale 7-10). Indication s: acute pain [facility] acetaminoph en-codeine 300-30 mg tablet 2020-0 12 00:00: 00 Yes [id number] 1{tbl} Take 1 tablet by mouth every 6 (six) hours as needed for Pain (scale 4-6) or Pain (scale 7-10). Indication s: acute pain [facility] acetaminoph en-codeine 300-30 mg tablet 2020-0 03-06 00:00: 00 Yes [id number] 1{tbl} Take 1 tablet by mouth every 6 (six) hours as needed for Pain (scale 4-6) or Pain (scale 7-10). Indication s: acute pain [facility] acetaminoph en-codeine 300-30 mg tablet 0 03-06 00:00: 00 Yes [id number] 1{tbl} Take 1 tablet by mouth every 6 (six) hours as needed for Pain (scale 4-6) or Pain (scale 7-10). Indication s: acute pain [facility] acetaminoph en-codeine 300-30 mg tablet 2020-0 03-06 00:00: 00 Yes [id number] 1{tbl} Take 1 tablet by mouth every 6 (six) hours as needed for Pain (scale 4-6) or Pain (scale 7-10). Indication s: acute pain [facility] acetaminoph en-codeine 300-30 mg tablet 2020-0 12 00:00: 00 Yes [id number] 1{tbl} Take 1 tablet by mouth every 6 (six) hours as needed for Pain (scale 4-6) or Pain (scale 7-10). Indication s: acute pain [facility] acetaminoph en-codeine 300-30 mg tablet 2020-0 12 00:00: 00 Yes [id number] 1{tbl} Take 1 tablet by mouth every 6 (six) hours as needed for Pain (scale 4-6) or Pain (scale 7-10). Indication s: acute pain [facility] acetaminoph en-codeine 300-30 mg tablet 0 03-06 00:00: 00 Yes [id number] 1{tbl} Take 1 tablet by mouth every 6 (six) hours as needed for Pain (scale 4-6) or Pain (scale 7-10). Indication s: acute pain [facility] acetaminoph en-codeine 300-30 mg tablet 0 03-06 00:00: 00 Yes [id number] 1{tbl} Take 1 tablet by mouth every 6 (six) hours as needed for Pain (scale 4-6) or Pain (scale 7-10). Indication s: acute pain [facility] acetaminoph en-codeine 300-30 mg tablet 03-06 00:00: 00 Yes [id number] 1{tbl} Take 1 tablet by mouth every 6 (six) hours as needed for Pain (scale 4-6) or Pain (scale 7-10). Indication s: acute pain [facility] acetaminoph en-codeine 300-30 mg tablet 03-06 00:00: 00 Yes [id number] 1{tbl} Take 1 tablet by mouth every 6 (six) hours as needed for Pain (scale 4-6) or Pain (scale 7-10). Indication s: acute pain [facility] nitroglycer in 0.4 mg sublingual tablet 0 02-10 00:00: [id number] 1 tablet under the tongue every 5 (five) minutes as needed for Chest pain. [facility] nitroglycer in 0.4 mg sublingual tablet 0 02-10 00:00: [id number] 1 tablet under the tongue every 5 (five) minutes as needed for Chest pain. [facility] nitroglycer in 0.4 mg sublingual tablet 0 02-10 00:00: [id number] 1 tablet under the tongue every 5 (five) minutes as needed for Chest pain. [facility] nitroglycer in 0.4 mg sublingual tablet 0 02-10 00:00: [id number] 1 tablet under the tongue every 5 (five) minutes as needed for Chest pain. [facility] nitroglycer in 0.4 mg sublingual tablet 02-10 00:00: 00 [id number] .[address] 1 tablet under the tongue every 5 (five) minutes as needed for Chest pain. [facility] nitroglycer in 0.4 mg sublingual tablet 02-10 00:00: 00 [id number] .[address] 1 tablet under the tongue every 5 (five) minutes as needed for Chest pain. [facility] nitroglycer in 0.4 mg sublingual tablet 02-10 00:00: 00 Yes [id number] .[address] 1 tablet under the tongue every 5 (five) minutes as needed for Chest pain. [facility] nitroglycer in 0.4 mg sublingual tablet 02-10 00:00: 00 [id number] .[address] 1 tablet under the tongue every 5 (five) minutes as needed for Chest pain. [facility] nitroglycer in 0.4 mg sublingual tablet 02-10 00:00: 00 Yes [id number] .[address] 1 tablet under the tongue every 5 (five) minutes as needed for Chest pain. [facility] nitroglycer in 0.4 mg sublingual tablet 02-10 00:00: 00 Yes [id number] .[address] 1 tablet under the tongue every 5 (five) minutes as needed for Chest pain. [facility] nitroglycer in 0.4 mg sublingual tablet 0 02-10 00:00: 00 [id number] .[address] 1 tablet under the tongue every 5 (five) minutes as needed for Chest pain. [facility] nitroglycer in 0.4 mg sublingual tablet 0 02-10 00:00: 00 Yes [id number] .[address] 1 tablet under the tongue every 5 (five) minutes as needed for Chest pain. [facility] nitroglycer in 0.4 mg sublingual tablet 02-10 00:00: 00 Yes [id number] .4[address] Place 1 tablet under the tongue every 5 (five) minutes as needed for Chest pain. [facility] nitroglycer in 0.4 mg sublingual tablet 02-10 00:00: [id number] .[address] 1 tablet under the tongue every 5 (five) minutes as needed for Chest pain. [facility] atorvastati n 40 mg tablet 01-12 00:00: 00 Yes [id number] 40mg Take 1 tablet by mouth daily. [facility] clopidogreL 75 mg tablet 01-12 00:00: 00 Yes [id number] 75mg Take 1 tablet by mouth daily. [facility] aspirin 81 mg chewable tablet 01-12 00:00: 00 Yes [id number] 81mg Take 1 tablet by mouth daily. [facility] atorvastati n 40 mg tablet 01-12 00:00: 00 Yes [id number] 40mg Take 1 tablet by mouth daily. [facility] clopidogreL 75 mg tablet 01-12 00:00: 00 Yes [id number] 75mg Take 1 tablet by mouth daily. [facility] aspirin 81 mg chewable tablet 01-12 00:00: 00 Yes [id number] 81mg Take 1 tablet by mouth daily. [facility] atorvastati n 40 mg tablet 01-12 00:00: 00 Yes [id number] 40mg Take 1 tablet by mouth daily. [facility] clopidogreL 75 mg tablet 01-12 00:00: 00 Yes [id number] 75mg Take 1 tablet by mouth daily. [facility] aspirin 81 mg chewable tablet 01-12 00:00: 00 Yes [id number] 81mg Take 1 tablet by mouth daily. [facility] atorvastati n 40 mg tablet 01-12 00:00: 00 Yes [id number] 40mg Take 1 tablet by mouth daily. [facility] clopidogreL 75 mg tablet 01-12 00:00: 00 Yes [id number] 75mg Take 1 tablet by mouth daily. [facility] aspirin 81 mg chewable tablet 0 01-12 00:00: 00 Yes [id number] 81mg Take 1 tablet by mouth daily. [facility] atorvastati n 40 mg tablet 0 01-12 00:00: 00 Yes [id number] 40mg Take 1 tablet by mouth daily. [facility] clopidogreL 75 mg tablet 0 01-12 00:00: 00 Yes [id number] 75mg Take 1 tablet by mouth daily. [facility] aspirin 81 mg chewable tablet 0 01-12 00:00: 00 Yes [id number] 81mg Take 1 tablet by mouth daily. [facility] atorvastati n 40 mg tablet 0 01-12 00:00: 00 Yes [id number] 40mg Take 1 tablet by mouth daily. [facility] clopidogreL 75 mg tablet 0 01-12 00:00: 00 Yes [id number] 75mg Take 1 tablet by mouth daily. [facility] aspirin 81 mg chewable tablet 0 01-12 00:00: 00 Yes [id number] 81mg Take 1 tablet by mouth daily. [facility] atorvastati n 40 mg tablet 01-12 00:00: 00 Yes [id number] 40mg Take 1 tablet by mouth daily. [facility] clopidogreL 75 mg tablet 0 01-12 00:00: 00 Yes [id number] 75mg Take 1 tablet by mouth daily. [facility] aspirin 81 mg chewable tablet 0 01-12 00:00: 00 Yes [id number] 81mg Take 1 tablet by mouth daily. [facility] atorvastati n 40 mg tablet 01-12 00:00: 00 Yes [id number] 40mg Take 1 tablet by mouth daily. [facility] clopidogreL 75 mg tablet 0 01-12 00:00: 00 Yes [id number] 75mg Take 1 tablet by mouth daily. [facility] aspirin 81 mg chewable tablet 0 01-12 00:00: 00 Yes [id number] 81mg Take 1 tablet by mouth daily. [facility] atorvastati n 40 mg tablet 0 01-12 00:00: 00 Yes [id number] 40mg Take 1 tablet by mouth daily. [facility] clopidogreL 75 mg tablet 01-12 00:00: 00 Yes [id number] 75mg Take 1 tablet by mouth daily. [facility] aspirin 81 mg chewable tablet 01-12 00:00: 00 Yes [id number] 81mg Take 1 tablet by mouth daily. [facility] atorvastati n 40 mg tablet 01-12 00:00: 00 Yes [id number] 40mg Take 1 tablet by mouth daily. [facility] clopidogreL 75 mg tablet 01-12 00:00: 00 Yes [id number] 75mg Take 1 tablet by mouth daily. [facility] aspirin 81 mg chewable tablet 01-12 00:00: 00 Yes [id number] 81mg Take 1 tablet by mouth daily. [facility] atorvastati n 40 mg tablet 01-12 00:00: 00 Yes [id number] 40mg Take 1 tablet by mouth daily. [facility] clopidogreL 75 mg tablet 01-12 00:00: 00 Yes [id number] 75mg Take 1 tablet by mouth daily. [facility] aspirin 81 mg chewable tablet 01-12 00:00: 00 Yes [id number] 81mg Take 1 tablet by mouth daily. [facility] atorvastati n 40 mg tablet 01-12 00:00: 00 Yes [id number] 40mg Take 1 tablet by mouth daily. [facility] clopidogreL 75 mg tablet 01-12 00:00: 00 Yes [id number] 75mg Take 1 tablet by mouth daily. [facility] aspirin 81 mg chewable tablet 01-12 00:00: 00 Yes [id number] 81mg Take 1 tablet by mouth daily. [facility] atorvastati n 40 mg tablet 0 01-12 00:00: 00 Yes [id number] 40mg Take 1 tablet by mouth daily. [facility] clopidogreL 75 mg tablet 01-12 00:00: 00 Yes [id number] 75mg Take 1 tablet by mouth daily. [facility] aspirin 81 mg chewable tablet 01-12 00:00: 00 Yes [id number] 81mg Take 1 tablet by mouth daily. [facility] atorvastati n 40 mg tablet 01-12 00:00: 00 Yes [id number] 40mg Take 1 tablet by mouth daily. [facility] clopidogreL 75 mg tablet 01-12 00:00: 00 Yes [id number] 75mg Take 1 tablet by mouth daily. [facility] aspirin 81 mg chewable tablet 01-12 00:00: 00 Yes [id number] 81mg Take 1 tablet by mouth daily. [facility] Vital Signs Vital Name Observation Time Observation Value Comments S jose Systolic blood pressure 2022-10-13 18:19:00 119 mm[Hg] [facility] Diastolic blood pressure 2022-10-13 18:19:00 81 mm[Hg] [facility] Heart rate 2022-10-13 18:19:00 104 /min [facility] Body height 2022-10-13 18:19:00 160 cm [facility] Body weight 2022-10-13 18:19:00 86.183 kg [facility] BMI 2022-10-13 18:19:00 33.66 kg/m2 [facility] Oxygen saturation in Arterial blood by Pulse oximetry 2022-10-13 18:19:00 97 /min [facility] Systolic blood pressure 2021-09-22 00:18:00 133 mm[Hg] [facility] acute hospital Diastolic blood pressure 2021-09-22 00:18:00 68 mm[Hg] [facility] hospital Body height 2021-09-22 00:18:00 162.6 cm [facility] Body weight 2021-09-22 00:18:00 86.183 kg [facility] BMI 2021-09-22 00:18:00 32.61 kg/m2 [facility] Procedures Procedure Date / Time Performed Performing Clinicia n Source POCT HEMOGLOBIN A1C TEST 2022-10-13 18:21:00 Paulette Rangel [facility] ASSIGNMENT OF BENEFITS 2022-10-13 17:52:09 Docto r Unassigned, Perley [facility] EXTERNAL PROVIDER RECORDS 2021-10-12 05:01:00 Doctor Unassigned, Perley [facility] POCT HEMOGLOBIN A1C TEST 2021-08-30 19:18:00 Suraj Reid [facility] Encounters Start Date/Time End Date/Time Encounter Type Admission Type Attending [facility] Care Facility Care Department Encounter ID Source 2021-04-22 17:55:04 Emergency [facility] [id number] [facility] 2021-04-22 15:37:23 Inpatient R OLGA DINERO [facility] [id number] [facility] 2021-04-22 05:15:17 Emergency [facility] [id number] [facility] 2023-04-17 13:00:00 2023-04-17 13:00:00 Outpatient R SHANE PAULETTE [facility] [id number] [facility] 2023-01-22 00:00:00 2023-01-22 00:00:00 Telephone [facility] 1.2.840.114 350.1.13.10 4.2.7.2.686 [id number] [facility] 2022-11-17 00:00:00 2022-11-17 00:00:00 Telephone Oscar Lai [facility] 1.2.840.114 350.1.13.10 4.2.7.2.686 [id number] [facility] 2022-10-19 00:00:00 2022-10-19 00:00:00 Telephone Oscar Lai [facility] 1.2.840.114 350.1.13.10 4.2.7.2.686 [id number] [facility] 2022-10-13 14:00:00 2022-10-13 14:15:00 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 Lab, Ang - Db Oscar Lai [facility] 1.840.114 350.1.13.10 4.2.7.2.686 [id number] [facility] 2022-10-13 13:00:00 2022-10-13 14:00:49 Outpatient R OSCAR LAI [facility] [id number] [facility] 2022-10-13 13:00:00 2022-10-13 14:00:49 Office Visit Oscar Lai [facility] 1.84.114 350.1.13.10 4.2.7.2.686 [id number] [facility] 2022-10-13 00:00:00 2022-10-13 00:00:00 Orders Only Doctor Unassigned, Perley [facility] 1.84.114 350.1.13.10 4.2.7.2.686 [id number] [facility] 2022-06-27 14:00:00 2022-06-27 14:00:00 Outpatient R JEANETTE [facility] [id number] [facility] 2022-06-01 00:00:00 2022-06-01 00:00:00 [facility] 1.840.114 350.1.13.10 4.2.7.2.686 [id number] [facility] 2022-03-11 00:00:00 2022-03-11 00:00:00 Refill Jeanette [facility] 1.840.114 350.1.13.10 4.2.7.2.686 [id number] [facility] 2022-03-07 13:00:00 2022-03-07 13:00:00 Outpatient Gayla REID SURAJ [facility] [id number] [facility] 2022-03-07 13:00:00 2022-03-07 13:00:00 Outpatient R JEANETTE SURAJ [facility] [id number] [facility] 2021-12-14 10:30:00 2021-12-14 10:30:00 Outpatient JURGEN MONTEMAYOR [facility] [id number] [facility] 2021-12-14 10:30:00 2021-12-14 10:30:00 Outpatient JURGEN MONTEMAYOR [facility] [id number] [facility] 2021-10-12 00:00:00 2021-10-12 00:00:00 Orders Only Doctor Unassigned, Perley [facility] 1..840.114 350.1.13.10 4.2.7.2.686 [id number] [facility] 2021-09-07 10:30:00 2021-09-07 10:47:32 Office Visit Jurgen Cannon [facility] 1..840.114 350.1.13.10 4.2.7.2.686 [id number] [facility] 2021-09-07 10:30:00 2021-09-07 10:47:32 Outpatient JURGEN MONTEMAYOR [facility] [id number] [facility] 2021-09-07 10:30:00 2021-09-07 10:30:00 Outpatient JURGEN MONTEMAYOR [facility] [id number] [facility] 2021-09-07 10:30:00 2021-09-07 10:30:00 Outpatient JURGEN MONTEMAYOR [facility] [id number] [facility] 2021-08-30 13:00:00 2021-08-30 14:06:24 Outpatient MAURICIO SCOTTASIF [facility] [id number] [facility] 2021-08-30 13:00:00 2021-08-30 14:06:24 Office Visit Jeanette [facility] 1..840.114 350.1.13.10 4.2.7.2.686 [id number] [facility] 2021-08-30 13:00:00 2021-08-30 14:06:24 Outpatient R JEANETTE [facility] [id number] [facility] 2021-08-30 13:00:00 2021-08-30 13:00:00 Outpatient R [facility]ANETTE [facility] [id number] [facility] 2021-08-30 00:00:00 2021-08-30 00:00:00 Orders Only Doctor Unassigned, Perley [facility] 1.840.114 350.1.13.10 4.2.7.2.686 [id number] [facility] 2021-08-08 10:06:39 2021-08-08 23:59:00 Hospital Encounter Jurgen Cannon [facility] 1..840.114 350.1.13.10 4.2.7.2.686 [id number] [facility] 2021-08-08 13:00:00 2021-08-08 14:30:21 Outpatient R JURGEN CANNON [facility] [id number] [facility] 2021-08-08 13:00:00 2021-08-08 14:30:21 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 Test, Vtc Pulmonary Function [facility] 1..840.114 350.1.13.10 4.2.7.2.686 [id number] [facility] 2021-08-08 08:54:25 2021-08-08 10:05:00 Hospital Encounter Jurgen Cannon [facility] 1.114 350.1.13.10 4.2.7.2.686 [id number] [facility] 2021-08-08 00:00:00 2021-08-08 00:00:00 Outpatient R CANNON JURGEN [facility] [id number] [facility] 2021-08-05 15:00:00 2021-08-05 15:15:00 Laboratory Only Only, Adc Test Saravanan [facility] 1.114 350.1.13.10 4.2.7.2.686 [id number] [facility] 2021-08-05 15:00:00 2021-08-05 15:00:00 Outpatient R SARAVANAN [facility] [id number] [facility] 2021-06-14 00:00:00 2021-06-14 00:00:00 Telephone Suraj Reid [facility] 1.114 350.1.13.10 4.2.7.2.686 [id number] [facility] 2021-06-01 10:00:00 2021-06-01 11:30:16 Outpatient R CANNON JURGEN [facility] [id number] [facility] 2021-06-01 09:44:15 2021-06-01 11:30:16 Office Visit Jurgen Cannon [facility] 1..114 350.1.13.10 4.2.7.2.686 [id number] [facility] 2021-05-10 00:00:00 2021-05-10 00:00:00 Telephone Jurgen Cannon [facility] 1..114 350.1.13.10 4.2.7.2.686 [id number] [facility] 2021-03-02 13:34:41 2021-03-02 15:58:[address] [facility] Jp aguila [facility] 1.2.840.114 350.1.13.10 4.2.7.2.686 [id number] [facility] 2021-03-02 13:00:00 2021-03-02 13:00:00 Outpatient R JEANETTE [facility] [id number] [facility] 2021-03-02 00:00:00 2021-03-02 00:00:00 Orders Only Doctor Unassigned, Perley [facility] 1.2.840.114 350.1.13.10 4.2.7.2.686 [id number] [facility] 2020-11-02 10:30:00 2020-11-02 10:30:00 Outpatient R JEANETTE [facility] [id number] [facility] 2020-06-29 15:07:47 2020-06-29 16:11:28 Office Visit Jeanette [facility] 1..840.114 350.1.13.10 4.2.7.2.686 [id number] 2020-06-29 15:00:00 2020-06-29 15:00:00 Outpatient R JEANETTE [facility] [id number] [facility] 2020-06-29 00:00:00 2020-06-29 00:00:00 Orders Only Doctor Unassigned, Perley [facility] 1.2840.114 350.1.13.10 4.2.7.2.686 [id number] 2020-04-20 15:00:00 2020-04-20 15:00:00 Outpatient R [facility] [id number] [facility] 2020-03-30 15:00:00 2020-03-30 15:00:00 Outpatient R SURAJ REID [facility] [id number] [facility] 2020-03-10 14:30:00 2020-03-10 14:30:00 Outpatient R KENNA MEJIA [facility] [id number] [facility] 2020-02-16 00:00:00 2020-02-16 00:00:00 [facility] [id number] 2020-02-11 15:30:00 2020-02-11 15:30:00 [facility] [id number] [facility] 2020-01-29 08:00:00 2020-01-29 08:00:00 Outpatient R ADY COLLINS [facility] [id number] [facility] Results Test Description Test Time Test Comments Results Result Co mments Source [facility] HEMOGLOBIN A1C [id number] 18:21:00* Test Item Value Reference Range Interpretation Comme [facility] POCT HBA1C (test code = 4548-4) 7.9 % 4-6 A Lab Interpretation (test cod e = 04895-7) Abnormal [facility] HEMOGLOBIN A1C [id number] 19:18:00* Test Item Value Reference Range Interpretation Comme [facility] POCT HBA1C (test code = 4548-4) 6.5 % 4-6 A Lab Interpretation (test cod e = 66194-3) Abnormal [facility] Notes Date/Time Note Provider Source 2023-01-22 12:20:16 [id number]:20:16F ormatting of this note might be different from the original.Called and left a message regarding her call. Unsure of how I can help her since she did not disclose what she needs help with. [id number] encounter [id number]:22:10Telep roseann encounter NoteTXT1.2.840.820611.1.13.104 .2.7.2.714618|[id number] lable for patient [id number] [id number] 14-01-31T12:22:101.2.840.84998 0.1.72.3.15|1.2.840.895899.1.1 [id number] [facility] 2023-01-22 11:53:41 [id number]:53:41F ormatting of this note might be different from the original.Patient is calling in requesting to speak with provider Paulette patient will not disclose what it is in regards to.Please advise [id number] encounter BdheZP9320-89-99Q77:54:31Telep roseann encounter NoteTXT1.2.840.530064.1.13.104 .2.7.2.163709|[id number] lable for patient [id number] kirill Mckeon [address]TX[address] [id number] 14-01-31T11:54:311.2.840.75757 0.1.72.3.15|1.2.840.753328.1.1 [id number] Deny Cartagena [facility]"
[2023-06-05 13:21] LABS: Hematocrit 42.2 % (36.0-45.0); Lymphocytes % 16.9 % (15.3-44.8); MCV 85.1 fL (80-100); MPV 7.7 fL (7.6-11.3); Platelets 96 thou/uL (152-406); RBC Red Blood Cell Count 4.96 M/uL (3.86-4.86)
[2023-06-05 13:36] LABS: Albumin 3.4 g/dL (3.4-5.0); Bilirubin Total 0.3 mg/dL (0.2-1.0); Potassium 4.8 mEq/L (3.5-5.1); Protein, Total 8.2 g/dL (6.4-8.2)
[2023-06-05 15:15] LABS: Specific Gravity 1.017 (1.005-1.030); Urine Bacteria None Seen /HPF (<20); Urine Bilirubin NEGATIVE (Negative); Urine Blood Trace (Negative); Urine Clarity Turbid (Clear); Urine Color Light-Yellow (Yellow); Urine Glucose NEGATIVE (Negative); Urine Mucus Slight /HPF (None Seen); Urine Protein NEGATIVE (Negative); Urine RBC <5 /HPF (None Seen); Urine Urobilinogen Normal (Normal)
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
[2023-06-05 17:45] LABS: Blood Morphology Comment NOT SEEN (NOT SEEN); Platelet Estimate DECR; White Blood Cell Scan OK (OK)
[2023-06-05 18:18] VITALS: TEMP 97.3
[2023-06-05 18:21] VITALS: O2SAT 98
[2023-06-05 18:26] VITALS: BP 117/61
--- NOTE | 2023-06-06 13:06 | EKG ---
Test Date: 2023-06-05 Test Time: 13:00:17 Pump House Engineer: IGNACIO MEASUREMENT RESULTS: Intervals: Rate: 86 NM: 198 QRSD: 86 QT: 382 QTc: 457 [place]: P: 32 NM: 198 QRS: 11 T: 46 INTERPRETIVE STATEMENTS: Sinus rhythm with fusion complexes Nonspecific T wave abnormality Abnormal ECG Compared to ECG 05/12/2023 06:22:30 Fusion complex(es) now present T-wave abnormality now present Sinus tachycardia no longer present Left ventricular hypertrophy no longer present Early repolarization no longer present Electronically Signed On 06-06-23 13:04:05 CURATOR OF COLLECTIONS by Lv Mohan
== END 2023-06-05 17:19 | disposition home or self-care (01) ==
LOC: ER 12:16
DX: I95.9 Hypotension, unspecified (principal); J44.9 Chronic obstructive pulmonary disease, unspecified; E11.9 Type 2 diabetes mellitus without complications; I10 Essential (primary) hypertension; I25.2 Old myocardial infarction; Z88.1 Allergy status to other antibiotic agents; Z88.2 Allergy status to sulfonamides; Z88.5 Allergy status to narcotic agent; Z88.8 Allergy status to other drugs, medicaments and biological substances; Z91.040 Latex allergy status; Z91.048 Other nonmedicinal substance allergy status
CPT/HCPCS: 36415; 80053; 81001; 85025; 93005; 99284

== ENCOUNTER 2023-12-05 13:56 | Observation (INO) | payer OTHER ==
--- OUTSIDE RECORDS SUMMARY | 2023-12-05 13:59 | XMS REPORT | Continuity of Care Document ---
Author Name Unknown Address [address] [facility] [address] [place] [address] [facility] [address] [facility] [address] [place] [address] Care Team Providers Care Police Liaison Name Role Phone Fred Garner Narendra Primary Care Physician [phone] OLGA DINERO Attending Clinician Unavail able PAULETTE RANGEL Attending Clinician Unavailable Paulette Andrade Attending Clinician [phone] Oscar Lai MD Attending Clinician + [phone] Lab, Ang - Db Attending Clinician Unavailable OSCAR LAI Attending Clinician Unavailabl e Doctor Unassigned, [facility] Attending Clinician U SURAJ Zambrano Attending Clinician Unavailable Suraj Reid MD Attending Clinician [phone] JURGEN CANNON Attending Clinician UnaJurgen Linares MD Attending Clinician [phone] Test, Vtc Pulmonary Function Attending Clinician Unavailable Only, Adc Test Attending Clinician Unavailable Mitesh Coe MD Attending Clinician [phone] MITESH COE Attending Clinician Unavailabl KENNA Fuller Attending Clinician PARKER Hart Attending Clinician PARKER Whitaker Attending Clinician ADY Langston Attending Clinician OLGA Zamudio Admitting Clinician [place] Payers Payer Name Policy Type Policy Number Effective Date Expirati on Date Source [employer] [id number] 2013 [facility]:00[facility]00 [facility] [id number] 2020 00:00:00 Problems Condition Name Condition Details Condition Category Status Onset Date Resolution Date Last Treatment Date Treating Clinician Comments Source Abscess of groin, right Abscess of groin, right Disease Active 16 00:00: 00 [facility] 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 Added automatic ally from request for surgery [id number] [facility] Cardiogeni c shock Cardiogeni c shock Disease Active 01-02 00:00: 00 [facility] Elevated troponin Elevated troponin Disease Active 12-29 00:00: 00 [facility] Acute diastolic congestive heart failure Acute diastolic congestive heart failure Disease Active 12-29 00:00: 00 [facility] Other chest pain Other chest pain Disease Active 12-29 00:00: 00 [facility] History of arterial ischemic stroke History of arterial ischemic stroke Disease Active 12-29 00:00: 00 [facility] Obesity (BMI 30-39.9) Obesity (BMI 30-39.9) Disease Active 12-29 00:00: 00 [facility] NSTEMI (non-ST elevated myocardial infarction ) NSTEMI (non-ST elevated myocardial infarction ) Disease Active 12-29 00:00: 00 [facility] Dysphagia Dysphagia Disease Active 12-29 00:00: 00 [facility] Elevated troponin Elevated troponin Disease Active 12-29 00:00: 00 [facility] Nonobstruc tive atheroscle rosis of coronary artery Nonobstruc tive atheroscle rosis of coronary artery Disease Active 2017-06 00:00: 00 [facility] Anterolist hesis Anterolist hesis Disease Active 01-01 00:00: 00 [facility] Hip pain, right Hip pain, right Disease Active 01-01 00:00: 00 [facility] SI joint arthritis SI joint arthritis Disease Active 01-01 00:00: 00 [facility] Lumbar degenerati ve disc disease Lumbar degenerati ve disc disease Disease Active 01-01 00:00: 00 [facility] Rheumatoid arthritis Rheumatoid arthritis Disease Active Overview: Formattin g of this note might be different from the original. This diagnosis is questiona ble according to her; she has had high sed ratesICD1 0 Diagnosis Term [employer] [facility] Myalgia and myositis Myalgia and myositis Disease Active Overview: Formattin g of this note might be different from the original. Has malaise, and flu-like symptoms, and sometimes a low grade temperatu reICD10 Diagnosis Term [employer] [facility] Backache Backache Disease Active Overv iew: Formattin g of this note might be different from the original. 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 Type IIICD10 Diagnosis Term [employer] [facility] Diabetic polyneurop athy Diabetic polyneurop athy Disease Active Overview: Formattin g of this note might be different from the original. ICD10 Diagnosis Term [employer] [facility] Esophageal reflux Esophageal reflux Disease Active [facility] Generalize d osteoarthr osis, unspecifie d site Generalize d osteoarthr osis, unspecifie d site Disease Active [facility] Transient cerebral ischemia Transient cerebral ischemia Disease Active Overview: Formattin g of this note might be different from the original. 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 ICD10 Diagnosis Term [employer] [facility] Diverticul osis of colon with hemorrhage Diverticul osis of colon with hemorrhage Disease Active [facility] Allergies, Adverse Reactions, Alerts Allergy Name Allergy Type Status Severity Reaction(s) Onset Date Inactive Date Treating Clinician Comments Source Empaglif lozin Propensi ty to adverse reaction s Active Swelling 2017-06 00:00: 00 [facility] EMPAGLIF LOZIN DRUG INGREDI Active Swelling 2017-06 00:00: 00 [facility] Adalimum ab Propensi ty to adverse reaction s to drug Active Other - See comments 2014-06 00:00: 00 Pt developed fatty tumors all over body [facility] Inflixim ab Propensi ty to adverse reaction s to drug Active Shortness of Breath 2014-06 00:00: 00 [facility] INFLIXIM AB DRUG INGREDI Active High SOB 2014-06 00:00: 00 [facility] ADALIMUM AB DRUG INGREDI Active Med Other-Cmnt 2014-06 0 00:00: 00 [facility] Methocar bamol Propensi ty to adverse reaction s to drug Active Swelling 0 03-23 00:00: 00 [facility] METHOCAR BAMOL DRUG INGREDI Active Med Swelling 03-23 00:00: 00 [facility] Pregabal in Propensi ty to adverse reaction s to drug Active Anaphylaxis 0 12-23 00:00: 00 [facility] Morphine Propensi ty to adverse reaction s Active Hallucinatio ns 12-23 00:00: 00 [facility] PREGABAL IN DRUG INGREDI Active High Anaphylaxis 12-23 00:00: 00 [facility] MORPHINE DRUG INGREDI Active Hallucinates 12-23 00:00: 00 [facility] Iodine And Iodide Containi ng Products Propensi ty to adverse reaction s to drug Active Swelling 0 10-01 00:00: 00 [facility] Sulfa (Sulfona mide Antibiot ics) Propensi ty to adverse reaction s Active Anxiety 0 10-01 00:00: 00 Head Aches [facility] Adhesive Tape Propensi ty to adverse reaction s Active Hives 0 10-01 00:00: 00 Also Surgical tape [facility] Tetracyc line Propensi ty to adverse reaction s to drug Active Anaphylaxis 2006-0 10-01 00:00: 00 [facility] TETRACYC LINE DRUG INGREDI Active High Anaphylaxis 0 10-01 00:00: 00 [facility] IODINE AND IODIDE CONTAINI NG PRODUCTS Drug Class Active Med Swelling 0 10-01 00:00: 00 [facility] SULFA (SULFONA MIDE ANTIBIOT ICS) Drug Class Active Anxiety 0 10-01 00:00: 00 [facility] ADHESIVE TAPE DRUG Active Hives 0 10-01 00:00: 00 [facility] Iodine And Iodide Containi ng Products Propensi ty to adverse reaction s to drug Active Swelling 10-01 00:00: 00 [facility] Sulfa (Sulfona mide Antibiot ics) Propensi ty to adverse reaction s Active Anxiety 10-01 00:00: 00 Head Aches [facility] Social History Social Habit Start Date Stop Date Quantity Comments Source [facility] SDOH Food Scarcity [facility] History of tobacco use Current smoker [facility] History SDOH Alcohol Frequency [facility] History SDOH Alcohol Std Drinks [facility] History SDOH Alcohol Binge [facility] Exposure to SARS-CoV-2 (event) 2022-10-03 00:00:00 2022-10-13 12:50:00 Not sure [facility] History of Social function 2022-10-13 00:00:00 2022-10-13 00:00:00 [facility] Alcohol intake 2022-10-13 00:00:00 2022-10-13 00:00:00 Current non-drinker of alcohol (finding) [facility] Tobacco Comment 2022-10-13 00:00:00 2022-10-13 00:00:00 Quit more than thirty some years ago [facility] Tobacco use and exposure 2022-10-13 00:00:00 2022-10-13 00:00:00 Smokeless tobacco non-user [facility] History SDOH Financial 2020-03-10 00:00:00 2020-03-10 00:00:00 5 [facility] History SDOH Food Worry 2020-03-10 00:00:00 2020-03-10 00:00:00 1 [facility] History SDOH Transport Med 2020-03-10 00:00:00 2020-03-10 00:00:00 2 [facility] History SDOH Transport Non-Med 2020-03-10 00:00:00 2020-03-10 00:00:00 2 [facility] Alcohol Comment 2006-10-01 00:00:00 2006-10-01 00:00:00 Drinks ETOH very occasionally [facility] Sex Assigned At 1945 00:00:00 1945 00:00:00 [facility] Smoking Status Start Date Stop Date Source Ex-smoker 2022-10-13 00:00:00 2022-10-13 [facility]00[facility] Ordered Medication Name Filled Medication Name Start Date Stop Date Current Medication? Ordering Clinician Indication Dosage Frequency Signature (SIG) Comments Components Source Magnesium 250 mg Tab 10-13 13:09: 15 Yes Take by mouth. [facility] Magnesium 250 mg Tab 10-13 13:09: 15 Yes Take by mouth. [facility] metformin ER 500 mg 24 hr tablet 10-13 00:00: 00 Yes [id number] 500mg Take 1 tablet by mouth in the morning and 1 tablet in the evening. [facility] vancomycin 5 gram injection 2021-06 2- 00:00: 00 10-13 00:00 :00 No [facility] metformin ER 500 mg 24 hr tablet 9-17 00:00: 00 10-13 00:00 :00 No [id number] TAKE ONE TABLET BY MOUTH DAILY WITH BREAKFAST [facility] semaglutide (OZEMPIC) 0.25 mg or 0.5 mg(2 mg/1.5 mL) PnIj 3-08 00:00: 00 10-13 00:00 :00 No [id number] .5mg inject 0.5 mg under the skin weekly. [facility] Lancets (ACCU-CHEK SOFTCLIX LANCETS) [facility] 2020-06 00:00: 00 Yes Use as directed BID to check glucose levels [facility] blood sugar diagnostic (ACCU-CHEK GUIDE TEST STRIPS) strip 2020-06 00:00: 00 Yes Use as directed to check glucose levels BID [facility] Blood-Gluco se Meter (ACCU-CHEK GUIDE GLUCOSE METER) [facility] 2020-06 00:00: 00 Yes Use as directed to check glucose BID [facility] Lancets (ACCU-CHEK SOFTCLIX LANCETS) [facility] 2020-06 00:00: 00 Yes Use as directed BID to check glucose levels [facility] Blood-Gluco se Meter (ACCU-CHEK GUIDE GLUCOSE METER) [facility] 2020-06 00:00: 00 Yes Use as directed to check glucose BID [facility] famotidine 20 mg tablet 2020-06 10:31: 58 Yes 20mg Take 20 mg by mouth 2 (two) times daily. [facility] NaCl 0.9% (NS) SolP 60 mL with Nitroglycer in 50 mg/10 mL (5 mg/mL) Soln 24 mg 2020-06 10:31: 58 Yes CONTINUOUS . [facility] rosuvastati n 10 mg tablet 2020-06 10:31: 58 Yes 10mg Take 10 mg by mouth at bedtime. [facility] fluticasone furoate 50 mcg/actuati on DsDv 2020-06 10:31: 58 Yes Inhale. [facility] albuterol 90 mcg/actuati on inhaler 2020-06 00:00: 00 Yes [id number] 2{puff} Inhale 2 Puffs every 6 (six) hours as needed for Wheezing or Shortness of Breath. [facility] metformin ER 500 mg 24 hr tablet 03-02 00:00: 00 03-11 00:00 :00 No [id number] 500mg Take 1 tablet by mouth daily with breakfast. [facility] semaglutide (OZEMPIC) 0.25 mg or 0.5 mg(2 mg/1.5 mL) PnIj 03-02 00:00: 00 08-30 00:00 :00 No [id number] .5mg inject 0.5 mg under the skin weekly. [facility] docusate (COLACE) 100 mg capsule 06-29 15:32: 44 Yes 100mg Take 100 mg by mouth 2 (two) times daily as needed for Constipati on. [facility] mirtazapine 7.5 mg tablet 06-29 15:32: 44 Yes 7.5mg Take 7.5 mg by mouth at bedtime. [facility] SERTraline 100 mg tablet 06-29 15:32: 44 Yes 100mg Take 100 mg by mouth 2 (two) times daily. [facility] oxybutynin chloride 5 mg tablet 06-29 15:32: 44 Yes 5mg Take 5 mg by mouth as needed. [facility] furosemide 20 mg tablet 2019-06 0 00:00: 00 Yes 20mg Take 1 tablet by mouth every morning and evening. [facility] acetaminoph en-codeine 300-30 mg tablet 03-06 00:00: 00 Yes [id number] 1{tbl} Take 1 tablet by mouth every 6 (six) hours as needed for Pain (scale 4-6) or Pain (scale 7-10). Indication s: acute pain [facility] nitroglycer in 0.4 mg sublingual tablet 02-10 00:00: [id number] 1 tablet under the tongue every 5 (five) minutes as needed for Chest pain. [facility] atorvastati n 40 mg tablet 01-12 00:00: 00 Yes [id number] 40mg Take 1 tablet by mouth daily. [facility] clopidogreL 75 mg tablet 01-12 00:00: 00 Yes [id number] 75mg Take 1 tablet by mouth daily. [facility] aspirin 81 mg chewable tablet 01-12 00:00: 00 Yes [id number] 81mg Take 1 tablet by mouth daily. [facility] Vital Signs Vital Name Observation Time Observation Value Comments S ruma Systolic blood pressure 2022-10-13 18:19:00 119 mm[Hg] [facility] Diastolic blood pressure 2022-10-13 18:19:00 81 mm[Hg] [facility] Heart rate 2022-10-13 18:19:00 104 /min [facility] Body height 2022-10-13 18:19:00 160 cm [facility] Body weight 2022-10-13 18:19:00 86.183 kg [facility] BMI 2022-10-13 18:19:00 33.66 kg/m2 [facility] Oxygen saturation in Arterial blood by Pulse oximetry 2022-10-13 18:19:00 97 /min [facility] Systolic blood pressure 2021-09-22 00:18:00 133 mm[Hg] [facility] Diastolic blood pressure 2021-09-22 00:18:00 68 mm[Hg] [facility] Body height 2021-09-22 00:18:00 162.6 cm [facility] Body weight 2021-09-22 00:18:00 86.183 kg [facility] BMI 2021-09-22 00:18:00 32.61 kg/m2 [facility] Procedures Procedure Date / Time Performed Performing Clinicia n Source POCT HEMOGLOBIN A1C TEST 2022-10-13 18:21:00 Paulette Rangel [facility] ASSIGNMENT OF BENEFITS 2022-10-13 17:52:09 Docto r Unassigned, [facility] EXTERNAL PROVIDER RECORDS 2021-10-12 05:01:00 Doctor Unassigned, [facility] POCT HEMOGLOBIN A1C TEST 2021-08-30 19:18:00 Suraj Reid [facility] Encounters Start Date/Time End Date/Time Encounter Type Admission Type Attending Clinicians Care Facility Care Department Encounter ID Source 2021-04-22 17:55:[address] [facility] [id number] [facility] 2021-04-22 15:37:23 Inpatient OLGA MARINELLI [facility] [id number] [facility] 2021-04-22 05:15:[address] [facility] [id number] [facility] 2023-04-17 13:00:00 2023-04-17 13:00:00 Outpatient R PAULETTE RANGEL [facility] [id number] [facility] 2023-01-22 00:00:00 2023-01-22 00:00:00 Telephone Paulette Rangel [facility] 1.0.114 350.1.13.10 4.2.7.2.686 [id number] [facility] 2022-11-17 00:00:00 2022-11-17 00:00:00 Telephone Oscar Lai [facility] 1.840.114 350.1.13.10 4.2.7.2.686 [id number] [facility] 2022-10-19 00:00:00 2022-10-19 00:00:00 Telephone Oscar Lai [facility] 1..114 350.1.13.10 4.2.7.2.686 [id number] [facility] 2022-10-13 14:00:00 2022-10-13 14:15:00 Wheel Alignment Technician [facility] 1.114 350.1.13.10 4.2.7.2.686 [id number] [facility] 2022-10-13 13:00:00 2022-10-13 14:00:49 Outpatient R MING OSCAR [facility] [id number] [facility] 2022-10-13 13:00:00 2022-10-13 14:00:49 Office Visit [facility] 1.0.114 350.1.13.10 4.2.7.2.686 [id number] [facility] 2022-10-13 00:00:00 2022-10-13 00:00:00 Orders Only Doctor Unassigned, [facility] 1.840.114 350.1.13.10 4.2.7.2.686 [id number] [facility] 2022-06-27 14:00:00 2022-06-27 14:00:00 [id number] 2022-06-01 00:00:00 2022-06-01 00:00:00 Telephone [facility] 1.2.840.114 350.1.13.10 4.2.7.2.686 [id number] [facility] 2022-03-11 00:00:00 2022-03-11 00:00:00 Refill Jean[facility] 1.2.840.114 350.1.13.10 4.2.7.2.686 [id number] [facility] 2022-03-07 13:00:00 2022-03-07 13:00:00 Outpatient R JEANETTE [facility] [id number] [facility] 2022-03-07 13:00:00 2022-03-07 13:00:00 Outpatient R JEANETTE [facility] [id number] [facility] 2021-12-14 10:30:00 2021-12-14 10:30:00 Outpatient R JURGEN CANNON [facility] [id number] [facility] 2021-12-14 10:30:00 2021-12-14 10:30:00 Outpatient R JURGEN CANNON [facility] [id number] [facility] 2021-10-12 00:00:00 2021-10-12 00:00:00 Orders Only Doctor Unassigned, [facility] 1.2.840.114 350.1.13.10 4.2.7.2.686 [id number] [facility] 2021-09-07 10:30:00 2021-09-07 10:47:32 Office Visit CannonJurgen santo [facility] 1.840.114 350.1.13.10 4.2.7.2.686 [id number] [facility] 2021-09-07 10:30:00 2021-09-07 10:47:32 Outpatient R [address]GEN [facility] [id number] [facility] 2021-09-07 10:30:00 2021-09-07 10:30:00 Outpatient R CANNON, JURGEN [facility] [id number] [facility] 2021-09-07 10:30:00 2021-09-07 10:30:00 Outpatient R JURGEN CANNON [facility] [id number] [facility] 2021-08-30 13:00:00 2021-08-30 14:06:24 Outpatient R JEANETTE [facility] [id number] [facility] 2021-08-30 13:00:00 2021-08-30 14:06:24 [facility] 1.840.114 350.1.13.10 4.2.7.2.686 [id number] [facility] 2021-08-30 13:00:00 2021-08-30 14:06:24 Outpatient R JEANETTE [facility] [id number] [facility] 2021-08-30 13:00:00 2021-08-30 13:00:00 Outpatient R JEANETTE [facility] [id number] [facility] 2021-08-30 00:00:00 2021-08-30 00:00:00 Orders Only Doctor Unassigned, [facility] 1.840.114 350.1.13.10 4.2.7.2.686 [id number] [facility] 2021-08-08 10:06:39 2021-08-08 23:59:00 Hospital Encounter Jurgen Cannon [facility] 1.840.114 350.1.13.10 4.2.7.2.686 [id number] [facility] 2021-08-08 13:00:00 2021-08-08 14:30:21 Outpatient R JURGEN CANNON [facility] [id number] [facility] 2021-08-08 13:00:00 2021-08-08 14:30:21 Wheel Alignment Technician Visit Test, [facility] Pulmonary Function Jurgen Cannon [facility] 1.840.114 350.1.13.10 4.2.7.2.686 [id number] [facility] 2021-08-08 08:54:25 2021-08-08 10:05:00 Hospital Encounter Jurgen Cannon [facility] 1.840.114 350.1.13.10 4.2.7.2.686 [id number] [facility] 2021-08-08 00:00:00 2021-08-08 00:00:[address] [facility] [id number] [facility] 2021-08-05 15:00:00 2021-08-05 15:15:00 Laboratory Only Only, Adc Test Mitesh Coe [facility] 1.840.114 350.1.13.10 4.2.7.2.686 [id number] [facility] 2021-08-05 15:00:00 2021-08-05 15:00:[address] [facility] [id number] [facility] 2021-06-14 00:00:00 2021-06-14 00:00:00 Telephone Suraj Reid [facility] 1.2.114 350.1.13.10 4.2.7.2.686 [id number] [facility] 2021-06-01 10:00:00 2021-06-01 11:30:16 Outpatient R JURGEN CANNON [facility] [id number] [facility] 2021-06-01 09:44:15 2021-06-01 11:30:16 Office Visit CannonJurgen santo [facility] 1.0.114 350.1.13.10 4.2.7.2.686 [id number] [facility] 2021-05-10 00:00:00 2021-05-10 00:00:00 [facility] 1..114 350.1.13.10 4.2.7.2.686 [id number] [facility] 2021-03-02 13:34:41 2021-03-02 15:58:40 [facility] 1.84.114 350.1.13.10 4.2.7.2.686 [id number] [facility] 2021-03-02 13:00:00 2021-03-02 13:00:00 [facility] [id number] [facility] 2021-03-02 00:00:00 2021-03-02 00:00:00 Orders Only Doctor Unassigned, [facility] 1..114 [id number] [id number] [id number] [facility] 2020-11-02 10:30:00 2020-11-02 10:30:00 [id number] 2020-06-29 15:07:47 2020-06-29 16:11:28 Office Visit Suraj Reid [facility] Dorian Johnson [facility] [id number] 4.2.7.2.686 [id number] 2020-06-29 15:00:00 2020-06-29 15:00:00 Outpatient R SURAJ REID [facility] [id number] [facility] 2020-06-29 00:00:00 2020-06-29 00:00:00 Orders Only Doctor Unassigned, [facility] [id number] 4.2.7.2.686 [id number] 2020-04-20 15:00:00 2020-04-20 15:00:[address] [facility] [id number] [facility] 2020-03-30 15:00:00 2020-03-30 15:00:00 Outpatient R JEANETTESURAJ [facility] [id number] [facility] 2020-03-10 14:30:00 2020-03-10 14:30:00 Outpatient R KENNA MEJIA [facility] [id number] [facility] 2020-02-16 00:00:00 2020-02-16 00:00:00 Outpatient R PARKER ESPINOZA [facility] [id number] [facility] 2020-02-11 15:30:00 2020-02-11 15:30:00 Outpatient R PARKER ESPINOZA [facility] [id number] [facility] 2020-01-29 08:00:00 2020-01-29 08:00:[address] [facility] [id number] [facility] Results Test Description Test Time Test Comments Results Result Co m[facility] [id number] 18:21:00* Test Item Value Reference Range Interpretation Comme nts POCT HBA1C (test code = 4548-4) 7.9 % 4-6 A Lab Interpretation (test cod e = [id number]) [facility]normal [facility] [id number] 19:18:00* Test Item Value Reference Range Interpretation Comme nts POCT HBA1C (test code = 4548-4) 6.5 % 4-6 A Lab Interpretation (test cod e = [id number]) Abnormal [facility] Notes Date/Time Note Provider Source 2023-01-22 12:20:16 [id number]:20:16F ormatting of this note might be different from the original.Called and left a message regarding her call. Unsure of how I can help her since she did not disclose what she needs help with. [id number] encounter [id number]:22:10Telep roseann encounter [id number] .[id number] lable for patient [id number] UgqmWebxacfuoBiflcplunORAN1678 [id number] 14-01-31T12:22:101.2.840.24852 0.1.72.3.15|1.2.840.640773.1.1 [id number] [facility] 2023-01-22 11:53:41 [id number]:53:41F ormatting of this note might be different from the original.Patient is calling in requesting to speak with provider Paulette patient will not disclose what it is in regards to.Please advise [id number] encounter IhbzYO6766-79-35C23:54:31Telep roseann encounter [id number] .2.7.2.964065|[id number] [facility] [id number] kirill Mckeon [address] RrvsIsjjtweziIiwejuyrhLTYO2527 [id number] 14-01-31T11:54:311.2.840.96055 0.1.72.3.15|1.2.840.487986.1.1 [id number] Deny Mckeon [facility]"
[2023-12-05 14:41] LABS: Absolute Eosinophils 0.1 K/uL (0-0.5); Absolute Lymphocytes (CBC) 1.8 K/uL (0.7-4.9); Absolute Monocytes 0.5 K/uL (0.1-1.3); Absolute Neutrophil 4.1 K/uL (1.8-8.0); Basophils % 0.5 % (0-1.3); Eosinophils % 1.4 % (0-4.4); Hematocrit 44.2 % (36.0-45.0); Hemoglobin 14.4 g/dL (12.0-15.0); Lymphocytes % 27.7 % (15.3-44.8); MCH 28.7 pg (27.0-35.0); MCHC 32.4 g/dL (32.0-36.0); MCV 88.5 fL (80-100); MPV 7.3 fL (7.6-11.3); Monocytes % 7.1 % (3.3-12.3); Neutrophils % 63.3 % (41.7-73.7); Platelets 113 thou/uL (152-406); Red Cell Distribution Width 14.8 % (12.1-15.2); Specific Gravity 1.019 (1.005-1.030); Sqamous Epithelial <5 /HPF (None Seen); Urine Bacteria None Seen /HPF (<20); Urine Bilirubin NEGATIVE (Negative); Urine Blood Negative (Negative); Urine Clarity Clear (Clear); Urine Color Light-Yellow (Yellow); Urine Culture Reflex Order NOT NEEDED; Urine Glucose NEGATIVE (Negative); Urine Ketones NEGATIVE (Negative); Urine Microscopic Reflex YN ORDER UMIC; Urine Mucus Slight /HPF (None Seen); Urine Nitrite NEGATIVE (Negative); Urine Protein NEGATIVE (Negative); Urine RBC <5 /HPF (None Seen); Urine Urobilinogen Normal (Normal); Urine WBC <5 /HPF (<5); Urine pH 5.5 (5.0-7.0)
[2023-12-05 14:58] LABS: Albumin 3.4 g/dL (3.4-5.0); Albumin/Globulin Ratio 0.9 (1.1-1.8); Anion Gap 8.4 mEq/L (5.0-15.0); Bilirubin Total 0.4 mg/dL (0.2-1.0); Potassium 4.4 mEq/L (3.5-5.1); Protein, Total 7.4 g/dL (6.4-8.2)
--- NOTE | 2023-12-05 16:11 | RAD REPORT ---
EXAM DESCRIPTION: CT - Abdomen Pelvis Wo Contrast - 12/05/2023 2:34 pm CLINICAL HISTORY: right flank pain, known right kidney problems;Abd pain COMPARISON: 05/12/2023 TECHNIQUE: Thin cut axial CT imaging of the abdomen and pelvis was performed without IV contrast. Mu ltiplanar reformats were generated and reviewed. All CT scans are performed using dose optimization technique as appropriate and may include automated exposure control or mA/KV adjustment according to patient size. FINDINGS: No suspicious findings in the lung bases. The liver, spleen, adrenal glands, and pancreas show no suspicious findings. Gallbladder is moderatel y distended, without wall thickening or adjacent fat stranding, or radiopaque calculi. Symmetric renal contour, without suspicious parenchymal findings within limits of noncontrast techniq ue. No evidence of radiopaque calculi or hydroureteronephrosis. No dilated bowel loops or bowel wall thickening. No free air, free fluid or inflammatory stranding. N o hernia, mass or bulky lymphadenopathy. The urinary bladder is without significant finding. No suspicious bony findings. Lumbar spine degenerative changes with partial ankylosis across the disc space at L5-S1 and minimal degrees of spondylolisthesis most notably at L1-2 and L4-5. IMPRESSION: No evidence of hydroureteronephrosis or radiopaque urinary tract calculi. Moderate gallbladder distention, without acute findings. Please correlate clinically if there is conc roger for acute cholecystitis. Other incidental findings as above.
[2023-12-05] MEDS ORDERED: CODEINE 30MG/APAP 300MG TAB ONE (16:13)
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
--- NOTE | 2023-12-05 18:47 | RAD REPORT ---
EXAM DESCRIPTION: US - Abdomen Exam Limited - 12/05/2023 4:42 pm CLINICAL HISTORY: RUQ abd pain COMPARISON: Abdomen Pelvis Wo Contrast dated 12/05/2023 TECHNIQUE: Sonographic grayscale and color flow images of the right upper abdominal quadrant were o btained. FINDINGS: The gallbladder demonstrates no gallstones. No pericholecystic fluid or gallbladder wall t hickening. Negative sonographic Hernadez's sign. The common bile duct is normal measuring 5 mm. The liver demonstrates no findings of intrahepatic biliary dilatation. IMPRESSION: No acute findings. Mild gallbladder distention.
[2023-12-05 20:17] VITALS: O2SAT 96
[2023-12-05] MEDS ORDERED: ONDANSETRON 4 MG/2 ML VIAL IV PRN (20:34)
[2023-12-05 20:51] VITALS: BMI 31.9
[2023-12-05] MEDS: INSULIN REGULAR (HUMAN) 100 UNIT/ML SQ SCH (21:00)
[2023-12-05] MEDS: NA CHLORIDE 0.9% 1,000 ML IV SCH (21:02)
--- NOTE | 2023-12-05 22:14 | HP ---
Date of Admission: 12/05/2023 Chief Complaint: Abdominal pain. History Of Present Illness: This is a 78-year-old female patient, who came into emergency room with right upper quadrant abdominal pain for last few days. The patient was evaluated in the ER and was admitted to the hospital after her workup was done in the emergency room. When I saw her this evening, she was still in the emergency room and when I asked her about her presenting problem, she informed me that she was hurting all over and I had to keep on redirecting her about her complaints that required her to come to the emergency room and finally she told me that it was her abdominal pain, but she keeps going back to telling me that she hurts all over. When I asked her how long she has been hurting all over, she reported that for last 2 years and that has not changed any. For last few days, she is having this pain, right upper abdominal pain, but at the same time she says she has pain all over her abdomen. She gives history of either constipation or diarrhea, which is nothing new for her. Denies any blood in stool. No fever. No chills. She has chronic nausea problem which is nothing new. Review of Systems: GI: As mentioned above. All other systems reviewed and negative. Medications: List reviewed. Allergies: AMOXICILLIN CAUSING ITCHING, LYRICA CAUSING THROAT SWELLING, SULFA DETAILS UNKNOWN, TETRACYCLINE DETAILS UNKNOWN, IODINE DETAILS UNKNOWN, HYDROCODONE DETAILS UNKNOWN, GABAPENTIN DETAILS UNKNOWN. Past Medical History: Significant for TIA, peripheral neuropathy, type 2 diabetes mellitus, hypertension, hyperlipidemia, coronary artery disease, myocardial infarction in December 2019, chronic systolic heart failure, gastroesophageal reflux disease, diverticulosis, depression. Past Surgical History: Tonsillectomy, coronary artery stent placement in December 2019, aortic valve surgery in February 2020, left leg angioplasty with stent placement, appendectomy, ventral hernia surgery, hysterectomy, and hip surgery. Family History: Father , had coronary artery disease. Mother , had stroke. Brother has colon cancer and bladder cancer. Social History: Prior history of smoking, not at present time. Use of alcohol negative. Physical Examination: Vital Signs: Height 64 inches, weight 186 pounds, oxygen saturation 98%, blood pressure 111/59, temperature 97.3, pulse 72, respiratory rate 18. General: Awake, alert, oriented, not in distress. HEENT: Head atraumatic, normocephalic. Conjunctivae nonerythematous. Sclerae white. Mouth, no thrush or edema noted. Ears/Nose, no mass, lesion, discharge noted. Neck: Supple. No JVD, lymph nodes, bruit, thyromegaly noted. Lungs: Bilateral good equal air entry. Clear to auscultation. No rhonchi. No rales. Heart: Normal heart sounds, no murmur or gallop. Abdomen: Soft, bowel sounds normal. No guarding, rigidity, tenderness, mass, hepatosplenomegaly, distention, or bruit noted. Extremities: No leg edema. No calf tenderness. Skin: No rash, ulcer, cellulitis. Lymphatics: No lymph node enlargement in neck, supraclavicular, infraclavicular region. Neuro: No focal neurological deficit. Chest: Unremarkable. External Genitalia: Deferred. Rectal: Deferred. Laboratory Data: WBC 6.5, hemoglobin 14.4, platelets 113. Sodium 138, potassium 4.4, chloride 109, bicarb 25, BUN 23, creatinine 0.99, glucose 105. Liver function tests unremarkable. Lipase 50. Urinalysis negative. CAT scan of the abdomen and pelvis shows no evidence of hydronephrosis or kidney stone, moderate gallbladder distention without acute finding. Abdominal ultrasound of right upper quadrant shows no acute finding, mild gallbladder distention. Impression: 1. Abdominal pain, right upper quadrant. 2. Type 2 diabetes mellitus. 3. Hypertension. 4. Hyperlipidemia. 5. Coronary artery disease. 6. Chronic systolic heart failure. 7. Gastroesophageal reflux disease. 8. Diverticulosis. 9. Depression. Plan: We will go ahead and admit the patient to hospital for further evaluation and management of this problem. The patient is appropriate for observation. Workup done in the emergency room has not revealed any definite etiology. We will monitor her overnight and repeat blood work tomorrow morning. IV fluid will be given. We will go ahead and give diabetic diet and I will re-evaluate her tomorrow morning. Depending on her condition, we will decide if we can possibly discharge her to go home tomorrow or not. For her diabetes, we will manage that with sliding scale insulin. Her home medications will be continued as per order. Total time spent 60 minutes that includes review of current emergency room records, performing current evaluation and management of this admission, review of prior hospital admission record from April 2023, and review of prior office records. AJAY/MODL Voice ID: [id number] [id number]
[2023-12-05] MEDS: HYDROCODONE/APAP 5/325 MG TAB PO PRN (22:23)
[2023-12-06 05:27] VITALS: TEMP 96.9
[2023-12-06 06:22] LABS: Absolute Eosinophils 0.1 K/uL (0-0.5); Absolute Lymphocytes (CBC) 1.7 K/uL (0.7-4.9); Absolute Monocytes 0.4 K/uL (0.1-1.3); Absolute Neutrophil 3.7 K/uL (1.8-8.0); Basophils % 0.5 % (0-1.3); Eosinophils % 1.6 % (0-4.4); Hematocrit 41.9 % (36.0-45.0); Hemoglobin 13.7 g/dL (12.0-15.0); Lymphocytes % 28.5 % (15.3-44.8); MCH 28.6 pg (27.0-35.0); MCHC 32.6 g/dL (32.0-36.0); MCV 87.5 fL (80-100); MPV 7.2 fL (7.6-11.3); Monocytes % 7.5 % (3.3-12.3); Neutrophils % 61.9 % (41.7-73.7); Platelets 100 thou/uL (152-406); RBC Red Blood Cell Count 4.79 M/uL (3.86-4.86); Red Cell Distribution Width 14.5 % (12.1-15.2)
[2023-12-06 06:40] LABS: ALT/SGPT 15 U/L (13-56); AST/SGOT 11 U/L (15-37); Albumin 3.1 g/dL (3.4-5.0); Albumin/Globulin Ratio 0.8 (1.1-1.8); Alkaline Phosphatase 42 U/L (45-117); Anion Gap 7.3 mEq/L (5.0-15.0); BUN Blood Urea Nitrogen 19 mg/dL (7-18); Bicarbonate 26 mEq/L (21-32); Bilirubin Direct < 0.2 mg/dL (0-0.2); Bilirubin Indirect, Calculated 0.1 mg/dL (0.2-0.8); Bilirubin Total 0.3 mg/dL (0.2-1.0); Glomerular Filtration Rate 75 ml/min (=/>90); Glucose Level 92 mg/dL (74-106); Lipase 23 U/L (13-75); Potassium 4.3 mEq/L (3.5-5.1); Protein, Total 7.1 g/dL (6.4-8.2); Sodium Level 138 mEq/L (136-145)
[2023-12-06 09:43] VITALS: BP 141/61
--- NOTE | 2023-12-06 20:52 | DS ---
Date of Discharge: 12/06/2023 Disposition: Discharged to go home. Physical Examination: HEENT: Unremarkable. Lungs: Clear to auscultation. Heart: Sounds normal. Abdomen: Soft. Bowel sounds normal. No guarding, rigidity, tenderness, distention. Extremities: No leg edema. Discharge Medications And Instructions: 1. Continue all prior home medication. The patient to take Nexium 40 mg p.o. daily and we will send prescription to her pharmacy. 2. Follow up at my office next week. Laboratory Data: Yesterday, white count 6.5, hemoglobin 14.4, platelets 113. Today, white count 5.9, hemoglobin 13.7, platelets 100. Yesterday, sodium 138, potassium 4.4, chloride 109, bicarb 25, BUN 23, creatinine 0.99, glucose 105. Liver function tests unremarkable. Lipase 50. This morning, sodium 138, potassium 4.3, chloride 109, bicarb 26, BUN 19, creatinine 0.80, glucose 92. Liver function tests unremarkable. Lipase 23. Hospital Course: This is a 78-year-old pleasant female patient admitted to the hospital with abdominal pain complaints. Please see dictated H and P for more information. After the patient was evaluated in the emergency room, she was admitted to the hospital for observation overnight. She was kept in hospital. This morning when I saw her, she was feeling better, did not have any complaints overnight. No nausea, no vomiting this morning, and her abdominal pain problem improved. I did talk to her about trying Nexium as she takes [id number] Nexium 20 mg daily as needed and I have instructed her to take prescription strength 40 mg Nexium daily and come see me next week for followup. If she does not improve with this, then I have instructed her that she should follow up with [facility] for consideration of EGD on an elective outpatient basis. Her CAT scan of the abdomen and pelvis done during this hospitalization did not show any acute findings. Final Diagnoses: 1. Right upper quadrant abdominal pain. 2. Type 2 diabetes mellitus. 3. Hypertension. 4. Hyperlipidemia. 5. Coronary artery disease. 6. Chronic systolic heart failure. 7. Gastroesophageal reflux disease. 8. Diverticulosis. 9. Depression. Total time spent today was 25 minutes. AJAY/MODL Voice ID: [id number] Report ID: [id number] MTDD
== END 2023-12-06 09:13 | disposition home or self-care (01) ==
LOC: ER 13:56 → ERHOLD 17:23 → 4TH 19:07
PROVIDERS: ADMIT Internal Medicine; ATTEND Internal Medicine
DX: R10.11 Right upper quadrant pain (principal); I50.22 Chronic systolic (congestive) heart failure; I10 Essential (primary) hypertension; I25.10 Atherosclerotic heart disease of native coronary artery without angina pectoris; I25.2 Old myocardial infarction; E11.9 Type 2 diabetes mellitus without complications; E78.5 Hyperlipidemia, unspecified; F32.A Depression, unspecified; K57.90 Diverticulosis of intestine, part unspecified, without perforation or abscess without bleeding; K21.9 Gastro-esophageal reflux disease without esophagitis; Z88.1 Allergy status to other antibiotic agents; Z86.73 Personal history of transient ischemic attack (TIA), and cerebral infarction without residual deficits; Z88.2 Allergy status to sulfonamides; Z88.5 Allergy status to narcotic agent
CPT/HCPCS: 85025 ×2; 81001; 80048; 36415; 82947 ×2; 80076; 83690 ×2; 80053; 74176; 76705; 99285; J7030; G0378 ×4

== ENCOUNTER 2024-08-05 11:00 | Day surgery (SDC) | payer OTHER ==
[2024-08-04 12:03] LABS: Absolute Eosinophils 0.1 K/uL (0-0.5); Absolute Lymphocytes (CBC) 1.1 K/uL (0.7-4.9); Absolute Monocytes 0.5 K/uL (0.1-1.3); Absolute Neutrophil 4.3 K/uL (1.8-8.0); Basophils % 0.5 % (0-1.3); Eosinophils % 0.9 % (0-4.4); Hematocrit 41.4 % (36.0-45.0); Hemoglobin 13.8 g/dL (12.0-15.0); Lymphocytes % 18.7 % (15.3-44.8); MCH 27.7 pg (27.0-35.0); MCHC 33.4 g/dL (32.0-36.0); MCV 82.9 fL (80-100); MPV 7.8 fL (7.6-11.3); Monocytes % 7.9 % (3.3-12.3); Platelets 109 thou/uL (152-406); RBC Red Blood Cell Count 4.99 M/uL (3.86-4.86); Red Cell Distribution Width 14.4 % (12.1-15.2)
[2024-08-04 12:04] LABS: PT Prothrombin Time 11.9 SECONDS (9.4-12.5); PTT, Activated Partial Thromb 31.1 SECONDS (24.3-36.9); Protime INR 1.13
[2024-08-04 12:09] LABS: Anion Gap 9.3 mEq/L (5.0-15.0); Potassium 4.3 mEq/L (3.5-5.1)
--- NOTE | 2024-08-04 12:22 | RAD REPORT ---
EXAMINATION: ONE VIEW CHEST XR CLINICAL INDICATION: SDS at desk TECHNIQUE: Frontal chest projection is submitted. Examination is limited by patient positioning and t echnique. COMPARISON: 05/12/2023 FINDINGS: The lungs are emphysematous but clear. The heart is upper limit of normal in size. No displaced fract ures identified. IMPRESSION: No acute intrathoracic abnormalities. COPD.
[2024-08-05] MEDS ORDERED: NA CHLORIDE 0.9% 500 ML ONE (11:04)
[2024-08-05] MEDS ORDERED: HEPARIN 10,000 UNIT/10 ML VIAL IV ONE (12:14)
[2024-08-05] MEDS ORDERED: HEPA 1000U/500MLS 2,000 UNIT/1,000 ML BAG IV ONE (12:14)
[2024-08-05] MEDS ORDERED: VERAPAMIL HCL 10 MG/4 ML VIAL IV ONE (12:14)
[2024-08-05] MEDS ORDERED: MIDAZOLAM HCL 2 MG/2 ML INJ ONE (12:14)
[2024-08-05] MEDS ORDERED: LIDOCAINE 1% 20 ML MDV ONE ×2 (12:14→12:44)
[2024-08-05] MEDS ORDERED: ASPIRIN 325 MG TAB ONE (12:15)
[2024-08-05] MEDS ORDERED: CLOPIDOGREL 75 MG TABLET ONE (12:15)
[2024-08-05] MEDS ORDERED: TICAGRELOR 90 MG TABLET PO ONE (12:15)
[2024-08-05] MEDS ORDERED: HEPARIN 5000 UNIT/ML 1 ML VIAL ONE (12:15)
[2024-08-05] MEDS ORDERED: ATROPINE SULF 1 MG/10 ML SYR IV ONE (12:15)
[2024-08-05] MEDS ORDERED: FENTANYL CITR 100 MCG/2 ML ONE (12:16)
[2024-08-05] MEDS ORDERED: METHYLPREDNISOLONE 125 MG INJ ONE (12:41)
[2024-08-05] MEDS ORDERED: DIPHENHYDRAMINE 50 MG/ML VIAL ONE (12:42)
--- NOTE | 2024-08-05 12:43 | EKG ---
Test Date: 2024-08-04 Test Time: 12:34:18 Ip Paralegal: MANDIE MEASUREMENT RESULTS: Intervals: Rate: 81 IL: 164 QRSD: 88 QT: 408 QTc: 473 [place]: P: 39 IL: 164 QRS: -8 T: 90 INTERPRETIVE STATEMENTS: Sinus rhythm with occasional premature ventricular complexes Minimal voltage criteria for LVH, may be normal variant Prolonged QT Abnormal ECG Compared to ECG 06/05/2023 13:00:17 Ventricular premature complex(es) now present Left ventricular hypertrophy now present Prolonged QT interval now present Fusion complex(es) no longer present T-wave abnormality no longer present Electronically Signed On 08-05-24 12:41:29 [employer] SERVICE CONSULTANT by Russell Jordan
[2024-08-05] MEDS ORDERED: HYDRALAZINE HCL 20 MG/ML VIAL ONE (13:05)
[2024-08-05] MEDS: FENTANYL CITR 100 MCG/2 ML ONE (14:54)
[2024-08-05] MEDS: ACETAMINOPHEN 325 MG TABLET ONE (15:47)
[2024-08-05 16:23] VITALS: BP 139/83; O2SAT 95
--- NOTE | 2024-08-05 19:34 | OP ---
Date of Procedure: 08/05/2024 Surgeon: SHANKAR ZAPATA Procedures Performed: 1. Selective coronary angiogram. 2. Left heart catheterization. 3. Right heart catheterization. Indication: Aortic valve stenosis evaluation. Access: 1. Right radial artery 6-[place] closed with TR band. 2. Right common femoral artery 6-[place] closed with the 6-[place] Mynx closure device. 3. Right IJ 7-[place] closed with manual pressure. Complications: None. Bleeding: Less than 50 mL. Anesthesia: Total sedation time was 1 hour, used fentanyl and Versed. Description Of Procedure: After risks, benefits, and alternatives were explained, the patient agreed to procedure and signed informed consent. The patient was brought into cardiac catheterization [facility], prepped and draped in usual sterile fashion. Then, I accessed right IJ using micropuncture k it, ultrasound guidance, placed a 7-[place] pinnacle sheath. Then, I accessed radial artery on the [facility] using pediatric micropuncture kit and ultrasound guidance, and placed 6-[place] slender sheath. T here was significant spasm of that radial artery, so I accessed the right common femoral artery using a micropuncture kit, ultrasound guidance, fluoroscopy, placed 6-[place] sheath and took a 7- [place] balloon-tipped [place] catheter through the IJ access into the right atrium, right ventricle, pul monary artery and wedge, obtained waveform and pressure and obtained a cardiac output by thermodiluti onal method. Then, I took a 6-[place] JL3.5 guide catheter over a J-wire through the groin access int o the aortic root, engaged left main, took standard views, and then exchanged for 6-[place] 3DRC d[address]ie ter, engaged the RCA, took standard views and then crossed the aortic valve and sent the [place] cat heter, did simultaneous measurements of pressure in the LV and the aorta. Pullback did not record an y internal gradient. Then, I removed the catheter. Sheath in the groin was removed and a 6-[place] M ynx closure device was used for closure with good hemostasis. Radial sheath was removed and TR band was placed with good hemostasis and IJ sheath was removed. Manual pressure was used for closure with good hemostasis. Findings: 1. Coronary angiogram. a. Left main is normal. b. LAD; proximal to mid 60% stenosis, mid 60% stenosis. Rest of the LAD is normal. Normal diago nal branches. c. Left circumflex has proximal 70% stenosis. Rest of it is normal. d. RCA has mid to distal 60% stenosis. 2. Right heart cath numbers: RA pressure is 10/6, mean of 5. RV pressure is 65/2, mean of 5. PA pr essure is 56/29, mean of 38. Pulmonary wedge pressure was 23. LVEDP was 35 mmHg and the average car diac output was 4.4 L/minute, mean gradient was 28 mmHg and the aortic valve area was 0.75 sq cm. Conclusion: 1. 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 2. Severe aortic valve stenosis with a valve area of 0.75 sq cm. Recommendation: Aortic valve replacement with the consideration for bypass surgically. If she does not want to proceed with the bypass, then we will have to do PCI of at least left circumflex and the RCA and do valve replacement. To follow up with me in the office in 1 week to discuss this further. /LYUDMILAL Voice ID: [id number] Report ID: [id number]
== END 2024-08-05 16:30 | disposition home or self-care (01) ==
LOC: CCL 11:00
PROVIDERS: ATTEND Internal Medicine
DX: I35.0 Nonrheumatic aortic (valve) stenosis (principal); I25.10 Atherosclerotic heart disease of native coronary artery without angina pectoris; I70.223 Atherosclerosis of native arteries of extremities with rest pain, bilateral legs; I65.23 Occlusion and stenosis of bilateral carotid arteries; I10 Essential (primary) hypertension; E78.5 Hyperlipidemia, unspecified; K21.9 Gastro-esophageal reflux disease without esophagitis; Z79.82 Long term (current) use of aspirin; Z79.899 Other long term (current) drug therapy; Z88.2 Allergy status to sulfonamides; Z88.5 Allergy status to narcotic agent; Z88.8 Allergy status to other drugs, medicaments and biological substances; Z91.040 Latex allergy status
CPT/HCPCS: 93005; 85025; 80048; 36415; 85610; 82947; 85730; 71045; 93460; 76937; C1893; Q9967; J1644; J0360; J2003 ×2; J1200; J3010 ×2; J2919; J7040; C1760; 99152; 99153; J0461; J2250